=== PATIENT | female | born 1995 ===

== ENCOUNTER 2020-07-27 | Outpatient (REF) | payer BC, SELFPAY | END 2020-07-27 00:01 | disposition home or self-care (01) | LOC: HO.LNP | PROVIDERS: Visit Provider Hospitalist | DX: R30.0 Dysuria (principal) | CPT/HCPCS: 87086 ==

== ENCOUNTER 2023-12-02 09:44 | Outpatient (AMB) | payer OTHER, SELFPAY ==
--- NOTE | 2023-12-02 10:16 | A.OFFPSYCH_ITS ---
Intake Vital Signs 12/02/23 10:16 Height 5 ft 1 in Weight 165 lb Intake Visit Reasons: depression, ADHD, JORGE (generalized anxiety disorder), Borderline personality disorder Education Nurse Required: No Allergies amoxicillin Allergy (Intermediate, Verified 07/27/20 10:36) hives acetaminophen [Vicodin] Allergy (Mild, Verified 07/27/20 10:36) nor reaction Erythromycin Allergy (Intermediate, Uncoded 07/27/20 10:36) hives Medication List - Last Reconciled 12/02/23 by Courtney Omalley APRN clonazepam 0.5 mg PO TID levothyroxine 0 mcg PO methylphenidate HCl 10 mg PO BID ondansetron HCl 8 mg PO TID PRN HPI- Psychiatric Chief Complaint: depression, ADHD, JORGE (generalized anxiety disorder), Borderline personality disorder Intake Note: 28 yo woman with anxiety and ADHD in need of medication management HPI Narrative: Pt reports prozac caused significant fatigue and brain fog. she tried taking it at night but it caused nightmares and poor sleep; Pt reports stable mood and less anxiety and no panic attacks; she reports no moodiness, no irritability; He r focus and concentration is good; no impulsivity. Relationship with and parenting going well overall. Work going well. no self harm; no medical changes. she feels hopeful; she is exercising several times a week. She is meditating. She is taking a break from therpay and feels good about this; she has many coping kathi as she completed DBT groups and also learned how to use IFS model to calm herslef and increase self acceptance. She is struggling with binge eating periodically. she feels the vyvanse was helpful with this but doesn't want to change any medication now. no SI or HI; no jodi, no self harm Past Psychiatric History: Her first trouble with psychiatric symptoms was in 5th grade - first psych problems- she started with self harming in 5th grade; She was hospitalized many times as child/teen for self harmage 18 completed 1 yr DBT program= with very +++ results one hospitalization after 2 yr old dtr born and started on SSRI and it helped At age 16 a doctor told she had borderline personality disorder and referred her to DBT program which was a one year program and changed her life for the better. 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 Medication Trials: geodon- sedation/dizziness amictal ? rash risperdal- too scared to try Adderall - headaches, nausea wellbutrin - twitching prozac - worked well ? numbing (cut self 2019) 2022 to sedating seroquel - sedation, weight gain lexapro- negative celexa- negative concerta 27 mg - anxiety ativan - rebound irritability effexor - sedation, nausea - abilify - increased irritability buzzing in ears zoloft- negative tegretol- worked well in past 2019- Self injury - twitching trileptal-sedation rash depakote-weight gain vyvanse helped but almost too strong- increased anxiety a little luvox- worked well at first then irritabilty topomax vraylar Panic attacks: Yes Agoraphobia: No Separation anxiety disorder: No Social phobia: No Specific phobia: No Hypochondriasis: Yes Body dysmorphic disorder: Yes Obsessive compulsive disorder: No Generalized anxiety: Yes Post traumatic stress disorder: Yes Acute stress disorder: No Previous psychiatric history: Yes Previous inpatient psychiatric hospitalization: Yes Other previous psychiatric treatment programs: none History of suicidal ideation: Yes History of suicide attempt: No Medically hospitalized: No History of self injurious behavior: Yes History of violence: No Current/previous psychiatrist: nancy Current/previous therapist: none now Subjective Subjective Subjective Medication Compliance: Yes Side effects from medications: No Review of Systems Medical Review of Systems: unchanged Review of Systems Review of Systems Yes all other systems are reviewed and are negative Mental Status Exam Mental Status Exam Patient Appearance: Well Grooomed and Appropriate Patient Orientation: Person, Place, Time and Situation Level of Consciousness: Awake Patient Behavior: Appropriate, Talkative and Good Eye Contact Mood Description: Anxious Affect Description: Anxious Patient Cognition Impaired: No Ability to Follow Directions: Good Speech Pattern: Clear Memory Description: Intact Hallucinations: None Delusions: Not Present Thought Process: Intact and Goal Oriented Thought Content: positive for Intact and positive for Goal Oriented Judgement: Fair Assessment and Plan Assessment & Plan (1) Generalized anxiety disorder: Code(s): F41.1 - Generalized anxiety disorder (2) Borderline personality disorder: Code(s): F60.3 - Borderline personality disorder (3) ADHD: Status: Acute Code(s): F90.9 - Attention-deficit hyperactivity disorder, unspecified type Plan continue clonazpeam 0.5mg tidprn continue ritalin 10 mg BID continue to meditate, do yoga and utilize strategies from DBT, IFS to cope with stress and intense emotions. Medications: New clonazepam 0.5 mg PO TID 90 tabs 1RF methylphenidate HCl 10 mg PO BID 60 tabs 0RF Counseling and coordination of Care Pt. Self Management counseling: Breathing, Exercise, Maintenance-social rhythm, Mindfulness, Mod caffeine/ETOH intake, Sleep hygiene and General coping skills Medication management counseling: Effectiveness, Side effects, Dosing range, Duration, Drug interaction and Adherence Diagnosis and Prognosis Counseling: Accuracy of diagnosis, Prognosis over time, Impact of diagnosis on life functions, Impact of family relationship, Problematic behaviors secondary to diagnosis and Adequacy of current interventions Details: I spent 30 minutes reviewing the record, seeing the patient and documenting in the medical record. Counseling provided to the patient/caregiver as outlined below. Addressed patient/caregiver concerns regarding current medication regime including effective adherence. Addressed patient/caregiver concerns regarding diagnosis and prognosis including accuracy of diagnosis, prognosis over time, impact of diagnosis. Addressed patient/caregiver concerns regarding impact of recent stressors. 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 Substance History: none Trauma History: childhood trauma Coding Level of Care Code Est Pt Level 4 (00780) Diagnoses Generalized anxiety disorder F41.1 Borderline personality disorder F60.3 ADHD F90.9
== END 2023-12-02 10:17 | disposition home or self-care (01) ==
LOC: HO.HOP 09:44
PROVIDERS: Visit Provider Clinical Nurse Specialist Psychiatric/Mental Health
DX: F60.3 Borderline personality disorder (principal); F41.1 Generalized anxiety disorder; F90.9 Attention-deficit hyperactivity disorder, unspecified type
CPT/HCPCS: 99214

== ENCOUNTER → 2023-12-02 09:44 | Outpatient (BNVA) | payer OTHER, SELFPAY | PROVIDERS: Visit Provider Clinical Nurse Specialist Psychiatric/Mental Health ==

== ENCOUNTER 2024-01-10 13:41 | Outpatient (AMB) | payer OTHER, SELFPAY ==
--- NOTE | 2024-01-10 09:56 | MHC.PC.OV ---
Vital Signs 01/10/24 13:58 Height 5 ft 1 in Weight 191 lb 4 oz BMI 36.1 BP 96/60 Blood Pressure Location Lt brachial Position Sitting Respiration 16 Pulse 104 H Pulse Source Pulse Oximeter Temp 98 F Temp Source Oral Pulse Oximetry (%) 98 Oxygen Delivery Method Room Air Intake Visit Reasons: est care Intake Note: New patient visit Bond Manager Required: No Is last menstrual period known: Yes Last menstrual period: 12/04/23 Allergies amoxicillin Allergy (Intermediate, Verified 07/27/20 10:36) hives Erythromycin Allergy (Intermediate, Uncoded 07/27/20 10:36) hives Medication List - Last Reconciled 01/10/24 by Martina Lucio MD clonazepam 0.5 mg PO TID levothyroxine 0 mcg PO methylphenidate HCl 10 mg PO BID Tobacco use date assessed: 01/10/24 Dental Screening Dental Screen Date: 01/10/24 Did you have a dental visit in the last 12 months?: Yes Did you have a dental problem in the last 6 months where you did not have access to dental care?: No Was dental information given to patient?: Patient has dentist HPI HPI Comments History of Present Illness Details The patient is a 28 year old female with a past medical history of ADD, depression, anxiety, neck pain presenting for follow up She has had increased pain in the neck radiating down the right shoulder and right arm for the past 2 months. She has had issues with this in the past. she has had prior MRI, seen [facility]. She has pain and weakness in the right distal arm and hand which feels weak at times. She has had increased pain in multiple joints and tuscle fatigue and discomfort. Hypothyroid: stable on levothyroxine BH: Stable on methylphenidate and clonazepam. Follows with psych She reports 2-3 month history of left anterior neck fullness of upper neck, under jaw. Discomfort when she rotates her head. Denies left ear pain, denies tooth pain, denies sore throat, denies swallowing issues PFSH Family History (Updated 01/10/24 @ 14:14 by Lani Banda CMA) Father Gastric cancer HTN (hypertension) Asthma Maternal Grandmother Suicide Mother Depression Psychiatric disorder Other FH: mental illness Social History (Updated 01/10/24 @ 14:17 by Lani Banda CMA) Housing: House Patient Tobacco Use Status: Never used Tobacco e-Cigarette/Vaping Use: Never Used Second Hand Smoke Exposure: No service: No Current occupational status: employed Current occupation: [employer] Current occupational exposures/hazards: No Cognitive needs: No Hearing needs: No Vision needs: No Female Reproductive History Menstrual Date of last menstrual period: 12/04/23 Questionnaire PHQ-9 Over the last 2 weeks, how often have you been bothered by any of the following problems? 1. Little interest or pleasure in doing things: not at all 2. Feeling down, depressed, or hopeless: not at all 3. Trouble falling or staying asleep, or sleeping too much: not at all 4. Feeling tired or having little energy: not at all 5. Poor appetite or overeating: not at all 6. Feeling bad about yourself - or that you are a failure or have let yourself or your family down: not at all 7. Trouble concentrating on things, such as reading the newspaper or watching television: several days 8. Moving or speaking so slowly that other people could have noticed. Or the opposite - being so fidgety or restless that you have been moving around a lot more than usual: not at all 9. Thoughts that you would be better off or of hurting yourself in some way: not at all Total score: 1 Depression Screening Interpretation: Negative (neg) Depression Screening Done: Yes 96763 - PHQ-9 Billing: Yes Source: Developed by Drs. Balaji Toro, Chrystal Abrams, Jamison Davey and colleagues, with an educational marly from [employer]. Thrive Questionnaire Date Thrive assessed: 01/10/24 I am a: Patient What is your living situation today?: I have a steady place to live Within the past 12 months, did the food you bought not last and you didn't have the money to get more?: Never true Within the past 12 months, did you worry whether your food would run out before you got money to buy more?: Never true Do you have trouble paying for medicines?: No Do you have trouble getting transportation to medical appointments?: No Do you have trouble paying your heating and electricity bill?: No Do you have trouble taking care of your child, family member or friend?: No Do you have trouble with day-to-day activities such as bathing, preparing meals, shopping, managing finances, etc.?: No Are you currently unemployed and looking for a job?: No Are you interested in more education?: No Please select the resources that you would like help with: None Currently or been in a relationship where the following occur: no concerns reported THRIVE Score: 0 AUDIT C Alcohol Use Questionnaire (AUDIT-C) 1. How often do you have a drink containing alcohol?: Never 3. How often do you have six or more drinks on one occasion?: Never Total Score: 0 JORGE-7 AMB Questionnaire JORGE-7 Date JORGE - 7 assessed: 01/10/24 Feeling nervous, anxious, or on edge: 0 = Not at all Not being able to stop or control worryin = Not at all Worrying too much about different things: 0 = Not at all Trouble relaxin = Not at all Being so restless that it is hard to sit still: 0 = Not at all Becoming easily annoyed or irritable: 1 = Several days Feeling afraid as if something awful might happen: 0 = Not at all Total JORGE-7 score (0-4 normal; 5-9 mild; 10-14 moderate; 15-21 severe): 1 Source: Developed by Drs. Balaji Toro, Chrystal Abrams, Jamison Davey and colleagues, with an educational marly from [employer]. JORGE-7 Assessment Billing JORGE-7 Assessment Tool: JORGE-7 Assessment 12508 Review of Systems Const Details: see HPI Physical exam (Primary Care) Vital Signs: Last Vital Signs Temp 98 F 01/10/24 13:58 Pulse 104 H 01/10/24 13:58 Resp 16 01/10/24 13:58 BP 96/60 01/10/24 13:58 Pulse Ox 98 01/10/24 13:58 Oxygen Delivery Method Room Air 01/10/24 13:58 PHYSICAL EXAM: GENERAL: Alert and oriented x 3. NAD EYES: EOMI. Anicteric. HENT: Moist mucous membranes. No scleral icterus. b/l submandibular fullness LUNGS: Clear to auscultation bilaterally. CARDIOVASCULAR: Regular rate and rhythm. No murmur. No JVD. ABDOMEN: Soft, non-tender +bs EXTREMITIES: No edema. Non-tender. SKIN: No rashes or lesions. Warm. NEUROLOGIC: No focal neurological deficits. CN II-XII grossly intact PSYCHIATRIC: Cooperative. Appropriate mood and affect BMI result Body Mass Index 36.1 Tobacco/Smoking Status: Tobacco use Status Tobacco use date assessed 01/10/24 01/10/24 13:57 Patient Tobacco Use Status Never used Tobacco 01/10/24 14:17 e-Cigarette/Vaping Use Never Used 01/10/24 14:17 PHQ-9: PHQ-9 Score PHQ-9: Total score 1 01/10/24 14:16 Depression Screening Interpretation: Negative (neg) Thrive Assessment: Date of Thrive Assessment Date Thrive assessed 01/10/24 01/10/24 14:16 Currently or been in a relationship where the following occur: no concerns reported Assessment and Plan Assessment & Plan (1) ADHD: Comment: continue follow up Code(s): F90.9 - Attention-deficit hyperactivity disorder, unspecified type Qualifiers: Attention deficit-hyperactivity disorder type: predominantly inattentive Qualified Code(s): F90.0 - Attention-deficit hyperactivity disorder, predominantly inattentive type (2) Dysuria: Code(s): R30.0 - Dysuria (3) Hypothyroidism: Comment: check TSH Code(s): E03.9 - Hypothyroidism, unspecified Qualifiers: Hypothyroidism type: unspecified Qualified Code(s): E03.9 - Hypothyroidism, unspecified (4) Irritable bowel syndrome: Code(s): K58.9 - Irritable bowel syndrome without diarrhea Qualifiers: Irritable bowel syndrome type: unspecified Qualified Code(s): K58.9 - Irritable bowel syndrome without diarrhea (5) Anxiety: Code(s): F41.9 - Anxiety disorder, unspecified (6) Anxiety: Code(s): F41.9 - Anxiety disorder, unspecified (7) H/O section: Code(s): Z98.891 - History of uterine scar from previous surgery (8) Cervical radiculopathy: Comment: xr ordered. may need repeat MRI Code(s): M54.12 - Radiculopathy, cervical region Orders: Orders Rheumatoid Factor 01/10/24 M25.50 - Pain in unspecified joint, M54.12 - Radiculopathy, cervical region Lyme IgG/IgM w/reflex to WB 01/10/24 M25.50 - Pain in unspecified joint, M54.12 - Radiculopathy, cervical region Creatinine 01/10/24 M25.50 - Pain in unspecified joint, M54.12 - Radiculopathy, cervical region XR cervical spine 3V 01/10/24 M25.50 - Pain in unspecified joint, M54.12 - Radiculopathy, cervical region US soft tiss head and/or neck 01/10/24 K11.8 - Other diseases of salivary glands, M54.2 - Cervicalgia Erythrocyte Sedimentation Rate 01/10/24 M25.50 - Pain in unspecified joint, M54.12 - Radiculopathy, cervical region CRP High Sensitivity 01/10/24 M25.50 - Pain in unspecified joint, M54.12 - Radiculopathy, cervical region Complete Blood Count Auto Diff 01/10/24 M25.50 - Pain in unspecified joint, M54.12 - Radiculopathy, cervical region TSH reflex Free T4 01/10/24 E03.9 - Hypothyroidism, unspecified Referrals Physical Medicine and Rehabilitation Referral M25.50 - Pain in unspecified joint, M54.12 - Radiculopathy, cervical region Medical Weight Management Referral E66.9 - Obesity, unspecified Coding Level of Care Code Est Pt Level 4 (37702) Complex EM visit Add On G2211 Diagnoses Attention deficit hyperactivity disorder (ADHD), predominantly inattentive type F90.0 Attention deficit-hyperactivity disorder type: predominantly inattentive Dysuria R30.0 Hypothyroidism, unspecified type E03.9 Hypothyroidism type: unspecified Irritable bowel syndrome, unspecified type K58.9 Irritable bowel syndrome type: unspecified Anxiety F41.9 H/O section Z98.891 Cervical radiculopathy M54.12 Additional Codes JORGE-7 Assessment Billing - JORGE-7 Assessment Tool: JORGE-7 Assessment 80274 ([id number])
[2024-01-10 13:58] VITALS: BP 96/60; PULSE 104; RESP 16; TEMP 36.6; O2SAT 98; BMI 36.1
== END 2024-01-10 14:32 | disposition home or self-care (01) ==
PROVIDERS: Visit Provider Internal Medicine
DX: R30.0 Dysuria (principal); F90.0 Attention-deficit hyperactivity disorder, predominantly inattentive type; E03.9 Hypothyroidism, unspecified; K58.9 Irritable bowel syndrome, unspecified; F41.9 Anxiety disorder, unspecified; Z98.891 History of uterine scar from previous surgery; M54.12 Radiculopathy, cervical region
CPT/HCPCS: 99214; G2211

== ENCOUNTER 2024-01-13 12:31 | Outpatient (REF) | payer OTHER, SELFPAY ==
[2024-01-13 14:09] LABS: MANUAL DIFF FLAG NO
[2024-01-13 14:15] LABS: Basophils Percent Auto 0.4 % (0-2); Eosinophils Absolute Auto 0.1 X10*3/uL (0.0-0.4); Eosinophils Percent Auto 1.3 % (0-4); Hematocrit 40.3 % (37.0-47.0); Hemoglobin 13.4 g/dl (12.0-16.0); Imm Gran Abs Auto 0.03 X10*3/uL (0.00-0.03); Imm Gran Pct Auto 0.4 % (0.0-0.4); Lymphocytes Absolute Auto 2.6 X10*3/uL (1.2-4.9); Mean Corpuscular HGB Conc 33.3 g/dl (31.0-35.0); Mean Corpuscular Hemoglobin 28.9 pg (27.0-33.0); Mean Corpuscular Volume 86.9 fL (80.0-98.0); Mean Platelet Volume 9.4 fL (9.4-12.3); Monocytes Absolute Auto 0.6 X10*3/uL (0.1-1.2); Neutrophils Absolute Auto 4.5 x10*3/uL (2.0-8.3); Neutrophils Percent Auto 57.9 % (45-73); Platelet Count 461 X10*3/uL (160-400); Red Blood Count 4.64 X10*6/uL (4.20-5.50); Red Cell Distribution Width 12.7 % (11.0-16.0); White Blood Count 7.8 X10*3/uL (4.8-10.8)
[2024-01-13 14:51] LABS: Erythrocyte Sedimentation Rate 8 MM/HR (0-20); Rheumatoid Factor < 13.0 IU/mL (<15.0)
[2024-01-13 15:05] LABS: Estimated Glomerular Filt Rate > 60
[2024-01-13 15:10] LABS: TSH reflex Free T4 2.03 uIU/mL (0.32-4.0)
[2024-01-14 21:44] LABS: Lyme Abs Screen <0.90 index
[2024-01-15 08:03] LABS: CRP High Sensitivity 2.1 mg/L
== END 2024-01-13 12:32 | disposition home or self-care (01) ==
LOC: HO.WFDLDS 12:31
PROVIDERS: Visit Provider Internal Medicine
DX: M54.12 Radiculopathy, cervical region (principal); F50.81 Binge eating disorder; E03.9 Hypothyroidism, unspecified; M25.50 Pain in unspecified joint
CPT/HCPCS: 36415; 82565; 84443; 85025; 85652; 86141; 86431; 86617; 86618

== ENCOUNTER 2024-01-13 14:29 | Outpatient (AMB) | payer OTHER, SELFPAY ==
--- OUTSIDE RECORDS SUMMARY | 2024-01-13 14:31 | XMS_ITS | Continuity of Care Document ---
Author Organization [facility] Address [address] [place] [address]- Care Team Providers Care Records Management Associate Name Role Phone Chandra HAMILTON, Mariza Navarro Primary Care Physician [place] [facility] [place]/26/20 - 05/21/20 [facility] [address] [place] [id number] [facility] Attending Physician: Inga Gallagher MD Admitting Physician: Elliott HAMILTON, Inga Referring Physician: Mariza Artis MD Allergies, Adverse Reactions, Alerts Substance Reaction Severity Status erythromycin rash Active Augmentin hives Active Medications Clonazepam 0.5, By Mouth, Once, PRN Anxiety, 0 Refills, Maintenance, 03/15/19 13:09:53 EDT Start Date: 03/15/19 Status: Ordered EpiPen 2-Manuel 0.3 mg injectable kit = 0.3 mg, Intramuscular, Once, Use as directed for severe allergic reactions, # 1 pack/packet, 0 Refills, Soft Stop, 08/13/19 22:20:24 EST Start Date: 08/13/19 Status: Ordered fluvoxaMINE 50 mg oral tablet 1 tablet = 50 mg, By Mouth, Daily at bedtime, # 30 tablet, 0 Refills, Maintenance, 01/18/20 14:01:00 EDT, Tablet Start Date: 01/18/20 Status: Ordered levothyroxine 75 mcg (0.075 mg) oral tablet See Instructions, 1 tablet Mon-Sat and 2 tabs on Sun, # 102 tablet, 3 Refills, Maintenance, 02/23/20 9:16:00 EDT, Tablet, [id number], 155, cm, 02/12/20 19:53:00 EDT, Height, 81.6, kg, 02/12/20 19:53:00 EDT, Dry Weight Start Date: 02/23/20 Status: Ordered ondansetron 4 mg oral tablet, disintegrating 1 tablet = 4 mg, By Mouth, Every 8 hours, PRN as needed for nausea/vomiting, # 9 tablet, 0 Refills,Maintenance, 04/14/20 7:24:00 EDT, DIS Tablet, [id number], 155, cm, 04/14/20 7:14:00 EDT, Height, 90, kg, 04/14/20 7:14:00 EDT, Dry Weight Start Date: 04/14/20 Stop Date: 04/17/20 Status: Ordered Problem List Condition Effective Dates Status Health Status Inform ant Anxiety(Confirmed) Active Attention deficit hyperactiv ity disorder, predominantly inattentive type(Confirmed) Active Back pain(Confirmed) Active Borderline Personality Disorder(Confirmed) 02/01/11 Active Gastroesophageal reflux dise ase without esophagitis(Confirmed) Active Herpes(Confirmed) Active Hypothyroidism(Confirmed) Active Iron deficiency anemia(Confirmed) Active Irritable bowel syndrome(Confirmed) Active Migraine(Confirmed) Active Polycystic ovaries(Confirmed) Active Recurrent major depression(Confirmed) Active Social History Social History Type Response Smoking Status Never (less than 100 in lifetime) entered on: 10/13/19 Sex
--- OUTSIDE RECORDS SUMMARY | 2024-01-13 14:31 | XMS_ITS | Continuity of Care Document ---
Author Organization [facility] Address [address] [place] [address]- Care Team Providers Care Corporate Real Estate Specialist Name Role Phone Mariza Artis MD Primary Care Physician [place] [facility] [place] [facility] [address] [place] [id number] Attending Physician: Linda Short Admitting Physician: AdmtrLinda Referring Physician: Admtr, Ar8 Allergies, Adverse Reactions, Alerts Substance Reaction Severity Status erythromycin rash Active Augmentin hives Active Immunizations Given and Recorded Vaccine Date Status Refusal Reason hepatitis B adult vaccine 01/06/21 Given SARS-CoV-2 (COVID-19) mRNA BNT-162b2 vac 09/24/20 Recorded SARS-CoV-2 (COVID-19) mRNA BNT-162b2 vac 09/03/20 Recorded Hepatitis B Vaccine (old term) 06/20/15 Recorded Hepatitis B Vaccine (old term) 12/08/14 Recorded Hepatitis B Vaccine (old term) 04/28/14 Recorded Hepatitis B Vaccine (old term) 04/19/94 Recorded Hepatitis B Vaccine (old term) 93 Recorded tetanus/diphtheria/pertussis, acel(Tdap) 04/14/14 Recorded Medications Clonazepam 0.5, By Mouth, Once, PRN [...] EDT, Tablet Start Date: 01/18/20 Status: Ordered methylphenidate 5 mg oral tablet 5 mg, 1, tablet, By Mouth, 3 times a day, Refills 0, Tot. Refills 0, Maintenance, 12/26/20 15:19:00EDT, Partial fill upon patient request if the prescription is for a schedule II opioid drug. Start Date: 12/26/20 Status: Ordered Problem List Condition Effective Dates [...] 100 in lifetime) entered on: 10/13/19 Sex Female
--- OUTSIDE RECORDS SUMMARY | 2024-01-13 14:31 | XMS_ITS | Continuity of Care Document ---
Author Organization [facility] Address [address] [place] [id number]- Care Team Providers Care Material Liaison Name Role Phone Chandra HAMILTON, Mariza Navarro Primary Care Physician Encounter [facility] [place] Date(s): 09/26/20 - 10/26/20 [facility] [address] [place] [id number] Allergies, Adverse Reactions, Alerts Substance Reaction Severity [...] Tablet Start Date: 01/18/20 Status: Ordered levothyroxine 0.088 mg oral tablet 1 tablet = 88 mcg, By Mouth, Daily, # 30 tablet, 3 Refills, Maintenance, 09/12/20 11:56:00 EST, [id number], Partial fill upon patient request if the prescription is for a schedule II opioid drug., 155, cm, 05/30/20 20:09:00 EDT, Height, 81.8,... Start Date: 09/12/20 Status: Ordered Problem List Condition Effective Dates [...]
--- OUTSIDE RECORDS SUMMARY | 2024-01-13 14:31 | XMS_ITS | Continuity of Care Document ---
Author Organization [facility] ter Address [address] [place] [address]- Care Team Providers Care Electrolysis Investigator Name Role Phone Chandra HAMILTON, Mariza Navarro Primary Care Physician Encounter [facility] [place] Date(s): 10/19/19 - 10/19/[address] [address]- [facility] Attending Physician: Mariza Artis MD Allergies, Adverse Reactions, Alerts Substance Reaction Severity Status erythromycin rash Active Augmentin hives Active Medications Bactrim DS 800 mg-160 mg oral tablet 1 tablet, By Mouth, 2 times a day, for 7 days, # 14 tablet, 0 Refills, Acute 10/20/19 17:29:00 EST,10/13/19 17:29:00 EST, Tablet, [facility], 1 tablet By Mouth 2 times a day,x7 days, 155, cm, 10/13/19 15:00:00 EST, Height, 86.2, kg, ... Start Date: 10/13/19 Stop Date: 10/20/19 Status: Ordered Clonazepam 0.5, By Mouth, Once, PRN Anxiety, 0 Refills, Maintenance, 03/15/19 13:09:53 EDT Start Date: 03/15/19 Status: Ordered EpiPen 2-Manuel 0.3 mg injectable kit = 0.3 mg, Intramuscular, Once, Use as directed for severe allergic reactions, # 1 pack/packet, 0 Refills, Soft Stop, 08/13/19 22:20:24 EST Start Date: 08/13/19 Status: Ordered ferrous gluconate 256 mg (28 mg elemental iron) oral tablet 1 tablet = 256 mg, By Mouth, Daily, # 100 tablet, 0 Refills, Maintenance, 10/19/19 15:33:00 EST, Tablet, [facility], 155, cm, 10/19/19 15:19:00 EST, Height, 86.2, kg, 10/13/19 15:00:00 EST, Dry Weight Start Date: 10/19/19 Status: Ordered levothyroxine 75 mcg (0.075 mg) oral tablet 1 tablet = 75 mcg, By Mouth, Daily, # 90 tablet, 3 Refills, Maintenance, 03/05/19 11:39:20 EDT, Tablet Start Date: 03/05/19 Status: Ordered Liletta 52 mg intrauterine device 1 each = 52 mg, Intrauterine, Once, # 1 each, 0 Refills, Soft Stop, 02/28/19 10:21:41 EDT Start Date: 02/28/19 Status: Ordered PROzac 10 mg oral capsule 15 mg, By Mouth, Daily, # 60 capsule, Refills 0, Maintenance, 01/02/19 3:36:00 EDT Start Date: 01/02/19 Status: Ordered Zofran ODT 4 mg oral tablet, disintegrating 1 tablet = 4 mg, By Mouth, Every 6 hours, PRN Nausea & Vomiting, # 12 tablet, 0 Refills, Maintenance, 10/13/19 17:29:00 EST, [facility], 155, cm, 10/13/19 15:00:00 EST, Height, 86.2, kg, 10/13/19 15:00:00 EST, Dry Weight Start Date: 10/13/19 Status: Ordered Problem List Condition Effective Dates [...]
--- OUTSIDE RECORDS SUMMARY | 2024-01-13 14:31 | XMS_ITS | Continuity of Care Document ---
Author Organization [facility] Address [address] [facility], 3r d Floor, [address] [place] [address]- Care Team Providers Care Poker Prop Player Name Role Phone Naveed HAMILTON, Martina Dial Primary Care Physician Encounter [facility] Date(s): 11/19/22 - 12/19/22 [facility] [address], 3[address] Floor, [address] [place] [id number] Allergies, Adverse Reactions, Alerts Substance Reaction Severity Status erythromycin rash Active Augmentin hives Active Immunizations Given and Recorded Vaccine Date Status Refusal Reason SARS-CoV-2 (COVID-19) mRNA BNT-162b2 vac 10/31/21 Recorded SARS-CoV-2 (COVID-19) mRNA BNT-162b2 vac 09/24/20 Recorded SARS-CoV-2 (COVID-19) mRNA BNT-162b2 vac 09/03/20 Recorded influenza virus vaccine, inactivated 06/06/21 Howard rded influenza virus vaccine, inactivated 07/04/20 Howard rded influenza virus vaccine, inactivated 07/08/19 Howard rded influenza virus vaccine, inactivated 06/25/17 Howard rded hepatitis B adult vaccine 01/06/21 Given Hepatitis B Vaccine (old term) 06/20/15 Recorded Hepatitis B Vaccine (old term) 12/08/14 Recorded Hepatitis B Vaccine (old term) 04/28/14 Recorded Hepatitis B Vaccine (old term) 04/19/94 Recorded Hepatitis B Vaccine (old term) 93 Recorded tetanus/diphtheria/pertussis, acel(Tdap) 04/14/14 Recorded Medications Clonazepam 0.5, By Mouth, Once, PRN Anxiety, 0 Refills, Maintenance, 03/15/19 13:09:53 EDT Start Date: 6/30/19 Status: Ordered ferrous sulfate 325 mg oral enteric coated tablet See Instructions, TAKE 1 TABLET BY MOUTH EVERY SATURDAY, SATURDAY AND SATURDAY FOR 90 DAYS, # 39 tablet, Refills 0, Maintenance, 10/25/22 8:37:00 EST, Instructions Replace Required Details, Route to Pharmacy Electronically, [id number], 154, cm, 020... Start Date: 10/25/22 Status: Ordered levothyroxine 0.088 mg oral tablet 1 tablet = 88 mcg, By Mouth, Daily, # 90 tablet, 3 Refills, Maintenance, 11/01/22 6:30:00 EST, Tablet, [facility]/pharmacy #[id number], Partial fill upon patient request if the prescription is for a schedule II opioid drug., 154, cm, 10/20/22 20:08:00 EST, Height,... Start Date: 11/01/22 Stop Date: 10/27/23 Status: Ordered methylphenidate 5 mg oral tablet 5 mg, 1, tablet, By Mouth, 2 times a day, # 90 tablet, Refills 0, Tot. Refills 0, Maintenance, 10/20/22 17:13:00 EST, Partial fill upon patient request if the prescription is for a schedule II opioiddrug. Start Date: 10/20/22 Status: Ordered Problem List Condition Confirmation Course Effective Dates Status H ealth Status Informant Anxiety Confirmed Active Attention deficit hyperactivity disorder, predominantly inattentive type Confirmed Active Back pain Confirmed Active Borderline Personality Disorder Confirmed 02/01/11 Active Fatigue Confirmed Active Gastroesophageal reflux disease without esophagitis Confirmed Active Herpes Confirmed Active Hypothyroidism Confirmed Active Iron deficiency anemia Confirmed Active Irritable bowel syndrome Confirmed Active Arthralgia Confirmed Active Migraine Confirmed Active Myalgia Confirmed Active Polycystic ovaries Confirmed Active Recurrent major depression Confirmed Active Severe obesity (BMI 35.0-39.9) with comorbidity Confirmed Active Social History Social History Type Response Smoking Status Never (less than 100 in lifetime) entered on: 10/13/19 Sex Female Patient Care team information Care Team Personnel Name: Abilio Arellano RN Position: [facility] RN Member Role: Primary Care Nurse Name: Senia Ingram MD Position: [facility] INTERNAL COMBUSTION ENGINE INSPECTOR MD Member Role: Lifetime INTERNAL COMBUSTION ENGINE INSPECTOR Physician Address: Address: [address] [place] [address] Name: [place] Lucio MD Position: [facility] Primary Care Physician Member Role: PCP Address: Address: [address] [facility] Primary [place], [place] - Name: Balaji Chaudhry MD Position: [facility] INTERNAL COMBUSTION ENGINE INSPECTOR MD Member Role: Lifetime INTERNAL COMBUSTION ENGINE INSPECTOR Physician Address: Address: [address] [facility] [place], [place] - Care Team Related Persons Name: JIMENEZ MILLER Address: AMERCN Address: home [address] [place], [place] Name: PATRIA MILLER Address: home [address] [place], [place] Name: MARTA NICE Address: home [address] [place], [place] Name: MADHAVI NICE Address: home
--- OUTSIDE RECORDS SUMMARY | 2024-01-13 14:31 | XMS_ITS | Continuity of Care Document ---
Author Organization [facility] Address [address] [place] [address]- Care Team Providers Care Community Support Associate Name Role Phone Naveed HAMILTON, Martina Dial Primary Care Physician [phone] [place] [facility] [place] 11/08/22 [facility] [address] [place], [place] [address] Attending Physician: Linda Short Admitting Physician: AdmLinda solitario Referring Physician: AdmtrLinda Allergies, Adverse Reactions, Alerts Substance Reaction Severity [...] 13:09:53 EDT Start Date: 03/15/19 Status: Ordered ferrous sulfate 325 mg oral enteric coated tablet See Instructions, TAKE 1 TABLET BY MOUTH EVERY SATURDAY, SATURDAY AND SATURDAY FOR 90 DAYS, # 39 tablet, Refills 0, Maintenance, 10/25/22 8:37:00 EST, Instructions Replace Required Details, Route to Pharmacy Electronically, [id number], 154, cm, 02... Start Date: 10/25/22 Status: Ordered ketorolac 10 mg oral tablet 1 tablet = 10 mg, By Mouth, 4 times a day, PRN as needed for pain, for 5 days, not to exceed 40 mg/day and 5 days duration for all dose forms, # 20 tablet, 0 Refills, Acute 11/10/22 13:33:00 EST, 11/05/22 13:33:00 EST, Tablet, [facility]/pharmacy #1234, Part... Start Date: 11/05/22 Stop Date: 11/10/22 Status: Ordered levothyroxine 0.088 mg oral tablet 1 tablet = 88 mcg, By Mouth, Daily, # 90 tablet, 3 Refills, Maintenance, 11/01/22 6:30:00 EST, Tablet, [facility], Partial fill upon patient request if [...] II opioiddrug. Start Date: 10/20/22 Status: Ordered ondansetron 4 mg oral tablet 1 tablet = 4 mg, By Mouth, Every 8 hours, for 30 days, TAKE 1 TABLET BY MOUTH EVERY 8 HOURS NEEDED FOR NAUSEA AND VOMITING, # 60 tablet, 1 Refills, Acute 12/09/22 13:37:00 EDT, 10/10/22 13:37:00 EST, Tablet, [facility], Partial fill upon pa... Start Date: 10/10/22 Stop Date: 12/09/22 Status: Ordered Problem List Condition Confirmation Course [...] Team Personnel Name: Abilio Arellano RN Position: [facility] RN Member Role: Primary Care Nurse Name: Senia Ingram MD Position: [facility] PRINT PRODUCER MD Member Role: Lifetime PRINT PRODUCER Physician Address: Address: [address] [place] [address]- Name: [place]ina Lucio MD Position: [facility] Primary Care Physician Member Role: PCP Address: Address: [address] [place] [address] - Name: Balaji Chaudhry MD Position: [facility] PRINT PRODUCER MD Member Role: Lifetime PRINT PRODUCER Physician Address: Address: [address] [place] [address] [address]- Care Team Related Persons Name: JIMENEZ MILLER Address: AMERCN Address: home [address] [place], [place] Name: PATRIA MILLER Address: home [address] [place], [place] Name: MARTA NICE Address: home [address] [place], [place] Name: MADHAVI NICE Address: home
--- OUTSIDE RECORDS SUMMARY | 2024-01-13 14:31 | XMS_ITS | Continuity of Care Document ---
Author Organization [facility] [place] Address [address] [place] [address]- Care Team Providers Care Orthopaedic Nurse Name Role Phone Chandra HAMILTON, Mariza Navarro Primary Care Physician Encounter [facility] Date(s): 12/05/20 - 01/04/21 [facility] [place] [address] [place], [place] [address] Allergies, Adverse Reactions, Alerts Substance Reaction Severity Status erythromycin rash Active Augmentin hives Active Immunizations Given and Recorded Vaccine Date Status Refusal Reason SARS-CoV-2 (COVID-19) mRNA BNT-162b2 vac 09/24/20 Recorded [...]
--- OUTSIDE RECORDS SUMMARY | 2024-01-13 14:31 | XMS_ITS | Continuity of Care Document ---
Author Organization [facility] ter Address [address] [place] [address]- Care Team Providers Care Marketing Trainee Name Role Phone Chandra HAMILTON, Mariza Navarro Primary Care Physician Encounter [facility] [place] Date(s): 09/10/19 - 09/10/[address] [address]- [facility] Attending Physician: Rom Lopez MD Allergies, Adverse Reactions, Alerts Substance Reaction [...] 22:20:24 EST Start Date: 08/13/19 Status: Ordered levothyroxine 75 mcg (0.075 mg) oral tablet 1 tablet = 75 mcg, By Mouth, Daily, # 90 tablet, 3 Refills, Maintenance, 03/05/19 11:39:20 EDT, Tablet Start Date: 03/05/19 Status: Ordered lidocaine 5% topical film 1 patch, Topically, Daily, PRN Pain , Moderate, remove patches after 12 hours, # 7 patch, 0 Refills, Maintenance, 05/09/19 21:40:42 EDT Start Date: 05/09/19 Stop Date: 05/16/19 Status: Ordered Liletta 52 mg intrauterine device 1 each = 52 mg, Intrauterine, Once, # 1 each, 0 Refills, Soft Stop, 02/28/19 10:21:41 EDT Start Date: 02/28/19 Status: Ordered omeprazole 20 mg oral enteric coated capsule 1 capsule = 20 mg, By Mouth, Daily, # 15 tablet, 0 Refills, Maintenance, 05/06/19 21:24:27 EDT, EC Capsule Start Date: 05/06/19 Status: Ordered PROzac 10 mg oral capsule 15 mg, By Mouth, Daily, # 60 capsule, Refills 0, Maintenance, 01/02/19 3:36:00 EDT Start Date: 01/02/19 Status: Ordered Zofran ODT 4 mg oral tablet, disintegrating 1 tablet = 4 mg, By Mouth, 3 times a day, PRN Nausea, # 10 tablet, 0 Refills, Maintenance, 05/09/1921:50:37 EDT Start Date: 05/09/19 Status: Ordered Zofran ODT 4 mg oral tablet, disintegrating 1 tablet = 4 mg, By Mouth, 3 times a day, PRN Nausea & Vomiting, # 6 tablet, 0 Refills, Maintenance, 05/06/19 21:24:20 EDT, DIS Tablet Start Date: 05/06/19 Stop Date: 05/08/19 Status: Ordered Problem List Condition Effective Dates [...] Social History Type Response Smoking Status Never smoker entered on: 12/30/14 Sex
--- OUTSIDE RECORDS SUMMARY | 2024-01-13 14:31 | XMS_ITS | Continuity of Care Document ---
Author Organization [facility] Address [address] [facility], 3[address] d Floor, [address] [place] [address]- Care Team Providers Care Division Human Resources Manager Name Role Phone Chandra HAMILTON, Mariza Navarro Primary Care Physician Encounter [facility] [place] Date(s): 05/30/20 - 06/29/20 [facility] [address], [address] Floor, [address] [place] [address]- [facility] Allergies, Adverse Reactions, Alerts Substance Reaction Severity [...] 3 Refills, Maintenance, 02/23/20 9:16:00 EDT, Tablet, [facility] #1234, 155, cm, 02/12/20 19:53:00 EDT, Height, 81.6, kg, 02/12/20 19:53:00 EDT, Dry Weight Start Date: 02/23/20 Status: Ordered Problem List Condition Effective Dates [...]
--- OUTSIDE RECORDS SUMMARY | 2024-01-13 14:31 | XMS_ITS | Continuity of Care Document ---
Author Organization [facility] Address [address] [place] [address]- Care Team Providers Care Haulage Engine Operator Name Role Phone Chandra HAMILTON, Mariza Navarro Primary Care Physician Encounter [facility] [place] Date(s): 08/23/21 - 09/22/[address] [address] Attending Physician: Admtr, [id number] Admitting Physician: Admtr, Ar8 Referring Physician: Admtr, Ar8 Allergies, Adverse Reactions, Alerts Substance Reaction Severity Status erythromycin rash Active Augmentin hives Active Immunizations Given and Recorded Vaccine Date Status Refusal Reason influenza virus vaccine, inactivated 06/06/21 Howard rded influenza virus vaccine, inactivated 07/04/20 Howard rded influenza virus vaccine, inactivated 07/08/19 Howard rded influenza virus vaccine, inactivated 06/25/17 Howard rded hepatitis B adult vaccine 01/06/21 Given SARS-CoV-2 [...] mg) oral tablet See Instructions, 1 tablet By Mouth Daily Saturday through Saturday. 2 tablets on Sundays., # 35 each, 11 Refills, Maintenance, 07/12/21 14:12:00 EDT, Tablet, [facility], dose changed. pls refill when due, 155, cm, 06/21/21 15:21:00 EDT, Height,... Start Date: 07/12/21 Status: Ordered methylphenidate 5 mg oral tablet [...] Active Irritable bowel syndrome(Confirmed) Active Migraine(Confirmed) Active Obese class II(Confirmed) Active Polycystic ovaries(Confirmed) Active Recurrent major depression(Confirmed) Active Social History Social History Type Response Smoking Status Never (less than 100 in lifetime) entered on: 10/13/19 Sex Female
--- OUTSIDE RECORDS SUMMARY | 2024-01-13 14:31 | XMS_ITS | Continuity of Care Document ---
Author Organization [facility] Address Unknown Care Team Providers Care Night Order Selector Name Role Phone Ngoc BROCK, Orly Primary Care Physician Encounter [facility] [place] Date(s): 12/29/21 - 01/28/22 [facility] Attending Physician: Linda Short Admitting Physician: Linda Short Referring Physician: Linda Short Allergies, Adverse Reactions, Alerts Substance Reaction Severity [...]
--- OUTSIDE RECORDS SUMMARY | 2024-01-13 14:31 | XMS_ITS | Continuity of Care Document ---
Author Organization [facility] [place] Address [address] [place] [address]- Care Team Providers Care Oracle Database Architect Name Role Phone Chandra HAMILTON, Mariza Navarro Primary Care Physician Encounter [facility] Date(s): 11/03/20 - 12/03/20 [facility] [place] [address] [place], [place] [address] Attending Physician: Linda Short Admitting Physician: AdmtrLinda [...] EDT, Tablet Start Date: 01/18/20 Status: Ordered Problem List Condition Effective Dates [...]
--- OUTSIDE RECORDS SUMMARY | 2024-01-13 14:31 | XMS_ITS | Continuity of Care Document ---
Author Organization [facility] Address [address] [place] [address]- Care Team Providers Care Reading Coach Name Role Phone Chandra HAMILTON, Mariza Navarro Primary Care Physician [place] [facility] [place] Date(s): 08/23/21 - 08/30/21 [facility] [address] [place] [address] Attending Physician: Nagi HAMILTON, Martita Horne Admitting Physician: Martita Lazar MD Referring Physician: Chandra HAMILTON, Mariza Navarro Allergies, Adverse Reactions, Alerts Substance Reaction Severity [...] 11 Refills, Maintenance, 07/12/21 14:12:00 EDT, Tablet, [facility]/pharmacy #1234, dose changed. pls refill when due, [...] Polycystic ovaries(Confirmed) Active Recurrent major depression(Confirmed) Active Vital Signs Most recent to oldest [Reference Range]: 1 Height 155 cm (08/23/21 6:05 PM) Weight 90.8 kg (08/23/21 6:05 PM) Social History Social History Type Response Smoking Status Never (less than 100 in lifetime) entered on: 10/13/19 Sex Female
--- OUTSIDE RECORDS SUMMARY | 2024-01-13 14:31 | XMS_ITS | Continuity of Care Document ---
Author Organization [facility] Address [address] [place] [address]- Care Team Providers Care Lieutenant Colonel Name Role Phone Naveed HAMITLON, Martina Dial Primary Care Physician Encounter [facility] Date(s): 07/07/23 - 08/06/23 [facility] [address] [place], [place] [address] Attending Physician: AdmOctavio [email or web address] Admitting Physician: Admtr, Ar8 Referring Physician: Admtr, Ar8 Allergies, Adverse Reactions, Alerts Substance Reaction Severity Status erythromycin rash Active azithromycin Active Augmentin hives Active Immunizations Given and [...] Replace Required Details, Route to Pharmacy Electronically, [id number], 154, cm, ... Start Date: 10/25/22 Status: Ordered levothyroxine 0.088 mg oral tablet 1 tablet = 88 mcg, By Mouth, Daily, # 90 tablet, 3 Refills, Maintenance, 11/01/22 6:30:00 EST, Tablet, [facility]/pharmacy #1234, Partial fill upon [...] II opioiddrug. Start Date: 10/20/22 Status: Ordered Ozempic 2 mg/3 mL (0.25 mg or 0.5 mg dose) subcutaneous solution See Instructions, 0.5 mg subcutaneous every 7 days for 12 weeks, # 9 mL, 0 Refills, Maintenance, 04/24/23 6:54:00 EDT, [facility]/pharmacy #1234, Partial fill upon patient request if the prescription is fora schedule II opioid drug., 154, cm, 01/02/23 11:38... Start Date: 04/24/23 Status: Ordered Topamax 50 mg oral tablet 1 tablet = 50 mg, By Mouth, Daily, 1/2 day oral daily for 7 day then increase to 1 tab oral once daily, # 30 tablet, 0 Refills, Maintenance, 01/14/23 12:38:00 EDT, Tablet, [facility]/pharmacy #1234, Partialfill upon patient request if the prescription is fo... Start Date: 01/14/23 Stop Date: 02/13/23 Status: Ordered Vyvanse 30 mg oral capsule 1 capsule = 30 mg, By Mouth, Daily in AM, 0 Refills, Maintenance, 04/22/23 16:48:00 EDT, Capsule, Partial fill upon patient request if the prescription is for a schedule II opioid drug. Start Date: 04/22/23 Stop Date: 05/22/23 Status: Ordered Problem List Condition Confirmation Course [...] Team Personnel Name: Abilio Arellano RN Position: [facility] RN Member Role: Primary Care Nurse Name: Tracy Soto RN Position: [facility] RN Member Role: Primary Care Nurse Name: Senia Ingram MD Position: [facility] OIL DEVELOPER MD Member Role: Lifetime OIL DEVELOPER Physician Address: Address: [address] [place] [address]- Name: Beverley Tam [place] Position: [facility] Outreach Member Role: Lifetime Consulting Physician Name: Martina Lucio MD Position: [facility] Physician - Primary Care Member Role: PCP Address: Address: [address] [place] [address] Primary Care [place], [place] - Name: Balaji Chaudhry MD Position: [facility] OIL DEVELOPER MD Member Role: Lifetime OIL DEVELOPER Physician Address: Address: [address] [place] [address] [place], [place] - Care Team Related Persons Name: JIMENEZ SOTO Address: AMERCN Address: home [address] [place], [place] Name: PATRIA SOTO Address: home [address] [place], [place] Name: MARTA NICE Address: home [address] [place], [place] Name: MADHAVI NICE Address: home
--- OUTSIDE RECORDS SUMMARY | 2024-01-13 14:31 | XMS_ITS | Continuity of Care Document ---
Author Organization [facility] Address [address] [place] [address]- Care Team Providers Care Zumba Instructor Name Role Phone Naveed HAMILTON, Martina Dial Primary Care Physician En[place] [facility] [place] [place] [facility] [id number] Date(s): 12/05/22 - 01/09/23 [facility] [address] [address]- Attending Physician: Master Irwin MD Admitting Physician: Master Irwin MD Referring Physician: Master Irwin MD Allergies, Adverse Reactions, Alerts Substance Reaction [...] Details, [facility] to [id number], 154, cm, 020... Start Date: 10/25/22 Status: Ordered levothyroxine 0.088 mg oral tablet 1 tablet = 88 mcg, By Mouth, Daily, # 90 tablet, 3 Refills, Maintenance, 11/01/22 6:30:00 EST, Tablet, [facility]/pharmacy #1234, Partial fill upon patient request if [...] Team Personnel Name: Abilio Arellano RN Position: S RN Member Role: Primary Care Nurse Name: Senia Ingram MD Position: S PRODUCE DEPARTMENT MANAGER Member Role: Lifetime PRODUCE DEPARTMENT MANAGER Physician Address: Address: [address] [place] [address] Name: Martina Lucio MD Position: [facility] Primary Care Physician Member Role: PCP Address: Address: [address] [facility] Primary [place], [place] - [place] Name: Balaji Chaudhry MD Position: [facility] PRODUCE DEPARTMENT MANAGER MD Member Role: Lifetime PRODUCE DEPARTMENT MANAGER Physician Address: Address: [address] [facility] [place], [place] - Care Team Related Persons Name: JIMENEZ MILLER Address: AMERCN Address: home [address] [place], [place] Name: PATRIA MILLER Address: home [address] [place], [place] Name: MARTA NICE Address: home [address] [place], [place] Name: MADHAVI NICE Address: home
--- OUTSIDE RECORDS SUMMARY | 2024-01-13 14:31 | XMS_ITS | Continuity of Care Document ---
Author Organization [facility] Address [address] [place] [address]- Care Team Providers Care Windshield Wiper Repairer Name Role Phone Chandra HAMILTON, Mariza Navarro Primary Care Physician En[place] [facility] [place] Date(s): 06/08/20 - 07/08/20 [facility] [address] [address] [facility] Attending Physician: Linda Short Admitting Physician: AdmtrLinda [...]
--- OUTSIDE RECORDS SUMMARY | 2024-01-13 14:31 | XMS_ITS | Continuity of Care Document ---
Author Organization [facility]ocrinolo gy and Diabetes Address [address] [place] [address]- Care Team Providers Care Restaurant Area Director Name Role Phone Chandra HAMILTON, Mariza Navarro Primary Care Physician Encounter [facility] [place] Date(s): 09/06/20 - 10/06/20 [facility]ocrinology and Diabetes [address] [place] [id number] Allergies, Adverse Reactions, Alerts Substance [...] tablet, 3 Refills, Maintenance, 09/12/20 11:56:00 EST, [facility]/pharmacy #[id number], Partial fill upon patient request if the [...]
--- OUTSIDE RECORDS SUMMARY | 2024-01-13 14:31 | XMS_ITS | Continuity of Care Document ---
Author Organization [facility] C ancer Care Address [address] [place] [address]- Care Team Providers Care Electronic Data Interchange Specialist Name Role Phone Naveed HAMILTON, Martina Dial Primary Care Physician [phone] [place] [facility] [place] - 03/30/22 [facility] Care [address] [place] [id number] Attending Physician: Linda Short Admitting Physician: [...] 11 Refills, Maintenance, 07/12/21 14:12:00 EDT, Tablet, [facility]/pharmacy #[id number], dose changed. pls refill when due, [...] pain(Confirmed) Active Borderline Personality Disorder(Confirmed) 02/01/11 Active Fatigue(Confirmed) Active Gastroesophageal reflux dise ase without esophagitis(Confirmed) Active Herpes(Confirmed) Active Hypothyroidism(Confirmed) Active Iron deficiency anemia(Confirmed) Active Irritable bowel syndrome(Confirmed) Active Arthralgia(Confirmed) Active Migraine(Confirmed) Active Myalgia(Confirmed) Active Obese class II(Confirmed) Active Polycystic ovaries(Confirmed) Active Recurrent major depression(Confirmed) Active Social History Social History Type Response Smoking Status Never (less than 100 in lifetime) entered on: 10/13/19 Sex Female
--- OUTSIDE RECORDS SUMMARY | 2024-01-13 14:31 | XMS_ITS | Continuity of Care Document ---
Author Organization [facility] Endocrinolo [facility] Diabetes [place] Address [address] [place] [address]- Care Team Providers Care Commercial Account Officer Name Role Phone Chandra HAMILTON, Mariza Navarro Primary Care Physician Encounter [facility] Date(s): 01/20/21 - 05/20/21 [facility]ocr[facility]ology [facility] Diabetes [place] [address] [place] [address]- Attending Physician: Nicolasa Mcdaniel MD Allergies, Adverse Reactions, Alerts Substance Reaction [...]
--- OUTSIDE RECORDS SUMMARY | 2024-01-13 14:32 | XMS_ITS | Continuity of Care Document ---
Author Organization [facility] ancer Care Address [address] [place] [address]- Care Team Providers Care Fuel Cell Repairer Name Role Phone Naveed HMAILTON, Martina Dial Primary Care Physician [phone] En[place] [facility] [place] Date(s): 07/30/22 - 08/29/[address] [address] Allergies, Adverse Reactions, Alerts Substance [...] 13:09:53 EDT Start Date: 6/30/19 Status: Ordered levothyroxine 75 mcg (0.075 mg) oral tablet See Instructions, 1 tablet By Mouth Daily Saturday through Saturday. 2 tablets on Sundays., # 35 each, 11 Refills, Maintenance, 07/12/21 14:12:00 EDT, Tablet, [id number], dose changed. pls refill when due, 155, cm, 06/21/21 15:21:00 EDT, Height,... Start Date: 07/12/21 Status: Ordered Problem List Condition Confirmation Course [...] Active Migraine Confirmed Active Myalgia Confirmed Active Obese class I Confirmed Active Polycystic ovaries Confirmed Active Recurrent major depression Confirmed Active Social History Social History Type Response Smoking Status Never (less than 100 in lifetime) entered on: 10/13/19 Sex Female Patient Care team information Care Team Personnel Name: Abilio Arellano RN Position: [facility] RN Member Role: Primary Care Nurse Name: Senia Ingram MD Position: [facility] CURATORIAL ASSISTANT MD Member Role: Lifetime CURATORIAL ASSISTANT Physician Address: Address: [address] [place] [address]- Name: Martina Lucio MD Position: [facility] Primary Care Physician Member Role: PCP Address: Address: [address] [place] [address] - Name: Baalji Chaudhry MD Position: [facility] CURATORIAL ASSISTANT MD Member Role: Lifetime CURATORIAL ASSISTANT Physician Address: Address: [address] [place] [address] [facility] - Care Team Related Persons Name: JIMENEZ MILLER Address: AMERCN Address: home [address] [place], [place] Name: PATRIA MILLER Address: home [address] [place], [place] Name: MARTA NICE Address: home [address] [place], [place] Name: MADHAVI NICE Address: home
--- OUTSIDE RECORDS SUMMARY | 2024-01-13 14:32 | XMS_ITS | Continuity of Care Document ---
Author Organization [facility] Endocrinolo gy and Diabetes [place] Address [address] [place] [address]- Care Team Providers Care Occupational Medicine Physician Name Role Phone Chandra HAMILTON, Mariza Navarro Primary Care Physician Encounter [facility] Date(s): 06/07/21 - 07/07/21 [facility] Endocrinology and Diabetes [address] [address] Allergies, Adverse Reactions, Alerts Substance Reaction [...] 22:20:24 EST Start Date: 08/13/19 Status: Ordered methylphenidate 5 mg oral tablet [...]
--- OUTSIDE RECORDS SUMMARY | 2024-01-13 14:32 | XMS_ITS | Continuity of Care Document ---
Author Organization [facility] Address [address] [place] [address]- Care Team Providers Care Superintendent Construction Name Role Phone Chandra HAMILTON, Mariza Navarro Primary Care Physician Encounter [place] Date(s): 09/10/19 - 09/10/[address] [address]- [facility] Attending Physician: Not on Staff, Attending MD Allergies, Adverse Reactions, Alerts Substance Reaction [...]
--- OUTSIDE RECORDS SUMMARY | 2024-01-13 14:32 | XMS_ITS | Continuity of Care Document ---
Author Organization [facility] ter Address [address] [place] [address]- Care Team Providers Care Copper Plate Printer Name Role Phone Naveed HAMILTON, Martina Dial Primary Care Physician [phone] En[place] [facility] [place] Date(s): 06/23/22 - 06/23/[address] [address]- Encounter Diagnosis Accidental hypodermic needlestick injury with exposure to body fluid(Final) - 06/23/22 Discharge Disposition: A-D/C Home Attending Physician: Carlton Gunderson MD Admitting Physician: Carlton Gunderson MD Referring Physician: Not on Staff, Referring MD Allergies, Adverse Reactions, Alerts Substance Reaction [...] 11 Refills, Maintenance, 07/12/21 14:12:00 EDT, Tablet, [facility]/pharmacy #[id number], dose changed. pls refill when due, 155, cm, 06/21/21 15:21:00 EDT, Height,... Start Date: 07/12/21 Status: Ordered methylphenidate 5 mg oral tablet 5 mg, 1, tablet, By Mouth, 3 times a day, Refills 0, Tot. Refills 0, Maintenance, 12/26/20 15:19:00EDT, Partial fill upon patient request if the prescription is for a schedule II opioid drug. Start Date: 12/26/20 Status: Ordered nystatin 960710 u/ml oral suspension 4 mL = 400,000 units, By Mouth, 4 times a day, for 10 days, # 160 mL, 0 Refills, Acute 06/25/22 13:18:00 EDT, 06/15/22 13:18:00 EDT, Suspension, [facility]/pharmacy #[id number], Partial fill upon patient request if the prescription is for a schedule II opioid drug... Start Date: 06/15/22 Stop Date: 06/25/22 Status: Ordered Problem List Condition Confirmation Course [...] Confirmed Active Myalgia Confirmed Active Obese class II Confirmed Active Polycystic ovaries Confirmed Active Recurrent major depression Confirmed Active Vital Signs Most recent to oldest [Reference Range]: 1 Oxygen Saturation [94-100 %] 100 % (06/23/22 6:00 PM) Pulse Rate [55-90 bpm] 80 bpm (06/23/22 6:00 PM) Blood Pressure [90-138/55-84 mm Hg] 110/ 80mm Hg (06/23/22 6:00 PM) Respiratory Rate [16-30 br/min] 16 br/mi n (06/23/22 6:00 PM) Temperature [96.8-100.4 DegF] 98.2 DegF (06/23/22 6:00 PM) Mode of Delivery (Oxygen) Room air (06/23/22 6:00 PM) Blood pressure sites Arm, left (06/23/22 6:00 PM) Temperature Route Oral (06/23/22 6:00 PM) Social History Social History Type Response Smoking Status Never (less than 100 in lifetime) entered on: 10/13/19 Sex Female Patient Care team information Personnel Name: Naveed HAMILTON, Martina Dial Address: Address: [address] [place] [address]
--- OUTSIDE RECORDS SUMMARY | 2024-01-13 14:32 | XMS_ITS | Continuity of Care Document ---
Author Organization [facility] C ancer Care Address [address] [place] [address]- Care Team Providers Care Solutions Engineer Name Role Phone Mariza Artis MD Primary Care Physician [place] [facility] 09/18[place]19 - 09/28/19 [facility] [address] [place] [address]- [facility] Attending Physician: Linda Short Admitting [...]
--- OUTSIDE RECORDS SUMMARY | 2024-01-13 14:32 | XMS_ITS | Continuity of Care Document ---
Author Organization [facility] Medicine Address [address] [place] [address]- Care Team Providers Care Crtt Name Role Phone Mariza Artis MD Primary Care Physician Encounter [facility] Date(s): 03/13/21 - 04/13/21 [facility] Medicine [address] [place] [address] Attending Physician: Ankit Wilson MD Admitting Physician: Ankit Wilson MD Allergies, Adverse Reactions, Alerts Substance Reaction [...]
--- OUTSIDE RECORDS SUMMARY | 2024-01-13 14:32 | XMS_ITS | Continuity of Care Document ---
Author Organization [facility] ter Address [address] [place] [address]- Care Team Providers Care Black Belt Name Role Phone Chandra HAMILTON, Mariza Navarro Primary Care Physician Encounter [facility] [place] Date(s): 09/10/19 - 09/10/[address] [address]- [facility] Attending Physician: Cindy Silva NP, I Allergies, Adverse Reactions, Alerts Substance Reaction Severity [...]
--- OUTSIDE RECORDS SUMMARY | 2024-01-13 14:32 | XMS_ITS | Continuity of Care Document ---
Author Organization [facility] Endocrinolo gy and Diabetes Address [address] [place] [address]- Care Team Providers Care Screw Machine Set Up Operator Tool Name Role Phone Chandra HAMILTON, Mariza Navarro Primary Care Physician Encounter [facility] Date(s): 07/12/21 - 08/11/21 [facility] Endocrinology and Diabetes [address] [place] [address] Attending Physician: Admtr, [email or web address] Admitting Physician: Admtr, [...] 11 Refills, Maintenance, 07/12/21 14:12:00 EDT, Tablet, [facility]/pharmacy #[id number], dose changed. pls refill when [...]
--- OUTSIDE RECORDS SUMMARY | 2024-01-13 14:32 | XMS_ITS | Continuity of Care Document ---
Author Organization [facility] Address Unknown Care Team Providers Care International Manager Name Role Phone Ngoc BROCK, Orly Primary Care Physician En[place] [facility] [id number] Date(s): 09/30/21 - 01/28/22 [facility] Attending Physician: Abilio Bob NP Referring Physician: Nagi HAMILTON, Martita Horne Allergies, Adverse Reactions, Alerts Substance Reaction Severity [...]
--- OUTSIDE RECORDS SUMMARY | 2024-01-13 14:32 | XMS_ITS | Continuity of Care Document ---
Author Organization [facility] Address [address] [facility], [address] Floor, [address] [place] [address]- Care Team Providers Care Feather Trimmer Name Role Phone Chandra HAMILTON, Mariza Navarro Primary Care Physician Encounter [facility] [place] Date(s): 06/09/20 - 07/09/20 [facility] [address], [address] Floor, [address] [place] [address]- [facility] Attending Physician: Linda Short Admitting Physician: AdmtrLinda [...]
--- OUTSIDE RECORDS SUMMARY | 2024-01-13 14:32 | XMS_ITS | Continuity of Care Document ---
Author Organization [facility] Address [address] [facility], [address] d Floor, [address] [place] [address]- Care Team Providers Care Record Center Coordinator Name Role Phone Naveed HAMILTON, Martina Dial Primary Care Physician [phone] Encounter [facility] Date(s): 11/13/22 - 12/13/22 [facility] [address], 3[address] Floor, [address] [place] [address]- Attending Physician: Linda Short Admitting Physician: AdmLinda [...] Mouth, Once, PRN Anxiety, 0 Refills, Maintenance, 06/30/19 13:09:53 EDT Start Date: 03/15/19 Status: Ordered ferrous sulfate 325 mg oral enteric coated tablet See Instructions, TAKE 1 TABLET BY MOUTH EVERY SATURDAY, SATURDAY AND SATURDAY FOR 90 DAYS, # 39 tablet, Refills 0, Maintenance, 10/25/22 8:37:00 EST, Instructions Replace Required Details, Route to [id number], 154, cm, ... Start Date: 10/25/22 Status: Ordered levothyroxine 0.088 mg oral tablet 1 tablet = 88 mcg, By Mouth, Daily, # 90 tablet, 3 Refills, Maintenance, 11/01/22 6:30:00 EST, Tablet, [facility]/pharmacy #[id number], Partial fill upon patient request [...] Care Nurse Name: Senia Ingram MD Position: [facility] CAPACITY PLANNER Member Role: Lifetime CAPACITY PLANNER Physician Address: Address: [address] [place] [address] [place] [address]- [place] Name: Naveed HAMILTON, Martina Dial Position: [facility] Primary Care Physician Member Role: PCP Address: Address: [address] [facility] [place], [place] - [place] Name: Balaji Chaudhry MD Position: [facility] CAPACITY PLANNER MD Member Role: Lifetime CAPACITY PLANNER Physician Address: Address: [address] [place] [address] - Care Team Related Persons Name: JIMENEZ MILLER Address: AMER[employer] Address: home [address] [place], [place] Name: PATRIA MILLER Address: home [address] [place], [place] Name: MARTA NICE Address: home [address] [place], [place] Name: MADHAVI NICE Address: home
--- OUTSIDE RECORDS SUMMARY | 2024-01-13 14:32 | XMS_ITS | Continuity of Care Document ---
Author Organization [facility] ancer Care Address [address] [place] [address]- Care Team Providers Care Data Conversion Developer Name Role Phone Chandra HAMILTON, Mariza Navarro Primary Care Physician Encounter [facility] [place] Date(s): 09/18/19 - 05/05/21 [facility] Care [address] [place] [address]- Discharge Disposition: A-D/C Home Attending Physician: Simin Saul MD Admitting Physician: Simin Saul MD Referring Physician: Cindy Silva NP, I Allergies, Adverse [...]
--- OUTSIDE RECORDS SUMMARY | 2024-01-13 14:32 | XMS_ITS | Continuity of Care Document ---
Author Organization [facility] C ancer Care Address [address] [place] [address]- Care Team Providers Care Cup Machine Operator Name Role Phone Naveed AHMILTON, Martina Dial Primary Care Physician [phone] [place] [facility] 02/28/22 - 09/23/22 [facility] Care [address] [place] [address]- Discharge Disposition: A-D/C Home Attending Physician: Not on Staff, Attending MD Admitting Physician: Thomas Nathan MD, Buzz K Referring Physician: Martina Lucio MD Allergies, Adverse Reactions, Alerts Substance Reaction [...] 13:09:53 EDT Start Date: 03/15/19 Status: Ordered levothyroxine 75 mcg (0.075 mg) oral tablet See Instructions, 1 tablet By Mouth Daily Saturday through Saturday. 2 tablets on Sundays., # 102 tablet, 3 Refills, Maintenance, 09/06/22 16:53:00 EST, Tablet, [facility]/pharmacy #1234, dose changed. pls refill when due, 155, cm, 08/24/22 16:01:00 EST, Heigh... Start Date: 09/06/22 Status: Ordered Problem List Condition Confirmation Course [...] recent to oldest [Reference Range]: 1 Height 154.5 cm (07/12/22 1:53 PM) Weight 97.0 kg (07/12/22 1:53 PM) Oxygen Saturation [94-100 %] 99 % (07/12/22 1:53 PM) Pulse Rate [55-90 bpm] 93 bpm *H* (07/12/22 1:53 PM) Body Mass Index [18.5-24.99 kg/m2] 40.64 kg/m2 *>HHI* (07/12/22 1:53 PM) Blood Pressure [90-138/55-84 mm Hg] 119/ 69mm Hg (07/12/22 1:53 PM) Temperature [96.8-100.4 DegF] 98.5 DegF (07/12/22 1:53 PM) Mode of Delivery (Oxygen) Room air (07/12/22 1:53 PM) Blood pressure sites Arm, left (07/12/22 1:53 PM) Temperature Route Temporal (07/12/22 1:53 PM) Dry Weight 97.0 kg (07/12/22 1:53 PM) Weight Obtained Via Standing scale (07/12/22 1:53 PM) Dry Weight Obtained Via Standing scale (07/12/22 1:53 PM) Social History Social History Type Response Smoking Status Never (less than 100 in lifetime) entered on: 10/13/19 Sex Female Cytogenetics study * Thomas Nathan MD, Buzz K: ENDORSE Event Display: Cytogenetics Report Authored Date: [id number] Patient Name: NICK MILLER Lab Accesssion #: [id number] Patient : 1995 (Age: 26) Collection Date: 07/12/2022 Accession Date: 07/13/2022 Sign Out Date: 07/20/2022 Tissue Source: 1: t(9;22) FISH Final Diagnosis: TEST: BCR/ABL1 FISH, Blood performed at [facility]. Probes included: BCR/ABL-ASS t(9;22) Results: Of 200 nuclei, 0% had fusion of BCR and ABL1. Interpretation: Negative for a BCR/ABL1 rearrangement. Nomenclature: nuc rafael(ASS1,ABL1,BCR)x2[200] Note: If a copy of the [facility] report is needed, contact [facility] at . Testing performed at [facility], [facility], [address] [place] [address]. Report Date: 07/19/2022 Primary Pathologist: Willie Ardon M.D. Phone #: [phone], On-Call Pathologist: [id number] Patient Care team information Care Team Personnel Name: Abilio Arellano RN Position: [facility] RN Member Role: Primary Care Nurse Name: Senia Ingram MD Position: [facility] VP PUBLIC RELATIONS Member Role: Lifetime VP PUBLIC RELATIONS Physician Address: Address: [address] [place] [address]- [place] Name: Martina Lucio MD Position: [facility] Primary Care Physician Member Role: PCP Address: Address: [address] [place] [address] [place] [address]- [place] Name: Balaji Chaudhry MD Position: [facility] VP PUBLIC RELATIONS MD Member Role: Lifetime VP PUBLIC RELATIONS Physician Address: Address: [address] [place], [place] [address] [place], [place] - Care Team Related Persons Name: JIMENEZ MILLER Address: AMER[employer] Address: home [address] [place], [place] Name: PATRIA MILLER Address: [address] [place], [place] Name: MARTA NICE Address: home [address] [place] [address] Name: MADHAVI NICE Address: home
--- OUTSIDE RECORDS SUMMARY | 2024-01-13 14:32 | XMS_ITS | Continuity of Care Document ---
Author Organization [facility] ter Address [address] [place] [address]- Care Team Providers Care Retail Chain Store Area Supervisor Name Role Phone Chandra HAMILTON, Mariza Navarro Primary Care Physician Encounter [facility] Date(s): 01/09/20 - 01/09/[address] [address]- [facility] Encounter Diagnosis Neck pain on left side(Final) - 01/09/20 Discharge Disposition: A-D/C Home Attending Physician: Chip Montez MD Admitting Physician: Chip Montez MD Referring Physician: Not on Staff, Referring [...] Maintenance, 10/19/19 15:33:00 EST, Tablet, [facility], 155, cm, 10/19/19 15:19:00 EST, [...] 10:21:41 EDT Start Date: 02/28/19 Status: Ordered oxybutynin 5 mg/24 hours oral tablet, extended release 1 tablet = 5 mg, By Mouth, Daily, # 30 tablet, 0 Refills, Maintenance, 11/18/19 13:39:00 EST, ER Tablet, [facility], 155, cm, 11/13/19 9:08:00 EST, Height, 86.2, kg, 10/13/19 15:00:00 EST, Dry Weight Start Date: 11/18/19 Status: Ordered PROzac 10 mg oral capsule [...] Most recent to oldest [Reference Range]: 1 2 3 Height 156 cm (01/09/20 9:04 AM) Weight 101.3 kg (01/09/20 9:04 AM) Oxygen Saturation [94-100 %] 98 % (01/09/20 10:54 AM) 100 % (01/09/20 9:04 AM) 99 % (01/09/20 9:03 AM) Pulse Rate [55-90 bpm] 94 bpm *H* (01/09/20 10:54 AM) 92 bpm *H* (01/09/20 9:04 AM) 96 bpm *H* (01/09/20 9:03 AM) Blood Pressure [90-138/55-84 mm Hg] 139/72mm Hg *H* (01/09/20 9:04 AM) Respiratory Rate [16-30 br/min] 18 br/min (01/09/20 10:54 AM) 18 br/min (01/09/20 9:04 AM) Temperature [96.8-100.4 DegF] 98.3 DegF (01/09/20 9:04 AM) Mode of Delivery (Oxygen) Room air (01/09/20 10:54 AM) Nasal cannula (01/09/20 9:04 AM) Room air (01/09/20 9:03 AM) Blood pressure sites Arm, left (01/09/20 9:04 AM) Temperature Route Axillary (01/09/20 9:04 AM) Dry Weight 101.3 kg (01/09/20 9:04 AM) Weight Obtained Via Standing scale (01/09/20 9:04 AM) Dry Weight Obtained Via Standing scale (01/09/20 9:04 AM) Social History Social History Type Response Smoking Status Never (less than 100 in lifetime) entered on: 10/13/19 Sex
--- OUTSIDE RECORDS SUMMARY | 2024-01-13 14:33 | XMS_ITS | Continuity of Care Document ---
Author Organization [facility] C ancer Care Address [address] [place] [address]- Care Team Providers Care Associate Designer Name Role Phone Martina Lucio MD Primary Care Physician Encounter [facility] [place] Date(s): 10/09/22 - 01/23/23 [facility] Care [address] [place] [id number] Discharge Disposition: A-D/C Home Attending Physician: Buzz Cooper MD Admitting Physician: Buzz Cooper MD Referring Physician: Martina Lucio MD Allergies, Adverse [...] Replace Required Details, Route to Pharmacy Electronically, [id number], 154, cm, ... Start Date: 10/25/22 Status: Ordered levothyroxine 0.088 mg oral tablet 1 tablet = 88 mcg, By Mouth, Daily, # 90 tablet, 3 Refills, Maintenance, 11/01/22 6:30:00 EST, Tablet, [facility]/pharmacy #[id number], Partial fill upon patient request [...] II opioiddrug. Start Date: 10/20/22 Status: Ordered Topamax 50 mg oral tablet 1 tablet = 50 mg, By Mouth, Daily, 1/2 day oral daily for 7 day then increase to 1 tab oral once daily, # 30 tablet, 0 Refills, Maintenance, 01/14/23 12:38:00 EDT, Tablet, [facility]/pharmacy #1234, Partialfill upon patient request if the prescription is fo... Start Date: 01/14/23 Stop Date: 02/13/23 Status: Ordered Problem List Condition Confirmation Course [...] Team Personnel Name: Abilio Arellano RN Position: [facility] RN Member Role: Primary Care Nurse Name: Senia Ingram MD Position: [facility] MOTOR VEHICLE LECTURER MD Member Role: Lifetime MOTOR VEHICLE LECTURER Physician Address: Address: [address] [place] [address]- [place] Name: Martina Lucio MD Position: [facility] Primary Care Physician Member Role: PCP Address: Address: [address] [place] [address] - Name: Balaji Chaudhry MD Position: [facility] MOTOR VEHICLE LECTURER MD Member Role: Lifetime MOTOR VEHICLE LECTURER Physician Address: Address: [address] [place] [address] - Care Team Related Persons Name: JIMENEZ MILLER Address: AMER[employer] Address: home [address] [place], [place] Name: PATRIA MILLER Address: home [address] [place], [place] Name: MARTA NICE Address: home [address] [place], [place] Name: MADHAVI NICE Address: home
--- OUTSIDE RECORDS SUMMARY | 2024-01-13 14:33 | XMS_ITS | Continuity of Care Document ---
Author Organization [facility] Endocrinolo gy and Diabetes Address [address] [place] [address]- Care Team Providers Care Coremaker Experimental Name Role Phone Chandra HAMILTON, Mariza Navarro Primary Care Physician Encounter [facility] Date(s): 04/21/20 - 05/21/20 [facility] Endocrinology and Diabetes [address] [place] [address]- [facility] Attending Physician: Admtr, Linda Admitting Physician: Admtr, Ar8 Referring Physician: Admtr, [...]
--- OUTSIDE RECORDS SUMMARY | 2024-01-13 14:33 | XMS_ITS | Continuity of Care Document ---
Author Organization [facility] ter Address [address] [place] [address]- Care Team Providers Care Auto Tire Recapper Name Role Phone Chandra HAMILTON, Mariza Navarro Primary Care Physician Encounter [facility] Date(s): 05/29/20 - 05/29/[address] [address]- [facility] Encounter Diagnosis Facial twitching(Final) - 05/29/20 Transient visual loss, left eye(Final) - 05/29/20 Discharge Disposition: A-D/C Home Attending Physician: Kamar Christine DO Admitting Physician: Kamar Christine DO Referring Physician: Not on Staff, Referring MD [...] oldest [Reference Range]: 1 2 3 Height 155 cm (05/29/20 2:36 PM) 155 cm (05/29/20 9:48 AM) Weight 96.7 kg (05/29/20 2:36 PM) 96.7 kg (05/29/20 9:48 AM) Oxygen Saturation [94-100 %] 100 % (05/29/20 2:36 PM) 100 % (05/29/20 9:48 AM) 98 % (05/29/20 9:44 AM) Pulse Rate [55-90 bpm] 69 bpm (05/29/20 2:36 PM) 76 bpm (05/29/20 9:48 AM) 95 bpm *H* (05/29/20 9:44 AM) Body Mass Index [18.5-24.99] 40.25 *>HHI* (05/29/20 2:36 PM) 40.25 *>HHI* (05/29/20 9:48 AM) Blood Pressure [90-138/55-84 mm Hg] 110/60mm Hg (05/29/20 2:36 PM) 118/64mm Hg (05/29/20 9:48 AM) Respiratory Rate [16-30 br/min] 18 br/min (05/29/20 2:36 PM) 16 br/min (05/29/20 9:48 AM) Temperature [96.8-100.4 DegF] 97.8 DegF (05/29/20 9:48 AM) Mode of Delivery (Oxygen) Room air (05/29/20 2:36 PM) Room air (05/29/20 9:48 AM) Room air (05/29/20 9:44 AM) Blood pressure sites Arm, left (05/29/20 2:36 PM) Arm, right (05/29/20 9:48 AM) Temperature Route Oral (05/29/20 9:48 AM) Dry Weight 96.7 kg (05/29/20 2:36 PM) 96.7 kg (05/29/20 9:48 AM) Weight Obtained Via Standing scale (05/29/20 9:48 AM) Dry Weight Obtained Via Standing scale (05/29/20 9:48 AM) Social History Social History Type Response Smoking Status Never (less than 100 in lifetime) entered on: 10/13/19 Sex Female
--- OUTSIDE RECORDS SUMMARY | 2024-01-13 14:33 | XMS_ITS | Continuity of Care Document ---
Author Organization [facility] Address [address] [facility], [address] d Floor, [address] [place] [address]- Care Team Providers Care Criminal Justice Instructor Name Role Phone Naveed HAMILTON, Martina Dial Primary Care Physician Encounter [facility] Date(s): 11/13/22 - 12/13/22 [facility] [address], [address] Floor, [address] [place] [address]- Allergies, Adverse Reactions, Alerts Substance Reaction Severity [...] Details, Route to [facility]acy [facility]ically, [id number], 154, cm, 020... Start Date: 10/25/22 Status: Ordered levothyroxine 0.088 mg oral tablet 1 tablet = 88 mcg, By Mouth, Daily, # 90 tablet, 3 Refills, Maintenance, 11/01/22 6:30:00 EST, Tablet, [facility] #[id number], Partial fill upon patient request [...] Team Personnel Name: Abilio Arellano RN Position: [facility] RN Member Role: Primary Care Nurse Name: Senia Ingram MD Position: [facility] GLASS CUT OFF SUPERVISOR MD Member Role: Lifetime GLASS CUT OFF SUPERVISOR Physician Address: Address: [address] [place] [address] Name: Martina Lucio MD Position: [facility] Primary Care Physician Member Role: PCP Address: Address: [address] [facility] Primary Care [place], [place] - Name: Balaji Chaudhry MD Position: S GLASS CUT OFF SUPERVISOR MD Member Role: Lifetime GLASS CUT OFF SUPERVISOR Physician Address: Address: [address] [facility] [place], [place] - Care Team Related Persons Name: JIMENEZ MILLER Address: AMERCN Address: home [address] [place], [place] Name: PATRIA MILLER Address: home [address] [place], [place] Name: MARTA NICE Address: home [address] [place], [place] Name: MADHAVI NICE Address: home
--- OUTSIDE RECORDS SUMMARY | 2024-01-13 14:33 | XMS_ITS | Continuity of Care Document ---
Author Organization [facility] Address [address] [place] [address]- Care Team Providers Care Commercial Roofing Estimator Name Role Phone Naveed HAMILTON, Martina Dial Primary Care Physician Encounter [facility] Date(s): 11/23/22 - 12/23/22 [facility] [address]- [place] Allergies, Adverse Reactions, Alerts Substance Reaction Severity [...] Details, Route to [facility] Electronically, [id number], 154, cm, 0... Start Date: 10/25/22 Status: Ordered levothyroxine 0.088 mg oral tablet 1 tablet = 88 mcg, By Mouth, Daily, # 90 tablet, 3 Refills, Maintenance, 11/01/22 6:30:00 EST, Tablet, [facility]/pharmacy #1234, Partial fill upon patient request [...] Team Personnel Name: Abilio Arellano RN Position: [facility] RN Member Role: Primary Care Nurse Name: Senia Ingram MD Position: [facility] INDUSTRIAL CUSTODIAN Member Role: Lifetime INDUSTRIAL CUSTODIAN Physician Address: Address: [address] [place] [address]- Name: Martina Lucio MD Position: [facility] Primary Care Physician Member Role: PCP Address: Address: [address] [place] [address] Primary Care [place], [place] - Name: Balaji Chaudhry MD Position: [facility] INDUSTRIAL CUSTODIAN MD Member Role: Lifetime INDUSTRIAL CUSTODIAN Physician Address: Address: [address] [facility] [place], [place] - Care Team Related Persons Name: JIMENEZ MILLER Address: AMERCN Address: home [address] [place], [place] Name: PATRIA MILLER Address: home [address] [place], [place] Name: MARTA NICE Address: home [address] [place], [place] Name: MADHAVI NICE Address: home
--- OUTSIDE RECORDS SUMMARY | 2024-01-13 14:33 | XMS_ITS | Continuity of Care Document ---
Author Organization [facility] Endocrinolo gy and Diabetes Address [address] [place] [address]- Care Team Providers Care Information Officer Name Role Phone Chandra HAMILTON, Mariza Navarro Primary Care Physician [place] [facility] [place]14[place]20 - 01/21/20 [facility] Endocrinology and Diabetes [address] [place] [address]- [facility] Attending Physician: Elliott HAMILTON, Ibitordorene Referring Physician: Mariza Artis MD Allergies, Adverse [...] Dry Weight Start Date: 10/19/19 Status: Ordered fluvoxaMINE 50 mg oral tablet [...] 11/18/19 13:39:00 EST, ER Tablet, [facility], 155, cm, 11/13/19 9:08:00 EST, [...] Refills, Maintenance, 10/13/19 17:29:00 EST, [facility], 155, cm, 10/13/19 15:00:00 EST, [...]
--- OUTSIDE RECORDS SUMMARY | 2024-01-13 14:33 | XMS_ITS | Continuity of Care Document ---
Author Organization [facility] Endocrinolo gy and Diabetes Address [address] [place] [address]- Care Team Providers Care High School Mathematics Teacher Name Role Phone Naveed HAMILTON, Martina Dial Primary Care Physician Encounter [facility] [place] Date(s): 09/03/22 - 10/03/22 [facility] Endocrinology and Diabetes [address] [place] [address] Allergies, Adverse Reactions, Alerts [...] 3 Refills, Maintenance, 09/06/22 16:53:00 EST, Tablet, [facility], dose changed. pls refill [...] RN Member Role: Primary Care Nurse Name: Juan Jose HAMILTON, Senia Berry Position: [facility] ASH HANDLER Member Role: Lifetime ASH HANDLER Physician Address: Address: [address] [place] [address]- Name: Naveed HAMILTON, Martina Dial Position: [facility] Primary Care Physician Member Role: PCP Address: Address: [address] [place] [address] - Name: Richa HAMILTON, Balaji Berry Position: [facility] ASH HANDLER MD Member Role: Lifetime ASH HANDLER Physician Address: Address: [address] [place] [address], [place] - Care Team Related Persons Name: JIMENEZ MILLER Address: AMERCN Address: home [address] [place], [place] Name: PATRIA MILLER Address: home [address] [place], [place] Name: MARTA NICE Address: home [address] [place], [place] Name: MADHAVI NICE Address: home
--- OUTSIDE RECORDS SUMMARY | 2024-01-13 14:33 | XMS_ITS | Continuity of Care Document ---
Author Organization [facility] Address [address] [place] [address]- Care Team Providers Care Engineering Department Chair Name Role Phone Naveed HAMILTON, Martina Dial Primary Care Physician Encounter [facility] [place] Date(s): 02/06/23 - 03/08/[address] [address]- Attending Physician: Linda Short Admitting Physician: AdmLinda [...] Replace Required Details, Route to Pharmacy Electronically, [facility], 154, cm, ... Start Date: 10/25/22 Status: Ordered levothyroxine 0.088 mg oral tablet 1 tablet = 88 mcg, By Mouth, Daily, # 90 tablet, 3 Refills, Maintenance, 11/01/22 6:30:00 EST, Tablet, [facility]/pharmacy #1234, Partial fill upon patient request [...] 0 Refills, Maintenance, 01/14/23 12:38:00 EDT, Tablet, [facility]/pharmacy #1234, Partialfill upon patient request if [...] Team Personnel Name: Abilio Arellano RN Position: [facility] RN Member Role: Primary Care Nurse Name: Juan Jose HAMILTON, Senia Berry Position: [facility] CONCRETE BLOCK MAKER MD Member Role: Lifetime CONCRETE BLOCK MAKER Physician Address: Address: [address] [place] [address]- [place] Name: Naveed HAMILTON, Martina Dial Position: [facility] Physician - Primary Care Member Role: PCP Address: Address: [address] [place] [address] - [place] Name: Balaji Chaudhry MD Position: [facility] CONCRETE BLOCK MAKER MD Member Role: Lifetime CONCRETE BLOCK MAKER Physician Address: Address: [address] [place] [address] [address]- Care Team Related Persons Name: JIMENEZ MILLER Address: AMERCN Address: home [address] [place], [place] Name: PATRIA MILLER Address: home [address] [place], [place] Name: MARTA NICE Address: home [address] [place], [place] Name: MADHAVI NICE Address: home
--- OUTSIDE RECORDS SUMMARY | 2024-01-13 14:33 | XMS_ITS | Continuity of Care Document ---
Author Organization [facility] [place] Address [address] [place] [address]- Care Team Providers Care Critical Care Nurse Specialist Name Role Phone Chandra HAMILTON, Mariza Navarro Primary Care Physician Encounter [facility] Date(s): 04/20/21 - 05/20/21 [facility] [place] [address] [place], [place] [address] Attending Physician: Admaltaf, Linda Admitting Physician: Admtr, Linda Referring Physician: Admtr, Ar8 Allergies, Adverse Reactions, [...]
--- NOTE | 2024-01-13 16:32 | MHC.OFFVISPS ---
Intake Intake Visit Reasons: depression, Binge eating disorder, ADHD Allergies amoxicillin Allergy (Intermediate, Verified 07/27/20 10:36) hives Erythromycin Allergy (Intermediate, Uncoded 07/27/20 10:36) hives Medication List - Last Reconciled 01/13/24 by Courtney Omalley APRN clonazepam 0.5 mg PO TID dextroamphetamine-amphetamine 5 mg (Adderall) 5 mg PO BID levothyroxine 0 mcg PO lisdexamfetamine (Vyvanse) 20 mg PO DAILY HPI- Psychiatric Chief Complaint: depression, Binge eating disorder, ADHD HPI Narrative: Patient here for sooner than scheduled appointment. She reports increased binge eating. With weight gain. She also reports increased irritability with lower frustration tolerance. Patient reports she would done well on Vyvanse until it was titrated up to 40 mg. Patient has history of worrying about medications and side effects and that at times interferes with adherence. She has not done well on SSRIs SNRIs she has also developed a rash on several mood stabilizers. She has been tried on Seroquel and Abilify and developed side effects. She does well on clonazepam but is reluctant to take even a small dose during the day. She worries about stigma. She also worries about a time when the medication may not be available and she will find herself in a crisis like similar to when she was a teenager. She has worked hard to learn coping skills and management symptoms including much improved emotional regulation. No SI no HI no psychosis. No evidence of jodi. No drug or alcohol abuse. Past Psychiatric History: Her first trouble with psychiatric symptoms was in 5th grade - first psych problems- she started with self harming in 5th grade; She was hospitalized many times as child/teen for self harmage 18 completed 1 yr DBT program= with very +++ results one hospitalization after 2 yr old dtr born and started on SSRI and it helped At age 16 a doctor told she had borderline personality disorder and referred her to DBT program which was a one year program and changed her life for the better. 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 Medication Trials: geodon- sedation/dizziness amictal ? rash risperdal- too scared to try Adderall - headaches, nausea wellbutrin - twitching prozac - worked well ? numbing (cut self 2019) 2022 to sedating seroquel - sedation, weight gain lexapro- negative celexa- negative concerta 27 mg - anxiety ativan - rebound irritability effexor - sedation, nausea - abilify - increased irritability buzzing in ears zoloft- negative tegretol- worked well in past 2019- Self injury - twitching trileptal-sedation rash depakote-weight gain vyvanse helped but almost too strong- increased anxiety a little luvox- worked well at first then irritabilty topomax vraylar At what age did the symptoms begin: 16 Purging: Reports binge eating Subjective Subjective Subjective Medication Compliance: Yes Side effects from medications: No Review of Systems Medical Review of Systems: unchanged Review of Systems Review of Systems Yes all other systems are reviewed and are negative Mental Status Exam Mental Status Exam Patient Appearance: Well Grooomed Patient Orientation: Person, Place, Time and Situation Level of Consciousness: Awake Patient Behavior: Appropriate Mood Description: Calm Affect Description: Calm Patient Cognition Impaired: No Ability to Follow Directions: Good Speech Pattern: Clear and Appropriate Memory Description: Intact Hallucinations: None Delusions: Not Present Thought Process: Intact and Goal Oriented Thought Content: positive for Intact and positive for Goal Oriented Judgement: Fair Assessment and Plan Assessment & Plan (1) Binge eating disorder: Code(s): F50.81 - Binge eating disorder Plan stop ritalin add vyvase 20 mg qam add adderall 5mg BID continue clonazepam 0.5mg tid urged pt to take 1/4 tablet of clonazepam in am and 1-2 at bedtime given the efficacy and lack of side effects Counseling and coordination of Care Pt. Self Management counseling: Exercise, Maintenance-social rhythm, Mindfulness, Mod caffeine/ETOH intake, Sleep hygiene and General coping skills Medication management counseling: Effectiveness, Side effects, Dosing range, Duration, Drug interaction and Adherence Diagnosis and Prognosis Counseling: Accuracy of diagnosis, Prognosis over time, Impact of diagnosis on life functions, Impact of family relationship, Problematic behaviors secondary to diagnosis and Adequacy of current interventions Details: I spent 30 minutes reviewing the record, seeing the patient and documenting in the medical record. Counseling provided to the patient/caregiver as outlined below. Addressed patient/caregiver concerns regarding current medication regime including effective adherence. Addressed patient/caregiver concerns regarding diagnosis and prognosis including accuracy of diagnosis, prognosis over time, impact of diagnosis. Addressed patient/caregiver concerns regarding impact of recent stressors. PFSH Family History (Updated 01/10/24 @ 14:14 by Lani Banda CMA) Father Gastric cancer HTN (hypertension) Asthma Maternal Grandmother Suicide Mother Depression Psychiatric disorder Other FH: mental illness Social History (Updated 01/10/24 @ 14:17 by Lani Banda CMA) Housing: House Patient Tobacco Use Status: Never used Tobacco e-Cigarette/Vaping Use: Never Used Second Hand Smoke Exposure: No service: No Current occupational status: employed Current occupation: [employer] Current occupational exposures/hazards: No Cognitive needs: No Hearing needs: No Vision needs: No Social History: lives with and 2 children(preschool and elementary age) 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 Substance History: none Trauma History: childhood trauma Coding Level of Care Code Est Pt Level 4 (00696) Therapy 30m w/E&M (23355) Diagnoses Binge eating disorder F50.81 Comment CBT re; fear of medications and fear of catastrophe
== END 2024-01-13 18:14 | disposition home or self-care (01) ==
LOC: HO.HOP 14:29
PROVIDERS: PCP Internal Medicine; Visit Provider Clinical Nurse Specialist Psychiatric/Mental Health
DX: F50.81 Binge eating disorder (principal)
CPT/HCPCS: 90833; 99214

== ENCOUNTER 2024-01-23 11:39 | Outpatient (REF) | payer OTHER, SELFPAY ==
--- NOTE | ~2024-01-23 | US_ITS ---
EXAMINATION: US SOFT TISSUE HEAD/NECK CLINICAL INFORMATION: Other diseases of salivary glands. Submandibular fullness. COMPARISON: None available. TECHNIQUE: Linear transducer wilde-scale and color Doppler examination of the left submandibular lump. FINDINGS: Ultrasound of the left submandibular fullness demonstrates a 1.2 x 0.8 x 1.0 cm benign-appearing lymph node with a fatty center and central vascular flow. The technologist notes that this is tucked inferior to the mandible. US/US soft tiss head and/or neck IMPRESSION: In the area of left submandibular fullness, a 1.2 cm benign-appearing lymph node is seen.
--- NOTE | ~2024-01-23 | XR_ITS ---
EXAMINATION: XR CERVICAL SPINE CLINICAL INFORMATION: Pain in unspecified joint. COMPARISON: None available. TECHNIQUE: 5 views of the cervical spine were obtained. FINDINGS: Slight reversal of the normal cervical lordosis. Mild multilevel cervical spondylosis with mild loss of disc space height at C4-C5 and C5-C6. XR/XR cervical spine 3V IMPRESSION: Mild multilevel cervical spondylosis.
== END 2024-01-23 11:40 | disposition home or self-care (01) ==
LOC: HO.US 11:39
PROVIDERS: PCP Internal Medicine; Visit Provider Internal Medicine
DX: K11.8 Other diseases of salivary glands (principal); M54.2 Cervicalgia; M25.50 Pain in unspecified joint; M54.12 Radiculopathy, cervical region
CPT/HCPCS: 72040; 76536

== ENCOUNTER 2024-03-31 09:34 | Outpatient (AMB) | payer OTHER, SELFPAY ==
--- NOTE | 2024-03-31 09:35 | MHC.OFFVISPS ---
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 She reports she was having some rebound symptoms in evening with vyvanse 20mg with irritability and being easily frustrated at the end of the day with vyvanse 20mg as if it wore off too quickly. Pt is doing much better with improved attention, improved focus and organization as well as improved functioning both at home and work. she is much less anxious; she is sleeping better. no change in appetite. she is being evaluated for possible endometriosis. No mood instability no self harm. she is taking approximately 1 mg of clonazepam of less a day and does not need a refill. Past Psychiatric History: Her first trouble with psychiatric symptoms was in 5th grade - first psych problems- she started with self harming in 5th grade; She was hospitalized many times as child/teen for self harmage 20 completed 1 yr DBT program= with very +++ results one hospitalization after 2 yr old dtr born and started on SSRI and it helped At age 16 a doctor told she had borderline personality disorder and referred her to DBT program which was a one year program and changed her life for the better. 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 Medication Trials: geodon- sedation/dizziness amictal ? rash risperdal- too scared to try Adderall - headaches, nausea wellbutrin - twitching prozac - worked well ? numbing (cut self 2019) 2022 to sedating seroquel - sedation, weight gain lexapro- negative celexa- negative concerta 27 mg - anxiety ativan - rebound irritability effexor - sedation, nausea - abilify - increased irritability buzzing in ears zoloft- negative tegretol- worked well in past 2019- Self injury - twitching trileptal-sedation rash depakote-weight gain vyvanse helped but almost too strong- increased anxiety a little luvox- worked well at first then irritabilty topomax vraylar Subjective Subjective Subjective Medication Compliance: Yes Side effects from medications: No Review of Systems Medical Review of Systems: unchanged Mental Status Exam Mental Status Exam Patient Appearance: Well Grooomed and Appropriate Patient Orientation: Person, Place, Time and Situation Level of Consciousness: Awake and Alert Patient Behavior: Appropriate Mood Description: Calm and Happy Affect Description: Calm and Happy Patient Cognition Impaired: No Ability to Follow Directions: Excellent Speech Pattern: Clear Memory Description: Intact Hallucinations: None Delusions: Not Present Thought Process: Intact and Goal Oriented Thought Content: positive for Intact and positive for Goal Oriented Judgement: Good Assessment and Plan Assessment & Plan (1) ADHD (attention deficit hyperactivity disorder), combined type: Status: Acute Code(s): F90.2 - Attention-deficit hyperactivity disorder, combined type (2) JORGE (generalized anxiety disorder): Status: Acute Code(s): F41.1 - Generalized anxiety disorder Plan continue vyvanse 30mg daily in am continue clonazepam 0.5mg tid prn retrun in 3 months pt will message in portal when ready for refills. Counseling and coordination of Care Pt. Self Management counseling: Maintenance-social rhythm, Mod caffeine/ETOH intake, Sleep hygiene, Behavior activation and General coping skills Medication management counseling: Effectiveness, Side effects, Dosing range, Drug interaction and Adherence Diagnosis and Prognosis Counseling: Accuracy of diagnosis, Prognosis over time, Impact of diagnosis on life functions, Impact of family relationship, Problematic behaviors secondary to diagnosis and Adequacy of current interventions Details: I spent [] minutes reviewing the record, seeing the patient and documenting in the medical record. Counseling provided to the patient/caregiver as outlined below. Addressed patient/caregiver concerns regarding current medication regime including effective adherence. Addressed patient/caregiver concerns regarding diagnosis and prognosis including accuracy of diagnosis, prognosis over time, impact of diagnosis. Addressed patient/caregiver concerns regarding impact of recent stressors. [facility] Family History (Updated 01/10/24 @ 14:14 by Lani Banda CMA) Father Gastric cancer HTN (hypertension) Asthma Maternal Grandmother Suicide Mother Depression Psychiatric disorder Other FH: mental illness Social History (Updated 01/10/24 @ 14:17 by Lani Banda CMA) Housing: House Patient Tobacco Use Status: Never used Tobacco e-Cigarette/Vaping Use: Never Used Second Hand Smoke Exposure: No service: No Current occupational status: employed Current occupation: [email or web address] Current occupational exposures/hazards: No Cognitive needs: No Hearing needs: No Vision needs: No Social History: lives with and 2 children(preschool and elementary age) 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 Substance History: none Trauma History: childhood trauma Coding Level of Care Code Est Pt Level 4 (24523) Diagnoses ADHD (attention deficit hyperactivity disorder), combined type F90.2 JORGE (generalized anxiety disorder) F41.1
== END 2024-03-31 09:55 | disposition home or self-care (01) ==
LOC: HO.HOP 09:34
PROVIDERS: PCP Internal Medicine; Visit Provider Clinical Nurse Specialist Psychiatric/Mental Health
DX: F90.2 Attention-deficit hyperactivity disorder, combined type (principal); F41.1 Generalized anxiety disorder
CPT/HCPCS: 99214

== ENCOUNTER → 2024-03-31 09:34 | Outpatient (BNVA) | payer OTHER, SELFPAY | PROVIDERS: PCP Internal Medicine; Visit Provider Clinical Nurse Specialist Psychiatric/Mental Health ==

== ENCOUNTER 2024-04-06 15:33 | Outpatient (AMB) | payer OTHER, SELFPAY ==
--- NOTE | 2024-04-06 15:37 | A.OFFPC_ITS ---
Vital Signs 04/06/24 15:41 Height 5 ft 1 in Weight 185 lb BMI 35.0 BP 102/58 L Blood Pressure Location Rt brachial Position Sitting Pulse 98 Pulse Source Pulse Oximeter Pulse Oximetry (%) 99 Oxygen Delivery Method Room Air Intake Visit Reasons: Worsening back pain and arm numbness. Intake Note: Patient reports she has joint pain all over the body x 1-2 months. Elevated thyroid- requests med adjustment. Gang Supervisor Pipe Lines Required: No Accompanied by: Self / Same As Patient Allergies amoxicillin Allergy (Intermediate, Verified 04/06/24 15:43) hives Erythromycin Allergy (Intermediate, Uncoded 04/06/24 15:43) hives Tobacco use date assessed: 01/10/24 Dental Screening Dental Screen Date: 01/10/24 HPI HPI Comments History of Present Illness Details The patient is a 28 year old female with a past medical history of ADD, depression, anxiety, IBS, neck pain presenting for follow up In december noted, She has had increased pain in the neck radiating down the right shoulder and right arm for the past 2 months. She has had issues with this in the past. she has had prior MRI, seen [facility]. She has pain and weakness in the right distal arm and hand which feels weak at times. She has had increased pain in multiple joints and muscle fatigue and discomfort. Inflammatory labs were unremarkable. Xray of the neck Slight reversal of the normal cervical lordosis. Mild multilevel cervical spondylosis with mild loss of disc space height at C4- C5 and C5-C6. Since her last visit continued issues. Dropping more items. Increase numbness and tingling of distal right upper extremity Hypothyroid: on levothyroxine. Notes increased TSH at GI dr 2 weeks ago BH: Stable on methylphenidate and clonazepam. Follows with psych She had reported 2-3 month history of left anterior neck fullness of upper neck, under jaw. Discomfort when she rotates her head. us showed benign appear lymph node ROS see HPI PHYSICAL EXAM: GENERAL: Alert and oriented x 3. NAD EYES: EOMI. Anicteric. HENT: Moist mucous membranes. No scleral icterus. MSK: Tightness of posterior neck muscles. Reproduction of numbness with flexion at neck LUNGS: Clear to auscultation bilaterally. CARDIOVASCULAR: Regular rate and rhythm. No murmur. No JVD. ABDOMEN: Soft, non-tender +bs EXTREMITIES: No edema. Non-tender. SKIN: No rashes or lesions. Warm. NEUROLOGIC: No focal neurological deficits. CN II-XII grossly intact PSYCHIATRIC: Cooperative. Appropriate mood and affect [facility] Family History (Updated 01/10/24 @ 14:14 by Lani Banda CMA) Father Gastric cancer HTN (hypertension) Asthma Maternal Grandmother Suicide Mother Depression Psychiatric disorder Other FH: mental illness Social History (Updated 01/10/24 @ 14:17 by Lani Banda CMA) Housing: House Patient Tobacco Use Status: Never used Tobacco e-Cigarette/Vaping Use: Never Used Second Hand Smoke Exposure: No service: No Current occupational status: employed Current occupation: [employer] Current occupational exposures/hazards: No Cognitive needs: No Hearing needs: No Vision needs: No Questionnaire Thrive Questionnaire Date Thrive assessed: 01/10/24 JORGE-7 AMB Questionnaire JORGE-7 Date JORGE - 7 assessed: 01/10/24 Source: Developed by Drs. Balaji Toro, Chrystal Abrams, Jamison Davey and colleagues, with an educational marly from [email or web address]. Physical exam (Primary Care) Vital Signs: Last Vital Signs Pulse 98 04/06/24 15:41 BP 102/58 L 04/06/24 15:41 Pulse Ox 99 04/06/24 15:41 Oxygen Delivery Method Room Air 04/06/24 15:41 BMI result Body Mass Index 35.0 Tobacco/Smoking Status: Tobacco use Status Tobacco use date assessed 01/10/24 04/06/24 15:38 Patient Tobacco Use Status Never used Tobacco 04/06/24 15:38 e-Cigarette/Vaping Use Never Used 04/06/24 15:38 Thrive Assessment: Date of Thrive Assessment Date Thrive assessed 01/10/24 04/06/24 15:38 Assessment and Plan Assessment & Plan (1) Cervical radiculopathy: Code(s): M54.12 - Radiculopathy, cervical region Plan: Despite home traction, otc medications, patients cervical radicular symptoms continue to worsen. MRI neck ordered (2) Polyarthralgia: Code(s): M25.50 - Pain in unspecified joint (3) Neuropathy of right upper extremity: Code(s): G56.91 - Unspecified mononeuropathy of right upper limb Orders: Orders TSH reflex Free T4 04/06/24 E03.9 - Hypothyroidism, unspecified MR cervical spine wo con 04/06/24 E03.9 - Hypothyroidism, unspecified, G56.91 - Unspecified mononeuropathy of right upper limb, M54.12 - Radiculopathy, cervical region, M54.2 - Cervicalgia Medications: New levothyroxine 100 mcg PO DAILY 90 tabs 3RF Coding Level of Care Code Est Pt Level 4 (24847) Complex EM visit Add On G2211 Diagnoses Cervical radiculopathy M54.12 Polyarthralgia M25.50 Neuropathy of right upper extremity G56.91
[2024-04-06 15:41] VITALS: BP 102/58; PULSE 98; O2SAT 99; BMI 35.0
== END 2024-04-06 16:04 | disposition home or self-care (01) ==
PROVIDERS: PCP Internal Medicine; Visit Provider Internal Medicine
DX: M54.12 Radiculopathy, cervical region (principal); M25.50 Pain in unspecified joint; G56.91 Unspecified mononeuropathy of right upper limb
CPT/HCPCS: 99214

== ENCOUNTER 2024-05-27 09:42 | Outpatient (AMB) | payer OTHER, SELFPAY ==
--- NOTE | 2024-05-27 09:46 | MHC.PC.OV ---
Vital Signs 05/27/24 09:51 Height 5 ft 1 in Weight 184 lb 8 oz BMI 34.9 BP 118/68 Blood Pressure Location Lt brachial Position Sitting Respiration 12 Pulse 109 H Pulse Source Pulse Oximeter Temp 98.6 F Temp Source Temporal Artery Scan Pulse Oximetry (%) 99 Oxygen Delivery Method Room Air Intake Visit Reasons: Hearing loss LT ear Intake Note: Hearing loss left ear. 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 She says when she woke up she felt like the tone in her left ear was a little different. She does not really feel congested but as the morning has gone it has gotten a little bit better. She denies any drainage from the ear or pain. She states that she was pushing around her neck to see if she could elicit the pain and she could not. She denies any TMJ. She has not tried anything for her symptoms. No sinus pain, pressure, fevers or chills. No cough or congestion. No sore throat or difficulty swallowing. PFSH Family History (Updated 01/10/24 @ 14:14 by Lani Banda CMA) Father Gastric cancer HTN (hypertension) Asthma Maternal Grandmother Suicide Mother Depression Psychiatric disorder Other FH: mental illness Social History (Updated 01/10/24 @ 14:17 by Lani Banda CMA) Housing: House Patient Tobacco Use Status: Never used Tobacco e-Cigarette/Vaping Use: Never Used Second Hand Smoke Exposure: No service: No Current occupational status: employed Current occupation: [employer] Current occupational exposures/hazards: No Cognitive needs: No Hearing needs: No Vision needs: No Questionnaire PHQ-9 Over the last 2 weeks, how often have you been bothered by any of the following problems? 1. Little interest or pleasure in doing things: not at all Source: Developed by Drs. Balaji Toro, Jamison Metcalf and colleagues, with an educational marly from [employer]. Thrive Questionnaire Date Thrive assessed: 01/10/24 I am a: Patient What is your living situation today?: I have a steady place to live Within the past 12 months, did the food you bought not last and you didn't have the money to get more?: Never true Within the past 12 months, did you worry whether your food would run out before you got money to buy more?: Never true Do you have trouble paying for medicines?: No Do you have trouble getting transportation to medical appointments?: No Do you have trouble paying your heating and electricity bill?: No Do you have trouble taking care of your child, family member or friend?: No Do you have trouble with day-to-day activities such as bathing, preparing meals, shopping, managing finances, etc.?: No Are you currently unemployed and looking for a job?: No Are you interested in more education?: No Please select the resources that you would like help with: None Currently or been in a relationship where the following occur: No concerns reported THRIVE Score: 0 AUDIT C Alcohol Use Questionnaire (AUDIT-C) 1. How often do you have a drink containing alcohol?: Never Total Score: 0 JORGE-7 AMB Questionnaire JORGE-7 Date JORGE - 7 assessed: 01/10/24 Feeling nervous, anxious, or on edge: 0 = Not at all Not being able to stop or control worryin = Not at all Worrying too much about different things: 0 = Not at all Trouble relaxin = Not at all Being so restless that it is hard to sit still: 0 = Not at all Becoming easily annoyed or irritable: 0 = Not at all Feeling afraid as if something awful might happen: 0 = Not at all Total JORGE-7 score (0-4 normal; 5-9 mild; 10-14 moderate; 15-21 severe): 0 Source: Developed by Chrystal Ellsworth Kurt Kroenke and colleagues, with an educational marly from [employer]. Physical exam (Primary Care) Vital Signs: Last Vital Signs Temp 98.6 F 05/27/24 09:51 Pulse 109 H 05/27/24 09:51 Resp 12 05/27/24 09:51 BP 118/68 05/27/24 09:51 Pulse Ox 99 05/27/24 09:51 Oxygen Delivery Method Room Air 05/27/24 09:51 BMI result Body Mass Index 34.9 Tobacco/Smoking Status: Tobacco use Status Tobacco use date assessed 01/10/24 05/27/24 09:49 Patient Tobacco Use Status Never used Tobacco 05/27/24 09:49 e-Cigarette/Vaping Use Never Used 05/27/24 09:49 Thrive Assessment: Date of Thrive Assessment Date Thrive assessed 01/10/24 05/27/24 09:49 Currently or been in a relationship where the following occur: No concerns reported Const Orientation/consciousness: patient oriented x3 HENMT Other: Able to hear a soft whisper 5 ft away bilaterally. Able to hear a finger rub bilaterally. She does report that if sounds a little softer in the left ear when compared to the right but overall similar. Ears: hearing grossly normal bilaterally and TM's normal bilaterally Face and sinus: Yes sinuses nontender Mouth: Normal oral and palatal mucosa present Throat: Yes posterior oropharynx normal Neck Thyroid: Thyroid normal Lymphatic: no lymphadenopathy noted Resp Auscultation: clear to auscultation bilaterally Cardio Rate: regular rate Rhythm: regular rhythm Heart sounds: S1 normal heart sound present and S2 normal heart sound present Skin General skin exam: no rashes or lesions noted Neuro General: patient oriented x3, gait normal and no focal motor deficits Assessment and Plan Assessment & Plan (1) Discomfort of left ear: Code(s): H92.02 - Otalgia, left ear Plan: No physical exam abnormalities noted today. Hearing intact. Discussed trying an antihistamine to see if any improvement. Follow up if anything worsens or changes. Patient understands and agrees with the plan. Medications: New fluticasone propionate 50 mcg/actuation (Flonase Allergy Relief) administer into each nostril 2 sprays intranasal DAILY 16 grams 0RF cetirizine (Zyrtec) 10 mg PO DAILY 30 tabs 0RF Coding Level of Care Code Est Pt Level 3 (12913) Diagnoses Discomfort of left ear H92.02
[2024-05-27 09:51] VITALS: BP 118/68; PULSE 109; RESP 12; TEMP 37; O2SAT 99; BMI 34.9
== END 2024-05-27 11:58 | disposition home or self-care (01) ==
PROVIDERS: PCP Internal Medicine; Visit Provider Physician Assistant
DX: H92.02 Otalgia, left ear (principal)
CPT/HCPCS: 99213

== ENCOUNTER 2024-07-02 09:41 | Outpatient (AMB) | payer OTHER, SELFPAY ==
--- NOTE | 2024-07-02 09:43 | MHC.OFFVISPS ---
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 Allergies amoxicillin Allergy (Intermediate, Verified 05/27/24 09:49) hives Erythromycin Allergy (Intermediate, Uncoded 05/27/24 09:49) hives Medication List - Last Reconciled 07/02/24 by Courtney Omalley APRN cetirizine (Zyrtec) 10 mg PO DAILY clonazepam 0.5 mg PO TID fluconazole 150 mg PO Q3D PRN 6 days fluocinonide 0.05% 1 appl topical BID fluticasone propionate 50 mcg/actuation (Flonase Allergy Relief) 2 sprays intranasal DAILY levothyroxine 100 mcg PO DAILY lisdexamfetamine (Vyvanse) 30 mg PO DAILY HPI- Psychiatric Chief Complaint: depression HPI Narrative: Patient is doing very well overall. Her mood is stable she is functioning very well at home and at work. She reports the Vyvanse is helping with her functioning and keeping her mood more stable. She is less easily frustrated less irritable. At times she reports her mood does become mildly depressed she is more withdrawn she is more critical of herself and begins to take care of her self less effectively such as stopping running or exercising. She is more likely to have panic attacks during this time. She reports after a period of rest and self-care she usually returns to her normal functioning. She is still looking for and I FS therapist she is on a waiting list. She takes the Vyvanse daily. She takes 0.75-1 mg of clonazepam at bedtime with good effect she has not been tempted to take more. No issues with alcohol or illicit drugs. She shows increased insight into her symptoms and need for self-care. Past Psychiatric History: Her first trouble with psychiatric symptoms was in 5th grade - first psych problems- she started with self harming in 5th grade; She was hospitalized many times as child/teen for self harmage 20 completed 1 yr DBT program= with very +++ results one hospitalization after 2 yr old dtr born and started on SSRI and it helped At age 16 a doctor told she had borderline personality disorder and referred her to DBT program which was a one year program and changed her life for the better. 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 Medication Trials: geodon- sedation/dizziness lamictal ? rash risperdal- too scared to try Adderall - headaches, nausea wellbutrin - twitching prozac - worked well ? numbing (cut self 2019) 2022 to sedating seroquel - sedation, weight gain lexapro- negative celexa- negative concerta 27 mg - anxiety ativan - rebound irritability effexor - sedation, nausea - abilify - increased irritability buzzing in ears zoloft- negative tegretol- worked well in past 2019- Self injury - twitching trileptal-sedation rash depakote-weight gain vyvanse helped but almost too strong- increased anxiety a little luvox- worked well at first then irritabilty topomax vraylar Subjective Subjective Subjective Medication Compliance: Yes Side effects from medications: No Review of Systems Medical Review of Systems: unchanged Mental Status Exam Mental Status Exam Patient Appearance: Well Grooomed and Appropriate Patient Orientation: Person, Place, Time and Situation Level of Consciousness: Awake, Appropriate and Alert Patient Behavior: Appropriate Mood Description: Happy and Anxious (slight) Affect Description: Happy and Anxious (slight) Patient Cognition Impaired: No Ability to Follow Directions: Good Speech Pattern: Clear Memory Description: Intact Hallucinations: None Delusions: Not Present Thought Process: Intact Thought Content: positive for Intact Judgement: Good Assessment and Plan Assessment & Plan (1) JORGE (generalized anxiety disorder): Status: Acute Code(s): F41.1 - Generalized anxiety disorder (2) ADHD (attention deficit hyperactivity disorder), combined type: Status: Acute Code(s): F90.2 - Attention-deficit hyperactivity disorder, combined type Plan Continue Vyvanse 30 mg daily in the morning Continue clonazepam 0.5 mg 1 in the morning as needed and half to 1 at bedtime as needed Return in 4 months Medications: Refilled clonazepam 0.5 mg PO TID 90 tabs 1RF Counseling and coordination of Care Pt. Self Management counseling: Maintenance-social rhythm, Mindfulness, Mod caffeine/ETOH intake, Sleep hygiene, Behavior activation, General coping skills and Problem solving Medication management counseling: Effectiveness, Side effects, Dosing range, Duration, Drug interaction and Adherence Diagnosis and Prognosis Counseling: Accuracy of diagnosis, Prognosis over time, Impact of diagnosis on life functions, Impact of family relationship, Problematic behaviors secondary to diagnosis and Adequacy of current interventions Details: I spent 45 minutes reviewing the record, seeing the patient and documenting in the medical record. Counseling provided to the patient/caregiver as outlined below. Addressed patient/caregiver concerns regarding current medication regime including effective adherence. Addressed patient/caregiver concerns regarding diagnosis and prognosis including accuracy of diagnosis, prognosis over time, impact of diagnosis. Addressed patient/caregiver concerns regarding impact of recent stressors. PFSH Family History (Updated 01/10/24 @ 14:14 by Lani Banda CMA) Father Gastric cancer HTN (hypertension) Asthma Maternal Grandmother Suicide Mother Depression Psychiatric disorder Other FH: mental illness Social History (Updated 01/10/24 @ 14:17 by Lani Banda CMA) Housing: House Patient Tobacco Use Status: Never used Tobacco e-Cigarette/Vaping Use: Never Used Second Hand Smoke Exposure: No service: No Current occupational status: employed Current occupation: [employer] Current occupational exposures/hazards: No Cognitive needs: No Hearing needs: No Vision needs: No Social History: lives with and 2 children(preschool and elementary age) 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 Substance History: none Trauma History: childhood trauma Coding Level of Care Code Est Pt Level 4 (49403) Therapy 30m w/E&M (96782) Diagnoses JORGE (generalized anxiety disorder) F41.1 ADHD (attention deficit hyperactivity disorder), combined type F90.2
== END 2024-07-02 10:10 | disposition home or self-care (01) ==
LOC: HO.HOP 09:41
PROVIDERS: PCP Internal Medicine; Visit Provider Clinical Nurse Specialist Psychiatric/Mental Health
DX: F41.1 Generalized anxiety disorder (principal); F90.2 Attention-deficit hyperactivity disorder, combined type
CPT/HCPCS: 90833; 99214

== ENCOUNTER → 2024-07-02 09:41 | Outpatient (BNVA) | payer OTHER, SELFPAY | PROVIDERS: PCP Internal Medicine; Visit Provider Clinical Nurse Specialist Psychiatric/Mental Health ==

== ENCOUNTER 2024-07-20 18:40 | Outpatient (REF) | payer OTHER, SELFPAY ==
--- NOTE | ~2024-07-20 | MR_ITS ---
EXAMINATION: MR CERVICAL SPINE WITHOUT CONTRAST CLINICAL INFORMATION: Pain weakness and numbness both upper extremities. COMPARISON: None available. TECHNIQUE: MRI of the cervical spine was obtained using routine sequences without contrast. FINDINGS: Craniocervical junction is intact. No bone marrow STIR signal abnormality. Multilevel disc desiccation more conspicuous at C5-6 and C6-7. The alignment is normal. Mild kyphotic deformity/reverse curvature apex at C5-6. Spinal cord signal is normal. C2-3: No cord compression. No neuroforamina stenosis. C3-4: No cord compression. No neuroforamina stenosis. C4-5: No cord compression. No neuroforamina stenosis. C5-6: No based disc osteophyte complex formation resulting in ventral deformity of the thecal sac. No cord compression. No neuroforamina stenosis. C6-7: Right based disc osteophyte complex formation and slightly asymmetric to the left resulting in ventral deformity of the thecal sac. No cord compression. No neuroforamina stenosis. C7-T1: No cord compression. No neuroforamina stenosis. No prevertebral compartment hematoma, mass or fluid collection. Flow-void signal within the main vessels is normal. Codominant vertebral arteries. MR/MR cervical spine wo con IMPRESSION: Cervical spondylosis C5-6 and C6-7 without cord compression, edema and or myelopathy. Electronically signed by: Emgidio Tavares MD 07/21/2024 10:58 AM EST
== END 2024-07-20 18:41 | disposition home or self-care (01) ==
LOC: HO.MRI 18:40
PROVIDERS: PCP Internal Medicine; Visit Provider Internal Medicine
DX: M54.12 Radiculopathy, cervical region (principal); M54.2 Cervicalgia; E03.9 Hypothyroidism, unspecified
CPT/HCPCS: 72141

== ENCOUNTER → 2024-07-20 18:49 | Outpatient (BNV) | payer OTHER, SELFPAY | PROVIDERS: PCP Internal Medicine; Visit Provider Radiology Diagnostic Radiology | DX: R53.1 Weakness (principal); M79.621 Pain in right upper arm; M79.622 Pain in left upper arm | CPT/HCPCS: 72141 ==

== ENCOUNTER 2024-07-22 10:42 | Outpatient (REF) | payer OTHER, SELFPAY ==
[2024-07-22 15:10] LABS: Iron 73 mcg/dL (30-160); Percent Iron Saturation 23 % (15-50); Total Iron Binding Capacity 317 mcg/dL (228-428); Unsaturated Iron Binding 244 ug/dL
[2024-07-22 15:13] LABS: Ferritin 45 ng/mL (10-122); TSH reflex Free T4 2.78 uIU/mL (0.32-4.0)
[2024-07-22 15:47] LABS: Vitamin B12 433 pg/mL (200-900)
== END 2024-07-22 10:43 | disposition home or self-care (01) ==
LOC: HO.WFDLDS 10:42
PROVIDERS: Visit Provider Internal Medicine
DX: E03.9 Hypothyroidism, unspecified (principal); F90.0 Attention-deficit hyperactivity disorder, predominantly inattentive type; F41.1 Generalized anxiety disorder; F90.2 Attention-deficit hyperactivity disorder, combined type
CPT/HCPCS: 36415; 82607; 82728; 82746; 83540; 84443

== ENCOUNTER 2024-07-28 09:46 | Outpatient (AMB) | payer OTHER, SELFPAY ==
--- NOTE | 2024-07-28 09:43 | MHC.PC.OV ---
Intake Visit Reasons: discuss mri Intake Note: Disscus MRI results. Lab results. Allergies amoxicillin Allergy (Intermediate, Verified 07/28/24 09:43) hives Erythromycin Allergy (Intermediate, Uncoded 07/28/24 09:43) hives Tobacco use date assessed: 01/10/24 Dental Screening Dental Screen Date: 01/10/24 HPI HPI Comments History of Present Illness Details The patient is a 28 year old female with a past medical history of ADD, depression, anxiety, IBS, neck pain presenting for follow up In December, She has had increased pain in the neck radiating down the right shoulder and right arm for the past 2 months. She has had issues with this in the past. she has had prior MRI, seen [facility]. She has pain and weakness in the right distal arm and hand which feels weak at times. She has had increased pain in multiple joints and muscle fatigue and discomfort. Inflammatory labs were unremarkable. She continues to have these symptoms. She recently had MRI C5-6: No based disc osteophyte complex formation resulting in ventral deformity of the thecal sac. No cord compression. No neuroforamina stenosis.C6-7: Right based disc osteophyte complex formation and slightly asymmetric to the left resulting in ventral deformity of the thecal sac. No cord compression. No neuroforamina stenosis.IMPRESSION: Cervical spondylosis C5-6 and C6-7 without cord compression, edema and or myelopathy. Hypothyroid: on levothyroxine. BH: Stable on methylphenidate and clonazepam. Follows with psych She had reported 2-3 month history of left anterior neck fullness of upper neck, under jaw. Discomfort when she rotates her head. us showed benign appear lymph node ROS see HPI PHYSICAL EXAM: Telehealth [facility] Family History (Updated 01/10/24 @ 14:14 by Lani Banda CMA) Father Gastric cancer HTN (hypertension) Asthma Maternal Grandmother Suicide Mother Depression Psychiatric disorder Other FH: mental illness Social History (Updated 01/10/24 @ 14:17 by Lani Banda CMA) Housing: House Patient Tobacco Use Status: Never used Tobacco e-Cigarette/Vaping Use: Never Used Second Hand Smoke Exposure: No service: No Current occupational status: employed Current occupation: [employer] Current occupational exposures/hazards: No Cognitive needs: No Hearing needs: No Vision needs: No Questionnaire Thrive Questionnaire Date Thrive assessed: 01/10/24 JORGE-7 AMB Questionnaire JORGE-7 Date JORGE - 7 assessed: 01/10/24 Source: Developed by Drs. Balaji Toro, Chrystal Abrams, Jamison Davey and colleagues, with an educational marly from [employer]. Physical exam (Primary Care) Tobacco/Smoking Status: Tobacco use Status Tobacco use date assessed 01/10/24 07/28/24 09:44 Patient Tobacco Use Status Never used Tobacco 07/28/24 09:44 e-Cigarette/Vaping Use Never Used 07/28/24 09:44 Thrive Assessment: Date of Thrive Assessment Date Thrive assessed 01/10/24 07/28/24 09:44 Telehealth Telehealth Telehealth Platform: [employer] Location of provider rendering services: practice address Location of patient: address on file Patient Identification confirmed using: Name, : Yes Telehealth method: voice only Patient verbally consented to treatment: Yes Patient verbally consented to billing insurance company: Yes Patient informed of any privacy concerns related to visit: Yes Minutes spent on Phone/Video with Pt.: 34 Coding Level of Care Code Est Pt Level 3 (95140) Diagnoses DDD (degenerative disc disease), cervical M50.30 Assessment & Plan Assessment & Plan (1) DDD (degenerative disc disease), cervical: Code(s): M50.30 - Other cervical disc degeneration, unspecified cervical region Category: Medical Plan: Referral to spine center for evaluation given her weakness Orders: Referrals Neuro Spine Referral M50.30 - Other cervical disc degeneration, unspecified cervical region
== END 2024-07-28 10:04 | disposition home or self-care (01) ==
LOC: HO.HMCFM 09:46
PROVIDERS: PCP Internal Medicine; Visit Provider Internal Medicine
DX: M50.30 Other cervical disc degeneration, unspecified cervical region (principal)

== ENCOUNTER 2024-09-04 10:08 | Outpatient (AMB) | payer OTHER, SELFPAY ==
--- NOTE | 2024-09-04 10:17 | HO.SPINEOV ---
Vital Signs 09/04/24 10:21 Height 5 ft 1 in Weight 180 lb BMI 34.0 Intake Visit Reasons: cervical disc degeneration Intake Note: Ms. Soto is here today c/o neck pain that radiate to the Right shoulder. 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 She generally has the worst pain in the morning. She has been through physical therapy and has previously had cortisone injections in her shoulders and knowing that orthopedics. The cortisone injections were done a number of years ago and that seemed to work fairly well. She will take Motrin and Tylenol as needed. It does not really do much. She was sent today to see us with an MRI showing some disc degeneration at C5-6 C6-7. PMH: History of hypothyroidism, ADHD, anxiety, Social hx: She does not smoke, drink or use any recreational drugs Medications: Vyvanse, levothyroxine, Klonopin Allergies: Amoxicillin and erythromycin Physical exam: She is awake alert oriented, no acute distress, she has good strength in bilateral upper extremities with normal reflexes. Negative Tinel sign in the right hand. Multiple positive shoulder impingement signs with internal external rotation as well as abduction. Her shoulders were so tight, she could barely get her arms behind her back without inducing significant amounts of pain. 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 The only thing localizing on her exam that I could find is that she has multiple impingement signs for shoulders. She has had good success with cortisone injections in her shoulders in the past at [facility]. Her MRI shows some mild disc degeneration but no nerve impingement to suggest a true radiculopathy. 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 She is interested in getting cortisone injections in her shoulders again. I will refer her to for that. From our standpoint, she does not need any surgery and we can just see her back on an as-needed basis. Thank you for allowing us to care for your patient. The total time spent with this visit with this patient was 45 minutes reviewing history, physical exam, cervical imaging review, and implementation of treatment plan or further diagnostic testing Nikita Bauer MD,PhD [facility] Orders: Referrals Orthopedics Referral M25.511 - Pain in right shoulder, M25.512 - Pain in left shoulder Coding Level of Care Code New Pt Level 4 (35673) Diagnoses Bilateral shoulder pain M25.511; M25.512
[2024-09-04 10:21] VITALS: BMI 34.0
== END 2024-09-04 10:51 | disposition home or self-care (01) ==
PROVIDERS: PCP Internal Medicine; Visit Provider Physician Assistant
DX: M25.511 Pain in right shoulder (principal); M25.512 Pain in left shoulder
CPT/HCPCS: 99204

== ENCOUNTER → 2024-09-04 10:08 | Outpatient (BNVA) | payer OTHER, SELFPAY | PROVIDERS: PCP Internal Medicine; Visit Provider Physician Assistant ==

== ENCOUNTER 2024-09-04 14:50 | Outpatient (AMB) | payer OTHER, SELFPAY ==
--- NOTE | 2024-09-04 14:56 | A.OFFPC_ITS ---
Vital Signs 09/04/24 15:02 Height 5 ft 1 in Weight 182 lb 8 oz BMI 34.5 BP 108/74 Blood Pressure Location Lt brachial Position Sitting Pulse 102 H Pulse Source Pulse Oximeter Pulse Oximetry (%) 96 Oxygen Delivery Method Room Air Intake Visit Reasons: foot pain Intake Note: Left foot and knee pain, numbness. [employer] Sharpshooter Required: No Allergies amoxicillin Allergy (Intermediate, Verified 09/04/24 14:57) hives Erythromycin Allergy (Intermediate, Uncoded 09/04/24 14:57) hives Tobacco use date assessed: 09/04/24 Dental Screening Dental Screen Date: 01/10/24 HPI HPI Comments History of Present Illness Details The patient is a 28 year old female with a past medical history of ADD, depression, anxiety, IBS, neck pain presenting for foot and leg pain She reports left foot/ankle pain. She has been running, trying to lose weight. She has had some left knee pain for a few months but with the increase in running the ankle has started to bother her daily and stop her from completing exercise In December noted, She has had increased pain in the neck radiating down the right shoulder and right arm for the past 2 months. She has had issues with this in the past. she has had prior MRI, seen [facility]. She has pain and weakness in the right distal arm and hand which feels weak at times. She has had increased pain in multiple joints and muscle fatigue and discomfort. Inflammatory labs were unremarkable. She continues to have these symptoms. She recently had MRI C5-6: No based disc osteophyte complex formation resulting in ventral deformity of the thecal sac. No cord compression. No neuroforamina stenosis.C6-7: Right based disc osteophyte complex formation and slightly asymmetric to the left resulting in ventral deformity of the thecal sac. No cord compression. No neuroforamina stenosis.IMPRESSION: Cervical spondylosis C5-6 and C6-7 without cord compression, edema and or myelopathy. Hypothyroid: on levothyroxine. BH: Stable on methylphenidate and clonazepam. Follows with psych She had reported 2-3 month history of left anterior neck fullness of upper neck, under jaw. Discomfort when she rotates her head. us showed benign appear lymph node ROS see HPI PHYSICAL EXAM: GENERAL: Alert and oriented x 3. NAD EYES: EOMI. Anicteric. HENT: Moist mucous membranes. No scleral icterus. No cervical lymphadenopathy. LUNGS: Clear to auscultation bilaterally. CARDIOVASCULAR: Regular rate and rhythm. No murmur. No JVD. ABDOMEN: Soft, non-tender +bs EXTREMITIES: No edema. Non-tender. Mild fullness of medial malleoli. FROM. No warmth or redness SKIN: No rashes or lesions. Warm. NEUROLOGIC: No focal neurological deficits. CN II-XII grossly intact PSYCHIATRIC: Cooperative. Appropriate mood and affect [facility] Family History Father Gastric cancer HTN (hypertension) Asthma Maternal Grandmother Suicide Mother Depression Psychiatric disorder Other FH: mental illness Social History (Updated 09/04/24 @ 14:57 by Lani Banda CMA) Housing: House Alcohol intake: current Patient Tobacco Use Status: Never used Tobacco e-Cigarette/Vaping Use: Never Used Second Hand Smoke Exposure: No service: No Current occupational status: employed Current occupation: [employer] Current occupational exposures/hazards: No Cognitive needs: No Hearing needs: No Vision needs: No Questionnaire Thrive Questionnaire Date Thrive assessed: 05/27/24 I am a: Patient What is your living situation today?: I have a steady place to live Within the past 12 months, did the food you bought not last and you didn't have the money to get more?: Never true Within the past 12 months, did you worry whether your food would run out before you got money to buy more?: Never true Do you have trouble paying for medicines?: No Do you have trouble getting transportation to medical appointments?: No Do you have trouble paying your heating and electricity bill?: No Do you have trouble taking care of your child, family member or friend?: No Do you have trouble with day-to-day activities such as bathing, preparing meals, shopping, managing finances, etc.?: No Are you currently unemployed and looking for a job?: No Are you interested in more education?: No Please select the resources that you would like help with: None Currently or been in a relationship where the following occur: No concerns reported THRIVE Score: 0 JORGE-7 AMB Questionnaire JORGE-7 Date JORGE - 7 assessed: 01/10/24 Source: Developed by Drs. Balaji Toro, Chrystal Abrams, Jamison Davey and colleagues, with an educational marly from [employer]. Physical exam (Primary Care) Vital Signs: Last Vital Signs Pulse 102 H 09/04/24 15:02 BP 108/74 09/04/24 15:02 Pulse Ox 96 09/04/24 15:02 Oxygen Delivery Method Room Air 09/04/24 15:02 BMI result Body Mass Index 34.5 Tobacco/Smoking Status: Tobacco use Status Tobacco use date assessed 09/04/24 09/04/24 14:59 Patient Tobacco Use Status Never used Tobacco 09/04/24 14:59 e-Cigarette/Vaping Use Never Used 09/04/24 14:59 Thrive Assessment: Date of Thrive Assessment Date Thrive assessed 05/27/24 09/04/24 14:59 Currently or been in a relationship where the following occur: No concerns reported Coding Level of Care Code Est Pt Level 4 (53591) Diagnoses Left ankle pain, unspecified chronicity M25.572 Chronicity: unspecified Assessment & Plan Assessment & Plan (1) Left ankle pain: Code(s): M25.572 - Pain in left ankle and joints of left foot Category: Medical Qualifiers: Chronicity: unspecified Qualified Code(s): M25.572 - Pain in left ankle and joints of left foot Plan: Referral to orthopedics placed. Diclofenac sent. Prednisone sent Orders: Orders PT Evaluation and Treatment 09/04/24 M25.572 - Pain in left ankle and joints of left foot Referrals Orthopedics Referral M25.572 - Pain in left ankle and joints of left foot Medications: New prednisone 40 mg (2 x 20 mg) PO DAILY 10 tabs 0RF diclofenac sodium 1% (Arthritis Pain (diclofenac)) apply to single knee, ankle, foot; for foot includes sole/toes/top of foot 4 grams topical QID 100 grams 3RF
[2024-09-04 15:02] VITALS: BP 108/74; PULSE 102; O2SAT 96; BMI 34.5
== END 2024-09-04 15:28 | disposition home or self-care (01) ==
PROVIDERS: PCP Internal Medicine; Visit Provider Internal Medicine
DX: M25.572 Pain in left ankle and joints of left foot (principal)

== ENCOUNTER 2024-10-06 09:19 | Outpatient (AMB) | payer OTHER, SELFPAY ==
--- NOTE | 2024-10-06 09:39 | MHC.OFFVIS ---
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 She describes her pains as sharp in nature. She did have 1 cortisone injection given into her shoulder in the past. That injection gave her fairly good relief. She states that her pain has gotten worse over the last few months. She does not recall any traumatic event preceding the onset of her pain. She may have aggravated her shoulders while using a [employer] exercise machine at the gym. She has taken ibuprofen which gives her mild relief. Allergies amoxicillin Allergy (Intermediate, Verified 10/06/24 09:46) hives Erythromycin Allergy (Intermediate, Uncoded 10/06/24 09:46) hives Medication List - Last Reconciled 10/06/24 by Al Harrington MD cetirizine (Zyrtec) 10 mg PO DAILY clonazepam 0.5 mg PO TID diclofenac sodium 1% (Arthritis Pain (diclofenac)) 4 grams topical QID fluconazole 150 mg PO Q3D PRN 6 days fluocinonide 0.05% 1 appl topical BID fluticasone propionate 50 mcg/actuation (Flonase Allergy Relief) 2 sprays intranasal DAILY levothyroxine 100 mcg PO DAILY lisdexamfetamine (Vyvanse) 40 mg PO DAILY prednisone 40 mg (2 x 20 mg) PO DAILY PFSH Family History Father Gastric cancer HTN (hypertension) Asthma Maternal Grandmother Suicide Mother Depression Psychiatric disorder Other FH: mental illness Social History (Updated 10/06/24 @ 09:46 by VENANCIO Arnett) Housing: House Alcohol intake: current Patient Tobacco Use Status: Never used Tobacco e-Cigarette/Vaping Use: Never Used Second Hand Smoke Exposure: No service: No Current occupational status: employed 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 Current occupational exposures/hazards: No Cognitive needs: No Hearing needs: No Vision needs: No Physical Exam Vital Signs: BMI result Body Mass Index 34.5 Const Other: Well-nourished well-developed very friendly female awake alert and oriented x3 in no acute distress Extrem Other: Bilateral upper extremity examination shows good capillary refill, no skin lesions noted, normal sensation light touch Bilateral shoulder examination shows 5/5 strength with supraspinatus testing, positive impingement signs, no instability Office Procedures AMB Joint Injection/Aspiration Joint Injection/Aspiration Primary Site: left shoulder Prep: site was prepped using aseptic technique Injected: 40 mg of, DepoMedrol and 1% plain lidocaine Procedure: The patient tolerated the procedure well Coding - Large joint Procedure code (CPT) selection complete Results Reviewed Results Reviewed: X-rays of the patient's bilateral shoulder show type 3 acromion as well as calcium deposits within her supraspinatus tendons consistent with calcific tendinitis, no acute bony abnormalities Assessment & Plan Assessment & Plan (1) Impingement syndrome of left shoulder: Code(s): M75.42 - Impingement syndrome of left shoulder Category: Medical Plan Ms. Soto presents with bilateral shoulder pains, left greater than right, due to impingement syndrome and calcific tendinitis. The risks and benefits of a left shoulder cortisone injection were discussed at length with the patient. The patient wished to proceed. She tolerated the injection well. She will continue with her home stretching program to prevent stiffness. I will see her back in 3-4 weeks' time for possible right shoulder cortisone injection. Feel free to call me at any time should questions regarding her orthopedic management arise. I spent 21 minutes in reviewing the patient's records and imaging studies, seeing the patient and documenting in the medical record. Orders: Orders XR shoulder LT min 2V Today M25.512 - Pain in left shoulder XR shoulder RT min 2V Today M25.511 - Pain in right shoulder AMB Joint Injection/Aspiration Today M75.42 - Impingement syndrome of left shoulder Coding Level of Care Code New Pt Level 3 (63560) Complex EM visit Add On G2211 Diagnoses Impingement syndrome of left shoulder M75.42 CPT Codes Coding - Large joint: 61228 - Large joint ([id number])
[2024-10-06 09:40] VITALS: BMI 34.5
== END 2024-10-06 10:15 | disposition home or self-care (01) ==
PROVIDERS: PCP Internal Medicine; Visit Provider Orthopaedic Surgery
DX: M75.42 Impingement syndrome of left shoulder (principal)
CPT/HCPCS: 20610; 99203

== ENCOUNTER 2024-10-06 14:30 | Outpatient (REF) | payer OTHER, SELFPAY ==
--- NOTE | ~2024-10-06 | XR_ITS ---
EXAMINATION: XR SHOULDER, RIGHT CLINICAL INFORMATION: M25.511 - Pain in right shoulder COMPARISON: None available. TECHNIQUE: Two views of the right shoulder. FINDINGS: The bones and soft tissues are normal. No fracture. Glenohumeral and acromioclavicular alignment is anatomic with normal joint space. There is small loose body suspected posterior to the humeral head. No abnormal soft tissue calcifications. XR/XR shoulder RT min 2V IMPRESSION: Small loose body suspected posteriorly humeral head. Otherwise unremarkable right shoulder exam. Electronically signed by: Vicente Rachel MD 10/06/2024 10:58 AM CRISTI
--- NOTE | ~2024-10-06 | XR_ITS ---
EXAMINATION: XR SHOULDER, LEFT CLINICAL INFORMATION: M25.512 - Pain in left shoulder COMPARISON: None available. TECHNIQUE: 2 views. FINDINGS: The bones and soft tissues are normal. Glenohumeral and acromioclavicular alignment is anatomic with normal joint space. There are 2 small loose bodies seen superior to the humeral head. No joint effusion seen. No soft tissue calcification. No visible acute fracture or dislocation. XR/XR shoulder LT min 2V IMPRESSION: 2 small loose bodies seen superior to the humeral head. No visible acute fracture or dislocation seen. Electronically signed by: Vicente Rachel MD 10/06/2024 10:59 AM EST
--- OUTSIDE RECORDS SUMMARY | 2024-10-08 17:14 | XMS_ITS | Continuity of Care Document ---
Author Organization [facility] ter Address [address] [place] [id number]- Support Name Relationship Address Phone DUPERAULT, MADHAVI Personal Relationship Unknown Un available CORTIS, PATRIA spouse Unknown Unavailable DUPERAULT, MADHAVI Personal Relationship Unknown Un available DUPERAULT, MADHAVI Personal Relationship Unknown Un available CORTIS, PATRIA Personal Relationship Unknown Sabine vailable DUPERAULT, MADHAVI unrelated friend Unknown Unavail able DUPERAULT, MADHAVI Personal Relationship Unknown Un available DUPERAULT, MADHAVI Personal Relationship Unknown Un available DUPERAULT, MADHAVI Personal Relationship Unknown Un available DUPERAULT, MARTA Personal Relationship Unknown Unavailable DUPERAULT, MADHAVI Personal Relationship Unknown Un available CORTIS, TRACY Personal Relationship Unknown Un available DUPERAULT, MADHAVI Personal Relationship Unknown Un available DUPERAULT, MARTA mother Unknown Unavailab le DUPERAULT, MADHAVI Personal Relationship Unknown Un available DUPERAULT, MADHAVI Personal Relationship Unknown Un available PATRIA, CORTIS Personal Relationship Unknown Sabine vailable DUPERAULT, MADHAVI Personal Relationship Unknown Un available CORTIS, JIMENEZ child Unknown Unavailable Care Team Providers Care Needle Molder Name Role Phone Martina Lucio MD Primary Care Physician [phone] Encounter [facility] Date(s): 10/06/24 - 10/06/[address] [address] Discharge Disposition: A-D/C Home Attending Physician: Abilio Elizondo MD Admitting Physician: Abilio Elizondo MD Referring Physician: Martina Lucio MD Encounter Type: Disch Daystay Allergies, Adverse Reactions, Alerts Substance Criticality Severity Reaction Reaction Severity Status erythromycin rash Active Augmentin hives Active azithromycin Active Immunizations Given and Recorded Vaccine Date Status Refusal Reason influenza virus vaccine, inactivated 07/11/23 Howard rded influenza virus vaccine, inactivated 06/15/22 Howard rded influenza virus vaccine, inactivated 06/06/21 Howard rded influenza virus vaccine, inactivated 07/04/20 Howard rded influenza virus vaccine, inactivated 07/08/19 Howard rded influenza virus vaccine, inactivated 06/25/17 Howard rded SARS-CoV-2 (COVID-19) mRNA BNT-162b2 vac 10/31/21 Recorded SARS-CoV-2 (COVID-19) mRNA BNT-162b2 vac 09/24/20 Recorded SARS-CoV-2 (COVID-19) mRNA BNT-162b2 vac 09/03/20 Recorded hepatitis B adult vaccine 01/06/21 Given Hepatitis B Vaccine (old term) 06/20/15 Recorded Hepatitis B Vaccine (old term) 12/08/14 Recorded Hepatitis B Vaccine (old term) 04/28/14 Recorded Hepatitis B Vaccine (old term) 04/19/94 Recorded Hepatitis B Vaccine (old term) 93 Recorded tetanus/diphtheria/pertussis, acel(Tdap) 04/14/14 Recorded Medications Clonazepam 0.5, By Mouth, Once, PRN Anxiety, 0 Refills, Maintenance, 03/15/19 1:09:53 PM EDT Start Date: 03/15/19 Status: Ordered Repeat number: 1 levonorgestrel 52 mg intrauterine device See Instructions, Please delivery to [facility] 10/06 for insertion, # 1 each, 0 Refills, Maintenance,10/06/24 3:41:00 PM EST, [facility], Partial fill upon patient request if the prescription is for a schedule II opioid drug., 155, cm, 09/21/24 13:42:00 EST, Height, 82, kg, 04/29/24 12:46:00 EDT, Dry Weight Start Date: 10/06/24 Status: Ordered Quantity: 1.0 Unit: each Repeat number: 1 levothyroxine 0.088 mg oral tablet 1 tablet, By Mouth, Daily, # 90 tablet, 3 Refills, Maintenance, 12/02/23 9:00:00 AM EDT, [id number], 154, cm, 10/14/23 11:45:00 EST, Height, 84, kg, 10/10/23 17:30:00 EST, Dry Weight Start Date: 12/02/23 Status: Ordered Quantity: 90.0 Unit: tablet Repeat number: 1 methylphenidate 5 mg oral tablet 5 mg, 1, tablet, By Mouth, 2 times a day, # 90 tablet, Refills 0, Tot. Refills 0, Maintenance, 10/20/22 5:13:00 PM EST, Partial fill upon patient request if the prescription is for a schedule II opioiddrug. Start Date: 10/20/22 Status: Ordered Quantity: 90.0 Unit: tablet Repeat number: 1 semaglutide 2 mg/3 mL (0.25 mg or 0.5 mg dose) subcutaneous solution = 0.5 mg, Subcutaneous Injection, Every week, rotate injection sites, # 1 each, 3 Refills, Maintenance, 12/06/23 5:13:00 PM EDT, Solution, [id number], 154, cm, 12/06/23 16:52:00 EDT, Height, 84, kg, 10/10/23 17:30:00 EST, Dry Weight Start Date: 12/06/23 Status: Ordered Quantity: 1.0 Unit: each Repeat number: 4 Indication: Morbid (severe) obesity due to excess calories Problem List Condition Confirmation Course Effective Dates Status H ealth Status Informant Anxiety Confirmed Active Attention deficit hyperactivity disorder, predominantly inattentive type Confirmed Active Back pain Confirmed Active Diarrheal stools Confirmed Active Fatigue Confirmed Active Fever Confirmed Active Gastroesophageal reflux disease without esophagitis Confirmed Active Herpes Confirmed Active Hypothyroidism Confirmed Active Iron deficiency anemia Confirmed Active Irritable bowel syndrome Confirmed Active Arthralgia Confirmed Active Migraine Confirmed Active Myalgia Confirmed Active Obese class I Confirmed Active Otalgia, right ear Confirmed Active Polycystic ovaries Confirmed Active Recurrent major depression Confirmed Active RUQ abdominal pain Confirmed Active COVID-19 virus detected Confirmed Active Hepatic steatosis Confirmed Active Social History Social History Type Response Smoking Status Never (less than 100 in lifetime) entered on: 10/13/19 Sex Sex Representation Female (finding) Patient Care team information Care Team Personnel Name: Abilio Arellano RN Position: [facility] RN Member Role: Primary Care Nurse Name: Tarcy Soto RN Position: [facility] RN Member Role: Primary Care Nurse Name: Senia Ingram MD Position: [facility] FINISHING MACHINE TENDER MD Member Role: [employer] FINISHING MACHINE TENDER Physician Address: [address] [place] [address] Telecom: Name: Beverley Tam [place] Position: [facility] Outreach Member Role: Lif[employer] Consulting Physician Name: Naveed HAMILTON, Martina Dial Position: Reference Physician Member Role: PCP Address: [address] [place] [address]- [place] Telecom: Name: Vannesa Anguiano RN Position: [facility] RN Member Role: Primary Care Nurse Name: Balaji Chaudhry MD Position: [facility] FINISHING MACHINE TENDER MD Member Role: [employer] FINISHING MACHINE TENDER Physician Address: [address] [place] [address]- Telecom: Care Team Related Persons Name: JIMENEZ SOTO Name: PATRIA SOTO Name: MARTA NICE Name: MADHAVI NICE Insurance Providers Guarantor name: TRACY SOTO Health Plan Information #: 1 Payer: [facility] [employer] NON BHP HMO Member Number: [id number] Policy Number: NA Group Number: [id number] Health Plan Information #: 2 Payer: [facility] [employer] NON BHP HMO Member Number: [id number] Policy Number: NA Group Number: [id number]
== END 2024-10-06 14:31 | disposition home or self-care (01) ==
LOC: HO.HOSX 14:30
PROVIDERS: Visit Provider Orthopaedic Surgery
DX: M25.511 Pain in right shoulder (principal); M24.012 Loose body in left shoulder; M75.42 Impingement syndrome of left shoulder
CPT/HCPCS: 20610; 73030; J1010; J2003

== ENCOUNTER 2024-10-16 15:04 | Outpatient (AMB) | payer OTHER, SELFPAY ==
--- NOTE | 2024-10-16 15:08 | MHC.PC.OV ---
Vital Signs 10/16/24 15:10 Height 5 ft 1 in Weight 175 lb BMI 33.1 BP 112/74 Blood Pressure Location Lt brachial Position Sitting Pulse 96 Pulse Source Pulse Oximeter Pulse Oximetry (%) 97 Oxygen Delivery Method Room Air Intake Visit Reasons: cpe Intake Note: Physical Finance Consultant Required: No Allergies amoxicillin Allergy (Intermediate, Verified 10/16/24 15:08) hives Erythromycin Allergy (Intermediate, Uncoded 10/16/24 15:08) hives Tobacco use date assessed: 09/04/24 Dental Screening Dental Screen Date: 01/10/24 HPI HPI Comments History of Present Illness Details The patient is a 29 year old female with a past medical history of ADD, depression, anxiety, IBS, neck pain presenting for physical exam Has seen ortho re left foot/ankle pain. She has been running, trying to lose weight. She has had some left knee pain for a few months but with the increase in running the ankle has started to bother her daily and stop her from completing exercise. She has been going to physical therapy In December noted, She has had increased pain in the neck radiating down the right shoulder and right arm for the past 2 months. She has had issues with this in the past. she has had prior MRI, seen [facility]. She has pain and weakness in the right distal arm and hand which feels weak at times. She has had increased pain in multiple joints and muscle fatigue and discomfort. Inflammatory labs were unremarkable. She continues to have these symptoms. She recently had MRI C5-6: No based disc osteophyte complex formation resulting in ventral deformity of the thecal sac. No cord compression. No neuroforamina stenosis.C6-7: Right based disc osteophyte complex formation and slightly asymmetric to the left resulting in ventral deformity of the thecal sac. No cord compression. No neuroforamina stenosis.IMPRESSION: Cervical spondylosis C5-6 and C6-7 without cord compression, edema and or myelopathy. Hypothyroid: on levothyroxine. BH: Stable on methylphenidate and clonazepam. Follows with psych Follows with ob gyn ROS see HPI PHYSICAL EXAM: GENERAL: Alert and oriented x 3. NAD EYES: EOMI. Anicteric. HENT: Moist mucous membranes. No scleral icterus. No cervical lymphadenopathy. LUNGS: Clear to auscultation bilaterally. CARDIOVASCULAR: Regular rate and rhythm. No murmur. No JVD. ABDOMEN: Soft, non-tender +bs EXTREMITIES: No edema. Non-tender. Mild fullness of medial malleoli. FROM. No warmth or redness SKIN: No rashes or lesions. Warm. NEUROLOGIC: No focal neurological deficits. CN II-XII grossly intact PSYCHIATRIC: Cooperative. 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 1. Little interest or pleasure in doing things: not at all 2. Feeling down, depressed, or hopeless: not at all 3. Trouble falling or staying asleep, or sleeping too much: not at all 4. Feeling tired or having little energy: not at all 5. Poor appetite or overeating: not at all 6. Feeling bad about yourself - or that you are a failure or have let yourself or your family down: not at all 7. Trouble concentrating on things, such as reading the newspaper or watching television: not at all 8. Moving or speaking so slowly that other people could have noticed. Or the opposite - being so fidgety or restless that you have been moving around a lot more than usual: not at all 9. Thoughts that you would be better off or of hurting yourself in some way: not at all Total score: 0 Depression Screening Interpretation: Negative Depression Screening Done: Yes 83263 - PHQ-9 Billing: Yes Source: Developed by Drs. Balaji Toro, Chrystal Abrams, Jamison Davey and colleagues, with an educational marly from [employer]. Thrive Questionnaire Date Thrive assessed: 10/16/24 I am a: Patient What is your living situation today?: I have a steady place to live Within the past 12 months, did the food you bought not last and you didn't have the money to get more?: Never true Within the past 12 months, did you worry whether your food would run out before you got money to buy more?: Never true Do you have trouble paying for medicines?: No Do you have trouble getting transportation to medical appointments?: No Do you have trouble paying your heating and electricity bill?: No Do you have trouble taking care of your child, family member or friend?: No Do you have trouble with day-to-day activities such as bathing, preparing meals, shopping, managing finances, etc.?: No Are you currently unemployed and looking for a job?: No Are you interested in more education?: No Please select the resources that you would like help with: None Currently or been in a relationship where the following occur: No concerns reported THRIVE Score: 0 AUDIT C Alcohol Use Questionnaire (AUDIT-C) 1. How often do you have a drink containing alcohol?: Never Total Score: 0 JORGE-7 AMB Questionnaire JORGE-7 Date JORGE - 7 assessed: 10/16/24 Feeling nervous, anxious, or on edge: 0 = Not at all Not being able to stop or control worryin = Not at all Worrying too much about different things: 0 = Not at all Trouble relaxin = Not at all Being so restless that it is hard to sit still: 0 = Not at all Becoming easily annoyed or irritable: 0 = Not at all Feeling afraid as if something awful might happen: 0 = Not at all Total JORGE-7 score (0-4 normal; 5-9 mild; 10-14 moderate; 15-21 severe): 0 Source: Developed by Drs. Balaji Toro, Chrystal Abrams, Jamison Davey and colleagues, with an educational marly from [employer]. JORGE-7 Assessment Billing JORGE-7 Assessment Tool: JORGE-7 Assessment 90352 Physical exam (Primary Care) Vital Signs: Last Vital Signs Pulse 96 10/16/24 15:10 BP 112/74 10/16/24 15:10 Pulse Ox 97 10/16/24 15:10 Oxygen Delivery Method Room Air 10/16/24 15:10 BMI result Body Mass Index 33.1 Tobacco/Smoking Status: Tobacco use Status Tobacco use date assessed 09/04/24 10/16/24 15:13 Patient Tobacco Use Status Never used Tobacco 10/16/24 15:13 e-Cigarette/Vaping Use Never Used 10/16/24 15:13 PHQ-9: PHQ-9 Score PHQ-9: Total score 0 10/18/24 14:03 Depression Screening Interpretation: Negative Thrive Assessment: Date of Thrive Assessment Date Thrive assessed 10/16/24 10/16/24 15:13 Currently or been in a relationship where the following occur: No concerns reported Coding Level of Care Code Est Pt Prev Care 18-39y(67073) Diagnoses Physical exam Z00.00 Left knee pain, unspecified chronicity M25.562 Chronicity: unspecified JORGE (generalized anxiety disorder) F41.1 Additional Codes JORGE-7 Assessment Billing - JORGE-7 Assessment Tool: JORGE-7 Assessment [id number] ([id number]) PHQ-9 - 44392 - PHQ-9 Billing: Yes ([id number]) Assessment & Plan Assessment & Plan (1) Physical exam: Code(s): Z00.00 - Encounter for general adult medical examination without abnormal findings Category: Medical Plan: Preventive measures for age reviewed Medical history, medications reconciled (2) Left knee pain: Code(s): M25.562 - Pain in left knee Category: Medical Qualifiers: Chronicity: unspecified Qualified Code(s): M25.562 - Pain in left knee Plan: continue follow up with ortho/pt (3) JORGE (generalized anxiety disorder): Code(s): F41.1 - Generalized anxiety disorder Category: Medical Plan: stable on current medications Orders: Orders ECG 12 lead EKG 10/16/24 E03.9 - Hypothyroidism, unspecified, R35.0 - Frequency of micturition, R53.83 - Other fatigue, R55 - Syncope and collapse, Z00.00 - Encounter for general adult medical examination without abnormal findings, Z13.0 - Encounter for screening for diseases of the blood and blood-forming organs and certain disorders involving the immune mechanism, Z13.228 - Encounter for screening for other metabolic disorders, Z13.29 - Encounter for screening for other suspected endocrine disorder Lipid Panel 10/16/24 E03.9 - Hypothyroidism, unspecified, R35.0 - Frequency of micturition, R53.83 - Other fatigue, Z00.00 - Encounter for general adult medical examination without abnormal findings, Z13.0 - Encounter for screening for diseases of the blood and blood-forming organs and certain disorders involving the immune mechanism, Z13.228 - Encounter for screening for other metabolic disorders, Z13.29 - Encounter for screening for other suspected endocrine disorder TSH reflex Free T4 10/16/24 E03.9 - Hypothyroidism, unspecified, R35.0 - Frequency of micturition, R53.83 - Other fatigue, Z00.00 - Encounter for general adult medical examination without abnormal findings, Z13.0 - Encounter for screening for diseases of the blood and blood-forming organs and certain disorders involving the immune mechanism, Z13.228 - Encounter for screening for other metabolic disorders, Z13.29 - Encounter for screening for other suspected endocrine disorder Hemoglobin A1c 10/16/24 E03.9 - Hypothyroidism, unspecified, R35.0 - Frequency of micturition, R53.83 - Other fatigue, Z00.00 - Encounter for general adult medical examination without abnormal findings, Z13.0 - Encounter for screening for diseases of the blood and blood-forming organs and certain disorders involving the immune mechanism, Z13.228 - Encounter for screening for other metabolic disorders, Z13.29 - Encounter for screening for other suspected endocrine disorder Complete Blood Count Auto Diff 10/16/24 E03.9 - Hypothyroidism, unspecified, R35.0 - Frequency of micturition, R53.83 - Other fatigue, Z00.00 - Encounter for general adult medical examination without abnormal findings, Z13.0 - Encounter for screening for diseases of the blood and blood-forming organs and certain disorders involving the immune mechanism, Z13.228 - Encounter for screening for other metabolic disorders, Z13.29 - Encounter for screening for other suspected endocrine disorder Comprehensive Met. Panel 10/16/24 E03.9 - Hypothyroidism, unspecified, R35.0 - Frequency of micturition, R53.83 - Other fatigue, Z00.00 - Encounter for general adult medical examination without abnormal findings, Z13.0 - Encounter for screening for diseases of the blood and blood-forming organs and certain disorders involving the immune mechanism, Z13.228 - Encounter for screening for other metabolic disorders, Z13.29 - Encounter for screening for other suspected endocrine disorder IRON PROFILE 10/16/24 E03.9 - Hypothyroidism, unspecified, R35.0 - Frequency of micturition, R53.83 - Other fatigue, Z00.00 - Encounter for general adult medical examination without abnormal findings, Z13.0 - Encounter for screening for diseases of the blood and blood-forming organs and certain disorders involving the immune mechanism, Z13.228 - Encounter for screening for other metabolic disorders, Z13.29 - Encounter for screening for other suspected endocrine disorder
[2024-10-16 15:10] VITALS: BP 112/74; PULSE 96; O2SAT 97; BMI 33.1
== END 2024-10-16 16:55 | disposition home or self-care (01) ==
PROVIDERS: Visit Provider Internal Medicine
DX: Z00.00 Encounter for general adult medical examination without abnormal findings (principal); M25.562 Pain in left knee; F41.1 Generalized anxiety disorder

== ENCOUNTER → 2024-10-16 15:04 | Outpatient (BNVA) | payer OTHER, SELFPAY | PROVIDERS: Visit Provider Internal Medicine | DX: Z00.00 Encounter for general adult medical examination without abnormal findings (principal); M25.562 Pain in left knee; F41.1 Generalized anxiety disorder | CPT/HCPCS: 96127 ==

== ENCOUNTER 2024-11-10 09:19 | Outpatient (AMB) | payer OTHER, SELFPAY ==
--- NOTE | 2024-11-10 09:22 | MHC.OFFVISPS ---
Intake Intake Visit Reasons: follow up Size Tester Required: No Allergies amoxicillin Allergy (Intermediate, Verified 10/16/24 15:08) hives Erythromycin Allergy (Intermediate, Uncoded 10/16/24 15:08) hives Medication List - Last Reconciled 11/10/24 by Courtney Omalley APRN clonazepam 0.5 mg PO TID fluocinonide 0.05% 1 appl topical BID levothyroxine 100 mcg PO DAILY lisdexamfetamine (Vyvanse) 40 mg PO DAILY HPI- Psychiatric Chief Complaint: follow up HPI Narrative: Pt reports improvement; mood stable; anxiety low although has periods where it is higher but able to cope; she is responding well to vyvanse; her focus and concentration is improved; she is able to stay on taks; she is less impulsive; she does obsess at times but is able to use skills to reduce. She is taking clonazepam 0.5mg to 0.75mg at bedtime and tolerating without side effects; she occasionally takes 0.25mg to 0.5 mg once a day for severe anxiety butit is not often. she is functioning very well at home and work; her self care has improved; she is exercising and taking time to relax more often. no SI no HI; n jodi; no self harm Past Psychiatric History: Her first trouble with psychiatric symptoms was in 5th grade - first psych problems- she started with self harming in 5th grade; She was hospitalized many times as child/teen for self harmage 18 completed 1 yr DBT program= with very +++ results one hospitalization after 2 yr old dtr born and started on SSRI and it helped At age 16 a doctor told she had borderline personality disorder and referred her to DBT program which was a one year program and changed her life for the better. 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 Medication Trials: geodon- sedation/dizziness lamictal ? rash risperdal- too scared to try Adderall - headaches, nausea wellbutrin - twitching prozac - worked well ? numbing (cut self 2019) 2022 to sedating seroquel - sedation, weight gain lexapro- negative celexa- negative concerta 27 mg - anxiety ativan - rebound irritability effexor - sedation, nausea - abilify - increased irritability buzzing in ears zoloft- negative tegretol- worked well in past 2019- Self injury - twitching trileptal-sedation rash depakote-weight gain vyvanse helped but almost too strong- increased anxiety a little luvox- worked well at first then irritabilty topomax vraylar Subjective Subjective Subjective Medication Compliance: Yes Side effects from medications: No Review of Systems Medical Review of Systems: unchanged Mental Status Exam Mental Status Exam Patient Appearance: Well Grooomed and Appropriate Patient Orientation: Person, Place, Time and Situation Level of Consciousness: Awake and Alert Patient Behavior: Appropriate, Cooperative and Good Eye Contact Mood Description: Happy Affect Description: Happy Patient Cognition Impaired: No Ability to Follow Directions: Good Speech Pattern: Clear and Appropriate Memory Description: Intact Hallucinations: None Delusions: Not Present Thought Process: Intact, Distracted (minimal) and Rumination (minimal ) Thought Content: positive for Intact and positive for Goal Oriented Judgement: Good Assessment and Plan Assessment & Plan (1) JORGE (generalized anxiety disorder): Status: Acute Code(s): F41.1 - Generalized anxiety disorder (2) ADHD (attention deficit hyperactivity disorder), combined type: Status: Acute Code(s): F90.2 - Attention-deficit hyperactivity disorder, combined type Plan continue medications return in 6 months Medications: Refilled clonazepam 0.5 mg PO TID 90 tabs 0RF lisdexamfetamine (Vyvanse) Partial Fill upon patient request. 40 mg PO DAILY 30 caps 0RF Counseling and coordination of Care Pt. Self Management counseling: Maintenance-social rhythm, Sleep hygiene, Behavior activation, General coping skills and Problem solving Medication management counseling: Effectiveness, Side effects, Dosing range, Duration, Drug interaction and Adherence Diagnosis and Prognosis Counseling: Accuracy of diagnosis, Prognosis over time, Impact of diagnosis on life functions, Impact of family relationship, Problematic behaviors secondary to diagnosis and Adequacy of current interventions Details: I spent 35 minutes reviewing the record, seeing the patient and documenting in the medical record. Counseling provided to the patient/caregiver as outlined below. Addressed patient/caregiver concerns regarding current medication regime including effective adherence. Addressed patient/caregiver concerns regarding diagnosis and prognosis including accuracy of diagnosis, prognosis over time, impact of diagnosis. Addressed patient/caregiver concerns regarding impact of recent stressors. 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 Substance History: none Trauma History: childhood trauma Coding Level of Care Code Est Pt Level 4 (66606) Diagnoses JORGE (generalized anxiety disorder) F41.1 ADHD (attention deficit hyperactivity disorder), combined type F90.2
--- OUTSIDE RECORDS SUMMARY | 2024-11-10 10:15 | XMS_ITS | Encounter Summary ---
Author Organization [facility] Address [address] [place] [address] Care Team Providers Care Produce Wrapper Name Role Phone Job Fernandez MD Primary Care Provider Encounter Details Date Type Department Care Team (Late st Contact Info) Description 10/21/2024 Telephone Gastroenterology - [address] [place] [phone] Paige Sim MD [address] [place] [address] [phone] Social History Tobacco Use Types Packs/Day Years Used Date Smoking Tobacco: Former Cigarettes Q uit: 11/15/2011 Smokeless Tobacco: Never Alcohol Use Standard Drinks/Week Comments No 0 (1 standard drink = 0.6 oz pur e alcohol) Comments Unknown Sex and Gender Information Value Date Recorded Sex Assigned at Not on file Legal Sex Female 2:14 PM EST Gender Identity Not on file Sexual Orientation Not on file documented as of this encounter Progress Notes * [place] - 10/21/2024 10:20 AM EST PT NEEDS TO R/S TODAY'S EGD, [facility] WANTED $800 UP FRONT, WOULD LIKE TO COME TO [employer] [facility], THINKSIT WILL BE CHEAPER documented in this encounter Plan of Treatment Upcoming Encounters Date Type Department Care Team (Late st Contact Info) Description 12/25/2024 8:00 AM EDT Office Visit Gastroenterology - [address] [place] [phone] Paige Sim MD 299 [facility] [address] [place] [address] documented as of this encounter Visit Diagnoses Not on filedocumented in this encounter Care Teams Produce Wrapper Relationship Specialty Start Date End Date Job Fernandez MD [address] [address] PCP - General Internal Medicine 06/30/18 documented as of this encounter
--- OUTSIDE RECORDS SUMMARY | 2024-11-10 10:15 | XMS_ITS | Clinical Summary ---
Author Organization [facility] Address [address] [place] [address] Phone Care Team Providers Care Welding Machine Operator Arc Name Role Phone Job Fernandez MD Primary Care Provider Allergies Active Allergy Reactions Criticality Noted Date Comments Erythromycin 10/21/2024 Encounters Date Type Department Care Team Description 10/21/2024 Telephone Gastroenterology - [address] [place] [phone] Paige Sim MD from Last 3 Months Surgical History Surgery Date Site/Laterality Comments ESOPHAGOGASTRODUODENOSCOPY 05/15/2016 nl- nl stomach and esophagus bx COLONOSCOPY W/ BIOPSIES 08/19/2020 nl- nl colon bx FLEXIBLE SIGMOIDOSCOPY 10/19/2016 nl with hemorrhoids COLONOSCOPY W/ BIOPSIES 01/22/2010 nl with nl bx ESOPHAGOGASTRODUODENOSCOPY 02/01/2010 nl- nl bx x 3 COLONOSCOPY W/ BIOPSIES 08/09/2008 nl ESOPHAGOGASTRODUODENOSCOPY 08/09/2008 nl bx Medical History Medical History Date Comments Migraine DX:Migraine Acid reflux DX:Acid reflux PCOS (polycystic ovarian syndrome) DX:PCOS (polycystic ovarian syndrome) Historical Medical DX DX:Borderl ine behavior; COMMENT: In group therapy, 2012 Anxiety DX:Anxiety Seasonal allergies 06/11/2013 DX:Seasonal a llergies Family History Relation Name Status Comments Aunt materna- Crohns Father Alive HTN Maternal Grandfather Alive gluten allergies Maternal Grandmother (Age 40s) s uicide Mother Alive Ulcerative coli tis Paternal Grandfather (Age ?) unk nown Paternal Grandmother Alive differe nt medical conditions Sister Alive asthma Social History Tobacco Use Types Packs/Day Years [...] on file Sexual Orientation Not on file Obstetrics History Plan of Treatment Upcoming Encounters Date Type Department Care Team (Late st Contact Info) Description 12/25/2024 8:00 AM EDT Office Visit Gastroenterology - [address] [facility] [address] [place] [phone] Paige Sim MD [address] [facility] [address] [place] [address] Health Maintenance Due Date Last Done Comments Cervical Cancer Screening: Pap Smear 2014 DTaP,Tdap,and Td Vaccines (7 - Td or Tdap) 01/15/2015 01/15/2005, 11/29/1998, 04/08/1995, Additional history exists Depression Screening 08/15/2022 HIV Screening 08/15/2022 Hepatitis C Screening 08/15/2022 Social Influencers of Health Screening 08/15/2022 COVID-19 Vaccine ( season) 2024 Influenza Vaccine (#1) 2024 06/04/2013 Hepatitis B Vaccines Completed 04/19/1994, 1993, 1993 HIB Vaccines Completed 01/04/1995, 12/1993, 01/24/1994, Additional history exists IPV Vaccines Completed 11/29/1998, 03/17, 01/04/1995, Additional history exists MMR Vaccines Completed 11/29/1998, 01/04/1995 Varicella Vaccines Completed 04/22/2008, 10/20/1996 Meningococcal ACWY Vaccine Completed 10/31/2011, HPV Vaccines Aged Out No longer eligi ble based on patient's age to complete this topic Hepatitis A Vaccines Aged Out No long er eligible based on patient's age to complete this topic Meningococcal B Vacine Aged Out No lo nger eligible based on patient's age to complete this topic Pneumococcal Vaccine: Pediatrics (0 to 5 Years) and At-Risk Patients (6 to 64 Years) Aged Out No longer eligible based on patient's age to complete this topic RSV Immunization Patients Under 20 months Aged Out No longer eligible based on patient's age to complete this topic Insurance [facility] [place] [id number] Care Teams Welding Machine Operator Arc Relationship Specialty Start Date End Date Job Fernandez MD [address] [place] [address] PCP - General Internal Medicine 06/30/18
== END 2024-11-10 10:21 | disposition home or self-care (01) ==
LOC: HO.HOP 09:19
PROVIDERS: PCP Internal Medicine; Visit Provider Clinical Nurse Specialist Psychiatric/Mental Health
DX: F41.1 Generalized anxiety disorder (principal); F90.2 Attention-deficit hyperactivity disorder, combined type
CPT/HCPCS: 99214

== ENCOUNTER → 2024-11-10 09:19 | Outpatient (BNVA) | payer OTHER, SELFPAY | PROVIDERS: PCP Internal Medicine; Visit Provider Clinical Nurse Specialist Psychiatric/Mental Health ==

== ENCOUNTER 2024-11-16 09:25 | Outpatient (REF) | payer OTHER, SELFPAY ==
--- NOTE | ~2024-11-16 | XR_ITS ---
EXAMINATION: XR KNEE, LEFT CLINICAL INFORMATION: M25.562 - Pain in left knee COMPARISON: None available. TECHNIQUE: Four views of the left knee. FINDINGS: No acute cortical disruption or malalignment. No suprapatellar bursa joint effusion. There is preservation of the joint spaces. No lytic or blastic lesions. No metallic or radiopaque foreign body. No subcutaneous emphysema. XR/XR knee LT 3V IMPRESSION: Normal left knee. Electronically signed by: Emigdio Tavares MD 11/17/2024 08:52 AM [facility]OS
--- OUTSIDE RECORDS SUMMARY | 2024-11-16 10:21 | XMS_ITS | Encounter Summary ---
Author Organization [facility] Address [address] [place] [address] Care Team Providers Care Automotive Instructor Name Role Phone Job Fernandez MD Primary Care Provider Encounter Details Date Type Department Care Team (Late st Contact Info) Description 10/21/2024 Telephone Gastroenterology - [address] [place] [phone] Paige Sim MD [address] [place] [address] [phone] Social History Tobacco Use Types Packs/Day Years [...] UP FRONT, WOULD LIKE TO COME TO [employer] [facility], THINKSIT WILL BE CHEAPER documented in this encounter Plan of Treatment Upcoming Encounters Date Type Department Care Team (Late st Contact Info) Description 12/25/2024 8:00 AM EDT Office Visit Gastroenterology - [address] [place] [phone] Paige Sim MD 299 [facility] [address] [place] [address] documented as of this encounter Visit Diagnoses Not on filedocumented in this encounter Care Teams Automotive Instructor Relationship Specialty Start Date End Date Job Fernandez MD [address] [address] PCP - General Internal Medicine 06/30/18 documented as of this encounter
--- OUTSIDE RECORDS SUMMARY | 2024-11-16 10:21 | XMS_ITS | Clinical Summary ---
Author Organization [facility] [address] [place] [address] Phone Care Team Providers Care Office Clerk Assistant Name Role Phone Job Fernandez MD Primary Care Provider Allergies Active Allergy Reactions Criticality Noted Date Comments Erythromycin 10/21/2024 Encounters Date Type Department Care Team Description 10/21/2024 Telephone Gastroenterology - [address] [place] [phone] Paige Sim MD from Last 3 [...] Office Visit Gastroenterology - [address] [facility] [address] [place] [phone] Paige Sim MD [address] [facility] [address] [place] [address] Health Maintenance Due Date Last Done Comments [...] patient's age to complete this topic Insurance [facility] [place] [id number] Care Teams Office Clerk Assistant Relationship Specialty Start Date End Date Job Fernandez MD [address] [place] [address] PCP - General Internal Medicine 06/30/18
== END 2024-11-16 09:26 | disposition home or self-care (01) ==
LOC: HO.XRAY 09:25
PROVIDERS: PCP Internal Medicine; Visit Provider Internal Medicine
DX: M25.562 Pain in left knee (principal)
CPT/HCPCS: 73562

== ENCOUNTER → 2024-11-16 09:29 | Outpatient (BNV) | payer OTHER, SELFPAY | PROVIDERS: PCP Internal Medicine; Visit Provider Radiology Diagnostic Radiology | DX: M25.562 Pain in left knee (principal) | CPT/HCPCS: 73562 ==

== ENCOUNTER 2024-12-04 20:01 | Outpatient (REF) | payer OTHER, SELFPAY ==
--- NOTE | ~2024-12-04 | MR_ITS ---
EXAMINATION: MRI LEFT KNEE WITHOUT CONTRAST HISTORY: M25.562 - Pain in left knee COMPARISON: Relation is made to plain films of the left knee dated 11/16/2024. TECHNIQUE: Coronal T1 and fat-suppressed proton density, sagittal proton density and fat-suppressed proton density, and axial fat suppressed T2 weighted MR images of the left knee were obtained. FINDINGS: Bone marrow: Bone marrow signal intensity is normal. Joint effusion: There is no joint effusion. Arvizu's cyst: There is no Arvizu's cyst. Articular cartilage: Intact Muscles/soft tissues: The visualized muscles demonstrate normal signal intensity. Anterior cruciate ligament: Intact Posterior cruciate ligament: Intact Medial collateral ligament: Intact Lateral collateral ligament: Intact Medial meniscus: Intact Lateral meniscus: Intact Flexor mechanism: There is a 1.9 x 0.6 x 0.9 cm fluid signal intensity structure associated with the popliteus tendon which may represent a ganglion cyst. The popliteus, gastrocnemius, and hamstring tendons are intact. Quadriceps tendon: Intact Patellar tendon: Intact Patellar retinacula: Intact MR/MR knee LT wo con IMPRESSION: 1.9 x 0.6 x 0.9 cm possible ganglion cyst associated with the popliteus tendon. Otherwise unremarkable MRI of the left knee. Electronically signed by: Balaji Herrera MD 12/07/2024 08:04 AM EDT
--- OUTSIDE RECORDS SUMMARY | 2024-12-04 20:04 | XMS_ITS | Encounter Summary ---
Author Organization [facility] Address [address] [place] [address] Care Team Providers Care Certified Ophthalmic Technician Name Role Phone Job Fernandez MD Primary Care Provider Encounter Details Date Type Department Care Team (Late st Contact Info) Description 10/21/2024 Telephone Gastroenterology - [address] [place] [phone] Paige Sim MD [address] [place] [phone] Social History Tobacco Use Types Packs/Day Years [...] UP FRONT, WOULD LIKE TO COME TO [employer] [facility], THINKSIT WILL BE CHEAPER documented in this encounter Plan of Treatment Upcoming Encounters Date Type Department Care Team (Late st Contact Info) Description 12/25/2024 8:00 AM EDT Office Visit Gastroenterology - [address] [place] [phone] Paige Sim MD 299 [facility] [address] [place] [address] documented as of this encounter Visit Diagnoses Not on filedocumented in this encounter Care Teams Certified Ophthalmic Technician Relationship Specialty Start Date End Date Job Fernandez MD [address] [place] [phone] PCP - General Internal Medicine 06/30/18 documented as of this encounter
== END 2024-12-04 20:02 | disposition home or self-care (01) ==
LOC: HO.MRI 20:01
PROVIDERS: PCP Internal Medicine; Visit Provider Internal Medicine
DX: M25.562 Pain in left knee (principal)
CPT/HCPCS: 73721

== ENCOUNTER → 2024-12-04 20:36 | Outpatient (BNV) | payer OTHER, SELFPAY | PROVIDERS: PCP Internal Medicine; Visit Provider Radiology Diagnostic Radiology | DX: M25.562 Pain in left knee (principal) | CPT/HCPCS: 73721 ==

== ENCOUNTER 2024-12-10 12:55 | Outpatient (AMB) | payer OTHER, SELFPAY ==
--- NOTE | 2024-12-10 13:07 | MHC.PC.OV ---
Vital Signs 12/10/24 13:09 Height 5 ft 1 in Weight 173 lb 2 oz BMI 32.7 BP 110/74 Blood Pressure Location Lt brachial Position Sitting Respiration 14 Pulse 93 Pulse Source Pulse Oximeter Temp 98.4 F Temp Source Oral Pulse Oximetry (%) 98 Oxygen Delivery Method Room Air Intake Visit Reasons: Sore throat Intake Note: Fever, sore throat, loss of voice, cough, chest tightness for about a week. Home covid flu test negative three days ago. Allergies amoxicillin Allergy (Intermediate, Verified 12/10/24 13:08) hives Erythromycin Allergy (Intermediate, Uncoded 12/10/24 13:08) hives Medication List - Last Reconciled 12/10/24 by Ashley Mejia PA-C clonazepam 0.5 mg PO TID fluocinonide 0.05% 1 appl topical BID levothyroxine 100 mcg PO DAILY lisdexamfetamine (Vyvanse) 40 mg PO DAILY Tobacco use date assessed: 09/04/24 Dental Screening Dental Screen Date: 01/10/24 HPI Sore throat HPI Details Patient is a 29-year-old female who presents today with complaints of a sore throat, sinus pain and pressure, rhinorrhea, postnasal drip and some intermittent wheezing. She states that her symptoms started about a week ago and got better for a couple days but then came back and have been worse. She says that she has had low-grade fevers and some significant sinus discomfort and fullness. No nausea, vomiting or diarrhea. Does report a diminished appetite. No history of asthma. States that she has a dry, nonproductive cough with some wheezing and tightness that she notices. No chest pain or shortness on breath. 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 Current occupational exposures/hazards: No Cognitive needs: No Hearing needs: No Vision needs: No Questionnaire Thrive Questionnaire Date Thrive assessed: 10/16/24 I am a: Patient What is your living situation today?: I have a steady place to live Within the past 12 months, did the food you bought not last and you didn't have the money to get more?: Never true Within the past 12 months, did you worry whether your food would run out before you got money to buy more?: Never true Do you have trouble paying for medicines?: No Do you have trouble getting transportation to medical appointments?: No Do you have trouble paying your heating and electricity bill?: No Do you have trouble taking care of your child, family member or friend?: No Do you have trouble with day-to-day activities such as bathing, preparing meals, shopping, managing finances, etc.?: No Are you currently unemployed and looking for a job?: No Are you interested in more education?: No Please select the resources that you would like help with: None Currently or been in a relationship where the following occur: No concerns reported THRIVE Score: 0 JORGE-7 AMB Questionnaire JORGE-7 Date JORGE - 7 assessed: 10/16/24 Source: Developed by Drs. Balaji Toro, Chrystal Abrams, Jamison Davey and colleagues, with an educational marly from [employer]. Physical exam (Primary Care) Tobacco/Smoking Status: Tobacco use Status Tobacco use date assessed 09/04/24 10/16/24 15:13 Patient Tobacco Use Status Never used Tobacco 10/16/24 15:13 e-Cigarette/Vaping Use Never Used 10/16/24 15:13 Thrive Assessment: Date of Thrive Assessment Date Thrive assessed 10/16/24 10/16/24 15:13 Currently or been in a relationship where the following occur: No concerns reported Const Orientation/consciousness: patient oriented x3 HENMT Other: TMs are dome-shaped with small air-fluid levels bilaterally. There is bilateral maxillary sinus tenderness present. Nasal mucosa erythematous and edematous. Clear drainage noted. Oral mucosa is moist. There is mild tonsillar hypertrophy but no erythema or exudates. Cervical lymphadenopathy noted bilaterally. Ears: hearing grossly normal bilaterally Neck Thyroid: Thyroid normal Resp Auscultation: clear to auscultation bilaterally Cardio Rate: regular rate Rhythm: regular rhythm Heart sounds: S1 normal heart sound present and S2 normal heart sound present GI Inspection: Yes normal to inspection Palpation (GI): Soft to palpation and Other GI palpation findings present (nontender, no cva tenderness) Auscultation: normoactive bowel sounds Rectal Exam - Female: deferred Skin General skin exam: no rashes or lesions noted Neuro General: patient oriented x3, gait normal and no focal motor deficits Coding Level of Care Code Est Pt Level 3 (83097) Complex EM visit Add On G2211 Diagnoses Bacterial sinusitis J32.9; B96.89 Wheezing R06.2 Assessment & Plan Assessment & Plan (1) Bacterial sinusitis: Code(s): J32.9 - Chronic sinusitis, unspecified; B96.89 - Other specified bacterial agents as the cause of diseases classified elsewhere Category: Medical Plan: Rapid strep negative. Flu and COVID test ordered. We will follow up pending test results. Did discuss with patient that I do believe that this is likely bacterial in etiology given that it has been going on for over a week and has been worsening. We will treat with doxycycline. Discussed risks and benefits and adverse effects of this medication including GI upset and a photosensitivity rash. Advised to use a probiotic while taking the antibiotic. Flonase order to use. Albuterol as needed. Did discuss that this can cause palpitations. (2) Wheezing: Code(s): R06.2 - Wheezing Category: Medical Plan: As above. Lungs are clear on exam today. She will let us know if anything changes or worsens. Patient understands and agrees with the plan. Orders: Orders SARS-CoV2/FLU/RSV Today B96.89 - Other specified bacterial agents as the cause of diseases classified elsewhere, J32.9 - Chronic sinusitis, unspecified, R06.2 - Wheezing, R09.89 - Other specified symptoms and signs involving the circulatory and respiratory systems Medications: New doxycycline hyclate 100 mg PO BID 20 tabs 0RF fluticasone propionate 50 mcg/actuation (Flonase Allergy Relief) administer into each nostril 1 spray intranasal BID 16 grams 0RF albuterol sulfate 90 mcg/actuation 1 inh inhalation QID PRN 8.5 grams 0RF shortness of breath or wheezing
[2024-12-10 13:09] VITALS: BP 110/74; PULSE 93; RESP 14; TEMP 36.9; O2SAT 98; BMI 32.7
--- OUTSIDE RECORDS SUMMARY | 2024-12-10 15:57 | XMS_ITS | Clinical Summary ---
Author Organization [facility] [address] [facility] Address [address] [place] [address] Phone Care Team Providers Care Overhead Distribution Engineer Name Role Phone Job Fernandez MD Primary Care Provider Allergies Active Allergy Reactions Criticality Noted Date Comments Erythromycin 10/21/2024 Encounters Date Type Department Care Team Description 10/21/2024 Telephone Gastroenterology - [address] [place] [phone] Paige Sim MD from Last 3 [...] Office Visit Gastroenterology - 299 [address] [facility] [address] [place] [phone] Paige Sim MD [address] [facility] [address] [place] [address] Health Maintenance Due Date Last Done Comments [...] patient's age to complete this topic Insurance [facility] [place] [id number] Care Teams Overhead Distribution Engineer Relationship Specialty Start Date End Date Job Fernandez MD [address] [place] [address] [place] [id number] PCP - General Internal Medicine 06/30/18
== END 2024-12-10 15:01 | disposition home or self-care (01) ==
LOC: HO.HMCFM 12:55
PROVIDERS: PCP Internal Medicine; Visit Provider Physician Assistant
DX: J32.9 Chronic sinusitis, unspecified (principal); B96.89 Other specified bacterial agents as the cause of diseases classified elsewhere; R06.2 Wheezing; J02.9 Acute pharyngitis, unspecified

== ENCOUNTER 2024-12-10 12:55 | Outpatient (REF) | payer OTHER, SELFPAY ==
[2024-12-10 19:18] LABS: Influenza A PCR NEGATIVE (Negative); Influenza B PCR NEGATIVE (Negative); Resp Syncy Virus RNA Qual PCR NEGATIVE (Negative); SARS COV2 PCR INHOUSE NEGATIVE (Negative)
== END 2024-12-10 12:56 | disposition home or self-care (01) ==
LOC: HO.LNP 12:55
PROVIDERS: PCP Internal Medicine; Visit Provider Physician Assistant
DX: J32.9 Chronic sinusitis, unspecified (principal); R06.2 Wheezing; B96.89 Other specified bacterial agents as the cause of diseases classified elsewhere; R09.89 Other specified symptoms and signs involving the circulatory and respiratory systems
CPT/HCPCS: 0241U; 87880

== ENCOUNTER 2024-12-14 11:56 | Outpatient (AMB) | payer OTHER, SELFPAY ==
--- NOTE | 2024-12-14 11:52 | MHC.PC.OV ---
Intake Visit Reasons: knee pain and foot numbness Intake Note: Knee pain and foot numbness. Continuous Crusher Operator Required: No Allergies amoxicillin Allergy (Intermediate, Verified 12/14/24 11:54) hives Erythromycin Allergy (Intermediate, Uncoded 12/14/24 11:54) hives Tobacco use date assessed: 12/14/24 Dental Screening Dental Screen Date: 01/10/24 HPI HPI Comments History of Present Illness Details The patient is a 29 year old female with a past medical history of ADD, depression, anxiety, IBS, neck pain presenting for follow up MSK Patient has continued left foot and ankle pain, lower left leg pain and left knee pain. Her initial visit for the issue was in August. She tried prednisone, diflocenac, and voltaren gel. Also tried advil, tylenol without improvement. She has completed a course of physical therapy. She has worsening numbness and pain in the left lower leg, ankle and foot. She has increasing limited range of motion at the ankle. She has been seeing orthopedics. She had xray of the left knee and subsequent MRI. MRI showed 1.9 x 0.6 x 0.9 cm possible ganglion cyst associated with the popliteus tendon. Otherwise unremarkable MRI of the left knee. In December noted, She has had increased pain in the neck radiating down the right shoulder and right arm for the past 2 months. She has had issues with this in the past. she has had prior MRI, seen [facility]. She has pain and weakness in the right distal arm and hand which feels weak at times. She has had increased pain in multiple joints and muscle fatigue and discomfort. Inflammatory labs were unremarkable. She continues to have these symptoms. She recently had MRI C5-6: No based disc osteophyte complex formation resulting in ventral deformity of the thecal sac. No cord compression. No neuroforamina stenosis.C6-7: Right based disc osteophyte complex formation and slightly asymmetric to the left resulting in ventral deformity of the thecal sac. No cord compression. No neuroforamina stenosis.IMPRESSION: Cervical spondylosis C5-6 and C6-7 without cord compression, edema and or myelopathy. Hypothyroid: on levothyroxine. BH: Stable on methylphenidate and clonazepam. 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 Balaji Toro, Chrystal Abrams, Jamison Davey and colleagues, with an educational marly from [email or web address]. Physical exam (Primary Care) Tobacco/Smoking Status: Tobacco use Status Tobacco use date assessed 12/14/24 12/14/24 11:55 Patient Tobacco Use Status Never used Tobacco 12/14/24 11:52 e-Cigarette/Vaping Use Never Used 12/14/24 11:52 Thrive Assessment: Date of Thrive Assessment Date Thrive assessed 10/16/24 12/14/24 11:52 Telehealth Telehealth Telehealth Platform: Telephone Location of provider rendering services: practice address Location of patient: address on file Patient Identification confirmed using: Name, : Yes Telehealth method: voice only Patient verbally consented to treatment: Yes Patient verbally consented to billing insurance company: Yes Patient informed of any privacy concerns related to visit: Yes Minutes spent on Phone/Video with Pt.: 25 Coding Level of Care Code Tele Est Pt Level 4 (78673) Diagnoses Left leg numbness R20.0 Numbness of left foot R20.0 Left foot pain M79.672 Assessment & Plan Assessment & Plan (1) Left leg numbness: Code(s): R20.0 - Anesthesia of skin Category: Medical (2) Numbness of left foot: Code(s): R20.0 - Anesthesia of skin Category: Medical (3) Left foot pain: Code(s): M79.672 - Pain in left foot Category: Medical Plan Xrays ordered Patient should undergo MRI to rule out evidence of myositis, tarsal tunnel. Failed PT, meds. Saw ortho EMGs are ordered Concerning increasing neuropathy and function Orders: Orders NE electromyogram (EMG) 12/14/24 M67.462 - Ganglion, left knee, M79.605 - Pain in left leg, M79.672 - Pain in left foot, R20.0 - Anesthesia of skin XR foot LT min 3V 12/14/24 M79.605 - Pain in left leg, M79.672 - Pain in left foot, R20.0 - Anesthesia of skin XR tibia fibula LT 2V 12/14/24 M79.605 - Pain in left leg, M79.672 - Pain in left foot, R20.0 - Anesthesia of skin NE nerve conduction velocity 12/14/24 M67.462 - Ganglion, left knee, M79.672 - Pain in left foot, R20.0 - Anesthesia of skin
--- OUTSIDE RECORDS SUMMARY | 2024-12-14 13:40 | XMS_ITS | Clinical Summary ---
Author Organization [facility] [address] [facility] Address [address] [place] [address] Phone Care Team Providers Care Terminal Press Operator Name Role Phone Job Fernandez MD Primary Care Provider Allergies Active Allergy Reactions Criticality Noted Date Comments Erythromycin 10/21/2024 Encounters Date Type Department Care Team Description 10/21/2024 Telephone Gastroenterology - [address] [place] [phone] Paige Sim MD from Last 3 [...] Office Visit Gastroenterology - 299 [address] [facility] [address] [place] [phone] Paige Sim MD [address] [facility] [address] [place] [address] Health Maintenance Due Date Last Done Comments [...] age to complete this topic Insurance [facility] [place] [id number] Care Teams Terminal Press Operator Relationship Specialty Start Date End Date Job Fernandez MD [address] [place] [address] [place] [id number] PCP - General Internal Medicine 06/30/18
== END 2024-12-14 13:07 | disposition home or self-care (01) ==
LOC: HO.HMCFM 11:56
PROVIDERS: PCP Internal Medicine; Visit Provider Internal Medicine
DX: R20.0 Anesthesia of skin (principal); M79.672 Pain in left foot

== ENCOUNTER → 2024-12-14 11:56 | Outpatient (BNVA) | payer OTHER, SELFPAY | PROVIDERS: PCP Internal Medicine; Visit Provider Internal Medicine ==

== ENCOUNTER 2025-01-07 11:23 | Outpatient (AMB) | payer OTHER, SELFPAY ==
--- NOTE | 2025-01-07 11:29 | A.OFFPC_ITS ---
Vital Signs 01/07/25 11:34 Height 5 ft 1 in Weight 169 lb 2 oz BMI 32.0 BP 110/64 Blood Pressure Location Lt brachial Position Sitting Pulse 96 Pulse Source Pulse Oximeter Temp 97.9 F Temp Source Temporal Artery Scan Pulse Oximetry (%) 97 Oxygen Delivery Method Room Air Intake Visit Reasons: increasing hand and leg numbness Intake Note: Tracy presents in the office today for increasing hand and leg numbness of her left side. Allergies amoxicillin Allergy (Intermediate, Verified 01/07/25 11:31) hives Erythromycin Allergy (Intermediate, Uncoded 12/14/24 11:54) hives Tobacco use date assessed: 01/07/25 Dental Screening Dental Screen Date: 01/07/25 Did you have a dental visit in the last 12 months?: Yes Did you have a dental problem in the last 6 months where you did not have access to dental care?: No Was dental information given to patient?: Patient has dentist HPI HPI Comments History of Present Illness Details This is a 29-year-old female with a past medical history of presyncope, joint pains, degenerative disc disease of the cervical spine, generalized anxiety disorder, ADHD, hypothyroidism and IBS presenting with multiple concerns. Patient endorses numbness in the left foot for the past 3 months. It began on the bottom of the foot and moved to the top of the foot, the heel and the anterior ankle. She has noticed some weakness in her left foot. She provides the example that she can do an exercise with her right foot where she keeps her big toe on the ground and lifts up her other toes, but she can not do this with the left foot. She also notices there is new numbness in her right foot and left hand for the past 2 weeks. She denies weakness of the extremities. She endorses blue discoloration at the corner of her mouth which she has noticed intermittently over a few months. She has noticed this when she pushes herself during exercise, but it also occurs at rest. She denies chest pain. She endorses mild shortness of breath with exercise, but she does not have to stop activity. She has been training for a marathon. She also notices that her toes and fingers always feel cold, and the fingernail beds appear paler, and her toenail beds we will sometimes appear bluish. This does not happen with temperature changes. She has concerns about potential underlying autoimmune disease. Her mother has multiple sclerosis and ulcerative colitis. Her Aunt has Crohn's disease. Her sister has ankylosing spondylitis. She had 1 maternal aunt who young from a heart attack. Prior evaluation for these symptoms includes bilateral lower extremity EMG at [facility] which she reports was done at a few weeks ago and was negative. She also had an MRI of her cervical spine which did so cervical spondylosis at C5-6 and C6-7, but there was no cord compression, edema or myelopathy. ROS: Constitutional: No unexplained weight loss, fever, chills or night sweats. +fatigue, but it has not significantly impacted her ADLs. Still exercising. Eyes: No vision changes, blurry vision, double vision, eye pain, eye redness, eye discharge. ENT: No hearing loss, sneezing, congestion, runny nose or sore throat. Respiratory: No hemoptysis, cough or sputum production. See HPI. Cardiovascular: No chest pain, chest pressure or chest discomfort. No palpitations or pedal edema. Gastrointestinal: No anorexia, nausea, vomiting or diarrhea. No abdominal pain Genitourinary: No dysuria, hematuria, urinary frequency. Neurologic: No headache, seizures, fasciculations, tremors, syncope, ataxia. See HPI. Musculoskeletal: Denies lower back pain. No joint swelling. Hematologic/Lymphatics: No bleeding or bruising. No painful lymph nodes. Skin: No rash. Endocrine: No polyuria or polydipsia. Psychiatric: +anxiety. ADHD treated with Vyvanse. Physical exam: Constitutional: Alert, in no distress. Head: Normocephalic. Eyes: Pupils are equal, round and reactive to light. Extraocular muscles intact. Ear, Nose and Throat: Canals clear. TMs normal. Normal nasal mucosa. No nasal discharge. No oral lesions. Neck: Supple, Full range of motion. No lymphadenopathy. No palpable thyroid masses. Respiratory: Clear to auscultation. Cardiovascular: S1 S2 regular. No murmurs. No carotid bruits. Gastrointestinal: Abdomen soft, non-tender, non-distended. Normal bowel sounds. No palpable masses. Neurologic:?Alert and oriented x 3, CN 2-12 intact, anfcly-sata-lqqwme normal, patient has decreased sensation to light touch on the top of the left foot and left heel, strength UE and LE 5/5 bilaterally, reflexes equal and symmetric.? Normal gait.? Patient able to heel walk, toe walk and walk heel-to-toe across the floor.? No pronator drift.? Negative Romberg. She demonstrates that she can lift the right 4th through 5th toes while keeping the great toe planted, but she cannot do this with her left foot. Skin: No rashes Musculoskeletal: No gross deformities. Normal range of motion. Extremities: Warm and well perfused. No clubbing, cyanosis or edema. 3+ peripheral pulses bilaterally. Psychiatric: Normal mood and affect [facility] Medical History (Updated 01/08/25 @ 09:20 by EDUAR Medina) Weakness of left foot Numbness and tingling of upper and lower extremities of both sides Circumoral cyanosis Numbness Cold extremities Family History Father Gastric cancer HTN (hypertension) Asthma Maternal Grandmother Suicide Mother Depression Psychiatric disorder Other FH: mental illness Social History (Updated 01/07/25 @ 11:33 by Josephine Anderson MA) Housing: House Alcohol intake: never Patient Tobacco Use Status: Never used Tobacco e-Cigarette/Vaping Use: Never Used Second Hand Smoke Exposure: No service: No Current occupational status: employed 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 1. Little interest or pleasure in doing things: not at all 2. Feeling down, depressed, or hopeless: not at all 3. Trouble falling or staying asleep, or sleeping too much: not at all 4. Feeling tired or having little energy: not at all 5. Poor appetite or overeating: not at all 6. Feeling bad about yourself - or that you are a failure or have let yourself or your family down: not at all 7. Trouble concentrating on things, such as reading the newspaper or watching television: not at all 8. Moving or speaking so slowly that other people could have noticed. Or the opposite - being so fidgety or restless that you have been moving around a lot more than usual: not at all 9. Thoughts that you would be better off or of hurting yourself in some way: not at all Total score: 0 Depression Screening Interpretation: Negative Depression Screening Done: Yes 18565 - PHQ-9 Billing: Patient declined-do not bill Source: Developed by Drs. Balaji Toro, Chrystal Abrams, Jamison Davey and colleagues, with an educational marly from [employer]. Thrive Questionnaire Date Thrive assessed: 01/07/25 I am a: Patient What is your living situation today?: I have a steady place to live Within the past 12 months, did the food you bought not last and you didn't have the money to get more?: Never true Within the past 12 months, did you worry whether your food would run out before you got money to buy more?: Never true Do you have trouble paying for medicines?: No Do you have trouble getting transportation to medical appointments?: No Do you have trouble paying your heating and electricity bill?: No Do you have trouble taking care of your child, family member or friend?: No Do you have trouble with day-to-day activities such as bathing, preparing meals, shopping, managing finances, etc.?: No Are you currently unemployed and looking for a job?: No Are you interested in more education?: No Please select the resources that you would like help with: None Currently or been in a relationship where the following occur: No concerns reported THRIVE Score: 0 AUDIT C Alcohol Use Questionnaire (AUDIT-C) 1. How often do you have a drink containing alcohol?: Never Total Score: 0 Score Reviewed/Action Taken: No JORGE-7 AMB Questionnaire JORGE-7 Date JORGE - 7 assessed: 01/07/25 Feeling nervous, anxious, or on edge: 0 = Not at all Not being able to stop or control worryin = Not at all Worrying too much about different things: 0 = Not at all Trouble relaxin = Not at all Being so restless that it is hard to sit still: 0 = Not at all Becoming easily annoyed or irritable: 0 = Not at all Feeling afraid as if something awful might happen: 0 = Not at all Total JORGE-7 score (0-4 normal; 5-9 mild; 10-14 moderate; 15-21 severe): 0 Source: Developed by Drs. Balaji Toro, Chrystal Abrams, Jamison Davey and colleagues, with an educational marly from [employer]. JORGE-7 Assessment Billing JORGE-7 Assessment Tool: JORGE-7 Assessment 30924 ACT Questionnaire In the past 4 weeks, how much of the time did your asthma keep you from getting as much done at work, school or at home?: None of the time Score: 5 Physical exam (Primary Care) Vital Signs: Last Vital Signs Temp 97.9 F 01/07/25 11:34 Pulse 96 01/07/25 11:34 BP 110/64 01/07/25 11:34 Pulse Ox 97 01/07/25 11:34 Oxygen Delivery Method Room Air 01/07/25 11:34 BMI result Body Mass Index 32.0 Tobacco/Smoking Status: Tobacco use Status Tobacco use date assessed 01/07/25 01/07/25 11:37 Patient Tobacco Use Status Never used Tobacco 01/07/25 11:37 e-Cigarette/Vaping Use Never Used 01/07/25 11:37 PHQ-9: PHQ-9 Score PHQ-9: Total score 0 01/07/25 17:40 Depression Screening Interpretation: Negative Thrive Assessment: Date of Thrive Assessment Date Thrive assessed 01/07/25 01/07/25 11:37 Currently or been in a relationship where the following occur: No concerns reported Office Procedures EKG Details: Patient's EKG shows normal sinus rhythm with a ventricular rate of 100 beats per minute. 19886-Iilivhivzcvfeltvo, Complete Coding Level of Care Code Est Pt Level 5 (70597) Complex EM visit Add On G2211 Diagnoses Numbness and tingling of upper and lower extremities of both sides R20.0; R20.2 Circumoral cyanosis R23.0 Cold extremities R20.9 Weakness of left foot R29.898 CPT Codes EKG - CPT: 77928-Ukjtnnpeoqcaowoin, Complete ([id number]) Additional Codes JORGE-7 Assessment Billing - JORGE-7 Assessment Tool: JORGE-7 Assessment 43798 ([id number]) Time Spent (min) 50 Comment Direct patient care, chart review, completing documentation Assessment & Plan Assessment & Plan (1) Numbness and tingling of upper and lower extremities of both sides: Code(s): R20.0 - Anesthesia of skin; R20.2 - Paresthesia of skin Category: Medical (2) Circumoral cyanosis: Code(s): R23.0 - Cyanosis Category: Medical (3) Cold extremities: Code(s): R20.9 - Unspecified disturbances of skin sensation Category: Medical (4) Weakness of left foot: Code(s): R29.898 - Other symptoms and signs involving the musculoskeletal system Category: Medical Plan We reviewed there is an extensive differential for her symptoms including rheumatological disease like vasculitis and lupus, Raynaud phenomenon, neurological disorders including demyelinating disease and ALS, Infectious Disease, vitamin deficiency, anemia to name some of them. EKG does not demons trate ischemic changes today, however she does report a female family member passing away young from cardiac disease. I have advised her not to exercise right now until further evaluation is completed and she sees Cardiology. We discussed the following plan to begin evaluation: She will have lab work done today. See detailed list below. MRI of the head and brain. Echocardiogram and cardiac stress test. Referral to Neurology, Cardiology and vascular. We are also going to refer to Rheumatology at [facility] based on lab results. Warning signs warranting ER evaluation reviewed with the patient. She verbalizes understanding and agrees with the plan. Follow up in 4 weeks. Orders: Orders AMB EKG-In Office 01/07/25 R20.0 - Anesthesia of skin, R20.9 - Unspecified disturbances of skin sensation, R23.0 - Cyanosis Vitamin D 25-OH (D2 and D3) 01/07/25 M85.80 - Other specified disorders of bone density and structure, unspecified site, R20.0 - Anesthesia of skin, R20.9 - Unspecified disturbances of skin sensation, R23.0 - Cyanosis TSH reflex Free T4 01/07/25 R20.0 - Anesthesia of skin, R20.9 - Unspecified disturbances of skin sensation, R23.0 - Cyanosis Creatine Kinase Total 01/07/25 R20.0 - Anesthesia of skin, R20.9 - Unspecified disturbances of skin sensation, R23.0 - Cyanosis Erythrocyte Sedimentation Rate 01/07/25 R20.0 - Anesthesia of skin, R20.9 - Unspecified disturbances of skin sensation, R23.0 - Cyanosis THANIA Reflex Titer and Pattern 01/07/25 R20.0 - Anesthesia of skin, R20.9 - Unspecified disturbances of skin sensation, R23.0 - Cyanosis Rheumatoid Factor 01/07/25 R20.0 - Anesthesia of skin, R20.9 - Unspecified disturbances of skin sensation, R23.0 - Cyanosis IRON PROFILE 01/07/25 R20.0 - Anesthesia of skin, R20.9 - Unspecified disturbances of skin sensation, R23.0 - Cyanosis Ferritin 01/07/25 R20.0 - Anesthesia of skin, R20.9 - Unspecified disturbances of skin sensation, R23.0 - Cyanosis Magnesium 01/07/25 R23.0 - Cyanosis CA echo transthoracic complete 01/07/25 R20.9 - Unspecified disturbances of skin sensation, R23.0 - Cyanosis CA stress test 01/07/25 R06.09 - Other forms of dyspnea, R23.0 - Cyanosis MR head/brain wo/w con Today R20.0 - Anesthesia of skin, R20.2 - Paresthesia of skin, R29.898 - Other symptoms and signs involving the musculoskeletal system HLA B27 01/07/25 M79.672 - Pain in left foot, R20.0 - Anesthesia of skin, R20.9 - Unspecified disturbances of skin sensation, R23.0 - Cyanosis Vitamin B12 and Folate 01/07/25 R20.0 - Anesthesia of skin, R20.9 - Unspecified disturbances of skin sensation, R23.0 - Cyanosis Complete Blood Count Auto Diff 01/07/25 R20.0 - Anesthesia of skin, R20.9 - Unspecified disturbances of skin sensation, R23.0 - Cyanosis Comprehensive Met. Panel 01/07/25 R20.0 - Anesthesia of skin, R20.9 - Unspecified disturbances of skin sensation, R23.0 - Cyanosis Tick-borne Disease Molecular 01/07/25 R20.0 - Anesthesia of skin, R20.9 - Unspecified disturbances of skin sensation, R23.0 - Cyanosis C Reactive Protein 01/07/25 R20.0 - Anesthesia of skin, R20.9 - Unspecified disturbances of skin sensation, R23.0 - Cyanosis UA CC w/rflx Micro + Cult 01/07/25 R20.0 - Anesthesia of skin, R20.9 - Unspecified disturbances of skin sensation, R23.0 - Cyanosis Referrals Neurology Referral R20.0 - Anesthesia of skin, R20.2 - Paresthesia of skin, R29.898 - Other symptoms and signs involving the musculoskeletal system Cardiology Referral R23.0 - Cyanosis Vascular Surgery Referral R20.9 - Unspecified disturbances of skin sensation, R23.0 - Cyanosis
[2025-01-07 11:34] VITALS: BP 110/64; PULSE 96; TEMP 36.6; O2SAT 97; BMI 32.0
--- OUTSIDE RECORDS SUMMARY | 2025-01-07 13:38 | XMS_ITS | Clinical Summary ---
Author Organization [address] Address [address] [place] [address] Phone Care Team Providers Care Optical Laboratory Technician Name Role Phone Job Fernandez MD Primary Care Provider [phone] Allergies Active Allergy Reactions Criticality Noted Date Comments Erythromycin 10/21/2024 Medications Vyvanse 20 mg capsule Take 1 capsule (20 mg total) by mouth 1 (one) time each day in the morning. Max Daily Amount: 20 mg 02/17/2024 Active levothyroxine (SYNTHROID, LEVOTHROID) 100 mcg tablet 12/13/2024 Active Encounters Date Type Department Care Team Description 12/25/2024 8:00 AM EDT Office Visit Gastroenterology - [address] [place] [phone] Paige Sim MD Dyspepsia (Primary Dx); Right upper quadrant abdominal pain 10/21/2024 Telephone Gastroenterology - [address] [place] [phone] Paige Sim MD from Last 3 Months [...] DX:Borderl ine behavior; COMMENT: In group therapy, 2013 Anxiety DX:Anxiety Seasonal allergies 06/11/2013 DX:Seasonal a llergies Family History Medical History Relation Name Comments Stomach cancer Father Relation Name Status Comments Aunt materna- Crohns Father Alive HTN Maternal Grandfather Alive gluten allergies Maternal Grandmother (Age 40s) s uicide Mother Alive Ulcerative coli tis Paternal Grandfather (Age ?) unk nown Paternal Grandmother Alive differe nt medical conditions Sister Alive asthma Social History Tobacco Use Types Packs/Day Years Used Date Smoking Tobacco: Never Assessed Cigarettes Quit: 11/15/2011 Smokeless Tobacco: Never Tobacco Cessation:Counseling Given: Not Answered Alcohol Use Standard Drinks/Week Comments No 0 (1 standard drink = 0.6 oz pur e alcohol) Comments Unknown Sex and Gender Information Value Date Recorded Sex Assigned at Not on file Legal Sex Female 2:14 PM EST Gender Identity Not on file Sexual Orientation Not on file Obstetrics History Last Filed Vital Signs Vital Sign Reading Time Taken Comments Blood Pressure - - Pulse - - Temperature - - Respiratory Rate - - Oxygen Saturation - - Inhaled Oxygen Concentration - - Weight 78.5 kg (173 lb) 12/25/2024 8:06 AM EDT Height 154.9 cm (5' 1 ) 12/25/2024 8:06 AM EDT Body Mass Index 32.69 12/25/2024 8:06 AM EDT Plan of Treatment Health Maintenance Due Date Last Done Comments Hepatitis A Vaccines (1 of 2 - Risk 2-dose series) 2012 Cervical Cancer Screening: Pap Smear 2014 Depression Screening 08/15/2022 HIV Screening 08/15/2022 Hepatitis C Screening 08/15/2022 Social Influencers of Health Screening 08/15/2022 DTaP,Tdap,and Td Vaccines (8 - Td or Tdap) 04/14/2024 04/14/2014, 01/15/2005, 11/29/1998, Additional history exists COVID-19 Vaccine ( season) 2024 10/31/2021, 09/24/2020, 09/03/2020 Influenza Vaccine (Season Ended) 2025 07/11/2023, 06/15/2022, 06/06/2021, Additional history exists HIB Vaccines Completed 01/04/1995, 12/16, 04/19/1994, Additional history exists IPV Vaccines Completed 11/29/1998, 03/17, 01/04/1995, Additional history exists MMR Vaccines Completed 11/29/1998, 01/04/1995 Varicella Vaccines Completed 04/22/2008, 10/20/1996 Meningococcal ACWY Vaccine Completed 10/31/2011, Hepatitis B Vaccines Completed 01/06/2021, 06/20/2015, 12/08/2014, Additional history exists HPV Vaccines Aged Out No longer eligi ble based on patient's age to complete this topic Meningococcal B Vaccine Aged Out No l onger eligible based on patient's age to complete this topic Pneumococcal Vaccine: Pediatrics (0 to 5 Years) and At-Risk Patients (6 to 64 Years) Aged Out No longer eligible based on patient's age to complete this topic RSV Immunization Patients Under 20 months Aged Out No longer eligible based on patient's age to complete this topic Insurance [facility] [place] [id number] Care Teams Optical Laboratory Technician Relationship Specialty Start Date End Date Job Fernandez MD [address] [place] [address] [place] [address] PCP - General Internal Medicine 06/30/18
== END 2025-01-07 12:34 | disposition home or self-care (01) ==
LOC: HO.HMCFM 11:24
PROVIDERS: PCP Internal Medicine; Visit Provider Physician Assistant Medical
DX: R23.0 Cyanosis (principal); R20.0 Anesthesia of skin

== ENCOUNTER → 2025-01-07 11:23 | Outpatient (BNVA) | payer OTHER, SELFPAY | PROVIDERS: PCP Internal Medicine; Visit Provider Physician Assistant Medical | DX: R20.0 Anesthesia of skin (principal); R20.2 Paresthesia of skin; R23.0 Cyanosis; R20.9 Unspecified disturbances of skin sensation; R29.898 Other symptoms and signs involving the musculoskeletal system | CPT/HCPCS: 93005; 96127 ==

== ENCOUNTER 2025-01-07 15:32 | Outpatient (REF) | payer OTHER, SELFPAY ==
[2025-01-07 17:41] LABS: MANUAL DIFF FLAG NO
[2025-01-07 17:51] LABS: Basophils Absolute Auto 0.1 X10*3/uL (0.0-0.2); Basophils Percent Auto 0.5 % (0-2); Eosinophils Absolute Auto 0.1 X10*3/uL (0.0-0.4); Eosinophils Percent Auto 1.1 % (0-4); Hematocrit 41.5 % (37.0-47.0); Hemoglobin 13.5 g/dl (12.0-16.0); Imm Gran Abs Auto 0.03 X10*3/uL (0.00-0.03); Imm Gran Pct Auto 0.3 % (0.0-0.4); Lymphocytes Percent Auto 27.2 % (20-40); Mean Corpuscular HGB Conc 32.5 g/dl (31.0-35.0); Mean Corpuscular Hemoglobin 28.7 pg (27.0-33.0); Mean Corpuscular Volume 88.3 fL (80.0-98.0); Mean Platelet Volume 9.7 fL (9.4-12.3); Monocytes Absolute Auto 0.6 X10*3/uL (0.1-1.2); Monocytes Percent Auto 5.4 % (2-11); Neutrophils Absolute Auto 7.1 x10*3/uL (2.0-8.3); Neutrophils Percent Auto 65.5 % (45-73); Platelet Count 390 X10*3/uL (160-400); White Blood Count 10.9 X10*3/uL (4.8-10.8)
[2025-01-07 17:58] LABS: Appearance Urine Clear; Color Urine Yellow; Glucose Urine UA Negative (Negative); Leukocyte Esterase Urine Negative (Negative); Nitrite Urine Negative (Negative); Specific Gravity - Urine 1.015 (1.005-1.025); UMIC TRIGGER UACC YES; Urine Blood Small (1+) (Negative); Urine Ketones Negative (Negative); Urine Protein Negative (Neg-Trace)
[2025-01-07 18:08] LABS: Bacteria Urine None Seen (None Seen); Hyaline Casts Urine 0-2 /LPF (0-2); RBC Urine 0-2 /HPF (0-2); Squamous Epithelial Cell Urine 0-2 /HPF (0-2); WBC Urine 0-5 /HPF (0-5)
--- OUTSIDE RECORDS SUMMARY | 2025-01-07 18:12 | XMS_ITS | Clinical Summary ---
Author Organization [address] Address [address] [place] [address] Phone Care Team Providers Care Customer Support Analyst Name Role Phone Job Fernandez MD Primary Care Provider [phone] Allergies Active Allergy Reactions Criticality Noted Date Comments Erythromycin 10/21/2024 Medications Vyvanse 20 mg capsule Take 1 capsule (20 mg total) by mouth 1 (one) time each day in the morning. Max Daily Amount: 20 mg 02/17/2024 Active levothyroxine (SYNTHROID, LEVOTHROID) 100 mcg tablet 12/13/2024 Active Encounters Date Type Department Care Team Description 12/25/2024 8:00 AM EDT Office Visit Gastroenterology - [address] [place] [phone] Paige Sim MD Dyspepsia (Primary Dx); Right upper quadrant abdominal pain 10/21/2024 Telephone Gastroenterology - [address] [place] [phone] Paige Sim MD from Last 3 Months [...] patient's age to complete this topic Insurance [facility] [place] [id number] Care Teams Customer Support Analyst Relationship Specialty Start Date End Date Job Fernandez MD [address] [place] [address] [place] [address] PCP - General Internal Medicine 06/30/18
[2025-01-07 18:21] LABS: Alanine Aminotransferase 36 U/L (0-31); Albumin Level 4.1 g/dL (3.5-5.0); Alkaline Phosphatase 62 U/L (39-117); Anion Gap 10 (12-20); Aspartate Amino Transferase 28 U/L (5-31); Bilirubin Total 0.3 mg/dL (0.0-1.0); Blood Urea Nitrogen 19 mg/dL (9-16); C Reactive Protein 0.18 mg/dL (< or = 0.50); Carbon Dioxide 27 mmol/L (22-29); Chloride 105 mmol/L (96-108); Cholesterol 168 mg/dL (<200); Estimated Glomerular Filt Rate > 60; Glucose Random 94 mg/dL (60-115); HDL Cholesterol 58 mg/dL (>40); Iron 75 mcg/dL (30-160); LDL Cholesterol Calculated 98 mg/dL (<100); Percent Iron Saturation 23 % (15-50); Potassium 3.8 mmol/L (3.3-5.1); Sodium 138 mmol/L (135-145); Total Iron Binding Capacity 328 mcg/dL (228-428); Total Protein 6.9 g/dL (6.5-8.0); Triglycerides 61 mg/dL (<150); Unsaturated Iron Binding 253 ug/dL
[2025-01-07 18:24] LABS: Alanine Aminotransferase 30 U/L (0-31); Albumin Level 4.1 g/dL (3.5-5.0); Alkaline Phosphatase 62 U/L (39-117); Anion Gap 11 (12-20); Aspartate Amino Transferase 27 U/L (5-31); Bilirubin Total 0.3 mg/dL (0.0-1.0); Blood Urea Nitrogen 19 mg/dL (9-16); Carbon Dioxide 27 mmol/L (22-29); Chloride 104 mmol/L (96-108); Estimated Glomerular Filt Rate > 60; Glucose Random 85 mg/dL (60-115); Iron 77 mcg/dL (30-160); Percent Iron Saturation 23 % (15-50); Potassium 3.7 mmol/L (3.3-5.1); Sodium 138 mmol/L (135-145); Total Iron Binding Capacity 329 mcg/dL (228-428); Total Protein 6.8 g/dL (6.5-8.0); Unsaturated Iron Binding 252 ug/dL
[2025-01-07 18:28] LABS: Erythrocyte Sedimentation Rate 5 MM/HR (0-20)
[2025-01-07 18:29] LABS: TSH reflex Free T4 2.02 uIU/mL (0.32-4.0)
[2025-01-07 18:34] LABS: Ferritin 35 ng/mL (10-122); TSH reflex Free T4 2.03 uIU/mL (0.32-4.0)
[2025-01-07 20:42] LABS: Rheumatoid Factor < 13.0 IU/mL (<15.0)
[2025-01-07 21:12] LABS: Vitamin B12 324 pg/mL (200-900)
[2025-01-08 05:25] LABS: Estimated Average Glucose 103 mg/dL; Hemoglobin A1C 118.2114 umol/L; Hemoglobin A1c % 5.2 % (<6.0); Total Hemoglobin (HGBA1C) 3548.8404 umol/L
[2025-01-08 22:07] LABS: A. Phagocytphilium DNA,RT-PCR NOT DETECTED (NOT DETECTED); Babesia Microti DNA, RT-PCR NOT DETECTED (NOT DETECTED); Borrelia Miyamotoi,DNA RT-PCR NOT DETECTED (NOT DETECTED); E.Chaffeensis DNA RT-PCR NOT DETECTED (NOT DETECTED); Lyme(Borrelia ssp)DNA RT-PCR NOT DETECTED (NOT DETECTED)
[2025-01-11 14:58] LABS: Vitamin D 25-OH, D2 <4 ng/mL; Vitamin D 25-OH, D3 31 ng/mL; Vitamin D 25-OH, Total 31 ng/mL (30-100)
[2025-01-12 11:38] LABS: HLA B27 Negative (Negative)
[2025-01-12 13:03] LABS: Anti Nuclear Antibody Screen NEGATIVE (NEGATIVE)
== END 2025-01-07 15:33 | disposition home or self-care (01) ==
LOC: HO.WFDLDS 15:32
PROVIDERS: Referring Provider Physician Assistant Medical; Visit Provider Internal Medicine
DX: Z00.00 Encounter for general adult medical examination without abnormal findings (principal); Z13.29 Encounter for screening for other suspected endocrine disorder; Z13.0 Encounter for screening for diseases of the blood and blood-forming organs and certain disorders involving the immune mechanism; Z13.228 Encounter for screening for other metabolic disorders; R53.83 Other fatigue; R35.0 Frequency of micturition; E03.9 Hypothyroidism, unspecified; R20.0 Anesthesia of skin; M79.672 Pain in left foot; R23.0 Cyanosis; M85.80 Other specified disorders of bone density and structure, unspecified site; R20.9 Unspecified disturbances of skin sensation; Z13.1 Encounter for screening for diabetes mellitus
CPT/HCPCS: 36415; 80053; 80061; 81001; 82306; 82550; 82607; 82728; 82746; 83036; 83540; 83735; 84443; 85025; 85652; 86038; 86140; 86431; 86812; 87468; 87469; 87478; 87484; 87798

== ENCOUNTER → 2025-01-18 12:44 | Outpatient (REF) | payer OTHER, SELFPAY ==
--- NOTE | 2025-01-18 13:00 | CA_ITS ---
Transthoracic Echocardiogram Patient (Last, First, Middle): Trcay Soto, Gender: Female Date of : 1995 Age: 29 Procedure Date: 01/18/2025 Procedure Type: Transthoracic Echocardiogram Location: OP Height: 154.94 cm Weight: 74.84 kg BSA: 1.74 m2 Heart Rate: bpm BP: 118 / 60 mmHg Bracelet Form Coverer: Referring MD: Anu WITT Symptoms: R23.0 - Cyanosis Study Quality: Good ECG Rhythm: Sinus Conclusions: - The left ventricular systolic function is normal. The calculated ejection fraction is 61% by biplane method. - No obvious valvular pathology seen on this study. Findings Left Ventricle Normal left ventricular cavity size. There is normal left ventricular wall thickness. The left ventricular systolic function is normal. The calculated ejection fraction is 61% by biplane method. There is no evidence of regional wall motion abnormalities. Diastolic function is normal for age. Right Ventricle Normal right ventricular cavity size and systolic function. Atria Both atria are normal in size. There is no evidence of interatrial shunt by color Doppler. Aortic Valve There is a normal trileaflet aortic valve. There is no aortic valve stenosis. There is no aortic valve regurgitation. Mitral Valve The mitral valve appears normal. There is no mitral valve regurgitation. There is no mitral valve stenosis. Pulmonic Valve The pulmonic valve is likely normal. Tricuspid Valve There is trace tricuspid valve regurgitation. There is no evidence of pulmonary hypertension. Great Vessels The asc aorta is normal in size. Venous The inferior vena cava is normal in size and collapses greater than 50% with inspiration. Pericardium/Pleural There is no evidence of pericardial effusion. Prior Study Comparison No prior study available for comparison. Recommendations, Care & Conclusions No obvious valvular pathology seen on this study. Measurements 2D Linear Measurements IVSd: 0.97 0.6-0.9/0.6-1.0 cm LVIDd: 3.71 3.9-5.3/4.2-5.9 cm LVIDd Index: 2.13 2.4-3.2/2.2-3.1 cm/m2 LVIDs: 2.22 2.0-3.6 cm LVPWd: 0.86 0.7-1.1 cm Ao Root: 2.10 2.1-3.5 cm LA Diam: 3.30 2.7-3.8/3.0-4.0 cm LAIDs Index: 1.90 1.5-2.3 cm/m2 LV Mass: 123.82 67-162/88-224 g LV Mass Index: 71.16 43-95/49-115 g/m2 LVOT Diam: 1.90 3.0+(-)1.3 cm 2D Systolic Function EF 4C: 65.90 >55% EF 2C: 58.10 >55% EF BiP: 60.90 >55% Mitral Valve MV Pk E: 0.79 MV PK A: 0.49 MV Decel Time: 142.00 E/A: 1.60 E'Lateral: 17.30 E'Medial: 9.46 E/E' Med: 8.40 E/E' Lat: 4.60 PHT: 41.00 MVA PHT: 5.37 Decel Yellow Medicine: 5.60 Aortic Valve AoV Pk Jose: 1.75 AoV Mn Jose: 1.03 AoV VTI: 0.28 AoV Pk Grad: 12.00 Aov Mn Grad: 5.00 HERMINIA Cont.VTI: 1.94 LVOT LVOT Pk Jose: 1.00 LVOT Mn Jose: 0.68 LVOT VTI: 0.19 LVOT Pk Grad: 4.00 LVOT Mn Grad: 2.00 LVOT Diam: 1.90 LVOT Area: 2.84 Diastolic Function MV Pk E: 0.79 MV Pk A: 0.49 E/A: 1.60 E'Medial: 9.46 E/E' Med: 8.40 E' Laterial: 17.30 E/E' Lat: 4.60 Right Ventricle TAPSE (mm): 28.00 TVS' Jose: 11.00 Tricuspid Valve TR Pk Jose: 1.92 TR Pk Grad: 15.00 RA Press: 3.00 RVSP: 18.00 Great Vessels Aorta Ao Root-2D: 2.10 2.0-3.7 cm Ao Asc: 2.60 2.1-3.4 cm Pulmonary Valve PV Pk Jose: 0.87 Peak PV Grad: 3.00 Updated in Other Vendor System with Status of Final Kehinde Davis MD electronically signed on 01/19/2025 12:36:02 PM with status of Final
--- OUTSIDE RECORDS SUMMARY | 2025-01-18 14:09 | XMS_ITS | Clinical Summary ---
Author Organization [address] Address [address] [place] [address] Phone Care Team Providers Care Data Officer Name Role Phone Job Fernandez MD Primary [...] 8:00 AM EDT Office Visit Gastroenterology - [address] [place] [phone] Paige Sim MD Dyspepsia (Primary Dx); Right upper quadrant abdominal pain 10/21/2024 Telephone Gastroenterology - [address] [place] [phone] Paige Sim MD from Last 3 Months [...] patient's age to complete this topic Insurance [facility] [place] [id number] Care Teams Data Officer Relationship Specialty Start Date End Date Job Fernandez MD [address] [place] [address] [place] [address] PCP - General Internal Medicine 06/30/18
== END ==
LOC: HO.CARD 12:44
PROVIDERS: PCP Physician Assistant Medical; Visit Provider Physician Assistant Medical
DX: R23.0 Cyanosis (principal); R20.9 Unspecified disturbances of skin sensation
CPT/HCPCS: 93306

== ENCOUNTER → 2025-01-18 13:00 | Outpatient (BNV) | payer OTHER, SELFPAY | PROVIDERS: PCP Physician Assistant Medical; Visit Provider Internal Medicine | DX: R23.0 Cyanosis (principal) | CPT/HCPCS: 93306 ==

== ENCOUNTER → 2025-01-21 19:39 | Outpatient (BNV) | payer OTHER, SELFPAY | PROVIDERS: PCP Physician Assistant Medical; Visit Provider Radiology Diagnostic Radiology | DX: M47.816 Spondylosis without myelopathy or radiculopathy, lumbar region (principal); R29.898 Other symptoms and signs involving the musculoskeletal system | CPT/HCPCS: 70551; 72148 ==

== ENCOUNTER 2025-01-21 19:45 | Outpatient (REF) | payer OTHER, SELFPAY ==
--- NOTE | ~2025-01-21 | MR_ITS ---
EXAMINATION: MR LUMBAR SPINE WITHOUT CONTRAST CLINICAL INFORMATION: Other symptoms and signs involving the musculoskeletal system. COMPARISON: None available. TECHNIQUE: MRI of the lumbar spine was obtained using routine sequences without contrast. FINDINGS: Last rib-bearing vertebra labeled T12. No bone marrow STIR signal abnormality. The alignment is normal. Mild multilevel disc desiccation and lower thoracic spine and L4-5 level. Focal intrinsic hyperintense T1 signal at the vertebral body of T11 likely intraosseous hemangioma. The conus medullaris ends at intervertebral disc L1-2 with normal signal. T11-12: No herniated disc. No neuroforamina stenosis. T12-L1: No herniated disc. No neuroforamina stenosis. L1-2: No herniated disc. No neuroforamina stenosis. L2-3: Mild broad-based disc bulging. No central spinal canal or neuroforamina stenosis. L3-4: Broad-based disc bulging. No central spinal canal or neuroforamina stenosis. L4-5: Decreased disc bulging abutting the L5 nerve roots on the lateral recesses. No neuroforamina stenosis. L5-S1: No herniated disc. No neuroforamina stenosis. No prevertebral compartment hematoma, mass or fluid collection. No aneurysm, abdominal aorta. No hydronephrosis in either kidney. No lymphadenopathy or retroperitoneal. MR/MR lumbar spine wo con IMPRESSION: Lumbar spondylosis at L4-5 abutting the L5 nerve roots on the lateral recesses. No disc herniation or compression upon neural elements. No acute fracture or listhesis. Electronically signed by: Emigdio Tavares MD 01/22/2025 07:49 AM EDT
--- NOTE | ~2025-01-21 | MR_ITS ---
EXAMINATION: MR BRAIN WITHOUT CONTRAST CLINICAL INFORMATION: Other symptoms and signs involving the musculature system COMPARISON: None available. TECHNIQUE: MRI of the brain was obtained using routine sequences without contrast. FINDINGS: No restricted diffusion. No acute intracranial hemorrhage, mass effect, midline shift, hydrocephalus or herniation. Montalvo-white matter differentiation is normal. Sellar/suprasellar region demonstrated no signal abnormality or masses. Craniocervical junction is intact with normal position of the cerebellar tonsils. Flow-void signal within the main cerebral vessels is normal. No gross signal abnormality or masses in the intraconal or extraconal compartments of the orbits. MR/MR head/brain wo con IMPRESSION: No acute or structural brain abnormality. Electronically signed by: Emigdio Tavares MD 01/22/2025 07:45 AM EDT
== END 2025-01-21 19:46 | disposition home or self-care (01) ==
LOC: HO.MRI 19:45
PROVIDERS: PCP Physician Assistant Medical; Visit Provider Physician Assistant Medical
DX: R29.898 Other symptoms and signs involving the musculoskeletal system (principal); R20.0 Anesthesia of skin; R20.2 Paresthesia of skin
CPT/HCPCS: 70551; 72148

== ENCOUNTER → 2025-02-04 10:00 | Outpatient (REF) | payer OTHER, SELFPAY ==
--- NOTE | 2025-02-04 10:03 | CA_ITS ---
Acquisition Time: 2025-02-04 10:32:36 Total Exercise Time: 00:09:34 Test Indications: DYSPNEA,CYANOSIS Medications: Protocol: CHRIS Max HR: 179 BPM 94% of Pred: 189 BPM Max BP: 150/80 mmHG Max Work Load: 11.0 METS Exercise stress test with exercise 9 mins 34 secs of Chris Protocol, achieving 94% MPHR, with reports of 2/10 left sided chest heaviness at baseline that worsened to 5/10 with exercise, with moderate SOB, without any arrythmias, with normotensive repsonse to exercise. Without any EKG changes meeting criteria for ischemia. In recovery, chest heaviness and breathing quickly returned to baseline. Will recommend stress echo for further evaluation fo the CP. Test reviewed with Dr. Santana. Referred By: Anu Galvan Electronically Signed By: Yoni Lacy
--- OUTSIDE RECORDS SUMMARY | 2025-02-04 10:21 | XMS_ITS | Clinical Summary ---
Author Organization [facility] [address] [facility] Address [address] [place] [address] Phone Care Team Providers Care Recruiting Team Lead Name Role Phone Job Fernandez MD Primary [...] 8:00 AM EDT Office Visit Gastroenterology - [address] [place] [phone] Paige Sim MD Dyspepsia (Primary Dx); Right upper quadrant abdominal pain from Last 3 Months Surgical History Surgery [...] patient's age to complete this topic Insurance [facility] Care Teams Recruiting Team Lead Relationship Specialty Start Date End Date Job Fernandez MD [address] [place] [address] [place] [address] PCP - General Internal Medicine 06/30/18
== END ==
LOC: HO.CARD 10:00
PROVIDERS: PCP Physician Assistant Medical; Visit Provider Physician Assistant Medical
DX: R23.0 Cyanosis (principal); R06.09 Other forms of dyspnea
CPT/HCPCS: 93017

== ENCOUNTER → 2025-02-04 10:03 | Outpatient (BNV) | payer OTHER, SELFPAY | PROVIDERS: PCP Physician Assistant Medical | DX: R07.2 Precordial pain (principal); R06.02 Shortness of breath | CPT/HCPCS: 93016; 93018 ==

== ENCOUNTER 2025-03-10 13:43 | Outpatient (REF) | payer OTHER, SELFPAY ==
[2025-03-10 18:04] LABS: MANUAL DIFF FLAG NO
[2025-03-10 18:14] LABS: Appearance Urine Clear; Color Urine Yellow; Glucose Urine UA Negative (Negative); Leukocyte Esterase Urine Negative (Negative); Nitrite Urine Negative (Negative); Specific Gravity - Urine >= 1.030 (1.005-1.025); Urine Blood Negative (Negative); Urine Ketones Trace mg/dL (Negative); Urine Protein Negative (Neg-Trace)
[2025-03-10 18:34] LABS: Alanine Aminotransferase 26 U/L (0-31); Albumin Level 4.5 g/dL (3.5-5.0); Alkaline Phosphatase 59 U/L (39-117); Anion Gap 12 (12-20); Aspartate Amino Transferase 33 U/L (5-31); Bilirubin Total 0.3 mg/dL (0.0-1.0); Blood Urea Nitrogen 15 mg/dL (9-16); Calcium 9.3 mg/dL (8.4-10.2); Carbon Dioxide 25 mmol/L (22-29); Chloride 105 mmol/L (96-108); Estimated Glomerular Filt Rate > 60; Glucose Fasting 73 mg/dL (60-99); Potassium 4.3 mmol/L (3.3-5.1); Sodium 138 mmol/L (135-145); Total Protein 7.1 g/dL (6.5-8.0)
[2025-03-10 18:42] LABS: Basophils Absolute Auto 0.1 X10*3/uL (0.0-0.2); Basophils Percent Auto 0.7 % (0-2); Eosinophils Absolute Auto 0.1 X10*3/uL (0.0-0.4); Eosinophils Percent Auto 1.5 % (0-4); Hematocrit 43.3 % (37.0-47.0); Hemoglobin 14.7 g/dl (12.0-16.0); Imm Gran Abs Auto 0.03 X10*3/uL (0.00-0.03); Imm Gran Pct Auto 0.3 % (0.0-0.4); Lymphocytes Absolute Auto 3.3 X10*3/uL (1.2-4.9); Lymphocytes Percent Auto 35.2 % (20-40); Mean Corpuscular HGB Conc 33.9 g/dl (31.0-35.0); Mean Corpuscular Hemoglobin 29.5 pg (27.0-33.0); Mean Corpuscular Volume 86.8 fL (80.0-98.0); Mean Platelet Volume 9.5 fL (9.4-12.3); Monocytes Absolute Auto 0.6 X10*3/uL (0.1-1.2); Monocytes Percent Auto 6.7 % (2-11); Neutrophils Absolute Auto 5.1 x10*3/uL (2.0-8.3); Neutrophils Percent Auto 55.6 % (45-73); Platelet Count 456 X10*3/uL (160-400); Red Blood Count 4.99 X10*6/uL (4.20-5.50); Red Cell Distribution Width 12.7 % (11.0-16.0); White Blood Count 9.2 X10*3/uL (4.8-10.8)
[2025-03-10 18:45] LABS: TSH reflex Free T4 0.92 uIU/mL (0.32-4.0)
== END 2025-03-10 13:44 | disposition home or self-care (01) ==
LOC: HO.WFDLDS 13:43
PROVIDERS: Internal Medicine; Referring Provider Clinical Nurse Specialist Psychiatric/Mental Health; Visit Provider Physician Assistant Medical
DX: Z00.00 Encounter for general adult medical examination without abnormal findings (principal); R20.9 Unspecified disturbances of skin sensation; R20.0 Anesthesia of skin; R23.0 Cyanosis; R20.2 Paresthesia of skin; Z13.29 Encounter for screening for other suspected endocrine disorder; Z13.0 Encounter for screening for diseases of the blood and blood-forming organs and certain disorders involving the immune mechanism; Z13.228 Encounter for screening for other metabolic disorders; R53.83 Other fatigue; R35.0 Frequency of micturition; E03.9 Hypothyroidism, unspecified; Z79.899 Other long term (current) drug therapy
CPT/HCPCS: 36415; 80053; 81003; 82550; 84443; 85025

== ENCOUNTER 2025-03-22 17:00 | Outpatient (AMB) | payer OTHER, SELFPAY ==
--- NOTE | 2025-03-22 16:48 | A.OFFPSYCH_ITS ---
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 no SIB, no SI or HI Past Psychiatric History: Her first trouble with psychiatric symptoms was in 5th grade - first psych problems- she started with self harming in 5th grade; She was hospitalized many times as child/teen for self harmage 18 completed 1 yr DBT program= with very +++ results one hospitalization after 2 yr old dtr born and started on SSRI and it helped At age 16 a doctor told she had borderline personality disorder and referred her to DBT program which was a one year program and changed her life for the better. 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 Medication Trials: geodon- sedation/dizziness lamictal ? rash risperdal- too scared to try Adderall - headaches, nausea wellbutrin - twitching prozac - worked well ? numbing (cut self 2019) 2022 to sedating seroquel - sedation, weight gain lexapro- negative celexa- negative concerta 27 mg - anxiety ativan - rebound irritability effexor - sedation, nausea - abilify - increased irritability buzzing in ears zoloft- negative tegretol- worked well in past 2019- Self injury - twitching trileptal-sedation rash depakote-weight gain vyvanse helped but almost too strong- increased anxiety a little luvox- worked well at first then irritabilty topomax vraylar Mental Status Exam Mental Status Exam Patient Appearance: Well Grooomed and Appropriate Patient Orientation: Person, Place, Time and Situation Level of Consciousness: Awake and Alert Patient Behavior: Appropriate, Cooperative and Good Eye Contact Mood Description: Happy Affect Description: Happy Patient Cognition Impaired: No Ability to Follow Directions: Good Speech Pattern: Clear and Appropriate Memory Description: Intact Hallucinations: None Delusions: Not Present Thought Process: Intact, Distracted (minimal) and Rumination (minimal ) Thought Content: positive for Intact and positive for Goal Oriented Judgement: Good Telehealth Telehealth Telehealth Platform: Other (please specify) ([employer]) Location of provider rendering services: practice address Location of patient: address on file Patient Identification confirmed using: Name, : Yes Telehealth method: video Patient verbally consented to treatment: Yes Patient verbally consented to billing insurance company: Yes Patient informed of any privacy concerns related to visit: Yes Minutes spent on Phone/Video with Pt.: 25 Assessment and Plan Assessment & Plan (1) ADHD (attention deficit hyperactivity disorder), combined type: Status: Acute Code(s): F90.2 - Attention-deficit hyperactivity disorder, combined type (2) Anxiety: Status: Acute Code(s): F41.9 - Anxiety disorder, unspecified (3) JORGE (generalized anxiety disorder): Status: Acute Code(s): F41.1 - Generalized anxiety disorder Plan trial addderall XR 15 mg qm adderal 5mg qd cloanzepam 0.5mg tid prn anxiety/sleep Medications: New dextroamphetamine-amphetamine 5 mg (Adderall) Partial Fill upon patient request. 5 mg PO .DAILY@3pm PRN 20 tabs 0RF break through ADHD symptoms Discontinued lisdexamfetamine Partial Fill upon patient request. Discontinued Reason: Doctor's Order 40 mg PO QAM 30 caps 0RF Counseling and coordination of Care Pt. Self Management counseling: Maintenance-social rhythm, Sleep hygiene, Behavior activation, General coping skills and Problem solving Medication management counseling: Effectiveness, Side effects, Dosing range, Duration, Drug interaction and Adherence Diagnosis and Prognosis Counseling: Accuracy of diagnosis, Prognosis over time, Impact of diagnosis on life functions, Impact of family relationship, Problematic behaviors secondary to diagnosis and Adequacy of current interventions Details: I spent 35 minutes reviewing the record, seeing the patient and documenting in the medical record. Counseling provided to the patient/caregiver as outlined below. Addressed patient/caregiver concerns regarding current medication regime including effe ctive adherence. Addressed patient/caregiver concerns regarding diagnosis and prognosis including accuracy of diagnosis, prognosis over time, impact of diagnosis. Addressed patient/caregiver concerns regarding impact of recent stressors. [facility] Medical History (Updated 02/04/25 @ 11:59 by EDUAR Medina) Chest heaviness ALSTON (dyspnea on exertion) Lumbar spondylolysis Weakness of left foot Numbness and tingling of upper and lower extremities of both sides Circumoral cyanosis Numbness Cold extremities Family History Father Gastric cancer HTN (hypertension) Asthma Maternal Grandmother Suicide Mother Depression Psychiatric disorder Other FH: mental illness Social History (Updated 01/07/25 @ 11:33 by Josephine Anderson MA) Housing: House Alcohol intake: never Patient Tobacco Use Status: Never used Tobacco e-Cigarette/Vaping Use: Never Used Second Hand Smoke Exposure: No service: No Current occupational status: employed 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 Substance History: none Trauma History: childhood trauma Coding Level of Care Code Tele Est Pt Level 4 (05789) Diagnoses ADHD (attention deficit hyperactivity disorder), combined type F90.2 Anxiety F41.9 JORGE (generalized anxiety disorder) F41.1
--- OUTSIDE RECORDS SUMMARY | 2025-03-22 17:02 | XMS_ITS | Clinical Summary ---
Author Organization [facility] Address [address] [place] [address] Phone Care Team Providers Care Manager Publishing Name Role Phone Job Fernandez MD Primary [...] 8:00 AM EDT Office Visit Gastroenterology - [address] [place] [phone] Paige Sim MD Dyspepsia (Primary Dx); [...] season) 2024 10/31/2021, 09/24/2020, 09/03/2020 Influenza Vaccine (#1) 2025 , 06/15/2022, 06/06/2021, Additional history exists HIB Vaccines [...] 5 Years) and At-Risk Patients (6 to 49 Years) Aged Out No longer eligible based on patient's age to complete this topic RSV Immunization Patients Under 20 months Aged Out No longer eligible based on patient's age to complete this topic Insurance [facility] Care Teams Manager Publishing Relationship Specialty Start Date End Date Job Fernandez MD [address] [place] [address] [place] [address] PCP - General Internal Medicine 06/30/18
== END 2025-03-22 17:29 | disposition home or self-care (01) ==
LOC: HO.HOP 17:00
PROVIDERS: PCP Internal Medicine; Visit Provider Clinical Nurse Specialist Psychiatric/Mental Health
DX: F90.2 Attention-deficit hyperactivity disorder, combined type (principal); F41.9 Anxiety disorder, unspecified; F41.1 Generalized anxiety disorder
CPT/HCPCS: 99214

== ENCOUNTER 2025-03-29 15:26 | Outpatient (AMB) | payer OTHER, SELFPAY ==
--- NOTE | 2025-03-29 16:08 | A.OFFPSYCH_ITS ---
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 Pt taking clonazepam 0.75mg to 1 mg at bedtime with fair results; she is more anxious lately; more ruminating; Has not been able to run as much due to foot injury. struggling to find coping skills; pt started IFS therapy again and it may be triggering her; she noticed more dissociating and being checked out for longerr periods whch is not something that is typical; she denies SI or HI; no urges to harm sels. we discuused medications to reduce anxiety and distress. we revirewed her past med triels; In 2022 pt was on prozac 5-10 mg for 3 -4 months with good effect and stopped when she felt better and felt it was causing brain fog. we agree to restartthe prozac 5mg daily. resume the vyvyanse 30 mg Past Psychiatric History: Her first trouble with psychiatric symptoms was in 5th grade - first psych problems- she started with self harming in 5th grade; She was hospitalized many times as child/teen for self harmage 20 completed 1 yr DBT program= with very +++ results one hospitalization after 2 yr old dtr born and started on SSRI and it helped At age 16 a doctor told she had borderline personality disorder and referred her to DBT program which was a one year program and changed her life for the better. 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 Medication Trials: geodon- sedation/dizziness lamictal ? rash risperdal- too scared to try Adderall - headaches, nausea wellbutrin - twitching prozac - worked well ? numbing (cut self 2019) 2022 to sedating seroquel - sedation, weight gain lexapro- negative celexa- negative concerta 27 mg - anxiety ativan - rebound irritability effexor - sedation, nausea - abilify - increased irritability buzzing in ears zoloft- negative tegretol- worked well in past 2019- Self injury - twitching trileptal-sedation rash depakote-weight gain vyvanse helped but almost too strong- increased anxiety a little luvox- worked well at first then irritabilty topomax vraylar Subjective Subjective Subjective Medication Compliance: Yes Side effects from medications: Yes Review of Systems Medical Review of Systems: unchanged Mental Status Exam Mental Status Exam Patient Orientation: Person, Place, Time and Situation Level of Consciousness: Awake, Appropriate and Alert Patient Behavior: Appropriate Mood Description: Anxious Patient Cognition Impaired: No Ability to Follow Directions: Good Speech Pattern: Clear and Appropriate Memory Description: Intact Hallucinations: None Delusions: Not Present Thought Process: Intact and Goal Oriented Thought Content: positive for Intact and positive for Goal Oriented Judgement: Good Telehealth Telehealth Telehealth Platform: Other (please specify) ([employer]sd) Location of provider rendering services: practice address Location of patient: address on file Patient Identification confirmed using: Name, : Yes Telehealth method: video Patient verbally consented to treatment: Yes Patient verbally consented to billing insurance company: Yes Patient informed of any privacy concerns related to visit: Yes Minutes spent on Phone/Video with Pt.: 25 Assessment and Plan Assessment & Plan (1) ADHD (attention deficit hyperactivity disorder), combined type: Status: Acute Code(s): F90.2 - Attention-deficit hyperactivity disorder, combined type (2) Anxiety: Status: Acute Code(s): F41.9 - Anxiety disorder, unspecified (3) JORGE (generalized anxiety disorder): Status: Acute Code(s): F41.1 - Generalized anxiety disorder Plan resume vyvanse 30 mg daily trial of prozac 5mg daily d/c addderall XR adderal 2.5mg qd cloanzepam 0.5mg tid prn anxiety/sleep Medications: New lisdexamfetamine (Vyvanse) Partial Fill upon patient request. 30 mg PO DAILY 30 caps 0RF F90.0 - Attention-deficit hyperactivity disorder, predominantly inattentive type fluoxetine 5 mg (1/2 x 10 mg) PO DAILY 45 tabs 0RF Counseling and coordination of Care Pt. Self Management counseling: Maintenance-social rhythm, Sleep hygiene, Behavior activation, General coping skills and Problem solving Medication management counseling: Effectiveness, Side effects, Dosing range, Duration, Drug interaction and Adherence Diagnosis and Prognosis Counseling: Accuracy of diagnosis, Prognosis over time, Impact of diagnosis on life functions, Impact of family relationship, Problematic behaviors secondary to diagnosis and Adequacy of current interventions Details: I spent 35 minutes reviewing the record, seeing the patient and documenting in the medical record. Counseling provided to the patient/caregiver as outlined below. Addressed patient/caregiver concerns regarding current medication regime including effective adherence. Addressed patient/caregiver concerns regarding diagnosis and prognosis including accuracy of diagnosis, prognosis over time, impact of diagnosis. Addressed patient/caregiver concerns regarding impact of recent stressors. [facility] Medical History (Updated 02/04/25 @ 11:59 by EDUAR Medina) Chest heaviness ALSTON (dyspnea on exertion) Lumbar spondylolysis Weakness of left foot Numbness and tingling of upper and lower extremities of both sides Circumoral cyanosis Numbness Cold extremities Family History Father Gastric cancer HTN (hypertension) Asthma Maternal Grandmother Suicide Mother Depression Psychiatric disorder Other FH: mental illness Social History (Updated 01/07/25 @ 11:33 by Josephine Anderson MA) Housing: House Alcohol intake: never Patient Tobacco Use Status: Never used Tobacco e-Cigarette/Vaping Use: Never Used Second Hand Smoke Exposure: No service: No Current occupational status: employed 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 Substance History: none Trauma History: childhood trauma Coding Level of Care Code Tele Est Pt Level 4 (98397) Diagnoses ADHD (attention deficit hyperactivity disorder), combined type F90.2 Anxiety F41.9 JORGE (generalized anxiety disorder) F41.1
== END 2025-03-29 17:07 | disposition home or self-care (01) ==
LOC: HO.HOP 15:26
PROVIDERS: PCP Internal Medicine; Visit Provider Clinical Nurse Specialist Psychiatric/Mental Health
DX: F90.2 Attention-deficit hyperactivity disorder, combined type (principal); F41.9 Anxiety disorder, unspecified; F41.1 Generalized anxiety disorder
CPT/HCPCS: 99214

== ENCOUNTER 2025-04-19 11:56 | Outpatient (AMB) | payer OTHER, SELFPAY ==
--- NOTE | 2025-04-19 10:23 | MHC.OFFVISPS ---
Intake Intake Visit Reasons: depression Allergies amoxicillin Allergy (Intermediate, Verified 01/07/25 11:31) hives Erythromycin Allergy (Intermediate, Uncoded 12/14/24 11:54) hives Medication List - Last Reconciled 04/19/25 by Courtney Omalley APRN clonazepam 0.5 mg PO TID dextroamphetamine-amphetamine 5 mg (Adderall) 5 mg PO .DAILY@3pm PRN levothyroxine 100 mcg PO DAILY lisdexamfetamine (Vyvanse) 30 mg PO DAILY HPI- Psychiatric Chief Complaint: depression HPI Narrative: pt taking vyvanse 30mg daily but not getting the benefits of the 40mg dose which helped her concentration, focus, mood, and binge eating; she felt better on 40mg but couldn't sleep as well which she thinks caused irritability and moodiness; she is no longer over training and has not had any cardiac symptoms; she was running 6 plus miles daily and she thinks not hydrating or eating enough for that level of training contributed to the cardaic and circulation problems. . she is now running twice a week 3 miles . she is working on hydrating and eating healthy; she recently joined [employer]; she is binge eating at night sometimes; no self harm behaviors; mood stable; functioning well at home and work. she decided not to take the prozac because her mood improved. pt would like to try waking up at 5 am and taking the vyvanse 40mg then instead of at 730am and see if she can get the benefits of the 40mg without poor sleep. Past Psychiatric History: Her first trouble with psychiatric symptoms was in 5th grade - first psych problems- she started with self harming in 5th grade; She was hospitalized many times as child/teen for self harmage 20 completed 1 yr DBT program= with very +++ results one hospitalization after 2 yr old dtr born and started on SSRI and it helped At age 16 a doctor told she had borderline personality disorder and referred her to DBT program which was a one year program and changed her life for the better. 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 Medication Trials: geodon- sedation/dizziness lamictal ? rash risperdal- too scared to try Adderall - headaches, nausea wellbutrin - twitching prozac - worked well ? numbing (cut self 2019) 2022 to sedating seroquel - sedation, weight gain lexapro- negative celexa- negative concerta 27 mg - anxiety ativan - rebound irritability effexor - sedation, nausea - abilify - increased irritability buzzing in ears zoloft- negative tegretol- worked well in past 2019- Self injury - twitching trileptal-sedation rash depakote-weight gain vyvanse helped but almost too strong- increased anxiety a little luvox- worked well at first then irritabilty topomax vraylar Subjective Subjective Subjective Medication Compliance: Yes Side effects from medications: Yes Review of Systems Medical Review of Systems: unchanged Mental Status Exam Mental Status Exam Patient Orientation: Person, Place, Time and Situation Level of Consciousness: Awake, Appropriate and Alert Patient Behavior: Appropriate Mood Description: Calm and Anxious (mild ) Affect Description: Calm and Anxious (mild) Patient Cognition Impaired: No Ability to Follow Directions: Good Speech Pattern: Clear and Appropriate Memory Description: Intact Hallucinations: None Delusions: Not Present Thought Process: Intact and Goal Oriented Thought Content: positive for Intact and positive for Goal Oriented Judgement: Good Telehealth Telehealth Telehealth Platform: Other (please specify) ([employer].[email or web address]) Location of provider rendering services: practice address Location of patient: address on file Patient Identification confirmed using: Name, : Yes Patient verbally consented to treatment: Yes Patient verbally consented to billing insurance company: Yes Patient informed of any privacy concerns related to visit: Yes Minutes spent on Phone/Video with Pt.: 24 Assessment and Plan Assessment & Plan (1) ADHD (attention deficit hyperactivity disorder), combined type: Status: Acute Code(s): F90.2 - Attention-deficit hyperactivity disorder, combined type (2) Anxiety: Status: Acute Code(s): F41.9 - Anxiety disorder, unspecified (3) JORGE (generalized anxiety disorder): Status: Acute Code(s): F41.1 - Generalized anxiety disorder Plan trial of vyvanse 40 mg daily at 5am and monitor sleep and mood d/c prozac 5mg daily cloanzepam 0.5mg tid prn anxiety/sleep pt will message re: refills Counseling and coordination of Care Pt. Self Management counseling: Maintenance-social rhythm, Sleep hygiene, Behavior activation, General coping skills and Problem solving Medication management counseling: Effectiveness, Side effects, Dosing range, Duration, Drug interaction and Adherence Diagnosis and Prognosis Counseling: Accuracy of diagnosis, Prognosis over time, Impact of diagnosis on life functions, Impact of family relationship, Problematic behaviors secondary to diagnosis and Adequacy of current interventions Details: I spent 34 minutes reviewing the record, seeing the patient and documenting in the medical record. Counseling provided to the patient/caregiver as outlined below. Addressed patient/caregiver concerns regarding current medication regime including effective adherence. Addressed patient/caregiver concerns regarding diagnosis and prognosis including accuracy of diagnosis, prognosis over time, impact of diagnosis. Addressed patient/caregiver concerns regarding impact of recent stressors. [facility] Medical History (Updated 02/04/25 @ 11:59 by EDUAR Medina) Chest heaviness ALSTON (dyspnea on exertion) Lumbar spondylolysis Weakness of left foot Numbness and tingling of upper and lower extremities of both sides Circumoral cyanosis Numbness Cold extremities Family History Father Gastric cancer HTN (hypertension) Asthma Maternal Grandmother Suicide Mother Depression Psychiatric disorder Other FH: mental illness Social History (Updated 01/07/25 @ 11:33 by Josephine Anderson MA) Housing: House Alcohol intake: never Patient Tobacco Use Status: Never used Tobacco e-Cigarette/Vaping Use: Never Used Second Hand Smoke Exposure: No service: No Current occupational status: employed 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 Substance History: none Trauma History: childhood trauma Coding Level of Care Code Tele Est Pt Level 4 (10506) Diagnoses ADHD (attention deficit hyperactivity disorder), combined type F90.2 Anxiety F41.9 JORGE (generalized anxiety disorder) F41.1
--- OUTSIDE RECORDS SUMMARY | 2025-04-19 12:41 | XMS_ITS | Clinical Summary ---
Author Organization [facility] Address [address] [place] [address] Phone Care Team Providers Care Dishroom Attendant Name Role Phone Pcp, Unknown Primary Care Provider Unavailabl e Encounters Date Type Department Care Team Description 02/09/2025 Orders Only [facility] [address], [address], [address] [place] [address] Unknown, Unknown, from Last 3 Months Social History Tobacco Use Types Packs/Day Years Used Date Smoking Tobacco: Never Assessed Education Answer Date Recorded Are you interested in more education? Not on hernán e 06/14/2023 Are you concerned about learning? Not on file 06/14/2023 No 06/14/2023 No 06/14/2023 Digital Access Answer Date Recorded No 06/14/2023 No 06/14/2023 Reliable internet access at home? Not on file 06/14/2023 Device with a working camera? Not on file Comments Unknown Sex and Gender Information Value Date Recorded Sex Assigned at Not on file Legal Sex Female 10:58 AM EDT Gender Identity Not on file Sexual Orientation Not on file Plan of Treatment Upcoming Encounters Date Type Department Care Team (Late st Contact Info) Description 05/24/2025 10:00 AM EDT Office Visit [facility] [address], [address] [place] [address] Duncan Larkin MD [address] [place] [address] [email or web address] Maintenance Due Date Last Done Comments Adult Td,Tdap Booster 1993 DEPRESSION SCREENING 2005 SMOKING Hx and SMOKELESS TOB ACCO SCREENING 2006 HEPATITIS C SCREENING 2011 HIV ONE-TIME SCREENING (18-6 5 YEARS) 2011 PAP SMEAR 2014 COVID-19 VACCINE ( - 2023-2 5 season) 2024 HEPATITIS A VACCINES Aged Out No long er eligible based on patient's age to complete this topic HIB VACCINES Aged Out No longer eligi ble based on patient's age to complete this topic MENINGOCOCCAL VACCINES (ACWY) Aged Out No longer eligible based on patient's age to complete this topic MENINGOCOCCAL VACCINES (B) Aged Out N o longer eligible based on patient's age to complete this topic PNEUMOCOCCAL VACCINES (0-49 years) Aged Out No longer eligible based on patient's age to complete this topic Medical Devices Not on file Insurance [facility] Care Teams Dishroom Attendant Relationship Specialty Start Date End Date Pcp, Unknown PCP - General 06/14/23 Additional Source Comments The information contained in this document represents components of the legal health record. It is not the complete legal health record.[facility]
--- OUTSIDE RECORDS SUMMARY | 2025-04-19 12:41 | XMS_ITS | Clinical Summary ---
Author Organization [facility] [address] Address [address] [place] [address] Phone Care Team Providers Care Application Integration Specialist Name Role Phone Job Fernandez MD Primary Care Provider Allergies Active Allergy Reactions Criticality Noted Date Comments Erythromycin 10/21/2024 Medications Vyvanse 20 mg capsule Take 1 capsule (20 mg total) by mouth 1 (one) time each day in the morning. Max Daily Amount: 20 mg 02/17/2024 Active levothyroxine (SYNTHROID, LEVOTHROID) 100 mcg tablet 12/13/2024 Active Surgical History Surgery Date Site/Laterality Comments ESOPHAGOGASTRODUODENOSCOPY [...] 2012 Cervical Cancer Screening: Pap Smear 2014 HIV Screening 08/15/2022 Hepatitis C Screening 08/15/2022 Social Influencers of Health Screening 08/15/2022 DTaP,Tdap,and Td Vaccines (8 - Td or Tdap) 04/14/2024 04/14/2014, 01/15/2005, 11/29/1998, Additional history exists COVID-19 Vaccine ( season) 2024 10/31/2021, 09/24/2020, 09/03/2020 Depression Screening 09/16/2024 Influenza Vaccine (#1) 2025 , 06/15/2022, 06/06/2021, [...] to complete this topic Insurance [facility] [address] [id number] Care Teams Application Integration Specialist Relationship Specialty Start Date End Date Job Fernandez MD [address] [place] [address] [address] [id number] PCP - General Internal Medicine 06/30/18
== END 2025-04-19 11:56 | disposition home or self-care (01) ==
LOC: HO.HOP 11:56
PROVIDERS: PCP Internal Medicine; Visit Provider Clinical Nurse Specialist Psychiatric/Mental Health
DX: F90.2 Attention-deficit hyperactivity disorder, combined type (principal); F41.9 Anxiety disorder, unspecified; F41.1 Generalized anxiety disorder
CPT/HCPCS: 99214

== ENCOUNTER → 2025-05-06 10:16 | Outpatient (REF) | payer OTHER, SELFPAY ==
--- NOTE | 2025-05-06 10:18 | CA_ITS ---
Acquisition Time: 2025-05-06 10:50:36 Total Exercise Time: 00:10:26 Test Indications: Abnormal Treadmill Test CP Medications: CLONAZAPAM LEVOTHYROXINE DEXTROAMPHETAMINE AMPHETAMINE Protocol: CHRIS Max HR: 176 BPM 93% of Pred: 189 BPM Max BP: 130/60 mmHG Max Work Load: 12.2 METS Exercise stress test with exercise 10 mins 26 secs of Chris Protocol, achieving 93% MPHR, with reports of 8/10 left sided chest heaviness, SOB and dizziness, without any arrythmias, with normotensive response to exercise. without any EKG changes meeting criteria for ischemia. In recovery, pt states she started having dull chest pain 3/10 radiating into her left arm in addition to the gradually improving chest heaviness. In late recovery, pt's symptoms improving back to baseline. Echo images obtained by tech at rest and post peak exercise. Definity contrast utilized. Test reviewed with Dr. Tripp. Referred By: Anu Galvan Electronically Signed By: Yoni Lacy
--- OUTSIDE RECORDS SUMMARY | 2025-05-06 11:45 | XMS_ITS | Clinical Summary ---
Author Organization [facility] [address] [facility] Address [address] [place] [address] Phone Care Team Providers Care Optical Glass Inspector Name Role Phone Job Fernandez MD Primary [...] patient's age to complete this topic Insurance [facility] [address] [id number] Care Teams Optical Glass Inspector Relationship Specialty Start Date End Date Job Fernandez MD [address] [place] [address] [address] [id number] PCP - General Internal Medicine 06/30/18
--- OUTSIDE RECORDS SUMMARY | 2025-05-06 11:45 | XMS_ITS | Clinical Summary ---
Author Organization [facility] Address [address] [place] [address] Phone Care Team Providers Care Snowmobile Mechanic Name Role Phone Pcp, Unknown Primary Care Provider Unavailabl e Encounters Date Type Department Care Team Description 02/09/2025 Orders Only [facility] Cardiovascular Medicine [address] 5[address], [address] [place] [address] Unknown, Unknown, from Last 3 Months Social [...] Description 05/24/2025 10:00 AM EDT Office Visit [facility] Cardiovascular Medicine [address], [address], [address] [place] [address] Duncan Larkin MD [address] [place] [address] [email or web address] Health Maintenance Due Date Last Done [...] Medical Devices Not on file Insurance [facility] Care Teams Snowmobile Mechanic Relationship Specialty Start Date End Date Pcp, Unknown PCP - General 06/14/23 Additional Source Comments The information contained in this document represents components of the legal health record. It is not the complete legal health record.[facility]
== END ==
LOC: HO.CARD 10:16
PROVIDERS: PCP Internal Medicine; Visit Provider Physician Assistant Medical
DX: R07.89 Other chest pain (principal); R06.09 Other forms of dyspnea
CPT/HCPCS: 93350; Q9957

== ENCOUNTER → 2025-05-06 10:18 | Outpatient (BNV) | payer OTHER, SELFPAY | PROVIDERS: PCP Internal Medicine | DX: R07.89 Other chest pain (principal); R06.02 Shortness of breath; R42 Dizziness and giddiness | CPT/HCPCS: 93016; 93018; 93350; 93352 ==

== ENCOUNTER 2025-06-04 11:46 | Outpatient (REF) | payer OTHER, SELFPAY ==
--- OUTSIDE RECORDS SUMMARY | 2025-06-04 12:17 | XMS_ITS | Clinical Summary ---
Author Organization [facility] [address] [facility] Address [address] [place] [address] Phone Care Team Providers Care Field Observer Name Role Phone Job Fernandez MD Primary [...] 04/14/2024 04/14/2014, 01/15/2005, 11/29/1998, Additional history exists Depression Screening 09/16/2024 COVID-19 Vaccine ( season) 2025 10/31/2021, 09/24/2020, 09/03/2020 Influenza Vaccine (#1) 2025 , 06/15/2022, 06/06/2021, Additional history exists RSV Immunization Adult Patients (1 - 1-dose 75+ series) 2068 HIB Vaccines Completed 01/04/1995, 12/16, 04/19/1994, Additional [...] age to complete this topic Insurance [facility] [address] [id number] Care Teams Field Observer Relationship Specialty Start Date End Date Job eFrnandez MD [address] [place] [address] [address] [id number] PCP - General Internal Medicine 06/30/18
--- OUTSIDE RECORDS SUMMARY | 2025-06-04 12:17 | XMS_ITS | Clinical Summary ---
Author Organization [facility] Address [address] [place] [address] Phone Care Team Providers Care Acquisition Manager Name Role Phone Pcp, Unknown Primary Care Provider Unavailabl e Social History Tobacco Use Types Packs/Day Years [...] Orientation Not on file Plan of Treatment Health Maintenance Due Date Last Done Comments Adult Td,Tdap Booster 1993 DEPRESSION SCREENING 2005 SMOKING Hx and SMOKELESS TOB ACCO SCREENING 2006 HEPATITIS C SCREENING 2011 HIV ONE-TIME SCREENING (18-6 5 YEARS) 2011 PAP SMEAR 2014 INFLUENZA VACCINE (#1) 2025 COVID-19 VACCINE (2023-2 5 season) 2025 HEPATITIS A VACCINES Aged Out No long [...] topic Medical Devices Not on file Insurance S Member Subscriber Plan / Payer (Ef fective 2023-) Name:Tracy Miller Relation to Subscriber:Spouse Name:MARLIN MILLERCHARY Date of :1900 Address: [address] [place] [address] Payer ID:Not on file Type:PPO Address: [address] Member Subscriber Plan / Payer (Ef fective 2023-) Name:Tracy Miller Relation to Subscriber:Spouse Name:PATRIA MILLER Date of :1900 Address: [address] [place] [address] Payer ID:Not on file Type:PPO Address: [address] Member Subscriber Plan / Payer (Ef fective 2023-Present) Name:Tracy Miller Relation to Subscriber:Spouse Name:PATRIA MILLER Date of :1902 Address: [address] [place] [address] Payer ID:Not on file Type:O Address: [address] Member Subscriber Plan / Payer (Ef fective 2023-Present) Name:Tracy Miller Relation to Subscriber:Spouse Name:PATRIA MILLER Date of :1902 Address: [address] [place] [address] Payer ID:Not on file Type:PPO Address: [address] Member Subscriber Plan / Payer (Ef fective 2023-) Name:Tracy Miller Relation to Subscriber:Spouse Name:PATRIA MILLER Date of :1902 Address: [address] [place] [address] Payer ID:Not on file Type:PPO Address: [address] Member Subscriber Plan / Payer (Ef fective 2023-Present) Name:Tracy Miller Relation to Subscriber:Spouse Name:PATRIA MILLER Date of :1900 Address: [address] [place] [id number] Payer ID:Not on file Type:O Address: [address] HMO Care Teams Acquisition Manager Relationship Specialty Start Date End Date Pcp, Unknown PCP - General 06/14/23 Additional Source Comments The information contained in this document represents components of the legal health record. It is not the complete legal health record.[facility]
[2025-06-04 14:28] LABS: MANUAL DIFF FLAG NO
[2025-06-04 14:34] LABS: Hematocrit 42.6 % (37.0-47.0); Hemoglobin 14.5 g/dl (12.0-16.0); Imm Gran Abs Auto 0.06 X10*3/uL (0.00-0.03); Imm Gran Pct Auto 0.4 % (0.0-0.4); Lymphocytes Absolute Auto 2.8 X10*3/uL (1.2-4.9); Mean Corpuscular HGB Conc 34.0 g/dl (31.0-35.0); Mean Corpuscular Hemoglobin 29.2 pg (27.0-33.0); Mean Corpuscular Volume 85.7 fL (80.0-98.0); NRBC Abs Auto 0.030 X10*3/uL (0.0-0.012); NRBC Pct Auto 0.2 /100WBC (0.0-0.2); Platelet Count 481 X10*3/uL (160-400); Red Blood Count 4.97 X10*6/uL (4.20-5.50); White Blood Count 13.6 X10*3/uL (4.8-10.8)
== END 2025-06-04 11:47 | disposition home or self-care (01) ==
LOC: HO.WFDLDS 11:46
PROVIDERS: Referring Provider Clinical Nurse Specialist Psychiatric/Mental Health; Visit Provider Internal Medicine
DX: E03.9 Hypothyroidism, unspecified (principal); R20.9 Unspecified disturbances of skin sensation; Z79.899 Other long term (current) drug therapy
CPT/HCPCS: 36415; 84443; 85025

== ENCOUNTER 2025-06-07 14:04 | Outpatient (AMB) | payer OTHER, SELFPAY ==
--- NOTE | 2025-06-07 14:17 | MHC.OFFVISPS ---
Intake Intake Visit Reasons: f/u consultation Diamond Powder Mixer Required: No Allergies amoxicillin Allergy (Intermediate, Verified 01/07/25 11:31) hives Erythromycin Allergy (Intermediate, Uncoded 12/14/24 11:54) hives Medication List - Last Reconciled 06/07/25 by Courtney Omalley APRN clonazepam 0.5 mg PO TID dextroamphetamine-amphetamine 5 mg (Adderall) 5 mg PO .DAILY@3pm PRN Held on 05/13/25. Instructions: Doctor's Order levothyroxine 100 mcg PO DAILY lisdexamfetamine (Vyvanse) 40 mg PO QAM HPI- Psychiatric Chief Complaint: f/u consultation HPI Narrative: pt here in office for follow up re anxiety, mood symptoms, and ADHD. Pt reports vyvanse 40mg daily gives her the most benefit and relief from symptoms but also causes some emotional blunting. She describes more clearly obsessive thoughts and inability to tolerate interuption of her plans or activities at times and her emotional reaction to such interuption; we spoke at length bout bipolar II disorder vs OCD. It seems more likely that her symptoms are attributed to OCD given the severity and range of obsesive thinking with both mental rituals and research, action to ma off iamagined fears/worries. She describes her worries and obsessive thinkking more clearly today with the thought loops that lead to greater anxiety and also taking actions that in hind sight seem irrational to her. She has reported in past many side effects with medications and has not been able to easily tolerate both SSRIs and mood stabilizers. after long dicussio of pros and cons of meds she and I agree to trial of zoloft. She denies SI or HI. Past Psychiatric History: Her first trouble with psychiatric symptoms was in 5th grade - first psych problems- she started with self harming in 5th grade; She was hospitalized many times as child/teen for self harmage 18 completed 1 yr DBT program= with very +++ results one hospitalization after 2 yr old dtr born and started on SSRI and it helped At age 16 a doctor told she had borderline personality disorder and referred her to DBT program which was a one year program and changed her life for the better. 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 Medication Trials: geodon- sedation/dizziness lamictal ? rash risperdal- too scared to try Adderall - headaches, nausea wellbutrin - twitching prozac - worked well ? numbing (cut self 2019) 2022 to sedating seroquel - sedation, weight gain lexapro- negative celexa- negative concerta 27 mg - anxiety ativan - rebound irritability effexor - sedation, nausea - abilify - increased irritability buzzing in ears zoloft- negative tegretol- worked well in past 2019- Self injury - twitching trileptal-sedation rash depakote-weight gain vyvanse helped but almost too strong- increased anxiety a little luvox- worked well at first then irritabilty topomax vraylar Subjective Subjective Subjective Medication Compliance: Yes Side effects from medications: Yes Review of Systems Medical Review of Systems: unchanged Mental Status Exam Mental Status Exam Patient Orientation: Person, Place, Time and Situation Level of Consciousness: Awake, Appropriate and Alert Patient Behavior: Appropriate and Distractible Mood Description: Calm and Anxious (mild ) Affect Description: Calm and Anxious (mild) Patient Cognition Impaired: No Ability to Follow Directions: Good Speech Pattern: Clear and Appropriate Memory Description: Intact Hallucinations: None Delusions: Not Present Thought Process: Intact and Distracted Thought Content: positive for Intact and positive for Goal Oriented Judgement: Good Assessment and Plan Assessment & Plan (1) OCD (obsessive compulsive disorder): Status: Acute Qualifiers: Obsessive-compulsive disorder type: mixed obsessional thoughts and acts Qualified Code(s): F42.2 - Mixed obsessional thoughts and acts Code(s): F42.9 - Obsessive-compulsive disorder, unspecified (2) ADHD (attention deficit hyperactivity disorder), combined type: Status: Acute Code(s): F90.2 - Attention-deficit hyperactivity disorder, combined type Plan continue vyvanse 40mg daily continue clonazepam 0.5mg tid prn anxiety/panic trial of sertraline 25mg daily x 10 days then 50 mg daily thereafter Medications: New sertraline (Zoloft) Take 1/2 tablet daily with food for 10 days then take 1 tab daily 50 mg PO DAILY 30 tabs 1RF Counseling and coordination of Care Pt. Self Management counseling: General coping skills Medication management counseling: Effectiveness, Side effects, Dosing range, Duration, Drug interaction and Adherence Diagnosis and Prognosis Counseling: Accuracy of diagnosis, Prognosis over time, Impact of diagnosis on life functions, Impact of family relationship, Problematic behaviors secondary to diagnosis and Adequacy of current interventions Details: I spent 45 minutes reviewing the record, seeing the patient and documenting in the medical record. Counseling provided to the patient/caregiver as outlined below. Addressed patient/caregiver concerns regarding current medication regime including effective adherence. Addressed patient/caregiver concerns regarding diagnosis and prognosis including accuracy of diagnosis, prognosis over time, impact of diagnosis. Addressed patient/caregiver concerns regarding impact of recent stressors. [facility] Medical History (Updated 06/07/25 @ 15:08 by Courtney Omalley APRN) Chest heaviness ALSTON (dyspnea on exertion) Lumbar spondylolysis Weakness of left foot Numbness and tingling of upper and lower extremities of both sides Circumoral cyanosis Numbness Cold extremities Family History Father Gastric cancer HTN (hypertension) Asthma Maternal Grandmother Suicide Mother Depression Psychiatric disorder Other FH: mental illness Social History (Updated 01/07/25 @ 11:33 by Josephine Anderson MA) Housing: House Alcohol intake: never Patient Tobacco Use Status: Never used Tobacco e-Cigarette/Vaping Use: Never Used Second Hand Smoke Exposure: No service: No Current occupational status: employed 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 Substance History: none Trauma History: childhood trauma Coding Level of Care Code Est Pt Level 5 (79048) Diagnoses Mixed obsessional thoughts and acts F42.2 Obsessive-compulsive disorder type: mixed obsessional thoughts and acts ADHD (attention deficit hyperactivity disorder), combined type F90.2
--- OUTSIDE RECORDS SUMMARY | 2025-06-07 16:32 | XMS_ITS | Clinical Summary ---
Author ilding
== END 2025-06-07 15:10 | disposition home or self-care (01) ==
LOC: HO.HOP 14:04
PROVIDERS: PCP Internal Medicine; Visit Provider Clinical Nurse Specialist Psychiatric/Mental Health
DX: F42.2 Mixed obsessional thoughts and acts (principal); F90.2 Attention-deficit hyperactivity disorder, combined type
CPT/HCPCS: 99215

== ENCOUNTER 2025-06-21 09:10 | Outpatient (AMB) | payer OTHER, SELFPAY ==
--- NOTE | 2025-06-21 09:20 | MHC.PC.OV ---
Vital Signs 06/21/25 09:24 Height 5 ft 1 in Weight 176 lb 4 oz BMI 33.3 BP 106/74 Blood Pressure Location Lt brachial Position Sitting Respiration 14 Pulse 99 Pulse Source Pulse Oximeter Temp 98.6 F Temp Source Oral Pulse Oximetry (%) 98 Oxygen Delivery Method Room Air Intake Visit Reasons: Swollen lymph nodes/ fatigue after strep (+)06/08 Intake Note: Swollen lymph nodes and fatigue after having strep throat 06/08/25. Finished antibodies on 06/17/2025 Insole Lip Turner Required: No Allergies amoxicillin Allergy (Intermediate, Verified 06/21/25 09:24) hives Erythromycin Allergy (Intermediate, Uncoded 06/21/25 09:24) hives Tobacco use date assessed: 01/07/25 Dental Screening Dental Screen Date: 01/07/25 HPI HPI Comments History of Present Illness Details The patient is a 29 year old female with a past medical history of ADD, depression, anxiety, IBS, neck pain presenting for follow up Recently tested positive for strep at outside urgent care and completed antibiotic course Strep negative today. Still feels fatigued, neck swelling. Hypothyroid: on levothyroxine. BH: Stable on methylphenidate and clonazepam. Follows with psych Follows with manager investment ROS see HPI PHYSICAL EXAM: GENERAL: Alert and oriented x 3. NAD EYES: EOMI. Anicteric. HENT: Mild erythema oropharynx, tonsils enlarged, no exudate. Cervical LN LUNGS: Clear to auscultation bilaterally. CARDIOVASCULAR: Regular rate and rhythm. No murmur. No JVD. ABDOMEN: Soft, non-tender +bs EXTREMITIES: No edema. Non-tender. SKIN: No rashes or lesions. Warm. NEUROLOGIC: No focal neurological deficits. CN II-XII grossly intact PSYCHIATRIC: Cooperative. Appropriate mood and affect [facility] Medical History (Updated 06/25/25 @ 14:09 by Martina Lucio MD) Chest heaviness ALSTON (dyspnea on exertion) Lumbar spondylolysis Weakness of left foot Numbness and tingling of upper and lower extremities of both sides Circumoral cyanosis Numbness Cold extremities Family History Father Gastric cancer HTN (hypertension) Asthma Maternal Grandmother Suicide Mother Depression Psychiatric disorder Other FH: mental illness Social History Housing: House Alcohol intake: never Patient Tobacco Use Status: Never used Tobacco e-Cigarette/Vaping Use: Never Used Second Hand Smoke Exposure: No service: No Current occupational status: employed 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 Current occupational exposures/hazards: No Cognitive needs: No Hearing needs: No Vision needs: No Questionnaire Thrive Questionnaire Date Thrive assessed: 10/16/24 I am a: Patient What is your living situation today?: I have a steady place to live Within the past 12 months, did the food you bought not last and you didn't have the money to get more?: Never true Within the past 12 months, did you worry whether your food would run out before you got money to buy more?: Never true Do you have trouble paying for medicines?: No Do you have trouble getting transportation to medical appointments?: No Do you have trouble paying your heating and electricity bill?: No Do you have trouble taking care of your child, family member or friend?: No Do you have trouble with day-to-day activities such as bathing, preparing meals, shopping, managing finances, etc.?: No Are you currently unemployed and looking for a job?: No Are you interested in more education?: No Please select the resources that you would like help with: None Currently or been in a relationship where the following occur: No concerns reported THRIVE Score: 0 JORGE-7 AMB Questionnaire JORGE-7 Date JORGE - 7 assessed: 01/07/25 Source: Developed by Drs. Balaji Toro, Chrystal Abrams, Jamison Davey and colleagues, with an educational marly from [employer]. Physical exam (Primary Care) Vital Signs: Last Vital Signs Temp 98.6 F 06/21/25 09:24 Pulse 99 06/21/25 09:24 Resp 14 06/21/25 09:24 BP 106/74 06/21/25 09:24 Pulse Ox 98 06/21/25 09:24 Oxygen Delivery Method Room Air 06/21/25 09:24 BMI result Body Mass Index 33.3 Tobacco/Smoking Status: Tobacco use Status Tobacco use date assessed 01/07/25 06/21/25 09:22 Patient Tobacco Use Status Never used Tobacco 06/21/25 09:22 e-Cigarette/Vaping Use Never Used 06/21/25 09:22 Thrive Assessment: Date of Thrive Assessment Date Thrive assessed 10/16/24 06/21/25 09:22 Currently or been in a relationship where the following occur: No concerns reported Coding Level of Care Code Est Pt Level 4 (72557) Diagnoses Cervical lymphadenopathy R59.0 Fatigue, unspecified type R53.83 Fatigue type: unspecified Assessment & Plan Assessment & Plan (1) Cervical lymphadenopathy: Code(s): R59.0 - Localized enlarged lymph nodes Category: Medical (2) Fatigue: Code(s): R53.83 - Other fatigue Qualifiers: Fatigue type: unspecified Qualified Code(s): R53.83 - Other fatigue Plan Fatigue, enlarged lymph nodes Likely prolonged viral syndrome [place] test, labs ordered Orders: Orders Monotest 06/25/25 R59.9 - Enlarged lymph nodes, unspecified Complete Blood Count Auto Diff 06/25/25 D72.829 - Elevated white blood cell count, unspecified Pathologist Review - CBC 06/25/25 D72.829 - Elevated white blood cell count, unspecified Medications: New Zepbound (tirzepatide (weight loss)) 5 mg (0.5 mL) subcut QWEEK 6 mL 3RF NS E66.9 - Obesity, unspecified
[2025-06-21 09:24] VITALS: BP 106/74; PULSE 99; RESP 14; TEMP 37; O2SAT 98; BMI 33.3
--- OUTSIDE RECORDS SUMMARY | 2025-06-21 10:17 | XMS_ITS | Clinical Summary ---
Author Organization [facility] Address [address] [place] [address] Phone Care Team Providers Care Customer Contact Sales Associate Name Role Phone Pcp, Unknown Primary Care [...] 2014 INFLUENZA VACCINE (#1) 2025 COVID-19 VACCINE (2024-2 6 season) 2025 HEPATITIS A VACCINES Aged Out [...] Subscriber:Spouse Name:MARLIN MILLERCHARY Date of :1902 Address: [address] [place] [address] Payer ID:Not on file Type:PPO Address: [address] Member Subscriber Plan / Payer (Ef fective 2023-) Name:Tracy Miller Relation to Subscriber:Spouse Name:PATRIA MILLER Date of :1902 Address: [address] [place] [address] Payer ID:Not on file Type:PPO Address: [address] Member Subscriber Plan / Payer (Ef fective 2023-Present) Name:Tracy Miller Relation to Subscriber:Spouse Name:PATRIA MILLER Date of :1902 Address: [address] [place] [address] Payer ID:Not on file Type:O Address: [address] Member Subscriber Plan / Payer (Ef fective 2023-Present) Name:Tracy Miller Relation to Subscriber:Spouse Name:PATRIA MILLER Date of :1902 Address: [address] [place] [address] Payer ID:Not on file Type:PPO Address: [address] Member Subscriber Plan / Payer (Ef fective 2023-) Name:Tracy Miller Relation to Subscriber:Spouse Name:PATRIA MILLER Date of :1902 Address: [address] [place] [address] Payer ID:Not on file Type:PPO Address: [address] Member Subscriber Plan / Payer (Ef fective 2023-Present) Name:Tracy Miller Relation to Subscriber:Spouse Name:PATRIA MILLER Date of :1902 Address: [address] [place] [id number] Payer ID:Not on file Type:O Address: [address] HMO Care Teams Customer Contact Sales Associate Relationship Specialty Start Date End Date Pcp, Unknown PCP - General 06/14/23 Additional Source Comments The information contained in this document represents components of the legal health record. It is not the complete legal health record.[facility]
--- OUTSIDE RECORDS SUMMARY | 2025-06-21 10:17 | XMS_ITS | Patient Health Record ---
Author Organization [facility] [address] Address [address] [place] [address] Care Team Providers Care Master Sonar Technician Name Role Phone JENNY CAMILO Primary Care Provider Lissette Luevano Unavailable [phone] Allergies Allergen (clinical drug ingredient) Drug/Non Drug Allergy documented on EMR Reaction Allergy Type Onset Date Status amoxicillin Amoxicillin hives Drug Allergy Act roge erythromycin Erythromycin hives Drug Allergy A ctive Reason For Referral No Information Medications Medication SIG (Take, Route, Frequency, Duration) Notes Start Date End Date Status Zepbound 2.5 MG/0.5ML as directed Subcut aneous weekly; Duration: 28 days 06/14/2025 Active Vyvanse 40 MG 1 capsule in the mor ambrocio Orally Once a day Active Levothyroxine Sodium 100 MCG 1 tablet in the morning on an empty stomach Orally Once a day Active clonazePAM 0.5 MG 1 tablet Orally Once a day Active Problems Problem Type SNOMED Code ICD Code Onset Dates Problem Status W/U Status Risk Notes Problem Hypothyroidism (85990821) Hypothyroidism (acquired) (E03.9) Active confirmed Problem Fatty liver (175864174) Fatty liver disease, nonalcoholic (K76.0) Active confirmed Problem Polycystic ovary syndrome (disorder) (107861289) PCOS (polycystic ovarian syndrome) (E28.2) Active confirmed Problem Body mass index 30.00 to 34.99 (217685518755014) BMI 34.0-34.9,adult (Z68.34) Active confirmed Problem Attention deficit hyperactivity disorder (049409007) ADHD (attention deficit hyperactivity disorder), combined type (F90.2) Active confirmed Problem Generalized anxiety disorder (90443609) Anxiety, generalized (F41.1) Active confirmed Problem Obesity (151021988) Moderate obesity (E66.9) Active confirmed Vital Signs Heart Rate 92 /min 06/14/2025 Blood pressure diastolic 64 mm Hg 06/14/2025 Oximetry 98 % 06/14/2025 Height 60 in 06/14/2025 Blood pressure systolic 118 mm Hg 06/14/2025 Weight 174.4 lbs 06/14/2025 BMI 34.06 kg/m2 06/14/2025 Encounters Encounter Location Date Provider Diagnosis [facility] [address] [facility] [address] [place] [address] 06/14/2025 Lissette Normoyle Moderate obesity E66 .9 [facility] [address] [facility] [address] [place] [address] 06/14/2025 Lissette Normoyle Moderate obesity E66 .9 ; BMI 34.0-34.9,adult Z68.34 ; Dietary counseling and surveillance Z71.3 ; Fatty liver disease, nonalcoholic K76.0 ; PCOS (polycystic ovarian syndrome) E28.2 ; ADHD (attention deficit hyperactivity disorder), combined type F90.2 ; Hypothyroidism (acquired) E03.9 and Encounter for examination of blood pressure without abnormal findings Z01.30 Assessments Encounter Date Diagnosis (ICD Code) Assessment Notes Treatment Notes Treatment Clinical Notes Section Notes 06/14/2025 Moderate obesity (ICD-10 - E66.9) Tracy is a 29-year-old female who presents for weight management consult. Medical history, labs, allergies, medications, and social history reviewed with the patient. Provided education on healthy diet and lifestyle which includes high-protein, low carbohydrate, high-fiber, and a variety of fruits and vegetables. Patient encouraged to exercise with emphasis on resistance training minimum 3 times per week to maintain muscle mass and cardio to burn fat. All patient questions answered. Patient will follow-up in 4 weeks for weight management. #Obesity: 06/14/2025: Weight 174.4 pounds, BMI 34.06. For 12 consecutive months, she has been following a healthy lifestyle including exercising 6 days/week with weight training 3 days a week, and running 3 days a week. She has trialed tracking calories. She is mindful of her diet focusing on protein and whole foods. With lifestyle modifications, she successfully has lost 25 pounds. She has been unable to lose further weight. She has trialed Ozempic years ago with side effect of pruritus. Plan for Zepbound 2.5 mg weekly injections. Discussed side effects including nausea, constipation, reflux, heartburn, hair thinning. Will submit PA today. Follow-up in 4 weeks. This medication is prescribed by or in consultation with a board-certified obesity and weight management physician (Dr. Tabatha Hill or Dr. Halina Hill). #MASH: Follows with PCP. Discussed continuing healthy lifestyle and medication to help with weight loss. #PCOS: Does not have hyperlipidemia or prediabetes/diabetes . Discussed lifestyle modifications. #ADHD: Continue Vyvanse. Avoid phentermine. Continue with PCP Patient was reassured and welcomed to the practice. We discussed that we stress a hollistic medical approach with emphasis on lifestyle modification. Patient was informed that a healthy lifestyle with exercise and good eating habits can help reduce his risk of medical complications. Patient is explained that obesity increases his risk of diabetes, cardiovascular disease, or organ damage. We spent a lot of time discussing the relationship between food, exercise, sleep, mental health and obesity. Patient was counseled on the importance EATING local, organic food when possible. Patient was educated on clean 15 and dirty dozen. I provided information about reading books called The Food Rules by Ronni El and Eat Fat Get Lean by Dr Mark Higgins. Self education is important in the journey for weight management. Patient was offered diagnostic testing/ SECA scale. We want to measure visceral adiposity, advanced body composition, adverse lipids, fatty acid balance, risk for heart disease and atherosclerosis, markers of inflammation and genetic susceptibility. Patient was counseled on weight management and was advised to lose weight using A. Meal Replacement Products Patient was educated on the replacement products called optifast. This is a good way of taking fixed amount of calories. It has been shown in studies to be ineffective weight management tool. This however has to be coupled with lifestyle intervention as well as laboratory data and EKG monitoring. It is impossible to know how a person will tolerate complete meal replacement. The side effects of meal replacement and weight loss could include syncopal attacks, dizziness, gallstones, potential cholecystectomy, possible heart attack and even . The benefits of meal replacement would be potential weight loss but no guarantees can be made. Meal replacement products are not covered by insurance. Once the patient has bought these products we cannot return them B. Lifestyle management which includes several strategies as below 1. Eat a low carbohydrate good fat good protein diet. Eliminate refined carbohydrates from the diet. Limit sugared beverages. Eat local organic when possible. Cook your own meals. Read food labels. Focus on healthy snacks. Portion control and food with low glycemic index 2. Exercise regularly. Try to get at least 6000 steps a day. Use a predominant to track activity level. Consider using apps like 7 minute excercise, PhaseRxpal, lose it, stick as needed for self-monitoring and weight management. Consider group exercises. Consider hiring a personal security specialist. Regular exercise is olguin to sustainable health and prevents as a buffer against weight regain 3. Sleep is most important for healing. Try to sleep at least 6-8 hours a night. A good quality sleep needs a sleep ritual with ideal room temperature of around 68. It might help to take a shower and have no electronics in the room and sleep in a very dark room without artificial light. Start sleep routine and get up early in the morning and go to bed on time. 4. Make a social connection. Surround yourself with positive people with positive energy. Connect with friends and family. 5. Get into the habit of meditating and mindfulness while doing everything. 6. Go outside and connect with nature. C. Prescription medications Patient was educated on the use of prescription medications for medical weight loss. This is a growing list and includes phentermine, Topamax,Qsymia, contrave, belviq and saxenda, wegovy etc. All prescription medications could have side effects including but not limited to kidney stones, seizure disorder cardiac arrhythmias heart attack pancreatitis, GI effects, Etc. Patient was encouraged to read the prescription insert and have coaching with their pharmacist and make an informed decision about taking medication and know that these medications are being prescribed with good intentions and we do not know how a patient would react to her medication. Some medications are FDA approved for weight loss and there is also off label use depending on patient's inability to afford medications in an attempt to lose weight D. Behavioral counseling was done to establish a relationship between food and an mood. Patient was provided information about local counseling and psychiatry and Dr Newsome at [facility] We would like to cover regular topics and build on low glycemic eating exercise mindful eating, using yoga and meditation along with deep breathing and connecting with friends and family. E. MASS PAT reviewed, Patient's current medications were reviewed and opinion was given on medication that can cause weight gain and can be substituted F. Patient was assessed for risk with obesity including and not limiting to atherosclerosis heart disease stroke kidney disease, restrictive lung disease, irritable bowel syndrome and overall mortality. Risk of developing prediabetes diabetes and metabolic syndrome was discussed G. Therapeutic plan: We have decided to make therapeutic plan which would include choosing wisely on calories restricting portion getting active, tracking weight, getting good quality sleep and working on time management H. Patient will follow up in 4 weeks for weight management Total time spent today was 60 minutes of which greater than 50% was spent on coordinating and counseling Case discussed with collaborating physician Rory Hill who reviewed the assessment and plan. Chart, medications, labs, vital signs reviewed. Dictation was accomplished with the use of [employer] voice recognition software, prone to medical misidentifications and grammatical errors. This is unintentional and the practitioner does try to identify and correct these, but some could still be present. Please do not hesitate to contact practitioner for clarification. All questions answered to patients satisfaction. Patient verbalized understanding of diagnosis and treatments explained. To call sooner prior to next visit it any questions/concerns arise. 06/14/2025 BMI 34.0-34.9,adult (ICD-10 - Z68.34) Tracy is a 29-year-old female who presents for weight management consult. Medical history, labs, allergies, medications, and social history reviewed with the patient. Provided education on healthy diet and lifestyle which includes high-protein, low carbohydrate, high-fiber, and a variety of fruits and vegetables. Patient encouraged to exercise with emphasis on resistance training minimum 3 times per week to maintain muscle mass and cardio to burn fat. All patient questions answered. Patient will follow-up in 4 weeks for weight management. #Obesity: 06/14/2025: Weight 174.4 pounds, BMI 34.06. For 12 consecutive months, she has been following a healthy lifestyle including exercising 6 days/week with weight training 3 days a week, and running 3 days a week. She has trialed tracking calories. She is mindful of her diet focusing on protein and whole foods. With lifestyle modifications, she successfully has lost 25 pounds. She has been unable to lose further weight. She has trialed Ozempic years ago with side effect of pruritus. Plan for Zepbound 2.5 mg weekly injections. Discussed side effects including nausea, constipation, reflux, heartburn, hair thinning. Will submit PA today. Follow-up in 4 weeks. This medication is prescribed by or in consultation with a board-certified obesity and weight management physician (Dr. Tabatha Hill or Dr. Halina Hill). #MASH: Follows with PCP. Discussed continuing healthy lifestyle and medication to help with weight loss. #PCOS: Does not have hyperlipidemia or prediabetes/diabetes . Discussed lifestyle modifications. #ADHD: Continue Vyvanse. Avoid phentermine. Continue with PCP Patient was reassured and welcomed to the practice. We discussed that we stress a hollistic medical approach with emphasis on lifestyle modification. Patient was informed that a healthy lifestyle with exercise and good eating habits can help reduce his risk of medical complications. Patient is explained that obesity increases his risk of diabetes, cardiovascular disease, or organ damage. We spent a lot of time discussing the relationship between food, exercise, sleep, mental health and obesity. Patient was counseled on the importance EATING local, organic food when possible. Patient was educated on clean 15 and dirty dozen. I provided information about reading books called The Food Rules by Ronni El and Eat Fat Get Lean by Dr Mark Higgins. Self education is important in the journey for weight management. Patient was offered diagnostic testing/ SECA scale. We want to measure visceral adiposity, advanced body composition, adverse lipids, fatty acid balance, risk for heart disease and atherosclerosis, markers of inflammation and genetic susceptibility. Patient was counseled on weight management and was advised to lose weight using A. Meal Replacement Products Patient was educated on the replacement products called optifast. This is a good way of taking fixed amount of calories. It has been shown in studies to be ineffective weight management tool. This however has to be coupled with lifestyle intervention as well as laboratory data and EKG monitoring. It is impossible to know how a person will tolerate complete meal replacement. The side effects of meal replacement and weight loss could include syncopal attacks, dizziness, gallstones, potential cholecystectomy, possible heart attack and even . The benefits of meal replacement would be potential weight loss but no guarantees can be made. Meal replacement products are not covered by insurance. Once the patient has bought these products we cannot return them B. Lifestyle management which includes several strategies as below 1. Eat a low carbohydrate good fat good protein diet. Eliminate refined carbohydrates from the diet. Limit sugared beverages. Eat local organic when possible. Cook your own meals. Read food labels. Focus on healthy snacks. Portion control and food with low glycemic index 2. Exercise regularly. Try to get at least 6000 steps a day. Use a predominant to track activity level. Consider using apps like 7 minute excercise, PhaseRxpal, lose it, stick as needed for self-monitoring and weight management. Consider group exercises. Consider hiring a personal security specialist. Regular exercise is olguin to sustainable health and prevents as a buffer against weight regain 3. Sleep is most important for healing. Try to sleep at least 6-8 hours a night. A good quality sleep needs a sleep ritual with ideal room temperature of around 68. It might help to take a shower and have no electronics in the room and sleep in a very dark room without artificial light. Start sleep routine and get up early in the morning and go to bed on time. 4. Make a social connection. Surround yourself with positive people with positive energy. Connect with friends and family. 5. Get into the habit of meditating and mindfulness while doing everything. 6. Go outside and connect with nature. C. Prescription medications Patient was educated on the use of prescription medications for medical weight loss. This is a growing list and includes phentermine, Topamax,Qsymia, contrave, belviq and saxenda, wegovy etc. All prescription medications could have side effects including but not limited to kidney stones, seizure disorder cardiac arrhythmias heart attack pancreatitis, GI effects, Etc. Patient was encouraged to read the prescription insert and have coaching with their pharmacist and make an informed decision about taking medication and know that these medications are being prescribed with good intentions and we do not know how a patient would react to her medication. Some medications are FDA approved for weight loss and there is also off label use depending on patient's inability to afford medications in an attempt to lose weight D. Behavioral counseling was done to establish a relationship between food and an mood. Patient was provided information about local counseling and psychiatry and Dr Newsome at [facility] We would like to cover regular topics and build on low glycemic eating exercise mindful eating, using yoga and meditation along with deep breathing and connecting with friends and family. E. MASS PAT reviewed, Patient's current medications were reviewed and opinion was given on medication that can cause weight gain and can be substituted F. Patient was assessed for risk with obesity including and not limiting to atherosclerosis heart disease stroke kidney disease, restrictive lung disease, irritable bowel syndrome and overall mortality. Risk of developing prediabetes diabetes and metabolic syndrome was discussed G. Therapeutic plan: We have decided to make therapeutic plan which would include choosing wisely on calories restricting portion getting active, tracking weight, getting good quality sleep and working on time management H. Patient will follow up in 4 weeks for weight management Total time spent today was 60 minutes of which greater than 50% was spent on coordinating and counseling Case discussed with collaborating physician Rory Hill who reviewed the assessment and plan. Chart, medications, labs, vital signs reviewed. Dictation was accomplished with the use of [employer] voice recognition software, prone to medical misidentifications and grammatical errors. This is unintentional and the practitioner does try to identify and correct these, but some could still be present. Please do not hesitate to contact practitioner for clarification. All questions answered to patients satisfaction. Patient verbalized understanding of diagnosis and treatments explained. To call sooner prior to next visit it any questions/concerns arise. 06/14/2025 Dietary counseling and surveillance (ICD-10 - Z71.3) Tracy is a 29-year-old female who presents for weight management consult. Medical history, labs, allergies, medications, and social history reviewed with the patient. Provided education on healthy diet and lifestyle which includes high-protein, low carbohydrate, high-fiber, and a variety of fruits and vegetables. Patient encouraged to exercise with emphasis on resistance training minimum 3 times per week to maintain muscle mass and cardio to burn fat. All patient questions answered. Patient will follow-up in 4 weeks for weight management. #Obesity: 06/14/2025: Weight 174.4 pounds, BMI 34.06. For 12 consecutive months, she has been following a healthy lifestyle including exercising 6 days/week with weight training 3 days a week, and running 3 days a week. She has trialed tracking calories. She is mindful of her diet focusing on protein and whole foods. With lifestyle modifications, she successfully has lost 25 pounds. She has been unable to lose further weight. She has trialed Ozempic years ago with side effect of pruritus. Plan for Zepbound 2.5 mg weekly injections. Discussed side effects including nausea, constipation, reflux, heartburn, hair thinning. Will submit PA today. Follow-up in 4 weeks. This medication is prescribed by or in consultation with a board-certified obesity and weight management physician (Dr. Tabatha Hill or Dr. Halina Hill). #MASH: Follows with PCP. Discussed continuing healthy lifestyle and medication to help with weight loss. #PCOS: Does not have hyperlipidemia or prediabetes/diabetes . Discussed lifestyle modifications. #ADHD: Continue Vyvanse. Avoid phentermine. Continue with PCP Patient was reassured and welcomed to the practice. We discussed that we stress a hollistic medical approach with emphasis on lifestyle modification. Patient was informed that a healthy lifestyle with exercise and good eating habits can help reduce his risk of medical complications. Patient is explained that obesity increases his risk of diabetes, cardiovascular disease, or organ damage. We spent a lot of time discussing the relationship between food, exercise, sleep, mental health and obesity. Patient was counseled on the importance EATING local, organic food when possible. Patient was educated on clean 15 and dirty dozen. I provided information about reading books called The Food Rules by Ronni El and Eat Fat Get Lean by Dr Mark Higgins. Self education is important in the journey for weight management. Patient was offered diagnostic testing/ SECA scale. We want to measure visceral adiposity, advanced body composition, adverse lipids, fatty acid balance, risk for heart disease and atherosclerosis, markers of inflammation and genetic susceptibility. Patient was counseled on weight management and was advised to lose weight using A. Meal Replacement Products Patient was educated on the replacement products called optifast. This is a good way of taking fixed amount of calories. It has been shown in studies to be ineffective weight management tool. This however has to be coupled with lifestyle intervention as well as laboratory data and EKG monitoring. It is impossible to know how a person will tolerate complete meal replacement. The side effects of meal replacement and weight loss could include syncopal attacks, dizziness, gallstones, potential cholecystectomy, possible heart attack and even . The benefits of meal replacement would be potential weight loss but no guarantees can be made. Meal replacement products are not covered by insurance. Once the patient has bought these products we cannot return them B. Lifestyle management which includes several strategies as below 1. Eat a low carbohydrate good fat good protein diet. Eliminate refined carbohydrates from the diet. Limit sugared beverages. Eat local organic when possible. Cook your own meals. Read food labels. Focus on healthy snacks. Portion control and food with low glycemic index 2. Exercise regularly. Try to get at least 6000 steps a day. Use a predominant to track activity level. Consider using apps like 7 minute excercise, mySteelwedge Softwarepal, lose it, stick as needed for self-monitoring and weight management. Consider group exercises. Consider hiring a personal security specialist. Regular exercise is olguin to sustainable health and prevents as a buffer against weight regain 3. Sleep is most important for healing. Try to sleep at least 6-8 hours a night. A good quality sleep needs a sleep ritual with ideal room temperature of around 68. It might help to take a shower and have no electronics in the room and sleep in a very dark room without artificial light. Start sleep routine and get up early in the morning and go to bed on time. 4. Make a social connection. Surround yourself with positive people with positive energy. Connect with friends and family. 5. Get into the habit of meditating and mindfulness while doing everything. 6. Go outside and connect with nature. C. Prescription medications Patient was educated on the use of prescription medications for medical weight loss. This is a growing list and includes phentermine, Topamax,Qsymia, contrave, belviq and saxenda, wegovy etc. All prescription medications could have side effects including but not limited to kidney stones, seizure disorder cardiac arrhythmias heart attack pancreatitis, GI effects, Etc. Patient was encouraged to read the prescription insert and have coaching with their pharmacist and make an informed decision about taking medication and know that these medications are being prescribed with good intentions and we do not know how a patient would react to her medication. Some medications are FDA approved for weight loss and there is also off label use depending on patient's inability to afford medications in an attempt to lose weight D. Behavioral counseling was done to establish a relationship between food and an mood. Patient was provided information about local counseling and psychiatry and Dr Newsome at [facility] We would like to cover regular topics and build on low glycemic eating exercise mindful eating, using yoga and meditation along with deep breathing and connecting with friends and family. E. MASS PAT reviewed, Patient's current medications were reviewed and opinion was given on medication that can cause weight gain and can be substituted F. Patient was assessed for risk with obesity including and not limiting to atherosclerosis heart disease stroke kidney disease, restrictive lung disease, irritable bowel syndrome and overall mortality. Risk of developing prediabetes diabetes and metabolic syndrome was discussed G. Therapeutic plan: We have decided to make therapeutic plan which would include choosing wisely on calories restricting portion getting active, tracking weight, getting good quality sleep and working on time management H. Patient will follow up in 4 weeks for weight management Total time spent today was 60 minutes of which greater than 50% was spent on coordinating and counseling Case discussed with collaborating physician Rory Hill who reviewed the assessment and plan. Chart, medications, labs, vital signs reviewed. Dictation was accomplished with the use of Zurff voice recognition software, prone to medical misidentifications and grammatical errors. This is unintentional and the practitioner does try to identify and correct these, but some could still be present. Please do not hesitate to contact practitioner for clarification. All questions answered to patients satisfaction. Patient verbalized understanding of diagnosis and treatments explained. To call sooner prior to next visit it any questions/concerns arise. 06/14/2025 Moderate obesity (ICD-10 - E66.9) Electronic Prior Authorization was requested for Zepbound 2.5 MG/0.5ML Solution Auto-injector. Provider can order medication once approval received. 06/14/2025 Fatty liver disease, nonalcoholic (ICD-10 - K76.0) Tracy is a 29-year-old female who presents for weight management consult. Medical history, labs, allergies, medications, and social history reviewed with the patient. Provided education on healthy diet and lifestyle which includes high-protein, low carbohydrate, high-fiber, and a variety of fruits and vegetables. Patient encouraged to exercise with emphasis on resistance training minimum 3 times per week to maintain muscle mass and cardio to burn fat. All patient questions answered. Patient will follow-up in 4 weeks for weight management. #Obesity: 06/14/2025: Weight 174.4 pounds, BMI 34.06. For 12 consecutive months, she has been following a healthy lifestyle including exercising 6 days/week with weight training 3 days a week, and running 3 days a week. She has trialed tracking calories. She is mindful of her diet focusing on protein and whole foods. With lifestyle modifications, she successfully has lost 25 pounds. She has been unable to lose further weight. She has trialed Ozempic years ago with side effect of pruritus. Plan for Zepbound 2.5 mg weekly injections. Discussed side effects including nausea, constipation, reflux, heartburn, hair thinning. Will submit PA today. Follow-up in 4 weeks. This medication is prescribed by or in consultation with a board-certified obesity and weight management physician (Dr. Tabatha Hill or Dr. Halina Hill). #MASH: Follows with PCP. Discussed continuing healthy lifestyle and medication to help with weight loss. #PCOS: Does not have hyperlipidemia or prediabetes/diabetes . Discussed lifestyle modifications. #ADHD: Continue Vyvanse. Avoid phentermine. Continue with PCP Patient was reassured and welcomed to the practice. We discussed that we stress a hollistic medical approach with emphasis on lifestyle modification. Patient was informed that a healthy lifestyle with exercise and good eating habits can help reduce his risk of medical complications. Patient is explained that obesity increases his risk of diabetes, cardiovascular disease, or organ damage. We spent a lot of time discussing the relationship between food, exercise, sleep, mental health and obesity. Patient was counseled on the importance EATING local, organic food when possible. Patient was educated on clean 15 and dirty dozen. I provided information about reading books called The Food Rules by Ronni El and Eat Fat Get Lean by Dr Mark Higgins. Self education is important in the journey for weight management. Patient was offered diagnostic testing/ SECA scale. We want to measure visceral adiposity, advanced body composition, adverse lipids, fatty acid balance, risk for heart disease and atherosclerosis, markers of inflammation and genetic susceptibility. Patient was counseled on weight management and was advised to lose weight using A. Meal Replacement Products Patient was educated on the replacement products called optifast. This is a good way of taking fixed amount of calories. It has been shown in studies to be ineffective weight management tool. This however has to be coupled with lifestyle intervention as well as laboratory data and EKG monitoring. It is impossible to know how a person will tolerate complete meal replacement. The side effects of meal replacement and weight loss could include syncopal attacks, dizziness, gallstones, potential cholecystectomy, possible heart attack and even . The benefits of meal replacement would be potential weight loss but no guarantees can be made. Meal replacement products are not covered by insurance. Once the patient has bought these products we cannot return them B. Lifestyle management which includes several strategies as below 1. Eat a low carbohydrate good fat good protein diet. Eliminate refined carbohydrates from the diet. Limit sugared beverages. Eat local organic when possible. Cook your own meals. Read food labels. Focus on healthy snacks. Portion control and food with low glycemic index 2. Exercise regularly. Try to get at least 6000 steps a day. Use a predominant to track activity level. Consider using apps like 7 minute excercise, myfitnesspal, lose it, stick as needed for self-monitoring and weight management. Consider group exercises. Consider hiring a personal security specialist. Regular exercise is olguin to sustainable health and prevents as a buffer against weight regain 3. Sleep is most important for healing. Try to sleep at least 6-8 hours a night. A good quality sleep needs a sleep ritual with ideal room temperature of around 68. It might help to take a shower and have no electronics in the room and sleep in a very dark room without artificial light. Start sleep routine and get up early in the morning and go to bed on time. 4. Make a social connection. Surround yourself with positive people with positive energy. Connect with friends and family. 5. Get into the habit of meditating and mindfulness while doing everything. 6. Go outside and connect with nature. C. Prescription medications Patient was educated on the use of prescription medications for medical weight loss. This is a growing list and includes phentermine, Topamax,Qsymia, contrave, belviq and saxenda, wegovy etc. All prescription medications could have side effects including but not limited to kidney stones, seizure disorder cardiac arrhythmias heart attack pancreatitis, GI effects, Etc. Patient was encouraged to read the prescription insert and have coaching with their pharmacist and make an informed decision about taking medication and know that these medications are being prescribed with good intentions and we do not know how a patient would react to her medication. Some medications are FDA approved for weight loss and there is also off label use depending on patient's inability to afford medications in an attempt to lose weight D. Behavioral counseling was done to establish a relationship between food and an mood. Patient was provided information about local counseling and psychiatry and Dr Newsome at [facility] We would like to cover regular topics and build on low glycemic eating exercise mindful eating, using yoga and meditation along with deep breathing and connecting with friends and family. E. MASS PAT reviewed, Patient's current medications were reviewed and opinion was given on medication that can cause weight gain and can be substituted F. Patient was assessed for risk with obesity including and not limiting to atherosclerosis heart disease stroke kidney disease, restrictive lung disease, irritable bowel syndrome and overall mortality. Risk of developing prediabetes diabetes and metabolic syndrome was discussed G. Therapeutic plan: We have decided to make therapeutic plan which would include choosing wisely on calories restricting portion getting active, tracking weight, getting good quality sleep and working on time management H. Patient will follow up in 4 weeks for weight management Total time spent today was 60 minutes of which greater than 50% was spent on coordinating and counseling Case discussed with collaborating physician Rory Hill who reviewed the assessment and plan. Chart, medications, labs, vital signs reviewed. Dictation was accomplished with the use of [employer]ff voice recognition software, prone to medical misidentifications and grammatical errors. This is unintentional and the practitioner does try to identify and correct these, but some could still be present. Please do not hesitate to contact practitioner for clarification. All questions answered to patients satisfaction. Patient verbalized understanding of diagnosis and treatments explained. To call sooner prior to next visit it any questions/concerns arise. 06/14/2025 PCOS (polycystic ovarian syndrome) (ICD-10 - E28.2) Tracy is a 29-year-old female who presents for weight management consult. Medical history, labs, allergies, medications, and social history reviewed with the patient. Provided education on healthy diet and lifestyle which includes high-protein, low carbohydrate, high-fiber, and a variety of fruits and vegetables. Patient encouraged to exercise with emphasis on resistance training minimum 3 times per week to maintain muscle mass and cardio to burn fat. All patient questions answered. Patient will follow-up in 4 weeks for weight management. #Obesity: 06/14/2025: Weight 174.4 pounds, BMI 34.06. For 12 consecutive months, she has been following a healthy lifestyle including exercising 6 days/week with weight training 3 days a week, and running 3 days a week. She has trialed tracking calories. She is mindful of her diet focusing on protein and whole foods. With lifestyle modifications, she successfully has lost 25 pounds. She has been unable to lose further weight. She has trialed Ozempic years ago with side effect of pruritus. Plan for Zepbound 2.5 mg weekly injections. Discussed side effects including nausea, constipation, reflux, heartburn, hair thinning. Will submit PA today. Follow-up in 4 weeks. This medication is prescribed by or in consultation with a board-certified obesity and weight management physician (Dr. Tabatha Hill or Dr. Halina Hill). #MASH: Follows with PCP. Discussed continuing healthy lifestyle and medication to help with weight loss. #PCOS: Does not have hyperlipidemia or prediabetes/diabetes . Discussed lifestyle modifications. #ADHD: Continue Vyvanse. Avoid phentermine. Continue with PCP Patient was reassured and welcomed to the practice. We discussed that we stress a hollistic medical approach with emphasis on lifestyle modification. Patient was informed that a healthy lifestyle with exercise and good eating habits can help reduce his risk of medical complications. Patient is explained that obesity increases his risk of diabetes, cardiovascular disease, or organ damage. We spent a lot of time discussing the relationship between food, exercise, sleep, mental health and obesity. Patient was counseled on the importance EATING local, organic food when possible. Patient was educated on clean 15 and dirty dozen. I provided information about reading books called The Food Rules by Ronni El and Eat Fat Get Lean by Dr Mark Higgins. Self education is important in the journey for weight management. Patient was offered diagnostic testing/ SECA scale. We want to measure visceral adiposity, advanced body composition, adverse lipids, fatty acid balance, risk for heart disease and atherosclerosis, markers of inflammation and genetic susceptibility. Patient was counseled on weight management and was advised to lose weight using A. Meal Replacement Products Patient was educated on the replacement products called optifast. This is a good way of taking fixed amount of calories. It has been shown in studies to be ineffective weight management tool. This however has to be coupled with lifestyle intervention as well as laboratory data and EKG monitoring. It is impossible to know how a person will tolerate complete meal replacement. The side effects of meal replacement and weight loss could include syncopal attacks, dizziness, gallstones, potential cholecystectomy, possible heart attack and even . The benefits of meal replacement would be potential weight loss but no guarantees can be made. Meal replacement products are not covered by insurance. Once the patient has bought these products we cannot return them B. Lifestyle management which includes several strategies as below 1. Eat a low carbohydrate good fat good protein diet. Eliminate refined carbohydrates from the diet. Limit sugared beverages. Eat local organic when possible. Cook your own meals. Read food labels. Focus on healthy snacks. Portion control and food with low glycemic index 2. Exercise regularly. Try to get at least 6000 steps a day. Use a predominant to track activity level. Consider using apps like 7 minute excercise, mySteelwedge Softwarepal, lose it, stick as needed for self-monitoring and weight management. Consider group exercises. Consider hiring a personal security specialist. Regular exercise is olguin to sustainable health and prevents as a buffer against weight regain 3. Sleep is most important for healing. Try to sleep at least 6-8 hours a night. A good quality sleep needs a sleep ritual with ideal room temperature of around 68. It might help to take a shower and have no electronics in the room and sleep in a very dark room without artificial light. Start sleep routine and get up early in the morning and go to bed on time. 4. Make a social connection. Surround yourself with positive people with positive energy. Connect with friends and family. 5. Get into the habit of meditating and mindfulness while doing everything. 6. Go outside and connect with nature. C. Prescription medications Patient was educated on the use of prescription medications for medical weight loss. This is a growing list and includes phentermine, Topamax,Qsymia, contrave, belviq and saxenda, wegovy etc. All prescription medications could have side effects including but not limited to kidney stones, seizure disorder cardiac arrhythmias heart attack pancreatitis, GI effects, Etc. Patient was encouraged to read the prescription insert and have coaching with their pharmacist and make an informed decision about taking medication and know that these medications are being prescribed with good intentions and we do not know how a patient would react to her medication. Some medications are FDA approved for weight loss and there is also off label use depending on patient's inability to afford medications in an attempt to lose weight D. Behavioral counseling was done to establish a relationship between food and an mood. Patient was provided information about local counseling and psychiatry and Dr Newsome at [facility] We would like to cover regular topics and build on low glycemic eating exercise mindful eating, using yoga and meditation along with deep breathing and connecting with friends and family. E. MASS PAT reviewed, Patient's current medications were reviewed and opinion was given on medication that can cause weight gain and can be substituted F. Patient was assessed for risk with obesity including and not limiting to atherosclerosis heart disease stroke kidney disease, restrictive lung disease, irritable bowel syndrome and overall mortality. Risk of developing prediabetes diabetes and metabolic syndrome was discussed G. Therapeutic plan: We have decided to make therapeutic plan which would include choosing wisely on calories restricting portion getting active, tracking weight, getting good quality sleep and working on time management H. Patient will follow up in 4 weeks for weight management Total time spent today was 60 minutes of which greater than 50% was spent on coordinating and counseling Case discussed with collaborating physician Rory Hill who reviewed the assessment and plan. Chart, medications, labs, vital signs reviewed. Dictation was accomplished with the use of [employer] voice recognition software, prone to medical misidentifications and grammatical errors. This is unintentional and the practitioner does try to identify and correct these, but some could still be present. Please do not hesitate to contact practitioner for clarification. All questions answered to patients satisfaction. Patient verbalized understanding of diagnosis and treatments explained. To call sooner prior to next visit it any questions/concerns arise. 06/14/2025 ADHD (attention deficit hyperactivity disorder), combined type (ICD-10 - F90.2) Tracy is a 29-year-old female who presents for weight management consult. Medical history, labs, allergies, medications, and social history reviewed with the patient. Provided education on healthy diet and lifestyle which includes high-protein, low carbohydrate, high-fiber, and a variety of fruits and vegetables. Patient encouraged to exercise with emphasis on resistance training minimum 3 times per week to maintain muscle mass and cardio to burn fat. All patient questions answered. Patient will follow-up in 4 weeks for weight management. #Obesity: 06/14/2025: Weight 174.4 pounds, BMI 34.06. For 12 consecutive months, she has been following a healthy lifestyle including exercising 6 days/week with weight training 3 days a week, and running 3 days a week. She has trialed tracking calories. She is mindful of her diet focusing on protein and whole foods. With lifestyle modifications, she successfully has lost 25 pounds. She has been unable to lose further weight. She has trialed Ozempic years ago with side effect of pruritus. Plan for Zepbound 2.5 mg weekly injections. Discussed side effects including nausea, constipation, reflux, heartburn, hair thinning. Will submit PA today. Follow-up in 4 weeks. This medication is prescribed by or in consultation with a board-certified obesity and weight management physician (Dr. Tabatha Hill or Dr. Halina Hill). #MASH: Follows with PCP. Discussed continuing healthy lifestyle and medication to help with weight loss. #PCOS: Does not have hyperlipidemia or prediabetes/diabetes . Discussed lifestyle modifications. #ADHD: Continue Vyvanse. Avoid phentermine. Continue with PCP Patient was reassured and welcomed to the practice. We discussed that we stress a hollistic medical approach with emphasis on lifestyle modification. Patient was informed that a healthy lifestyle with exercise and good eating habits can help reduce his risk of medical complications. Patient is explained that obesity increases his risk of diabetes, cardiovascular disease, or organ damage. We spent a lot of time discussing the relationship between food, exercise, sleep, mental health and obesity. Patient was counseled on the importance EATING local, organic food when possible. Patient was educated on clean 15 and dirty dozen. I provided information about reading books called The Food Rules by Ronni El and Eat Fat Get Lean by Dr Mark Higgins. Self education is important in the journey for weight management. Patient was offered diagnostic testing/ SECA scale. We want to measure visceral adiposity, advanced body composition, adverse lipids, fatty acid balance, risk for heart disease and atherosclerosis, markers of inflammation and genetic susceptibility. Patient was counseled on weight management and was advised to lose weight using A. Meal Replacement Products Patient was educated on the replacement products called optifast. This is a good way of taking fixed amount of calories. It has been shown in studies to be ineffective weight management tool. This however has to be coupled with lifestyle intervention as well as laboratory data and EKG monitoring. It is impossible to know how a person will tolerate complete meal replacement. The side effects of meal replacement and weight loss could include syncopal attacks, dizziness, gallstones, potential cholecystectomy, possible heart attack and even . The benefits of meal replacement would be potential weight loss but no guarantees can be made. Meal replacement products are not covered by insurance. Once the patient has bought these products we cannot return them B. Lifestyle management which includes several strategies as below 1. Eat a low carbohydrate good fat good protein diet. Eliminate refined carbohydrates from the diet. Limit sugared beverages. Eat local organic when possible. Cook your own meals. Read food labels. Focus on healthy snacks. Portion control and food with low glycemic index 2. Exercise regularly. Try to get at least 6000 steps a day. Use a predominant to track activity level. Consider using apps like 7 minute excercise, PhaseRxpal, lose it, stick as needed for self-monitoring and weight management. Consider group exercises. Consider hiring a personal security specialist. Regular exercise is olguin to sustainable health and prevents as a buffer against weight regain 3. Sleep is most important for healing. Try to sleep at least 6-8 hours a night. A good quality sleep needs a sleep ritual with ideal room temperature of around 68. It might help to take a shower and have no electronics in the room and sleep in a very dark room without artificial light. Start sleep routine and get up early in the morning and go to bed on time. 4. Make a social connection. Surround yourself with positive people with positive energy. Connect with friends and family. 5. Get into the habit of meditating and mindfulness while doing everything. 6. Go outside and connect with nature. C. Prescription medications Patient was educated on the use of prescription medications for medical weight loss. This is a growing list and includes phentermine, Topamax,Qsymia, contrave, belviq and saxenda, wegovy etc. All prescription medications could have side effects including but not limited to kidney stones, seizure disorder cardiac arrhythmias heart attack pancreatitis, GI effects, Etc. Patient was encouraged to read the prescription insert and have coaching with their pharmacist and make an informed decision about taking medication and know that these medications are being prescribed with good intentions and we do not know how a patient would react to her medication. Some medications are FDA approved for weight loss and there is also off label use depending on patient's inability to afford medications in an attempt to lose weight D. Behavioral counseling was done to establish a relationship between food and an mood. Patient was provided information about local counseling and psychiatry and Dr Newsome at [facility] We would like to cover regular topics and build on low glycemic eating exercise mindful eating, using yoga and meditation along with deep breathing and connecting with friends and family. E. MASS PAT reviewed, Patient's current medications were reviewed and opinion was given on medication that can cause weight gain and can be substituted F. Patient was assessed for risk with obesity including and not limiting to atherosclerosis heart disease stroke kidney disease, restrictive lung disease, irritable bowel syndrome and overall mortality. Risk of developing prediabetes diabetes and metabolic syndrome was discussed G. Therapeutic plan: We have decided to make therapeutic plan which would include choosing wisely on calories restricting portion getting active, tracking weight, getting good quality sleep and working on time management H. Patient will follow up in 4 weeks for weight management Total time spent today was 60 minutes of which greater than 50% was spent on coordinating and counseling Case discussed with collaborating physician Rory Hill who reviewed the assessment and plan. Chart, medications, labs, vital signs reviewed. Dictation was accomplished with the use of Zurff voice recognition software, prone to medical misidentifications and grammatical errors. This is unintentional and the practitioner does try to identify and correct these, but some could still be present. Please do not hesitate to contact practitioner for clarification. All questions answered to patients satisfaction. Patient verbalized understanding of diagnosis and treatments explained. To call sooner prior to next visit it any questions/concerns arise. 06/14/2025 Hypothyroidism (acquired) (ICD-10 - E03.9) Tracy is a 29-year-old female who presents for weight management consult. Medical history, labs, allergies, medications, and social history reviewed with the patient. Provided education on healthy diet and lifestyle which includes high-protein, low carbohydrate, high-fiber, and a variety of fruits and vegetables. Patient encouraged to exercise with emphasis on resistance training minimum 3 times per week to maintain muscle mass and cardio to burn fat. All patient questions answered. Patient will follow-up in 4 weeks for weight management. #Obesity: 06/14/2025: Weight 174.4 pounds, BMI 34.06. For 12 consecutive months, she has been following a healthy lifestyle including exercising 6 days/week with weight training 3 days a week, and running 3 days a week. She has trialed tracking calories. She is mindful of her diet focusing on protein and whole foods. With lifestyle modifications, she successfully has lost 25 pounds. She has been unable to lose further weight. She has trialed Ozempic years ago with side effect of pruritus. Plan for Zepbound 2.5 mg weekly injections. Discussed side effects including nausea, constipation, reflux, heartburn, hair thinning. Will submit PA today. Follow-up in 4 weeks. This medication is prescribed by or in consultation with a board-certified obesity and weight management physician (Dr. Tabatha Hill or Dr. Halina Hill). #MASH: Follows with PCP. Discussed continuing healthy lifestyle and medication to help with weight loss. #PCOS: Does not have hyperlipidemia or prediabetes/diabetes . Discussed lifestyle modifications. #ADHD: Continue Vyvanse. Avoid phentermine. Continue with PCP Patient was reassured and welcomed to the practice. We discussed that we stress a hollistic medical approach with emphasis on lifestyle modification. Patient was informed that a healthy lifestyle with exercise and good eating habits can help reduce his risk of medical complications. Patient is explained that obesity increases his risk of diabetes, cardiovascular disease, or organ damage. We spent a lot of time discussing the relationship between food, exercise, sleep, mental health and obesity. Patient was counseled on the importance EATING local, organic food when possible. Patient was educated on clean 15 and dirty dozen. I provided information about reading books called The Food Rules by Ronni El and Eat Fat Get Lean by Dr Mark Higgins. Self education is important in the journey for weight management. Patient was offered diagnostic testing/ SECA scale. We want to measure visceral adiposity, advanced body composition, adverse lipids, fatty acid balance, risk for heart disease and atherosclerosis, markers of inflammation and genetic susceptibility. Patient was counseled on weight management and was advised to lose weight using A. Meal Replacement Products Patient was educated on the replacement products called optifast. This is a good way of taking fixed amount of calories. It has been shown in studies to be ineffective weight management tool. This however has to be coupled with lifestyle intervention as well as laboratory data and EKG monitoring. It is impossible to know how a person will tolerate complete meal replacement. The side effects of meal replacement and weight loss could include syncopal attacks, dizziness, gallstones, potential cholecystectomy, possible heart attack and even . The benefits of meal replacement would be potential weight loss but no guarantees can be made. Meal replacement products are not covered by insurance. Once the patient has bought these products we cannot return them B. Lifestyle management which includes several strategies as below 1. Eat a low carbohydrate good fat good protein diet. Eliminate refined carbohydrates from the diet. Limit sugared beverages. Eat local organic when possible. Cook your own meals. Read food labels. Focus on healthy snacks. Portion control and food with low glycemic index 2. Exercise regularly. Try to get at least 6000 steps a day. Use a predominant to track activity level. Consider using apps like 7 minute excercise, PhaseRxpal, lose it, stick as needed for self-monitoring and weight management. Consider group exercises. Consider hiring a personal security specialist. Regular exercise is olguin to sustainable health and prevents as a buffer against weight regain 3. Sleep is most important for healing. Try to sleep at least 6-8 hours a night. A good quality sleep needs a sleep ritual with ideal room temperature of around 68. It might help to take a shower and have no electronics in the room and sleep in a very dark room without artificial light. Start sleep routine and get up early in the morning and go to bed on time. 4. Make a social connection. Surround yourself with positive people with positive energy. Connect with friends and family. 5. Get into the habit of meditating and mindfulness while doing everything. 6. Go outside and connect with nature. C. Prescription medications Patient was educated on the use of prescription medications for medical weight loss. This is a growing list and includes phentermine, Topamax,Qsymia, contrave, belviq and saxenda, wegovy etc. All prescription medications could have side effects including but not limited to kidney stones, seizure disorder cardiac arrhythmias heart attack pancreatitis, GI effects, Etc. Patient was encouraged to read the prescription insert and have coaching with their pharmacist and make an informed decision about taking medication and know that these medications are being prescribed with good intentions and we do not know how a patient would react to her medication. Some medications are FDA approved for weight loss and there is also off label use depending on patient's inability to afford medications in an attempt to lose weight D. Behavioral counseling was done to establish a relationship between food and an mood. Patient was provided information about local counseling and psychiatry and Dr Newsome at [facility] We would like to cover regular topics and build on low glycemic eating exercise mindful eating, using yoga and meditation along with deep breathing and connecting with friends and family. E. MASS PAT reviewed, Patient's current medications were reviewed and opinion was given on medication that can cause weight gain and can be substituted F. Patient was assessed for risk with obesity including and not limiting to atherosclerosis heart disease stroke kidney disease, restrictive lung disease, irritable bowel syndrome and overall mortality. Risk of developing prediabetes diabetes and metabolic syndrome was discussed G. Therapeutic plan: We have decided to make therapeutic plan which would include choosing wisely on calories restricting portion getting active, tracking weight, getting good quality sleep and working on time management H. Patient will follow up in 4 weeks for weight management Total time spent today was 60 minutes of which greater than 50% was spent on coordinating and counseling Case discussed with collaborating physician Rory Hill who reviewed the assessment and plan. Chart, medications, labs, vital signs reviewed. Dictation was accomplished with the use of Zurff voice recognition software, prone to medical misidentifications and grammatical errors. This is unintentional and the practitioner does try to identify and correct these, but some could still be present. Please do not hesitate to contact practitioner for clarification. All questions answered to patients satisfaction. Patient verbalized understanding of diagnosis and treatments explained. To call sooner prior to next visit it any questions/concerns arise. 06/14/2025 Encounter for examination of blood pressure without abnormal findings (ICD-10 - Z01.30) Tracy is a 29-year-old female who presents for weight management consult. Medical history, labs, allergies, medications, and social history reviewed with the patient. Provided education on healthy diet and lifestyle which includes high-protein, low carbohydrate, high-fiber, and a variety of fruits and vegetables. Patient encouraged to exercise with emphasis on resistance training minimum 3 times per week to maintain muscle mass and cardio to burn fat. All patient questions answered. Patient will follow-up in 4 weeks for weight management. #Obesity: 06/14/2025: Weight 174.4 pounds, BMI 34.06. For 12 consecutive months, she has been following a healthy lifestyle including exercising 6 days/week with weight training 3 days a week, and running 3 days a week. She has trialed tracking calories. She is mindful of her diet focusing on protein and whole foods. With lifestyle modifications, she successfully has lost 25 pounds. She has been unable to lose further weight. She has trialed Ozempic years ago with side effect of pruritus. Plan for Zepbound 2.5 mg weekly injections. Discussed side effects including nausea, constipation, reflux, heartburn, hair thinning. Will submit PA today. Follow-up in 4 weeks. This medication is prescribed by or in consultation with a board-certified obesity and weight management physician (Dr. Tabatha Hill or Dr. Halina Hill). #MASH: Follows with PCP. Discussed continuing healthy lifestyle and medication to help with weight loss. #PCOS: Does not have hyperlipidemia or prediabetes/diabetes . Discussed lifestyle modifications. #ADHD: Continue Vyvanse. Avoid phentermine. Continue with PCP Patient was reassured and welcomed to the practice. We discussed that we stress a hollistic medical approach with emphasis on lifestyle modification. Patient was informed that a healthy lifestyle with exercise and good eating habits can help reduce his risk of medical complications. Patient is explained that obesity increases his risk of diabetes, cardiovascular disease, or organ damage. We spent a lot of time discussing the relationship between food, exercise, sleep, mental health and obesity. Patient was counseled on the importance EATING local, organic food when possible. Patient was educated on clean 15 and dirty dozen. I provided information about reading books called The Food Rules by Ronni El and Eat Fat Get Lean by Dr Mark Higgins. Self education is important in the journey for weight management. Patient was offered diagnostic testing/ SECA scale. We want to measure visceral adiposity, advanced body composition, adverse lipids, fatty acid balance, risk for heart disease and atherosclerosis, markers of inflammation and genetic susceptibility. Patient was counseled on weight management and was advised to lose weight using A. Meal Replacement Products Patient was educated on the replacement products called optifast. This is a good way of taking fixed amount of calories. It has been shown in studies to be ineffective weight management tool. This however has to be coupled with lifestyle intervention as well as laboratory data and EKG monitoring. It is impossible to know how a person will tolerate complete meal replacement. The side effects of meal replacement and weight loss could include syncopal attacks, dizziness, gallstones, potential cholecystectomy, possible heart attack and even . The benefits of meal replacement would be potential weight loss but no guarantees can be made. Meal replacement products are not covered by insurance. Once the patient has bought these products we cannot return them B. Lifestyle management which includes several strategies as below 1. Eat a low carbohydrate good fat good protein diet. Eliminate refined carbohydrates from the diet. Limit sugared beverages. Eat local organic when possible. Cook your own meals. Read food labels. Focus on healthy snacks. Portion control and food with low glycemic index 2. Exercise regularly. Try to get at least 6000 steps a day. Use a predominant to track activity level. Consider using apps like 7 minute excercise, myfitRoses & Ryepal, lose it, stick as needed for self-monitoring and weight management. Consider group exercises. Consider hiring a personal security specialist. Regular exercise is olguin to sustainable health and prevents as a buffer against weight regain 3. Sleep is most important for healing. Try to sleep at least 6-8 hours a night. A good quality sleep needs a sleep ritual with ideal room temperature of around 68. It might help to take a shower and have no electronics in the room and sleep in a very dark room without artificial light. Start sleep routine and get up early in the morning and go to bed on time. 4. Make a social connection. Surround yourself with positive people with positive energy. Connect with friends and family. 5. Get into the habit of meditating and mindfulness while doing everything. 6. Go outside and connect with nature. C. Prescription medications Patient was educated on the use of prescription medications for medical weight loss. This is a growing list and includes phentermine, Topamax,Qsymia, contrave, belviq and saxenda, wegovy etc. All prescription medications could have side effects including but not limited to kidney stones, seizure disorder cardiac arrhythmias heart attack pancreatitis, GI effects, Etc. Patient was encouraged to read the prescription insert and have coaching with their pharmacist and make an informed decision about taking medication and know that these medications are being prescribed with good intentions and we do not know how a patient would react to her medication. Some medications are FDA approved for weight loss and there is also off label use depending on patient's inability to afford medications in an attempt to lose weight D. Behavioral counseling was done to establish a relationship between food and an mood. Patient was provided information about local counseling and psychiatry and Dr Newsome at [facility] We would like to cover regular topics and build on low glycemic eating exercise mindful eating, using yoga and meditation along with deep breathing and connecting with friends and family. E. MASS PAT reviewed, Patient's current medications were reviewed and opinion was given on medication that can cause weight gain and can be substituted F. Patient was assessed for risk with obesity including and not limiting to atherosclerosis heart disease stroke kidney disease, restrictive lung disease, irritable bowel syndrome and overall mortality. Risk of developing prediabetes diabetes and metabolic syndrome was discussed G. Therapeutic plan: We have decided to make therapeutic plan which would include choosing wisely on calories restricting portion getting active, tracking weight, getting good quality sleep and working on time management H. Patient will follow up in 4 weeks for weight management Total time spent today was 60 minutes of which greater than 50% was spent on coordinating and counseling Case discussed with collaborating physician Rory Hill who reviewed the assessment and plan. Chart, medications, labs, vital signs reviewed. Dictation was accomplished with the use of Zurff voice recognition software, prone to medical misidentifications and grammatical errors. This is unintentional and the practitioner does try to identify and correct these, but some could still be present. Please do not hesitate to contact practitioner for clarification. All questions answered to patients satisfaction. Patient verbalized understanding of diagnosis and treatments explained. To call sooner prior to next visit it any questions/concerns arise. Plan Of Treatment Next Appt Details Provider Name:Lissette baum, 07/12/2025 10:00:00 AM, [address] [facility] [address], [place], [address], Insurance Providers Payer Name Payer Address Payer Phone Subscriber Number Group Number Insured Name Patient Relationship to Insured Coverage Start Date Coverage End Date [facility] [address] [place] [address] [phone] [id number] TRACY MILLER Self - patient is the insured 3 Medical (General) History Medical History History ICD Code weight gain/loss Hypothyroidism (acquired) E03.9 ADHD (attention deficit hyperactivity di sorder), combined type F90.2 Anxiety, generalized F41.1 Fatty liver disease, nonalcoholic K76.0 PCOS (polycystic ovarian syndrome) E28.2 Surgical History Surgery Date(Month/Year) C section 10/25/2011 C section 02/28/2019
--- OUTSIDE RECORDS SUMMARY | 2025-06-21 10:17 | XMS_ITS | Clinical Summary ---
Author Organization [facility] [address] [facility] Address [address] [place] [address] Phone Care Team Providers Care Craft Coordinator Name Role Phone Job Fernandez MD Primary [...] 2012 Cervical Cancer Screening: Pap Smear 2014 HPV Vaccines (1 - 3-dose SCDM series) 2020 HIV Screening 08/15/2022 Hepatitis C Screening 08/15/2022 [...] Completed 01/06/2021, 06/20/2015, 12/08/2014, Additional history exists Meningococcal B Vaccine Aged Out No l [...] age to complete this topic Insurance [place] [id number] Care Teams Craft Coordinator Relationship Specialty Start Date End Date Job Fernandez MD [address] [place] [address] [place] [id number] PCP - General Internal Medicine 06/30/18
== END 2025-06-21 11:40 | disposition home or self-care (01) ==
LOC: HO.HMCFM 09:11
PROVIDERS: PCP Internal Medicine; Visit Provider Internal Medicine
DX: R59.0 Localized enlarged lymph nodes (principal); R53.83 Other fatigue

== ENCOUNTER 2025-06-25 11:59 | Outpatient (REF) | payer OTHER, SELFPAY ==
[2025-06-25 14:13] LABS: MANUAL DIFF FLAG NO
[2025-06-25 14:25] LABS: Hematocrit 42.1 % (37.0-47.0); Hemoglobin 14.0 g/dl (12.0-16.0); Imm Gran Abs Auto 0.02 X10*3/uL (0.00-0.03); Imm Gran Pct Auto 0.3 % (0.0-0.4); Lymphocytes Absolute Auto 2.3 X10*3/uL (1.2-4.9); Mean Corpuscular HGB Conc 33.3 g/dl (31.0-35.0); Mean Corpuscular Hemoglobin 28.6 pg (27.0-33.0); Mean Corpuscular Volume 86.1 fL (80.0-98.0); NRBC Abs Auto 0.000 X10*3/uL (0.0-0.012); NRBC Pct Auto 0.0 /100WBC (0.0-0.2); Platelet Count 472 X10*3/uL (160-400); Red Blood Count 4.89 X10*6/uL (4.20-5.50); White Blood Count 7.8 X10*3/uL (4.8-10.8)
== END 2025-06-25 12:00 | disposition home or self-care (01) ==
LOC: HO.WFDLDS 11:59
PROVIDERS: Visit Provider Internal Medicine
DX: R59.0 Localized enlarged lymph nodes (principal); M79.672 Pain in left foot; D72.829 Elevated white blood cell count, unspecified; R53.83 Other fatigue; M25.572 Pain in left ankle and joints of left foot; M54.2 Cervicalgia; M25.511 Pain in right shoulder; M79.601 Pain in right arm
CPT/HCPCS: 85025; 86308

== ENCOUNTER 2025-06-25 13:45 | Outpatient (AMB) | payer OTHER, SELFPAY ==
--- NOTE | 2025-06-25 13:48 | A.OFFPC_ITS ---
Vital Signs 06/25/25 13:51 Height 5 ft 1 in Weight 172 lb BMI 32.5 BP 110/68 Blood Pressure Location Lt brachial Position Sitting Respiration 12 Pulse 94 Pulse Source Pulse Oximeter Temp 98.6 F Temp Source Oral Intake Visit Reasons: 30 min fu Intake Note: Follow up. Swollen lymph nodes, fatigue. 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 She did test positive for strep and was treated at outside urgent care Seen here last week 06/21-strep was negative. Repeat CBC (has had elevated white count, mono ordered). She just had the labs drawn. No fevers, no abdominal weight loss. Oropharynx non painful. Tonsils with enlargement no exudate MSK Left foot and ankle pain. Seeing podiatry/orthopedics She has been seeing orthopedics. She had xray of the left knee and subsequent MRI. MRI showed 1.9 x 0.6 x 0.9 cm possible ganglion cys t associated with the popliteus tendon. Otherwise unremarkable MRI of the left knee. In December, She has had increased pain in the neck radiating down the right shoulder and right arm for the past 2 months. She has had issues with this in the past. she has had prior MRI, seen [facility]. She has pain and weakness in the right distal arm and hand which feels weak at times. She has had increased pain in multiple joints and muscle fatigue and discomfort. Inflammatory labs were unremarkable. She continues to have these symptoms. She recently had MRI C5-6: No based disc osteophyte complex formation resulting in ventral deformity of the thecal sac. No cord compression. No neuroforamina stenosis.C6-7: Right based disc osteophyte complex formation and slightly asymmetric to the left resulting in ventral deformity of the thecal sac. No cord compression. No neuroforamina stenosis.IMPRESSION: Cervical spondylosis C5-6 and C6-7 without cord compression, edema and or myelopathy. Hypothyroid: on levothyroxine. BH: Stable on methylphenidate and clonazepam. 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 NAD EYES: EOMI. Anicteric. HENT: Moist mucous membranes. Mild tonsillar hypertrophy, + cervical lymphadenopathy. +left axillary node LUNGS: Clear to auscultation bilaterally. CARDIOVASCULAR: Regular rate and rhythm. No murmur. No JVD. ABDOMEN: Soft, non-tender +bs EXTREMITIES: No edema. Non-tender. SKIN: No rashes or lesions. Warm. NEUROLOGIC: No focal neurological deficits. CN II-XII grossly intact PSYCHIATRIC: Cooperative. Appropriate mood and affect [facility] Medical History (Updated 06/25/25 @ 14:09 by Martina Lucio MD) Chest heaviness ALSTON (dyspnea on exertion) Lumbar spondylolysis Weakness of left foot Numbness and tingling of upper and lower extremities of both sides Circumoral cyanosis Numbness Cold extremities Family History Father Gastric cancer HTN (hypertension) Asthma Maternal Grandmother Suicide Mother Depression Psychiatric disorder Other FH: mental illness Social History (Updated 01/07/25 @ 11:33 by Josephine Anderson MA) Housing: House Alcohol intake: never Patient Tobacco Use Status: Never used Tobacco e-Cigarette/Vaping Use: Never Used Second Hand Smoke Exposure: No service: No Current occupational status: employed 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 Current occupational exposures/hazards: No Cognitive needs: No Hearing needs: No Vision needs: No Questionnaire Thrive Questionnaire Date Thrive assessed: 10/16/24 I am a: Patient What is your living situation today?: I have a steady place to live Within the past 12 months, did the food you bought not last and you didn't have the money to get more?: Never true Within the past 12 months, did you worry whether your food would run out before you got money to buy more?: Never true Do you have trouble paying for medicines?: No Do you have trouble getting transportation to medical appointments?: No Do you have trouble paying your heating and electricity bill?: No Do you have trouble taking care of your child, family member or friend?: No Do you have trouble with day-to-day activities such as bathing, preparing meals, shopping, managing finances, etc.?: No Are you currently unemployed and looking for a job?: No Are you interested in more education?: No Please select the resources that you would like help with: None Currently or been in a relationship where the following occur: No concerns reported THRIVE Score: 0 JORGE-7 AMB Questionnaire JORGE-7 Date JORGE - 7 assessed: 01/07/25 Source: Developed by Drs. Balaji Toro, Chrystal Abrams, Jamison Davey and colleagues, with an educational marly from [employer]. Physical exam (Primary Care) Vital Signs: Last Vital Signs Temp 98.6 F 06/25/25 13:51 Pulse 94 06/25/25 13:51 Resp 12 06/25/25 13:51 BP 110/68 06/25/25 13:51 BMI result Body Mass Index 32.5 Tobacco/Smoking Status: Tobacco use Status Tobacco use date assessed 01/07/25 06/25/25 13:49 Patient Tobacco Use Status Never used Tobacco 06/25/25 13:49 e-Cigarette/Vaping Use Never Used 06/25/25 13:49 Thrive Assessment: Date of Thrive Assessment Date Thrive assessed 10/16/24 06/25/25 13:49 Currently or been in a relationship where the following occur: No concerns reported Coding Level of Care Code Est Pt Level 4 (50097) Complex EM visit Add On G2211 Diagnoses Cervical lymphadenopathy R59.0 Axillary lymphadenopathy R59.0 Leukocytosis, unspecified type D72.829 Leukocytosis type: unspecified Fatigue, unspecified type R53.83 Fatigue type: unspecified Assessment & Plan Assessment & Plan (1) Cervical lymphadenopathy: Code(s): R59.0 - Localized enlarged lymph nodes Category: Medical (2) Axillary lymphadenopathy: Code(s): R59.0 - Localized enlarged lymph nodes Category: Medical (3) Elevated WBC count: Code(s): D72.829 - Elevated white blood cell count, unspecified Category: Medical Qualifiers: Leukocytosis type: unspecified Qualified Code(s): D72.829 - Elevated white blood cell count, unspecified (4) Fatigue: Code(s): R53.83 - Other fatigue Qualifiers: Fatigue type: unspecified Qualified Code(s): R53.83 - Other fatigue Plan 29 year old for follow up continue fatigue, cervical LN us neck, axilla. Recheck cbc, smear-if continues hematology consult ENT referral placed Trial prednisone labs including mono pending Orders: Orders US chest Today R59.0 - Localized enlarged lymph nodes US soft tiss head and/or neck Today M54.12 - Radiculopathy, cervical region Referrals Ear/Nose/Throat Referral J35.1 - Hypertrophy of tonsils, M54.12 - Radiculopathy, cervical region Medications: New prednisone 40 mg (2 x 20 mg) PO DAILY 10 tabs 0RF
[2025-06-25 13:51] VITALS: BP 110/68; PULSE 94; RESP 12; TEMP 37; BMI 32.5
== END 2025-06-25 14:11 | disposition home or self-care (01) ==
LOC: HO.HMCFM 13:46
PROVIDERS: PCP Internal Medicine; Visit Provider Internal Medicine
DX: R59.0 Localized enlarged lymph nodes (principal); D72.829 Elevated white blood cell count, unspecified; R53.83 Other fatigue

== ENCOUNTER 2025-07-21 14:56 | Outpatient (REF) | payer OTHER, SELFPAY ==
--- OUTSIDE RECORDS SUMMARY | 2025-07-16 13:05 | XMS_ITS | Continuity of Care Document ---
Author Organization [facility] ter Address [address] [place] [address]- Support Name Relationship Address Phone TEX, MADHAVI Personal Relationship Unknown Un available CORTIS, PATRIA spouse Unknown Unavailable DUPERAULT, MADHAVI Personal Relationship Unknown Un available DUPERAULT, MADHAVI Personal Relationship Unknown Un available CORTIS, PATRIA Personal Relationship Unknown Sabine vailable CORTIS, PATRIA Personal Relationship Unknown Sabine vailable [...] child Unknown Unavailable Care Team Providers Care Book Editor Name Role Phone Naveed HAMILTON, Martina Dial Primary Care Physician [phone] [place] [facility] [place]): [place]/16/[address] [address]- Discharge Disposition: A-D/C Home Attending Physician: Fernando Medellin MD Admitting Physician: Fernando Medellin MD Referring Physician: Not on Staff, Referring MD Encounter Type: Disch ES Allergies, Adverse Reactions, Alerts Substance Criticality Severity Reaction Reaction Severity Status erythromycin rash Active Augmentin hives Resolved amoxicillin hives Active azithromycin Active Immunizations Given and Recorded Vaccine Date Status Refusal Reason influenza virus vaccine, inactivated 10/26/23 Howard rded influenza virus vaccine, inactivated 06/15/22 [...] 93 Recorded tetanus/diphtheria/pertussis, acel(Tdap) 04/14/14 Recorded Medications cefdinir 300 mg oral capsule 1 capsule = 300 mg, By Mouth, Every 12 hours, for 10 days, # 20 capsule, 0 Refills, Acute 07/23/25 6:37:00 PM EST, 07/13/25 6:37:00 PM EDT, Capsule, [id number], Partial fill upon patient request if the prescription is for a schedule II opioid drug., 155, cm, 07/13/25 18:05:00 EDT, Height, 77.2, kg, 06/08/25 9:02:00 EDT, Dry Weight Start Date: 07/13/25 Stop Date: 07/23/25 Status: Ordered Medication Dispense Status: Completed Quantity: 20.0 Unit: capsule Total Allowed Fills: 1 Fills Dispensed: 0 Indications: Streptococcal pharyngitis; Clonazepam 0.5, By Mouth, Once, PRN Anxiety, 0 Refills, Maintenance, 03/15/19 1:09:53 PM EDT Start Date: 03/15/19 Status: Ordered Medication Dispense Status: Completed Total Allowed Fills: 1 Fills Dispensed: 0 cyclobenzaprine 5 mg oral tablet 1 tablet = 5 mg, By Mouth, Daily at bedtime, for 30 days, # 30 tablet, 6 Refills, Acute 01/06/26 8:37:00 AM EDT, 06/10/25 8:37:00 AM EDT, [id number], Partial fill upon patient request if the prescription is for a schedule II opioid drug., 155, cm, 06/10/25 8:28:00 EDT, Height, 77.2, kg, 06/08/25 9:02:00 EDT, Dry Weight Start Date: 06/10/25 Stop Date: 01/06/26 Status: Ordered Medication Dispense Status: Completed Quantity: 30.0 Unit: tablet Total Allowed Fills: 7 Fills Dispensed: 0 levonorgestrel 52 mg intrauterine device See Instructions, Please delivery to [facility] 10/06 for insertion, # 1 each, 0 Refills, Maintenance,10/06/24 3:41:00 PM EST, [facility], Partial fill upon patient request if the prescription is for a schedule II opioid drug., 155, cm, 09/21/24 13:42:00 EST, Height, 82, kg, 04/29/24 12:46:00 EDT, Dry Weight Start Date: 10/06/24 Status: Ordered Medication Dispense Status: Completed Quantity: 1.0 Unit: each Total Allowed Fills: 1 Fills Dispensed: 0 levothyroxine 0.088 mg oral tablet 1 tablet, By Mouth, Daily, # 90 tablet, 3 Refills, Maintenance, 12/02/23 9:00:00 AM EDT, [id number], 154, cm, 10/14/23 11:45:00 EST, Height, 84, kg, 10/10/23 17:30:00 EST, Dry Weight Start Date: 12/02/23 Status: Ordered Medication Dispense Status: Completed Quantity: 90.0 Unit: tablet Total Allowed Fills: 1 Fills Dispensed: 0 methylphenidate 5 mg oral tablet 5 mg, 1, tablet, By Mouth, 2 times a day, # 90 tablet, Refills 0, Tot. Refills 0, Maintenance, 10/20/22 5:13:00 PM EST, Partial fill upon patient request if the prescription is for a schedule II opioiddrug. Start Date: 10/20/22 Status: Ordered Medication Dispense Status: Completed Quantity: 90.0 Unit: tablet Total Allowed Fills: 1 Fills Dispensed: 0 semaglutide 2 mg/3 mL (0.25 mg or 0.5 mg dose) subcutaneous solution = 0.5 mg, Subcutaneous Injection, Every week, rotate injection sites, # 1 each, 3 Refills, Maintenance, 12/06/23 5:13:00 PM EDT, Solution, [id number], 154, cm, 12/06/23 16:52:00 EDT, Height, 84, kg, 10/10/23 17:30:00 EST, Dry Weight Start Date: 12/06/23 Status: Ordered Medication Dispense Status: Completed Quantity: 1.0 Unit: each Total Allowed Fills: 4 Fills Dispensed: 0 Indications: Morbid (severe) obesity due to excess calories; Vyvanse By Mouth, Daily in AM, 0 Refills, Maintenance, 05/08/25 7:34:00 PM EDT, Partial fill upon patient request if the prescription is for a schedule II opioid drug. Start Date: 05/08/25 Status: Ordered Medication Dispense Status: Completed Total Allowed Fills: 1 Fills Dispensed: 0 Zepbound = 2.5 mg, Subcutaneous Infusion, 0 Refills, Maintenance, 07/13/25 6:07:00 PM EDT, Partial fill uponpatient request if the prescription is for a schedule II opioid drug. Start Date: 07/13/25 Status: Ordered Medication Dispense Status: Completed Total Allowed Fills: 1 Fills Dispensed: 0 Mental Status Mental Status Assessment Assessment Assessment Component Result Effecti ve Date Vasiliy coma score total 15 Problem List Condition Confirmation Course Effective Dates [...] detected Confirmed Active Hepatic steatosis Confirmed Active Vital Signs Most recent to oldest [Reference Range]: 1 2 Height 155 cm (07/16/25 1:09 PM) 155 cm (07/16/25 10:49 AM) Weight 75 kg (07/16/25 10:49 AM) Oxygen Saturation [94-100 %] 100 % (07/16/25 1:09 PM) 100 % (07/16/25 10:49 AM) Pulse Rate [55-90 bpm] 71 bpm (07/16/25 1:09 PM) 118 bpm *H* (07/16/25 10:49 AM) Body Mass Index [18.5-24.99 kg/m2] 31.22 kg/m2 *H* (07/16/25 10:49 AM) Blood Pressure [90-138/55-84 mm Hg] 107/ 56mm Hg (07/16/25 1:09 PM) 119/80mm Hg (07/16/25 10:49 AM) Respiratory Rate [16-30 br/min] 18 br/mi n (07/16/25 1:09 PM) 18 br/min (07/16/25 10:49 AM) Temperature [96.8-100.4 DegF] 98.0 DegF (07/16/25 1:09 PM) 98.7 DegF (07/16/25 10:49 AM) Liters per Minute 0 L/min (07/16/25 1:09 PM) Mode of Delivery (Oxygen) Room air (07/16/25 1:09 PM) Room air (07/16/25 10:49 AM) Blood pressure sites Arm, left (07/16/25 1:09 PM) Arm, left (07/16/25 10:49 AM) Temperature Route Oral (07/16/25 1:09 PM) Oral (07/16/25 10:49 AM) Dry Weight 75 kg (07/16/25 10:49 AM) Weight Obtained Via Patient/family state d (07/16/25 10:49 AM) Dry Weight Obtained Via Patient/family s tated (07/16/25 10:49 AM) Social History Social History Type Response Sexual Sexually involved in last 6 months: Yes. Smoking Status Never (less than 100 in lifetime) entered on: 10/13/19 Sex Sex Representation Female (finding) Status N/A Patient Care team information Care Team Personnel Name: Abilio Arellano RN Position: S RN Member Role: Primary Care Nurse Name: Tracy Soto RN Position: [facility] RN Member Role: Primary Care Nurse Name: Juan Jose HAMILTON, Senia Berry Position: [facility] CLOTHES SEPARATOR MD Member Role: Lifetime CLOTHES SEPARATOR Physician Address: [address] [place] [address]- [employer] Tele[employer]: Name: Beverley Tam [place] Position: [facility] Outreach Member Role: Lifetime Consulting Physician Name: Martina Lucio MD Position: Reference Physician Member Role: PCP Address: [address] [place] [address]- [place] Tele[employer]: Name: Vannesa Anguiano RN Position: [facility] Nurse Member Role: Primary Care Nurse Name: Balaji Chaudhry MD Position: [facility] CLOTHES SEPARATOR MD Member Role: Lifetime CLOTHES SEPARATOR Physician Address: [address] [facility] [place], [place] - [place] Telecom: Care Team Related Persons Name: JIMENEZ SOTO Name: PATRIA SOTO Name: MARTA NICE Name: MADHAVI NICE Insurance Providers Guarantor name: TRACY SOTO Health Plan Information #: 1 Payer: [facility] FF NON [employer] HMO P Payer Identifier: NA Member Number: [id number] Group Number: [id number] Subscriber Identifier: [id number] Relationship to Subscriber: spouse Coverage Type: Other Private Insurance Coverage Verification Date: NA Telecom: NA Address: NA
--- OUTSIDE RECORDS SUMMARY | 2025-07-20 23:59 | XMS_ITS | Continuity of Care Document ---
Author Organization [facility] Address [address] [place] [address]- Support Name Relationship Address Phone DUPERAULT, MADHAVI [...] child Unknown Unavailable Care Team Providers Care Mail Order Clerk Name Role Phone Naveed HAMILTON, Martina Dial Primary Care Physician Encounter [facility] [place] Date(s): 07/13/25 - 07/20/25 [facility] [address] [place] [address]- Encounter Diagnosis Strep throat(Discharge Diagnosis) - 07/13/25 Attending Physician: Tylor Casiano NP Encounter Type: Office Visit Allergies, Adverse Reactions, Alerts Substance Criticality Severity [...] PM EST, 07/13/25 6:37:00 PM EDT, Capsule, [facility]/pharmacy #[id number], Partial fill upon patient request if [...] 8:37:00 AM EDT, 06/10/25 8:37:00 AM EDT, [facility]/pharmacy #[id number], Partial fill upon patient request if the prescription is for a schedule II opioid drug., 155, cm, 06/10/25 8:28:00 EDT, Height, 77.2, kg, 06/08/25 9:02:00 EDT, Dry Weight Start Date: 06/10/25 Stop Date: 01/06/26 Status: Ordered Medication Dispense Status: Completed Quantity: 30.0 Unit: tablet Total Allowed Fills: 7 Fills Dispensed: 0 levoFLOXacin 750 mg oral tablet 0 Refills, Maintenance, 07/19/25 3:25:00 PM EST, Partial fill upon patient request if the prescription is for a schedule II opioid drug. Start Date: 07/19/25 Status: Ordered Medication Dispense Status: Completed Total Allowed Fills: 1 Fills Dispensed: 0 levonorgestrel 52 mg intrauterine device See Instructions, Please delivery to [facility] 10/06 for insertion, # 1 each, 0 Refills, Maintenance,10/06/24 3:41:00 PM EST, [facility], Partial fill upon patient request if [...] 3 Refills, Maintenance, 12/02/23 9:00:00 AM EDT, [id number], 154, cm, 10/14/23 11:45:00 EST, Height, 84, [...] Total Allowed Fills: 1 Fills Dispensed: 0 Problem List Condition Confirmation Course Effective Dates [...] detected Confirmed Active Hepatic steatosis Confirmed Active Diagnosis Diagnosis Type Effective Dates Health Status Cl inical Service Informant Strep throat Discharge Diagnosis 07/13/25 Vital Signs Most recent to oldest [Reference Range]: 1 Height 155 cm (07/13/25 6:05 PM) Oxygen Saturation [94-100 %] 100 % (07/13/25 6:05 PM) Pulse Rate [55-90 bpm] 96 bpm *H* (07/13/25 6:05 PM) Blood Pressure [90-138/55-84 mm Hg] 124/ 75mm Hg (07/13/25 6:05 PM) Respiratory Rate [16-30 br/min] 18 br/mi n (07/13/25 6:05 PM) Temperature [96.8-100.4 DegF] 97.1 DegF (07/13/25 6:05 PM) Blood pressure sites Arm, right (07/13/25 6:05 PM) Temperature Route Temporal (07/13/25 6:05 PM) Social History Social History Type Response Sexual Sexually involved in last 6 months: Yes. Smoking Status Never (less than 100 in lifetime) entered on: 10/13/19 Sex Sex Representation Female (finding) Note * Farheen Edwards: PERFORM Event Display: Patient Education/Instruction Authored Date: [id number] Ambulatory Adult Visit Summary [facility] [address] [place] [address] Name: TRACY SOTO : 1995?? Visit: 07/13/2025 17:56?? Ambulatory Visit Instructions ?? Your Care Team Primary Care Provider Naveed HAMILTON, Martina Dial? This Visit Provider [facility] [place] Your Diagnosis Strep throat Vitals Signs Temperature: 97.1 DegF Height: 155 cm Pulse Rate:??96 bpm??High ?? Respiratory Rate: 18 br/min ?? Systolic Blood Pressure: 124 mm Hg ?? Diastolic Blood Pressure: 75 mm Hg ?? Oxygen Saturation: 100 % ?? What to do next Instructions From Your Provider What it is: Strep throat is a bacterial infection causing sore throat, fever, and sometimes headache or body aches. Treatment: Take all prescribed antibiotics as directed, even if you feel better before finishing the course. Symptom relief: Use acetaminophen and/or ibuprofen for pain and fever. Drink plenty of fluids and get rest. Infection control: Stay home from work or school until you???ve been on antibiotics for at least 24hours and are fever-free. Prevention: Wash hands frequently and avoid sharing utensils or drinks. ?? Seek emergency care if you have: Difficulty breathing or swallowing Persistent high fever (=104??F/40??C) not relieved by medication Severe headache, neck stiffness, or confusion ?? Contact the office or follow up with PCP??if symptoms worsen or do not improve after 48 hours of antibiotics. Scheduled Follow-Up Appointments Saturday 7:20 AM EST ?? Type: Pain Management Evaluation With: Nubia Johns MD [facility] [address] [place] [address]- Status: Pending Saturday 9:40 AM EST ?? Type: New Patient Visit With: Deandra Arroyo DO Where: [facility] [address] [place] [address]- Status: Pending Medications The list below reflects the information in our records and provided by you today along with any changes made during this visit. Please continue your medications until treatment is completed or stopped by your provider. If this is different from the information you have or there are other questions,please contact the prescribing provider. What How Much When Why Instructions New Cefdinir (cefdinir 300 mg oral capsule) 1 capsule Oral Every 12 hours Strep throat Duration: 10 Days Ordering Physician: Enrique Tam at [facility]/pharmacy #[id number] Unchanged Clonazepam 0.5 Oral Once as needed for Anxiety Unchanged Cyclobenzaprine (cyclobenzaprine 5 mg oral tablet) 1 tab(s) Oral Daily at Bedtime Duration: 30 Days Ordering Physician: Mark Conterras MD Unchanged Levonorgestrel (levonorgestrel 52 mg intrauterine device) See instructions Special Instructions: Please delivery to [facility] for insertion Ordering Physician: Orly Rivera DO ?? Unchanged Levothyroxine (levothyroxine 0.088 mg oral tablet) 1 tab(s) Oral Daily Ordering Physician: Martina Lucio MD Unchanged lisdexamfetamine (Vyvanse) Oral Daily in the morning Unchanged Methylphenidate (methylphenidate 5 mg oral tablet) 1 tab(s) Oral Twice a day Unchanged semaglutide (semaglutide 2 mg/ 3 mL (0.25 mg or 0.5 mg dose) subcutaneous solution) 0.5 Milligram Subcutaneous Injection Every week Severe obesity (BMI 35.0-39.9) with comorbidity Special Instructions: rotate injection sites Ordering Physician: Chris Pederson MD ?? Unchanged tirzepatide (Zepbound) 2.5 Milligram Subcutaneous Infusion Pharmacy Information [id number]: [address], [place] [id number] [phone] Lab Test Results Point of Care Results POC COVID-19 Results: Negative for COVID-19 (07/13/25) POC FLU A Results: Negative for Flu A (07/13/25) POC FLU B Results: Negative for Flu B (07/13/25) POC Rapid Strep results: Positive for Group A Strep (07/13/25) Medications and Immunizations Administered Medications Given During Visit Medication ?? Dose ?? Route ?? Last Dose Times ?? Dexamethasone?8.00 mg?? By Mouth?? 13-JUL-2025 18:30:00.00?? Allergies (NKA means No Known Allergies) amoxicillin??hives azithromycin erythromycin??rash Education Materials Below is the list of Educational Leaflet Providered with your Visit summary. WebMD Ignite Patient Education - Pharyngitis: Strep (Confirmed)?? Web[employer] Ignite Patient Education - Tonsillitis??(Strep Throat)?? Common Emergency Awareness Tips IS IT A STROKE? Act FAST and Check for these signs: FACE Does the face look uneven? ARM Does one arm drift down? SPEECH Does their speech sound strange? TIME Call at any sign of stroke ?? Heart Attack Signs Chest discomfort: Most heart attacks involve discomfort in the center of the chest and lasts more than a few minutes, or goes away and comes back. It can feel like uncomfortable pressure, squeezing, fullness or pain. Discomfort in upper body: Symptoms can include pain or discomfort in one or both arms, back, neck, jaw or stomach. Shortness of breath: With or without discomfort. Other signs: Breaking out in a cold sweat, nausea, or lightheaded. Remember, MINUTES DO MATTER. If you experience any of these heart attack warning signs, call to get immediate medical attention! ?? Smoking can increase your chances of developing chronic health problems and can cause harmful effects to other family members in your house. If you smoke, you are strongly encouraged to quit. Please call [facility] [email or web address][email or web address] Link at [phone] or [phone] ([phone]) or log in to [email or web address] for referrals to smoking cessation programs. ?? The National Suicide Prevention Hotline is available 08/04 if you or someone you know needs to find a reason to keep living. By calling 4-822-625-Zoomabet (5282) you'll be connected to a skilled, trained counselor at a crisis center in your area. [facility] Portal You can view and manage your care through the patient portal or by using a health care juliette of your choosing. [employer] is a website that allows you to securely view your medical information including your hospital discharge summary, office visit summaries, medications and follow-up visits. You can also request appointments, renew medications, and request access to your medical information using a health care juliette of your choosing, or just ask a question. You can enroll at [email or web address] or register during your next office visit. [facility], in keeping with [facility] guidance, no longer requires face masks for staff, patientsor visitors in most situations. Similiar to time spent indoors at other locations, there is the chance that you were exposed to repiratory viruses during your time with us (such as flu or COVID-19). If you develop symptoms concerning for a viral respiratory infection, please seek testing (and treatment if indicated) from your medical provider or home test kit. ?? Disclaimer: The information provided is of a general nature and is intended to be used in conjunction with the recommendations and advice of your health care practitioner. Every effort has been made to ensure that the information provided is accurate and complete at the time it is provided to you however, as your needs change, or, as new information becomes available, different or additional instructions may be required. ?? If you have questions, please consult with your primary care provider or pharmacist, as appropriate. This information is not intended to serve as substitution for assessment and evaluation by a qualified health care provider. If you do not have a primary care provider, you may find a [facility] provider by calling [facility] Link at [phone]. * Brian WITT, Enrique Graham: PERFORM Event Display: Patient Education Leaflets Authored Date: [id number] Pharyngitis: Strep (Confirmed) ?? [id number] Pharyngitis: Strep (Confirmed) You have had a positive test for strep throat. Strep throat is a bacterial infection that can be spread to others. It's spread by coughing, kissing, sharing glasses or eating utensils, or by touchingothers after touching your mouth or nose. Symptoms may include: ??? Throat pain that's worse when you swallow. ??? Aching all over. ??? Headache. ??? Swollen lymphnodes at the front of the neck. ??? Red, swollen tonsils that may have white patches. ??? Fever. It's treated with antibiotic medicine. You should start to feel better in 1 to 2 days with treatment. Home care ??? Rest at home. Drink plenty of fluids so you won't get??dehydrated. ??? You can returnto school or work if you are feeling better, have been taking the antibiotic for at least 24 hours,and don't have a fever. ??? If your doctor prescribed antibiotics, take them as directed. Do not stop taking them just because you feel better. You need to take the full course of antibiotics.??It's also important to prevent medicine-resistant germs from developing.??If you were given an antibioticshot, you don't need any more antibiotics. ??? You may use acetaminophen??or ibuprofen to control pain or fever unless another medicine is prescribed for this. Talk with your doctor before taking these medicines if you have??chronic liver or kidney disease or if you've??had a stomach ulcer, digestive bleeding, or if you're taking blood thinners. ??? Throat lozenges or sprays help reduce pain. Gargling with warm saltwater will also ease throat pain. Dissolve 1/2 teaspoon of salt in 1 glass of warm water. This may be useful just before meals. ??? Soft foods and cool or warm fluids are best. Don't eat salty or spicy foods. ?? Follow-up care Follow up with your doctor if you don't get better over the next week. ?? When to contact your doctor Contact your doctor right away if: ??? You have a fever of 100.4??F (38??C) or higher, or as directed by your doctor. ??? You have ear pain, sinus pain, or headache that is new or gets worse. ??? Youhave painful lumps in the back of neck. ??? Your neck is stiff. ??? Your lymph nodes??are getting larger or becoming soft in the middle. ??? You have trouble swallowing liquids or you can't??open your mouth wide because of??throat pain. ??? You have signs of dehydration. These include very dark urine or no urine, sunken eyes, and dizziness. ??? Your breathing is noisy. ??? You have a rash. ?? Call 911 Call 911 right away if: ??? You have trouble breathing. ??? You can't swallow or talk. ??? You speak with a muffled voice. ?? Prevention Here are steps you can take to help prevent an infection: ??? Wash your hands often with soap and clean, running water for at least 20 seconds. ??? Don???t have close contact with people who have sore throats, colds, or other upper respiratory infections. ??? Don???t smoke, and stay away from secondhand smoke. ?? Last Reviewed Date: 2024 00:00:00 ?? [id number] [employer]. All rights reserved. This information is not intended as a substitute for professional medical care. Always follow your healthcare professional's instructions. ?? * Brian WITT, Enrique Graham: PERFORM Event Display: Patient Education Leaflets Authored Date: [id number] Tonsillitis??(Strep Throat) ?? [id number] Tonsillitis??(Strep Throat) You or your child has an infection around the tonsils.??This is sometimes caused by the streptococcus bacteria, so it's often called strep throat. The infection can cause severe sore throat, pain with swallowing, swollen glands, and fever. Strep throat is treated with antibiotics.?? Home care ??? All of the antibiotics should be taken as prescribed until they are gone. This is true even if symptoms start to get better. This is very important to ensure that the infection goes away. This helps prevent serious complications. It also helps keep the infection from spreading to other people. ??? Take acetaminophen (Tylenol) or ibuprofen (Advil, Motrin) for fever or pain. Do not use ibuprofen if your child is less than 6 months old unless the doctor gave you instructions to use it. Be safe with medicines. Read and follow all instructions on the label. Do not give aspirin to children or teens unless your child's doctor says it is safe. Aspirin can put your child at risk for Paty syndrome, a rare but serious condition. ??? To help ease pain, children??older than 6 years??and adults can gargle with warm saltwater. This can be done several times a day. Dissolve ?? to ?? teaspoon of salt in 1 cup of warm water.??Gargle with the solution, then spit it out.??(Be sure that children don't swallow the saltwater.) Discuss this home care solution with the doctor to find out what solution is best for you or your child. ??? Cool liquids and soft foods may make eating easier for the first few days. ?? Follow-up care Follow up with a doctor as advised. ?? When to get medical care Contact the doctor right away if: ??? Symptoms get worse??or new symptoms appear.? Symptoms goaway and come back. ??? Your child refuses food and drink. ??? You or your child has trouble opening the mouth. ??? You or your child develop a rash. ??? Swelling or enlarged glands (that look like bumps) appear in the neck. ??? You or your child has neck stiffness. ?? Call 911 Call 911 right away if you or your child have: ??? Trouble swallowing. ??? Inability to eat or drink. ??? Trouble breathing. ??? Excessive drooling. ?? Prevention Here are steps you can take to help prevent an infection: ??? Keep good handwashing habits. ??? Don???t have close contact with people who have sore throats, colds, or other upper respiratory infections. ??? Don???t smoke, and stay away from secondhand smoke. ??? Stay up to date with all of your vaccines. ?? Last Reviewed Date: 2025 00:00:00 ?? [id number] [employer]. All rights reserved. This information is not intended as a substitute for professional medical care. Always follow your healthcare professional's instructions. ?? Patient Care team information Care Team Personnel Name: Abilio Arellano RN Position: [facility] RN Member Role: Primary Care Nurse Name: Tracy Soto RN Position: [facility] RN Member Role: Primary Care Nurse Name: Senia Ingram MD Position: [facility] LUMBER SALES SUPERVISOR MD Member Role: [employer] LUMBER SALES SUPERVISOR Physician Address: [address] [place] [id number] Telecom: Name: Beverley Tam [place] Position: [facility] Outreach Member Role: Lif[employer] Consulting Physician Name: Martina Lucio MD Position: Reference Physician Member Role: PCP Address: [address] [place] [id number] [facility] Tele[employer]: Name: Vannesa Anguiano RN Position: [facility] AMB Nurse Member Role: Primary Care Nurse Name: Balaji Chaudhry MD Position: [facility] LUMBER SALES SUPERVISOR MD Member Role: [employer] LUMBER SALES SUPERVISOR Physician Address: [address] [place] [address] [place] [address]- [facility] Tele[employer]: Care Team Related Persons Name: JIMENEZ SOTO Name: PATRIA SOTO Name: MARTA NICE Name: MADHAVI NICE Insurance Providers Guarantor name: TRACY SOTO Health Plan Information #: 1 Payer: [facility] FF NON BHP HMO P Payer Identifier: NA Member Number: [id number] Group Number: [id number] Subscriber Identifier: [id number] Relationship to Subscriber: spouse Coverage Type: Other Private Insurance Coverage Verification Date: NA Telecom: NA Address:
--- NOTE | ~2025-07-21 | US_ITS ---
EXAMINATION: US HEAD NECK SOFT TISSUE HISTORY: M54.12 - SUBMAND/ANT CERVICAL NECK LYMPH NODES COMPARISON: Previous exam January 2024 TECHNIQUE: Grayscale and color imaging of the soft tissues in the left neck using a linear transducer. FINDINGS: There are 3 left submandibular lymph nodes. The largest measures 1.9 x 0.9 x 1.5 cm, slightly enlarged. This demonstrates cortical thickening and slitlike hilum and normal hilar flow. There are two smaller lymph nodes measuring 1.1 x 0.8 x 0.9 cm and 1.5 x 0.5 x 0.9 cm. These are normal in size. These demonstrate normal ultrasound morphology and normal hilar flow. US/US soft tiss head and/or neck IMPRESSION: Three left submandibular lymph nodes are seen, one of which is slightly enlarged measuring 1.5 cm in transverse dimension with cortical thickening and a slitlike hilum. This may be reactive. Cannot exclude lymphoproliferative process. Recommend short-term follow-up ultrasound in several months. Two additional normal-appearing left submandibular lymph nodes. Electronically signed by: Adrianne Hardin MD 07/21/2025 03:47 PM EST
--- NOTE | ~2025-07-21 | US_ITS ---
EXAMINATION: US EXTREMITY NON-VASCULAR LIMITED LEFT HISTORY: R59.0 - Localized enlarged lymph nodes, AXILLA COMPARISON: There are no prior studies available for comparison. TECHNIQUE: Grayscale and color imaging of the left axilla using a linear transducer FINDINGS: No enlarged lymph nodes are seen. No solid or cystic soft tissue mass or fluid collection appreciated. US/US Extremity Nonvas Limited LT IMPRESSION: No abnormality seen by ultrasound in the left axilla. Electronically signed by: Adrianne Hardin MD 07/21/2025 03:37 PM EST
--- OUTSIDE RECORDS SUMMARY | 2025-07-21 18:02 | XMS_ITS | Clinical Summary ---
Author Organization [facility] Address [address] [place] [address] Phone Care Team Providers Care Water Pump Installer Name Role Phone Pcp, Unknown Primary Care [...] Subscriber:Spouse Name:MARLIN MILLERCHARY Date of :1900 Address: [address] [place] [address] Payer ID:Not on file Type:PPO Address: [address] Member Subscriber Plan / Payer (Ef fective 2023-) Name:Tracy Miller Relation to Subscriber:Spouse Name:PATRIA MILLER Date of :1900 Address: [address] [place] [address] Payer ID:Not on file Type:PPO Address: [address] Member Subscriber Plan / Payer (Ef fective 2023-Present) Name:Tracy Miller Relation to Subscriber:Spouse Name:PATRIA MILLER Date of :1902 Address: [address] [place] [address] Payer ID:Not on file Type:O Address: [address] Member Subscriber Plan / Payer (Ef fective 2023-Present) Name:Tracy Miller Relation to Subscriber:Spouse Name:PATRIA MILLER Date of :1902 Address: [address] [place] [address] Payer ID:Not on file Type:PPO Address: [address] Member Subscriber Plan / Payer (Ef fective 2023-) Name:Tracy Miller Relation to Subscriber:Spouse Name:PATRIA MILLER Date of :1902 Address: [address] [place] [address] Payer ID:Not on file Type:PPO Address: [address] Member Subscriber Plan / Payer (Ef fective 2023-Present) Name:Tracy Miller Relation to Subscriber:Spouse Name:PATRIA MILLER Date of :1900 Address: [address] [place] [id number] Payer ID:Not on file Type:O Address: [address] HMO Care Teams Water Pump Installer Relationship Specialty Start Date End Date Pcp, Unknown PCP - General 06/14/23 Additional Source Comments The information contained in this document represents components of the legal health record. It is not the complete legal health record.[facility]
--- OUTSIDE RECORDS SUMMARY | 2025-07-21 18:02 | XMS_ITS ---
Author Name [facility] Organization Unknown Care Team Organization Name Specialty Phone Email Start Date End [facility] 07/14/2025
--- OUTSIDE RECORDS SUMMARY | 2025-07-21 18:02 | XMS_ITS | Patient Health Record ---
Author Organization [facility] [address] Address [address] [place] [address] Care Team Providers Care Actuary Clerk Name Role Phone JENNY CAMILO Primary Care Provider Lissette Luevano Unavailable [phone] Allergies Allergen (clinical drug ingredient) Drug/Non Drug Allergy documented on EMR Reaction Allergy Type Onset Date Status amoxicillin Amoxicillin hives Drug Allergy Act roge erythromycin Erythromycin hives Drug Allergy A ctive Reason For Referral No Information Medications Medication SIG (Take, Route, Frequency, Duration) Notes Start Date End Date Status Zepbound 2.5 MG/0.5ML 2.5mg Subcutaneous weekly; Duration: 28 days Active Levothyroxine Sodium 100 MCG 1 tablet in the morning on an empty stomach Orally Once a day Active clonazePAM 0.5 MG 1 tablet Orally Once a day Active Vyvanse 40 MG 1 capsule in the mor ambrocio Orally Once a day Active Problems Problem Type SNOMED Code ICD Code Onset Dates Problem Status W/U Status Risk Notes Problem Hypothyroidism (66797714) Hypothyroidism (acquired) (E03.9) Active confirmed Problem Fatty liver (991490458) Fatty liver disease, nonalcoholic (K76.0) Active confirmed Problem Polycystic ovary syndrome (disorder) (218335455) PCOS (polycystic ovarian syndrome) (E28.2) Active confirmed Problem Body mass index 30.00 to 34.99 (573975024280156) BMI 31.0-31.9,adult (Z68.31) Active confirmed Problem Body mass index 30.00 to 34.99 (681502594070967) BMI 34.0-34.9,adult (Z68.34) Active confirmed Problem Attention deficit hyperactivity disorder (087314300) ADHD (attention deficit hyperactivity disorder), combined type (F90.2) Active confirmed Problem Generalized anxiety disorder (91763532) Anxiety, generalized (F41.1) Active confirmed Problem Obesity (697662203) Moderate obesity (E66.9) Active confirmed Vital Signs Heart Rate 93 /min 07/12/2025 Blood pressure diastolic 74 mm Hg 07/12/2025 Oximetry 99 % 07/12/2025 Height 60 in 07/12/2025 Blood pressure systolic 120 mm Hg 07/12/2025 Weight 165.7 lbs 07/12/2025 BMI 32.36 kg/m2 07/12/2025 Encounters Encounter Location Date Provider Diagnosis [facility] [address] [address] 06/14/2025 Lissette Normoyle Moderate obesity E66 .9 ; BMI 34.0-34.9,adult Z68.34 ; Dietary counseling and surveillance Z71.3 ; Fatty liver disease, nonalcoholic K76.0 ; PCOS (polycystic ovarian syndrome) E28.2 ; ADHD (attention deficit hyperactivity disorder), combined type F90.2 ; Hypothyroidism (acquired) E03.9 and Encounter for examination of blood pressure without abnormal findings Z01.30 [facility] [address] 07/12/2025 Lissette Normoyle BMI 31.0-31.9,adult Z68.31 ; Moderate obesity E66.9 ; Dietary counseling and surveillance Z71.3 ; Fatty liver disease, nonalcoholic K76.0 ; PCOS (polycystic ovarian syndrome) E28.2 ; ADHD (attention deficit hyperactivity disorder), combined type F90.2 ; Hypothyroidism (acquired) E03.9 and Encounter for examination of blood pressure without abnormal findings Z01.30 [facility] [address] 06/14/2025 Lissette Normoyle Moderate obesity E66 .9 [facility] [address] [place] [address] 07/01/2025 Lissette Normoyle Moderate obesity E66 .9 Assessments Encounter Date Diagnosis (ICD Code) Assessment Notes Treatment Notes Treatment Clinical Notes Section Notes 06/14/2025 BMI 34.0-34.9,adult (ICD-10 - Z68.34) Tracy [...] Consider group exercises. Consider hiring a personal property assessor. Regular exercise is olguin to sustainable health [...] counseling and psychiatry and Dr Newsome at [facility]. We would like to cover regular topics [...] Dictation was accomplished with the use of [employer] voice recognition software, prone to medical misidentifications [...] arise. 06/14/2025 Moderate obesity (ICD-10 - E66.9) Tracy [...] Consider using apps like 7 minute excercise, [employer], lose it, stick as needed for self-monitoring and weight management. Consider group exercises. Consider hiring a personal property assessor. Regular exercise is olguin to sustainable health [...] counseling and psychiatry and Dr Newsome at [facility]. We would like to cover regular topics [...] Dictation was accomplished with the use of [employer] voice recognition software, prone to medical misidentifications and grammatical errors. This is unintentional and the practitioner does try to identify and correct these, but some could still be present. Please do not hesitate to contact practitioner for clarification. All questions answered to patients satisfaction. Patient verbalized understanding of diagnosis and treatments explained. To call sooner prior to next visit it any questions/concerns arise. 07/01/2025 Moderate obesity (ICD-10 - E66.9) 07/12/2025 BMI 31.0-31.9,adult (ICD-10 - Z68.31) Tracy is a 29-year-old female who presents for weight management f/u. Medical history, labs, allergies, medications, and social [...] (Dr. Tabatha Hill or Dr. Halina Hill). 07/12/2025: Weight 165.7 pounds, BMI 31.8. Continues on Zepbound 2.5 mg weekly injections. Congratulated on effort. On review of body composition scan, skeletal muscle mass decreased 1 pound, fat mass decreased 10 pounds. Discussed exercise, hydration, protein goals. Plan to continue Zepbound 2.5 mg weekly injections. Follow-up in 4 weeks. #MASH: Follows with PCP. Discussed continuing healthy [...] Consider using apps like 7 minute [employer]cercise, [employer], lose it, stick as needed for self-monitoring and weight management. Consider group exercises. Consider hiring a personal property assessor. Regular exercise is olguin to sustainable health [...] counseling and psychiatry and Dr Newsome at [facility]. We would like to cover regular topics [...] weight management Total time spent today was 30 minutes of which greater than 50% was spent on coordinating and counseling Case discussed with collaborating physician Rory Hill who reviewed the assessment and plan. Chart, medications, labs, vital signs reviewed. Dictation was accomplished with the use of [employer] voice recognition software, prone to medical misidentifications and grammatical errors. This is unintentional and the practitioner does try to identify and correct these, but some could still be present. Please do not hesitate to contact practitioner for clarification. All questions answered to patients satisfaction. Patient verbalized understanding of diagnosis and treatments explained. To call sooner prior to next visit it any questions/concerns arise. 07/12/2025 Dietary counseling and surveillance (ICD-10 - Z71.3) Tracy is a 29-year-old female who presents for weight management f/u. Medical history, labs, allergies, medications, and social [...] (Dr. Tabatha Hill or Dr. Halina Hill). 07/12/2025: Weight 165.7 pounds, BMI 31.8. Continues on Zepbound 2.5 mg weekly injections. Congratulated on effort. On review of body composition scan, skeletal muscle mass decreased 1 pound, fat mass decreased 10 pounds. Discussed exercise, hydration, protein goals. Plan to continue Zepbound 2.5 mg weekly injections. Follow-up in 4 weeks. #MASH: Follows with PCP. Discussed continuing healthy [...] Consider using apps like 7 minute [employer]cercise, [employer], lose it, stick as needed for self-monitoring and weight management. Consider group exercises. Consider hiring a personal property assessor. Regular exercise is olguin to sustainable health [...] counseling and psychiatry and Dr Newsome at [facility] [facility]. We would like to cover regular topics [...] weight management Total time spent today was 30 minutes of which greater than 50% was spent on coordinating and counseling Case discussed with collaborating physician Rory Hill who reviewed the assessment and plan. Chart, medications, labs, vital signs reviewed. Dictation was accomplished with the use of [employer] voice recognition software, prone to medical misidentifications [...] can order medication once approval received. 06/14/2025 Dietary counseling and surveillance (ICD-10 - [...] board-certified obesity and weight management physician (Dr. Tabtaha Hill or Dr. Halina Hill). #MASH: Follows [...] Consider using apps like 7 minute [employer]ise, [employer], lose it, stick as needed for self-monitoring and weight management. Consider group exercises. Consider hiring a personal property assessor. Regular exercise is olguin to sustainable health [...] counseling and psychiatry and Dr Newsome at [facility] [facility]. We would like to cover regular topics [...] Dictation was accomplished with the use of [employer] voice recognition software, prone to medical misidentifications and grammatical errors. This is unintentional and the practitioner does try to identify and correct these, but some could still be present. Please do not hesitate to contact practitioner for clarification. All questions answered to patients satisfaction. Patient verbalized understanding of diagnosis and treatments explained. To call sooner prior to next visit it any questions/concerns arise. 07/12/2025 Moderate obesity (ICD-10 - E66.9) Tracy is a 29-year-old female who presents for weight management f/u. Medical history, labs, allergies, medications, and social [...] (Dr. Tabatha Hill or Dr. Halina Hill). 07/12/2025: Weight 165.7 pounds, BMI 31.8. Continues on Zepbound 2.5 mg weekly injections. Congratulated on effort. On review of body composition scan, skeletal muscle mass decreased 1 pound, fat mass decreased 10 pounds. Discussed exercise, hydration, protein goals. Plan to continue Zepbound 2.5 mg weekly injections. Follow-up in 4 weeks. #MASH: Follows with PCP. Discussed continuing healthy [...] Consider using apps like 7 minute excercise, [employer], lose it, stick as needed for self-monitoring and weight management. Consider group exercises. Consider hiring a personal property assessor. Regular exercise is olguin to sustainable health [...] counseling and psychiatry and Dr Newsome at [facility] [facility]. We would like to cover regular topics [...] weight management Total time spent today was 30 minutes of which greater than 50% was spent on coordinating and counseling Case discussed with collaborating physician Rory Hill who reviewed the assessment and plan. Chart, medications, labs, vital signs reviewed. Dictation was accomplished with the use of [employer] voice recognition software, prone to medical misidentifications [...] next visit it any questions/concerns arise. 06/14/2025 Fatty liver disease, nonalcoholic (ICD-10 - [...] Consider group exercises. Consider hiring a personal property assessor. Regular exercise is olguin to sustainable health [...] counseling and psychiatry and Dr Newsome at [facility] [facility]. We would like to cover regular topics [...] Dictation was accomplished with the use of [employer] voice recognition software, prone to medical misidentifications and grammatical errors. This is unintentional and the practitioner does try to identify and correct these, but some could still be present. Please do not hesitate to contact practitioner for clarification. All questions answered to patients satisfaction. Patient verbalized understanding of diagnosis and treatments explained. To call sooner prior to next visit it any questions/concerns arise. 07/12/2025 Fatty liver disease, nonalcoholic (ICD-10 - K76.0) Tracy is a 29-year-old female who presents for weight management f/u. Medical history, labs, allergies, medications, and social [...] (Dr. Tabatha Hill or Dr. Halina Hill). 07/12/2025: Weight 165.7 pounds, BMI 31.8. Continues on Zepbound 2.5 mg weekly injections. Congratulated on effort. On review of body composition scan, skeletal muscle mass decreased 1 pound, fat mass decreased 10 pounds. Discussed exercise, hydration, protein goals. Plan to continue Zepbound 2.5 mg weekly injections. Follow-up in 4 weeks. #MASH: Follows with PCP. Discussed continuing healthy [...] Consider using apps like 7 minute [employer]ise, [employer], lose it, stick as needed for self-monitoring and weight management. Consider group exercises. Consider hiring a personal property assessor. Regular exercise is olguin to sustainable health [...] counseling and psychiatry and Dr Newsome at [facility] [facility]. We would like to cover regular topics [...] weight management Total time spent today was 30 minutes of which greater than 50% was spent on coordinating and counseling Case discussed with collaborating physician Rory Hill who reviewed the assessment and plan. Chart, medications, labs, vital signs reviewed. Dictation was accomplished with the use of [employer] voice recognition software, prone to medical misidentifications and grammatical errors. This is unintentional and the practitioner does try to identify and correct these, but some could still be present. Please do not hesitate to contact practitioner for clarification. All questions answered to patients satisfaction. Patient verbalized understanding of diagnosis and treatments explained. To call sooner prior to next visit it any questions/concerns arise. 07/12/2025 PCOS (polycystic ovarian syndrome) (ICD-10 - E28.2) Tracy is a 29-year-old female who presents for weight management f/u. Medical history, labs, allergies, medications, and social [...] (Dr. Tabatha Hill or Dr. Halina Hill). 07/12/2025: Weight 165.7 pounds, BMI 31.8. Continues on Zepbound 2.5 mg weekly injections. Congratulated on effort. On review of body composition scan, skeletal muscle mass decreased 1 pound, fat mass decreased 10 pounds. Discussed exercise, hydration, protein goals. Plan to continue Zepbound 2.5 mg weekly injections. Follow-up in 4 weeks. #MASH: Follows with PCP. Discussed continuing healthy [...] Consider group exercises. Consider hiring a personal property assessor. Regular exercise is olguin to sustainable health [...] counseling and psychiatry and Dr Newsome at [facility] [facility]. We would like to cover regular topics [...] weight management Total time spent today was 30 minutes of which greater than 50% was spent on coordinating and counseling Case discussed with collaborating physician Rory Hill who reviewed the assessment and plan. Chart, medications, labs, vital signs reviewed. Dictation was accomplished with the use of [employer] voice recognition software, prone to medical misidentifications [...] Consider using apps like 7 minute excercise, [employer], lose it, stick as needed for self-monitoring and weight management. Consider group exercises. Consider hiring a personal property assessor. Regular exercise is olguin to sustainable health [...] counseling and psychiatry and Dr Newsome at [facility]. We would like to cover regular topics [...] Dictation was accomplished with the use of [employer] voice recognition software, prone to medical misidentifications [...] Consider using apps like 7 minute excercise, [employer], lose it, stick as needed for self-monitoring and weight management. Consider group exercises. Consider hiring a personal property assessor. Regular exercise is olguin to sustainable health [...] counseling and psychiatry and Dr Newsome at [facility] [facility]. We would like to cover regular topics [...] Dictation was accomplished with the use of [employer] voice recognition software, prone to medical misidentifications and grammatical errors. This is unintentional and the practitioner does try to identify and correct these, but some could still be present. Please do not hesitate to contact practitioner for clarification. All questions answered to patients satisfaction. Patient verbalized understanding of diagnosis and treatments explained. To call sooner prior to next visit it any questions/concerns arise. 07/12/2025 ADHD (attention deficit hyperactivity disorder), combined type (ICD-10 - F90.2) Tracy is a 29-year-old female who presents for weight management f/u. Medical history, labs, allergies, medications, and social [...] (Dr. Tabatha Hill or Dr. Halina Hill). 07/12/2025: Weight 165.7 pounds, BMI 31.8. Continues on Zepbound 2.5 mg weekly injections. Congratulated on effort. On review of body composition scan, skeletal muscle mass decreased 1 pound, fat mass decreased 10 pounds. Discussed exercise, hydration, protein goals. Plan to continue Zepbound 2.5 mg weekly injections. Follow-up in 4 weeks. #MASH: Follows with PCP. Discussed continuing healthy [...] Consider using apps like [employer], [employer], lose it, stick as needed for self-monitoring and weight management. Consider group exercises. Consider hiring a personal property assessor. Regular exercise is olguin to sustainable health [...] counseling and psychiatry and Dr Newsome at [facility] [facility]. We would like to cover regular topics [...] weight management Total time spent today was 30 minutes of which greater than 50% was spent on coordinating and counseling Case discussed with collaborating physician Rory Hill who reviewed the assessment and plan. Chart, medications, labs, vital signs reviewed. Dictation was accomplished with the use of [employer] voice recognition software, prone to medical misidentifications and grammatical errors. This is unintentional and the practitioner does try to identify and correct these, but some could still be present. Please do not hesitate to contact practitioner for clarification. All questions answered to patients satisfaction. Patient verbalized understanding of diagnosis and treatments explained. To call sooner prior to next visit it any questions/concerns arise. 07/12/2025 Hypothyroidism (acquired) (ICD-10 - E03.9) Tracy is a 29-year-old female who presents for weight management f/u. Medical history, labs, allergies, medications, and social [...] (Dr. Tabatha Hill or Dr. Halina Hill). 07/12/2025: Weight 165.7 pounds, BMI 31.8. Continues on Zepbound 2.5 mg weekly injections. Congratulated on effort. On review of body composition scan, skeletal muscle mass decreased 1 pound, fat mass decreased 10 pounds. Discussed exercise, hydration, protein goals. Plan to continue Zepbound 2.5 mg weekly injections. Follow-up in 4 weeks. #MASH: Follows with PCP. Discussed continuing healthy [...] Consider group exercises. Consider hiring a personal property assessor. Regular exercise is olguin to sustainable health [...] counseling and psychiatry and Dr Newsome at [facility] [facility]. We would like to cover regular topics [...] weight management Total time spent today was 30 minutes of which greater than 50% was spent on coordinating and counseling Case discussed with collaborating physician Rory Hill who reviewed the assessment and plan. Chart, medications, labs, vital signs reviewed. Dictation was accomplished with the use of [employer] voice recognition software, prone to medical misidentifications [...] Consider group exercises. Consider hiring a personal property assessor. Regular exercise is olguin to sustainable health [...] counseling and psychiatry and Dr Newsome at [facility] [facility]. We would like to cover regular topics [...] Dictation was accomplished with the use of [employer] voice recognition software, prone to medical misidentifications and grammatical errors. This is unintentional and the practitioner does try to identify and correct these, but some could still be present. Please do not hesitate to contact practitioner for clarification. All questions answered to patients satisfaction. Patient verbalized understanding of diagnosis and treatments explained. To call sooner prior to next visit it any questions/concerns arise. 07/12/2025 Encounter for examination of blood pressure without abnormal findings (ICD-10 - Z01.30) Tracy is a 29-year-old female who presents for weight management f/u. Medical history, labs, allergies, medications, and social [...] (Dr. Tabatha Hill or Dr. Halina Hill). 07/12/2025: Weight 165.7 pounds, BMI 31.8. Continues on Zepbound 2.5 mg weekly injections. Congratulated on effort. On review of body composition scan, skeletal muscle mass decreased 1 pound, fat mass decreased 10 pounds. Discussed exercise, hydration, protein goals. Plan to continue Zepbound 2.5 mg weekly injections. Follow-up in 4 weeks. #MASH: Follows with PCP. Discussed continuing healthy [...] Consider group exercises. Consider hiring a personal property assessor. Regular exercise is olguin to sustainable health [...] counseling and psychiatry and Dr Newsome at [employer]. We would like to cover regular topics [...] weight management Total time spent today was 30 minutes of which greater than 50% was spent on coordinating and counseling Case discussed with collaborating physician Rory Hill who reviewed the assessment and plan. Chart, medications, labs, vital signs reviewed. Dictation was accomplished with the use of [employer] voice recognition software, prone to medical misidentifications [...] Consider group exercises. Consider hiring a personal property assessor. Regular exercise is olguin to sustainable health [...] counseling and psychiatry and Dr Newsome at [facility] [facility]. We would like to cover regular topics [...] Dictation was accomplished with the use of [employer] voice recognition software, prone to medical misidentifications [...] Treatment Next Appt Details Provider Name:Lissette baum, 08/09/2025 10:00:00 AM, [address] [facility], [facility] [address], [place], [address], Insurance Providers Payer Name Payer Address Payer Phone Subscriber Number Group Number Insured Name Patient Relationship to Insured Coverage Start Date Coverage End Date [facility] [address] [place] [address] [id number] TRACY MILLER Self - patient is the insured 3 Medical (General) History Medical History History ICD Code weight gain/loss Hypothyroidism (acquired) E03.9 ADHD (attention deficit hyperactivity di sorder), combined type F90.2 Anxiety, generalized F41.1 Fatty liver disease, nonalcoholic K76.0 PCOS (polycystic ovarian syndrome) E28.2 Surgical History Surgery Date(Month/Year) C section 10/25/2011 C section 02/28/2019
--- OUTSIDE RECORDS SUMMARY | 2025-07-21 18:02 | XMS_ITS | Clinical Summary ---
Author Organization [facility] [address] [facility] Address [address] [place] [address] Phone Care Team Providers Care Garbage Pick Up Man Name Role Phone Job Fernandez MD Primary [...] to complete this topic Insurance [facility] [place] [id number] Care Teams Garbage Pick Up Man Relationship Specialty Start Date End Date Job Fernandez MD [address] [place] [address] [place] [id number] PCP - General Internal Medicine 06/30/18
== END 2025-07-21 14:57 | disposition home or self-care (01) ==
LOC: HO.US 14:56
PROVIDERS: PCP Internal Medicine; Visit Provider Internal Medicine
DX: M54.12 Radiculopathy, cervical region (principal); R59.0 Localized enlarged lymph nodes
CPT/HCPCS: 76536; 76882

== ENCOUNTER → 2025-07-21 14:58 | Outpatient (BNV) | payer OTHER, SELFPAY | PROVIDERS: PCP Internal Medicine; Visit Provider Radiology Diagnostic Radiology | DX: R59.0 Localized enlarged lymph nodes (principal) | CPT/HCPCS: 76536; 76882 ==

== ENCOUNTER 2025-07-22 13:46 | Outpatient (REF) | payer OTHER, SELFPAY ==
[2025-07-22 17:31] LABS: MANUAL DIFF FLAG NO
[2025-07-22 17:46] LABS: Hematocrit 45.7 % (37.0-47.0); Hemoglobin 14.9 g/dl (12.0-16.0); Imm Gran Abs Auto 0.04 X10*3/uL (0.00-0.03); Imm Gran Pct Auto 0.4 % (0.0-0.4); Lymphocytes Absolute Auto 3.6 X10*3/uL (1.2-4.9); Mean Corpuscular HGB Conc 32.6 g/dl (31.0-35.0); Mean Corpuscular Hemoglobin 28.5 pg (27.0-33.0); Mean Corpuscular Volume 87.5 fL (80.0-98.0); NRBC Abs Auto 0.000 X10*3/uL (0.0-0.012); NRBC Pct Auto 0.0 /100WBC (0.0-0.2); Platelet Count 509 X10*3/uL (160-400); Red Blood Count 5.22 X10*6/uL (4.20-5.50); White Blood Count 10.2 X10*3/uL (4.8-10.8)
[2025-07-22 18:10] LABS: Alanine Aminotransferase 35 U/L (0-31); Albumin Level 4.5 g/dL (3.5-5.0); Alkaline Phosphatase 58 U/L (39-117); Anion Gap 13 (12-20); Aspartate Amino Transferase 24 U/L (5-31); Blood Urea Nitrogen 14 mg/dL (9-16); Calcium 9.3 mg/dL (8.4-10.2); Carbon Dioxide 26 mmol/L (22-29); Chloride 104 mmol/L (96-108); Estimated Glomerular Filt Rate > 60; Potassium 3.8 mmol/L (3.3-5.1); Sodium 139 mmol/L (135-145); Total Protein 7.1 g/dL (6.5-8.0)
[2025-07-22 18:25] LABS: Erythrocyte Sedimentation Rate 2 MM/HR (0-20)
[2025-07-24 00:23] LABS: A. Phagocytphilium DNA,RT-PCR NOT DETECTED (NOT DETECTED); Babesia Microti DNA, RT-PCR NOT DETECTED (NOT DETECTED); Borrelia Miyamotoi,DNA RT-PCR NOT DETECTED (NOT DETECTED); E.Chaffeensis DNA RT-PCR NOT DETECTED (NOT DETECTED); Lyme(Borrelia ssp)DNA RT-PCR NOT DETECTED (NOT DETECTED)
== END 2025-07-22 13:47 | disposition home or self-care (01) ==
LOC: HO.WFDLDS 13:46
PROVIDERS: PCP Internal Medicine; Visit Provider Physician Assistant Medical
DX: B37.0 Candidal stomatitis (principal); I88.9 Nonspecific lymphadenitis, unspecified; R53.83 Other fatigue; M54.2 Cervicalgia; R10.9 Unspecified abdominal pain; J02.9 Acute pharyngitis, unspecified; F41.9 Anxiety disorder, unspecified
CPT/HCPCS: 36415; 80053; 83615; 84443; 85025; 85652; 87070; 87468; 87469; 87478; 87484; 87798

== ENCOUNTER 2025-07-22 13:46 | Outpatient (AMB) | payer OTHER, SELFPAY ==
--- NOTE | 2025-07-22 14:19 | A.OFFPC_ITS ---
Vital Signs 07/22/25 14:23 Height 5 ft 1 in Weight 162 lb 4 oz BMI 30.7 BP 102/68 Blood Pressure Location Lt brachial Position Sitting Respiration 14 Pulse 97 Pulse Source Pulse Oximeter Temp 97.6 F Temp Source Temporal Artery Scan Pulse Oximetry (%) 98 Oxygen Delivery Method Room Air Intake Visit Reasons: [facility] for on going neck and throat swelling Intake Note: Tracy presents in the office today for an ER follow up. Allergies amoxicillin Allergy (Intermediate, Verified 07/22/25 14:21) hives Erythromycin Allergy (Intermediate, Uncoded 07/22/25 14:21) hives Tobacco use date assessed: 07/22/25 Dental Screening Dental Screen Date: 07/22/25 Did you have a dental visit in the last 12 months?: Yes Did you have a dental problem in the last 6 months where you did not have access to dental care?: No Was dental information given to patient?: Patient has dentist HPI HPI Comments History of Present Illness Details 29-year-old female with a past medical h istory of cervical lymphadenopathy, JORGE, ADHD, hypothyroidism presents for ER follow up. Seen 07/16/2025 at [facility]. Reports in late May she was diagnosed with strep throat, treated with cefdinir. Testing for mono was negative. Three days prior to ED visit she was again diagnosed with strep throat after having more pain and placed on cefdinir however reported to ED after worsening throat pain, swelling. Went to [facility] on 07/15/2025 where she had a CT scan of the soft tissues of the neck which did show pharyngitis however no abscess. Reported difficulty eating and drinking secondary to pain. She also reported ongoing fevers with temperature max 101.4. She also reported contacting her PCP the morning of 07/16/2025 who prescribed Levaquin. There was left anterior neck tenderness to palpation and cervical lymphadenopathy with no stridor. Patient was given dose of ceftriaxone at the ED as well as fluids. Reports she was also treated with 2 doses of IV steroids. White count 13,200 and platelets were elevated at 576,000. LFTs normal. Reports she has also been having right upper quadrant abdominal pain that is [id number]. No vomiting, diarrhea or blood in stools. She has ENT appointment booked in 2 weeks. She is anxious to have a biopsy of the lymph node. PCP obtained head and neck ultrasound on 07/21/2025 which demonstrated 3 left submandibular lymph nodes 1 of which was slightly enlarged measuring 1.5 cm with cortical thickening and a slit like hilum. Reactive lymph node versus lymphoproliferative process considered. Patient reports she went to urgent care again and tested negative for CMV and EBV. Reports she is drinking fluids but has not been able to eat. Has not been able to work. She completed all antibiotics and has continued symptoms. Patient says her throat isn't sore anymore, but lymph nodes and swelling on the neck feel painful. Does not feel she has worsening at this time. Currently afebrile and reports taking ibuprofen today. ROS: Constitutional: Endorses fevers, chills, fatigue. No night sweats. Endorses weight loss. Eyes: No vision changes ENT: No hearing loss, sneezing, congestion. See HPI Respiratory: No shortness of breath or cough or sputum production Cardiovascular: No chest pain Gastrointestinal: No nausea, vomiting, diarrhea or blood in stools. See HPI Neurologic: No headache, dizziness, syncope Musculoskeletal: No new muscle aches or joint swelling Hematologic/Lymphatics: No bleeding or bruising. Skin: No rash or jaundice Psychiatric: +anxiety and difficulty focusing due to symptoms Physical exam: Constitutional: Alert, in no distress. Ear, Nose and Throat: Canals clear. TMs normal. Normal nasal mucosa. Sinuses nontender. Asymmetric tonsillar hypertrophy, left is larger than right. No exudates or erythema. There is a whitish covering on the tongue Neck: Supple, Full range of motion. No erythema or rashes. Bilateral submandibular lymphadenopathy, tenderness in the left submandibular area Respiratory: Clear to auscultation. Cardiovascular: S1 S2 regular. No murmurs. No carotid bruits. Gastrointestinal: No rebound or guarding. No palpable masses or organomegaly. Bowel sounds normoactive in 4 quadrants. Mild tenderness in the right upper quadrant. Neurologic: No focal neurological deficits. Skin: No rashes or jaundice Extremities: Warm and well perfused. Psychiatric: Appears anxious [facility] Medical History (Updated 07/23/25 @ 12:52 by EDUAR Medina) Oral thrush Submandibular lymphadenopathy Pharyngitis Throat discomfort Abdominal pain Fatigue Submandibular lymphadenitis Chest heaviness ALSTON (dyspnea on exertion) Lumbar spondylolysis Weakness of left foot Numbness and tingling of upper and lower extremities of both sides Circumoral cyanosis Numbness Cold extremities Family History Father Gastric cancer HTN (hypertension) Asthma Maternal Grandmother Suicide Mother Depression Psychiatric disorder Other FH: mental illness Social History (Updated 07/22/25 @ 14:23 by Josephine Anderson CMA) Housing: House Alcohol intake: never Patient Tobacco Use Status: Never used Tobacco e-Cigarette/Vaping Use: Never Used Second Hand Smoke Exposure: No service: No Current occupational status: employed 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 Current occupational exposures/hazards: No Cognitive needs: No Hearing needs: No Vision needs: No Questionnaire Thrive Questionnaire Date Thrive assessed: 10/16/24 I am a: Patient What is your living situation today?: I have a steady place to live Within the past 12 months, did the food you bought not last and you didn't have the money to get more?: Never true Within the past 12 months, did you worry whether your food would run out before you got money to buy more?: Never true Do you have trouble paying for medicines?: No Do you have trouble getting transportation to medical appointments?: No Do you have trouble paying your heating and electricity bill?: No Do you have trouble taking care of your child, family member or friend?: No Do you have trouble with day-to-day activities such as bathing, preparing meals, shopping, managing finances, etc.?: No Are you currently unemployed and looking for a job?: No Are you interested in more education?: No Please select the resources that you would like help with: None Currently or been in a relationship where the following occur: No concerns reported THRIVE Score: 0 JORGE-7 AMB Questionnaire JORGE-7 Date JORGE - 7 assessed: 01/07/25 Source: Developed by Drs. Balaji Toro, Chrystal Abrams, Jamison Davey and colleagues, with an educational marly from [employer]. Physical exam (Primary Care) Vital Signs: Last Vital Signs Temp 97.6 F 07/22/25 14:23 Pulse 97 07/22/25 14:23 Resp 14 07/22/25 14:23 BP 102/68 07/22/25 14:23 Pulse Ox 98 07/22/25 14:23 Oxygen Delivery Method Room Air 07/22/25 14:23 BMI result Body Mass Index 30.7 Tobacco/Smoking Status: Tobacco use Status Tobacco use date assessed 07/22/25 07/22/25 14:26 Patient Tobacco Use Status Never used Tobacco 07/22/25 14:23 e-Cigarette/Vaping Use Never Used 07/22/25 14:23 Thrive Assessment: Date of Thrive Assessment Date Thrive assessed 10/16/24 07/22/25 14:20 Currently or been in a relationship where the following occur: No concerns reported Results AMB Rapid Strep AMB Rapid Strep Negative Last Edit by Josephine Anderson CMA on 07/22/25 16:52 Results Reviewed Results Reviewed: Laboratory Last Values Strep Scn Rapid Clinic Negative 07/22/25 16:51 Coding Level of Care Code Est Pt Level 4 (46085) Complex EM visit Add On G2211 Diagnoses Abdominal pain R10.9 Pharyngitis J02.9 Submandibular lymphadenopathy R59.0 Anxiety F41.9 Oral thrush B37.0 Assessment & Plan Assessment & Plan (1) Abdominal pain: Code(s): R10.9 - Unspecified abdominal pain Category: Medical (2) Pharyngitis: Code(s): J02.9 - Acute pharyngitis, unspecified Category: Medical (3) Submandibular lymphadenopathy: Code(s): R59.0 - Localized enlarged lymph nodes Category: Medical (4) Anxiety: Code(s): F41.9 - Anxiety disorder, unspecified Category: Medical (5) Oral thrush: Code(s): B37.0 - Candidal stomatitis Category: Medical Plan We discussed that the elevated platelets could be acute phase reactant due to infection. She had tested positive for strep, rapid strep is negative today, and she completed multiple courses of antibiotics. Throat culture sent, but this infection has likely resolved. We discussed she may have another viral illness or infection contributing to ongoing lymphadenopathy, fatigue and abdominal pain. She had testing for mono, C MV and EBV that was negative. I ordered testing for tick-borne illnesses. Check LDH, sed rate and repeat CBC and CMP. Ordered urgent ultrasound. Advised to go to the ER for emergent imaging if abdominal pain worsens or she has worsening fevers, lethargy or other concerning symptoms. She has a repeat CT scan of the neck and ENT appointments pending. Continue to push fluids at home and eat soft solids. If she can not tolerate p.o. she needs to return to the ED. Treat oral thrush with nystatin. This is likely secondary to antibiotics and steroids. We will provide documentation for her work. Orders: Orders Comprehensive Met. Panel 07/22/25 I88.9 - Nonspecific lymphadenitis, unspecified, R53.83 - Other fatigue Complete Blood Count Auto Diff 07/22/25 I88.9 - Nonspecific lymphadenitis, unspecified, R53.83 - Other fatigue Erythrocyte Sedimentation Rate 07/22/25 I88.9 - Nonspecific lymphadenitis, unspecified, R53.83 - Other fatigue Lactate Dehydrogenase 07/22/25 I88.9 - Nonspecific lymphadenitis, unspecified, R53.83 - Other fatigue US abdomen complete 07/22/25 R10.9 - Unspecified abdominal pain Throat Culture 07/22/25 R07.0 - Pain in throat TSH reflex Free T4 07/22/25 I88.9 - Nonspecific lymphadenitis, unspecified, R53.83 - Other fatigue Tick-borne Disease Molecular 07/22/25 I88.9 - Nonspecific lymphadenitis, unspecified, R53.83 - Other fatigue AMB Rapid Strep Screen 07/22/25 R07.0 - Pain in throat, Z13.9 - Encounter for screening, unspecified Medications: New nystatin swish in the mouth and retain for as long as possible (several minutes) before swallowing 500,000 units (5 mL) PO QID 200 mL 0RF 10 days
[2025-07-22 14:23] VITALS: BP 102/68; PULSE 97; RESP 14; TEMP 36.4; O2SAT 98; BMI 30.7
--- OUTSIDE RECORDS SUMMARY | 2025-07-22 16:46 | XMS_ITS | Patient Health Record ---
Author Organization [facility] [address] Address [address] [place] [address] Care Team Providers Care Gin Feeder Name Role Phone JENNY CAMILO Primary Care Provider Lissette Luevano Unavailable [phone] Allergies Allergen (clinical drug ingredient) Drug/Non Drug [...] Status W/U Status Risk Notes Problem Hypothyroidism (77802275) Hypothyroidism (acquired) (E03.9) Active confirmed Problem Fatty liver (965477666) Fatty liver disease, nonalcoholic (K76.0) Active confirmed Problem Polycystic ovary syndrome (disorder) (456455014) PCOS (polycystic ovarian syndrome) (E28.2) Active confirmed Problem Body mass index 30.00 to 34.99 (385536115456350) BMI 31.0-31.9,adult (Z68.31) Active confirmed Problem Body mass index 30.00 to 34.99 (498469032862974) BMI 34.0-34.9,adult (Z68.34) Active confirmed Problem Attention deficit hyperactivity disorder (202771284) ADHD (attention deficit hyperactivity disorder), combined type (F90.2) Active confirmed Problem Generalized anxiety disorder (01029730) Anxiety, generalized (F41.1) Active confirmed Problem Obesity (802000707) Moderate obesity (E66.9) Active confirmed Vital Signs Heart Rate 93 /min 07/12/2025 Oximetry 99 % 07/12/2025 Blood pressure diastolic 74 mm Hg 07/12/2025 Height 60 in 07/12/2025 Blood pressure systolic 120 mm Hg 07/12/2025 Weight 165.7 lbs 07/12/2025 BMI 32.36 kg/m2 07/12/2025 Encounters Encounter Location Date Provider Diagnosis [facility] [address] [address] 06/14/2025 Lissette Normoyle Moderate obesity E66 .9 ; BMI 34.0-34.9,adult Z68.34 ; Dietary counseling and surveillance Z71.3 ; Fatty liver disease, nonalcoholic K76.0 ; PCOS (polycystic ovarian syndrome) E28.2 ; ADHD (attention deficit hyperactivity disorder), combined type F90.2 ; Hypothyroidism (acquired) E03.9 and Encounter for examination of blood pressure without abnormal findings Z01.30 [facility] [address] 07/12/2025 Lissette Normoyle BMI 31.0-31.9,adult Z68.31 ; Moderate obesity E66.9 ; Dietary counseling and surveillance Z71.3 ; Fatty liver disease, nonalcoholic K76.0 ; PCOS (polycystic ovarian syndrome) E28.2 ; ADHD (attention deficit hyperactivity disorder), combined type F90.2 ; Hypothyroidism (acquired) E03.9 and Encounter for examination of blood pressure without abnormal findings Z01.30 [facility] [address] 06/14/2025 Lissette Normoyle Moderate obesity E66 .9 [facility] [address] [place] [address] 07/01/2025 Lissette Normoyle Moderate obesity E66 .9 [...] Consider group exercises. Consider hiring a personal carer. Regular exercise is olguin to sustainable health [...] counseling and psychiatry and Dr Newsome at [facility]. We would like to cover regular topics [...] Dictation was accomplished with the use of [employer] voice recognition software, prone to medical misidentifications [...] books called The Food Rules by Ronni lE and Eat Fat Get Lean by Dr [...] Consider using apps like 7 minute excercise, myCEYXpal, lose it, stick as needed for self-monitoring and weight management. Consider group exercises. Consider hiring a personal carer. Regular exercise is olguin to sustainable health [...] counseling and psychiatry and Dr Newsome at [facility]. We would like to cover regular topics [...] Dictation was accomplished with the use of [employer] voice recognition software, prone to medical misidentifications [...] Consider using apps like 7 minute excercise, myCEYXpal, lose it, stick as needed for self-monitoring and weight management. Consider group exercises. Consider hiring a personal carer. Regular exercise is olguin to sustainable health [...] counseling and psychiatry and Dr Newsome at [facility]. We would like to cover regular topics [...] Dictation was accomplished with the use of [employer] voice recognition software, prone to medical misidentifications [...] Consider using apps like 7 minute excercise, Infinite Zpal, lose it, stick as needed for self-monitoring and weight management. Consider group exercises. Consider hiring a personal carer. Regular exercise is olguin to sustainable health [...] counseling and psychiatry and Dr Newsome at [facility]. We would like to cover regular topics [...] Dictation was accomplished with the use of [employer] voice recognition software, prone to medical misidentifications [...] Consider using apps like 7 minute excercise, Infinite Zpal, lose it, stick as needed for self-monitoring and weight management. Consider group exercises. Consider hiring a personal carer. Regular exercise is olguin to sustainable health [...] counseling and psychiatry and Dr Newsome at [facility]. We would like to cover regular topics [...] Dictation was accomplished with the use of [employer] voice recognition software, prone to medical misidentifications [...] Consider using apps like 7 minute excercise, myCEYXpal, lose it, stick as needed for self-monitoring and weight management. Consider group exercises. Consider hiring a personal carer. Regular exercise is olguin to sustainable health [...] counseling and psychiatry and Dr Newsome at [facility]. We would like to cover regular topics [...] Dictation was accomplished with the use of [employer] voice recognition software, prone to medical misidentifications [...] Consider group exercises. Consider hiring a personal carer. Regular exercise is olguin to sustainable health [...] about local counseling and psychiatry and Dr Neswome at [facility]. We would like to cover regular topics [...] Dictation was accomplished with the use of [employer] voice recognition software, prone to medical misidentifications [...] Consider using apps like 7 minute excercise, Infinite Zpal, lose it, stick as needed for self-monitoring and weight management. Consider group exercises. Consider hiring a personal carer. Regular exercise is olguin to sustainable health [...] counseling and psychiatry and Dr Newsome at [facility]. We would like to cover regular topics [...] Dictation was accomplished with the use of [employer] voice recognition software, prone to medical misidentifications [...] PCOS (polycystic ovarian syndrome) (ICD-10 - E28.2) Trayc is a 29-year-old female who presents for [...] Consider group exercises. Consider hiring a personal carer. Regular exercise is olguin to sustainable health [...] counseling and psychiatry and Dr Newsome at [facility]. We would like to cover regular topics [...] Dictation was accomplished with the use of [employer] voice recognition software, prone to medical misidentifications [...] Consider using apps like 7 minute excercise, myCEYXpal, lose it, stick as needed for self-monitoring and weight management. Consider group exercises. Consider hiring a personal carer. Regular exercise is olguin to sustainable health [...] counseling and psychiatry and Dr Newsome at [facility]. We would like to cover regular topics [...] Dictation was accomplished with the use of [employer] voice recognition software, prone to medical misidentifications [...] Consider using apps like 7 minute excercise, myCEYXpal, lose it, stick as needed for self-monitoring and weight management. Consider group exercises. Consider hiring a personal carer. Regular exercise is olguin to sustainable health [...] counseling and psychiatry and Dr Newsome at [facility]. We would like to cover regular topics [...] Dictation was accomplished with the use of [employer] voice recognition software, prone to medical misidentifications [...] Consider using apps like 7 minute excercise, Infinite Zpal, lose it, stick as needed for self-monitoring and weight management. Consider group exercises. Consider hiring a personal carer. Regular exercise is olguin to sustainable health [...] counseling and psychiatry and Dr Newsome at [facility]. We would like to cover regular topics [...] Dictation was accomplished with the use of [employer] voice recognition software, prone to medical misidentifications [...] Consider group exercises. Consider hiring a personal carer. Regular exercise is olguin to sustainable health [...] counseling and psychiatry and Dr Newsome at [facility]. We would like to cover regular topics [...] Dictation was accomplished with the use of [employer] voice recognition software, prone to medical misidentifications [...] Consider group exercises. Consider hiring a personal carer. Regular exercise is olguin to sustainable health [...] counseling and psychiatry and Dr Newsome at [facility]. We would like to cover regular topics [...] Dictation was accomplished with the use of [employer] voice recognition software, prone to medical misidentifications [...] Consider group exercises. Consider hiring a personal carer. Regular exercise is olguin to sustainable health [...] counseling and psychiatry and Dr Newsome at [facility]. We would like to cover regular topics [...] Dictation was accomplished with the use of [employer] voice recognition software, prone to medical misidentifications [...] Consider group exercises. Consider hiring a personal carer. Regular exercise is olguin to sustainable health [...] counseling and psychiatry and Dr Newsome at [facility]. We would like to cover regular topics [...] Dictation was accomplished with the use of [employer] voice recognition software, prone to medical misidentifications [...] Provider Name:Lissette baum, 08/09/2025 10:00:00 AM, [address] [facility], [facility] [address], [place], [address], Insurance Providers Payer Name Payer Address Payer Phone Subscriber Number Group Number Insured Name Patient Relationship to Insured Coverage Start Date Coverage End Date [facility] [address] [place] [address] [id number] TRACY MILLER Self - patient is the insured 3 Medical (General) History Medical History History ICD Code weight gain/loss Hypothyroidism (acquired) E03.9 ADHD (attention deficit hyperactivity di sorder), combined type F90.2 Anxiety, generalized F41.1 Fatty liver disease, nonalcoholic K76.0 PCOS (polycystic ovarian syndrome) E28.2 Surgical History Surgery Date(Month/Year) C section 10/25/2011 C section 02/28/2019
--- OUTSIDE RECORDS SUMMARY | 2025-07-22 16:46 | XMS_ITS | Clinical Summary ---
Author Organization [facility] Address [address] [facility] [address] [place] [address] Phone Care Team Providers Care Idea Worker Name Role Phone Pcp, Unknown Primary Care [...] Subscriber:Spouse Name:MARLIN MILLERCHARY Date of :1900 Address: [address] [place] [address] Payer ID:Not on file Type:PPO Address: [address] Member Subscriber Plan / Payer (Ef fective 2023-) Name:Tracy Miller Relation to Subscriber:Spouse Name:PATRIA MILLER Date of :1900 Address: [address] [place] [address] Payer ID:Not on file Type:PPO Address: [address] Member Subscriber Plan / Payer (Ef fective 2023-Present) Name:Tracy Miller Relation to Subscriber:Spouse Name:PATRIA MILLER Date of :1900 Address: [address] [place] [address] Payer ID:Not on file Type:O Address: [address] Member Subscriber Plan / Payer (Ef fective 2023-Present) Name:Tracy Miller Relation to Subscriber:Spouse Name:PATRIA MILLER Date of :1900 Address: [address] [place] [address] Payer ID:Not on file Type:PPO Address: [address] Member Subscriber Plan / Payer (Ef fective 2023-) Name:Tracy Miller Relation to Subscriber:Spouse Name:PATRIA MILLER Date of :1900 Address: [address] [place] [address] Payer ID:Not on file Type:PPO Address: [address] Member Subscriber Plan / Payer (Ef fective 2023-Present) Name:Tracy Miller Relation to Subscriber:Spouse Name:PATRIA MILLER Date of :1900 Address: [address] [place] [id number] Payer ID:Not on file Type:O Address: [address] HMO Care Teams Idea Worker Relationship Specialty Start Date End Date Pcp, Unknown PCP - General 06/14/23 Additional Source Comments The information contained in this document represents components of the legal health record. It is not the complete legal health record.[facility]
--- OUTSIDE RECORDS SUMMARY | 2025-07-22 16:46 | XMS_ITS | Clinical Summary ---
Author Organization [facility] [address] [facility] Address [address] [place] [address] Phone Care Team Providers Care Guest Services Officer Name Role Phone Job Fernandez MD [...] patient's age to complete this topic Insurance [facility] [place] [id number] Care Teams Guest Services Officer Relationship Specialty Start Date End Date Job Fernandez MD [address] [place] [address] [place] [id number] PCP - General Internal Medicine 06/30/18
== END 2025-07-22 15:46 | disposition home or self-care (01) ==
LOC: HO.HMCFM 13:47
PROVIDERS: PCP Internal Medicine; Visit Provider Physician Assistant Medical
DX: R10.9 Unspecified abdominal pain (principal); J02.9 Acute pharyngitis, unspecified; R59.0 Localized enlarged lymph nodes; F41.9 Anxiety disorder, unspecified; B37.0 Candidal stomatitis

== ENCOUNTER 2025-07-30 08:06 | Outpatient (REF) | payer OTHER, SELFPAY ==
--- OUTSIDE RECORDS SUMMARY | 2025-07-28 11:00 | XMS_ITS | Encounter Summary ---
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 Name Role Phone Unavailable Primary Care Provider Unavailabl e Reason for Visit * Reason Comments Sore Throat Encounter Details Date Type Department Care Team ([facility] st Contact Info) Description 07/28/2025 11:00 AM EST Office Visit [facility] [address] [phone] Jerrell Valadez MD [address] [place] [address] [phone] Enlarged lymph node in neck (Primary Dx); Tonsillar hypertrophy; Dysphonia; Gastroesophageal reflux disease without esophagitis Social History Tobacco Use Types Packs/Day Years Used Date Smoking Tobacco: Former Cigarettes 0.5 3 Q uit: 09/16/2011 Smokeless Tobacco: Never Tobacco Cessation:Counseling Given: Not Answered Alcohol Use Standard Drinks/Week Comments Never 0 (1 standard drink = 0.6 oz pur e alcohol) Comments Unknown Sex and Gender Information Value Date Recorded Sex Assigned at Female 07/14/2025 9:01 AM EDT Legal Sex Female 9:00 AM EDT Gender Identity Female 07/14/2025 9:01 AM EDT Sexual Orientation Not on file documented as of this encounter Progress Notes * Jerrell Valadez MD - 07/28/2025 11:00 AM EST Images from the original note were not included. [address] [place] [phone] Loc: [phone] Encounter Date: 07/28/2025 Chief Complaint Patient presents with Sore Throat 1. Enlarged lymph node in neck 2. Tonsillar hypertrophy 3. Dysphonia 4. Gastroesophageal reflux disease without esophagitis - famotidine (PEPCID) 40 MG tablet; Take 1 tablet (40 mg total) by mouth nightly. Dispense: 30 tablet; Refill: 3 ASSESSMENT AND PLAN Tracy Pollock is a 29-year-old female presenting with persistent left-sided neck soreness, swollen tonsils, and ear pain. She has a history of recurrent strep throat infections, the most recent being in late June, which was treated with cefdinir and Levaquin. She reports persistent symptoms despite antibiotic treatment, including hoarseness, neck pain, and a swollen left tonsil. Examination reveals a tense left sternocleidomastoid muscle and a small, mobile lymph node in the left neck. A flexible nasopharyngoscopy shows no masses, ulcerations, or mucosal lesions. The patient's symptoms may be related to residual inflammation from her recent infections, with possible contributions from laryngopharyngeal reflux. A recent ultrasound shows a borderline enlarged lymph node at 1.5 cm. There is no immediate concern for malignancy, but the patient expresses a desire for further evaluation due to family history of cancer. - Order ultrasound guided fine-needle aspiration biopsy of the left neck lymph node at [facility] or [facility]. - Prescribe famotidine for one month to address potential laryngopharyngeal reflux. - Advise the patient to continue supportive care strategies, including NSAIDs, heating pad application, and jaw rest. - Schedule a follow-up appointment in two months if symptoms persist. HISTORY OF PRESENT ILLNESS Tracy Pollock reports a history of swollen tonsils and neck soreness for the past six months, which has worsened over time. She experienced recurrent strep throat infections, with the most recent occurring in late June. She was treated with cefdinir and Levaquin, which resolved the infection but left her with persistent neck soreness, hoarseness, and a swollen left tonsil. She has also experienced ear pain and was evaluated for ear infections, which were ruled out. Tracy has a family history of cancer, including her father and aunt, which heightens her concern about her symptoms. PHYSICAL EXAM The patient was in no acute distress and breathing comfortably on exam. Examination of the ears, nose, oral cavity, oropharynx, and neck was completed and found to be within normal limits with the following notable exceptions and findings highlighted here: - Left ear: No signs of inflammation, no fluid behind the ear, eardrum normal. - Neck: Tense left sternocleidomastoid muscle, small mobile lymph node in the left neck, no erythema, no fluctuance - Oral cavity/OP: mild tonsillar hypertrophy, no mucosal lesions - Flexible nasopharyngoscopy: No masses, ulcerations, or mucosal lesions observed. DIAGNOSTIC TESTING REVIEWED A recent ultrasound of the neck showed a borderline enlarged lymph node at 1.5 cm with a slit-like hilum. The patient has had two previous ultrasounds and a CT scan, which did not reveal any concerning findings. A fine-needle aspiration biopsy is planned to further evaluate the lymph node. PROCEDURES Procedure: Flexible Fiberoptic Laryngoscopy Indication: Ongoing throat symptoms not improving with medical strategies and inability to fully evaluate the area of concern with transoral exam Description: In order to evaluate the area of concern, and in the context of the patient's symptomsnot fully accounted for oral cavity and oropharyngeal exam, a flexible fiberoptic endoscopy was discussed with the patient. Following consent for the procedure, topical 50:50 4% lidocaine/oxymetazoline solution was used as a topical anesthesic and decongestant. After adequate time for this to take e ffect, an endoscope was used to evaluate the nasal passages, nasopharynx, oropharynx, larynx, and hypopharynx. Please see findings below for details. The endoscope was then removed and the patient was observed without bleeding and with good respirations. The patient tolerated the procedure was and was discharged home in good condition. Findings: Nasal passages and nasopharynx: mild edema throughout without mucosal lesions, no obstructing lesions, patent eustachian tube orifices Oropharynx: Base of tongue with normal mucosa, posterior visualization of tonsil area within normal, vallecular clear and free of masses Hypopharynx: No significant pooling of secretions, free of masses, clear piriform sinuses Larynx: Epiglottis, arytenoids, and AE folds: mild intra-arytenoid edema. Mild erythema diffusely present True vocal cords: symmetric and mobile, no polyps, no mucosal lesions, no glottic gap during phonation Mild glottic and subglottic edema without obstruction Swallow performed with adequate elevation of larynx and closure of epiglottis. Airway widely patent during inspiration. Nursing Educator Images: Jerrell Valadez 07/28/2025 PAST MEDICAL HISTORY Past Medical History: Diagnosis Date Disease of thyroid gland History reviewed. No pertinent surgical history. Family History Problem Relation Age of Onset Autoimmune disease Mother Cancer Father Gastric adencarcinoma Cancer Maternal Aunt Cancer Maternal Uncle Social History[1] MEDICATIONS Current Medications[2] ALLERGIES Allergies[3] VISIT ORDERS 1. Enlarged lymph node in neck 2. Tonsillar hypertrophy 3. Dysphonia 4. Gastroesophageal reflux disease without esophagitis - famotidine (PEPCID) 40 MG tablet; Take 1 tablet (40 mg total) by mouth nightly. Dispense: 30 tablet; Refill: 3 Jerrell Valadez MD [1] Social History Tobacco Use Smoking status: Former Current packs/day: 0.00 Average packs/day: 0.5 packs/day for 3.0 years (1.5 ttl pk-yrs) Types: Cigarettes Quit date: 09/16/2011 Years since quittin.8 Smokeless tobacco: Never Substance Use Topics Alcohol use: Never Drug use: Never [2] Current Outpatient Medications: levothyroxine (SYNTHROID, LEVOTHROID) 100 MCG tablet, Take 100 mcg by mouth., Disp: , Rfl: lisdexamfetamine (VYVANSE) 40 MG capsule, Take 40 mg by mouth every morning., Disp: , Rfl: sertraline (ZOLOFT) 50 MG tablet, TAKE 1/2 TABLET BY MOUTH DAILY WITH FOOD FOR 10 DAYS THEN TAKE 1 TABLET DAILY, Disp: , Rfl: Zepbound 2.5 MG/0.5ML pen-injector, INJECT 1 PEN DIRECTED SUBCUTANEOUSLY ONCE WEEKLY, Disp: , Rfl: famotidine (PEPCID) 40 MG tablet, Take 1 tablet (40 mg total) by mouth nightly., Disp: 30 tablet, Rfl: 3 [3] Allergies Allergen Reactions Amoxicillin-Pot Clavulanate Hives Azithromycin Unknown/Patient and Family Unable to Define Erythromycin Rash/Dermatitis documented in this encounter Plan of Treatment Not on file documented as of this encounter Visit Diagnoses Diagnosis Enlarged lymph node in neck- Primary Tonsillar hypertrophy Hypertrophy of tonsils alone Dysphonia Gastroesophageal reflux disease without esophagitis Esophageal reflux documented in this encounter
--- OUTSIDE RECORDS SUMMARY | 2025-07-29 23:59 | XMS_ITS | Continuity of Care Document ---
Author Organization [facility] Address [address] [facility] [address], [address] d Floor, [address] [place] [phone]- Support Name Relationship Address Phone DUPERAULT, MADHAVI [...] TRACY Personal Relationship Unknown Un available DUPERAULT, MADHVAI Personal Relationship Unknown Un available DUPERAULT, MARTA mother Unknown Unavailab le DUPERAULT, MADHAVI Personal Relationship Unknown Un available CORTIS, PATRIA Personal Relationship Unknown Sabine vailable DUPERAULT, MADHAVI Personal Relationship Unknown Un available PATRIA, CORTIS Personal Relationship Unknown Sabine vailable DUPERAULT, MADHAVI Personal Relationship Unknown Un available CORTIS, JIMENEZ child Unknown Unavailable Care Team Providers Care 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/pharmacy #[id number], Partial fill upon patient request [...] intrauterine device See Instructions, Please delivery to [facility] 10/06 for insertion, # 1 each, 0 Refills, Maintenance,10/06/24 3:41:00 PM EST, [facility] 3, Partial fill [...] 3 Refills, Maintenance, 12/02/23 9:00:00 AM EDT, [id number], 154, cm, 10/14/23 11:45:00 EST, Height, 84, [...] Refills, Maintenance, 12/06/23 5:13:00 PM EDT, Solution, [facility]/pharmacy #[id number], 154, cm, 12/06/23 16:52:00 EDT, Height, [...] Active Social History Social History Type Response Sexual Sexually involved in last 6 months: Yes. Smoking Status Never (less than 100 in lifetime) entered on: 10/13/19 Sex Sex Representation Female (finding) Patient Care team information Care Team Personnel Name: Abilio Arellano RN Position: [facility] RN Member Role: Primary Care Nurse Name: Tracy Soto RN Position: [facility] RN Member Role: Primary Care Nurse Name: Senia Ingram MD Position: [facility] APRON MAN MD Member Role: Lifetime APRON MAN Physician Address: [address] [place] [id number] Telecom: Name: Beverley Tam MA Position: [facility] Outreach Member Role: Lifetime Consulting Physician Name: Martina Lucio MD Position: Reference Physician Member Role: PCP Address: [address] [place] [phone]- Telecom: Name: Vannesa Anguiano RN Position: [facility] AMB Nurse Member Role: Primary Care Nurse Name: Balaji Chaudhry MD Position: [facility] APRON MAN MD Member Role: Lifetime APRON MAN Physician Address: [address] [place] [address] [facility], [place] [address] Telecom: Care Team Related Persons Name: JIMENEZ SOTO Name: PATRIA SOTO Name: MARTA NICE Name: MADHAVI NICE Insurance Providers Guarantor name: TRACY SOTO Health Plan Information #: 1 Payer: [employer] NON P HMO P Payer Identifier: NA Member Number: [id number] Group Number: [id number] Subscriber Identifier: NA Relationship to Subscriber: spouse Coverage Type: Other Private Insurance Coverage Verification Date: NA Telecom: NA Address:
--- NOTE | ~2025-07-30 | CT_ITS ---
EXAMINATION: CT SOFT TISSUE NECK WITH CONTRAST CLINICAL INFORMATION: J03.01 COMPARISON: None available. TECHNIQUE: Following the intravenous administration of 60 mL of Omnipaque 350 intravenous contrast, helical imaging was performed in the axial plane with generation of coronal and sagittal reformatted images. This CT examination was performed using dose optimization techniques as appropriate, variously including the following: *Automated exposure control *Adjustment of mA and/or kV according to patient size (this includes techniques or standardized protocols for targeted exams where dose is matched to indication/reason for exam; i.e. extremities or head) *Use of iterative reconstruction technique DLP: 340 mGy-cm FINDINGS: Skull base, nasopharynx, retropharynx, oropharynx, hypopharynx and laryngeal demonstrated no masses or fluid collections. Mild prominent of the palatine tonsils. The upper airway passages are open. Resistor Winder spaces, parapharyngeal spaces, carotid spaces demonstrated no gross masses or fluid collections. Salivary glands demonstrated normal enhancement pattern without sialolithiasis or masses. The vessels are patent. The thyroid gland is not enlarged. Bilateral prominent cervical lymph nodes, the largest 16 mm. The thoracic aortic arch is normal. No acute airspace disease in the lung apices. No acute fracture or listhesis in the axial skeleton. No air-fluid levels in the paranasal sinuses. Tympanic cavities and mastoid cells are aerated. Pneumatized petrous apices, congenital. CT/CT soft tissue neck w IV con IMPRESSION: No abscess. Mild prominent palatine tonsils. Bilateral cervical lymphadenopathy, largest 16 mm carotid compartment. Electronically signed by: Emigdio Tavares MD 07/30/2025 09:44 AM EST
--- NOTE | ~2025-07-30 | US_ITS ---
CLINICAL HISTORY: R10.9 - Unspecified abdominal pain US abdomen complete Comparison: None provided Findings: The visualized pancreas is normal. The aorta and inferior vena cava are normal caliber. The liver is normal in size and echotexture. There is no intrahepatic bile duct dilatation. The common duct is 3 mm in diameter. 3 mm gallbaldder polyp. No wall thickening. No pericholecystic fluid. The main portal vein is antegrade. The right kidney is 10.8 cm in length. The left kidney is 10.3 cm in length. The spleen measures 12.6 cm. No ascites. IMPRESSION: Unremarkable abdominal ultrasound. 3 mm gallbladder polyp versus an adherent stone. This document has been electronically signed by: Karlie Verduzco MD on 07/30/2025 21:41:13
--- OUTSIDE RECORDS SUMMARY | 2025-07-30 08:11 | XMS_ITS | Patient Health Record ---
Author Organization [facility] [address] Address [address] [place] [address] Care Team Providers Care Radio Time Buyer Name Role Phone JENNY CAMILO Primary Care Provider Lissette Luevano Unavailable [phone] Allergies Allergen (clinical drug ingredient) Drug/Non Drug Allergy documented on EMR Reaction Allergy Type Onset Date Status amoxicillin Amoxicillin hives Drug Allergy Act roge erythromycin Erythromycin hives Drug Allergy A ctive Reason For Referral No Information Medications Medication SIG (Take, Route, Frequency, Duration) Notes Start Date End Date Status Zepbound 2.5 MG/0.5ML Solution Auto-injector 2.5mg Subcutaneous weekly; Duration: 28 days Active Levothyroxine Sodium 100 MCG Tablet 1 tablet in the morning on an empty stomach Orally Once a day Active clonazePAM 0.5 MG Tablet 1 tablet Orally Once a day Active Vyvanse 40 MG Capsule 1 capsule in the m orning Orally Once a day Active Social History Section Notes: denies alcohol, tobacco, stephan g use denies alcohol, tobacco, stephan g use Problems Problem Type SNOMED Code ICD Code Onset Dates Problem Status W/U Status Risk Notes Problem Hypothyroidism (58841145) Hypothyroidism (acquired) (E03.9) Active confirmed Problem Fatty liver (296992024) Fatty liver disease, nonalcoholic (K76.0) Active confirmed Problem Polycystic ovary syndrome (disorder) (812075798) PCOS (polycystic ovarian syndrome) (E28.2) Active confirmed Problem Body mass index 30.00 to 34.99 (337425339054708) BMI 31.0-31.9,adult (Z68.31) Active confirmed Problem Body mass index 30.00 to 34.99 (244659301933884) BMI 34.0-34.9,adult (Z68.34) Active confirmed Problem Attention deficit hyperactivity disorder (237328051) ADHD (attention deficit hyperactivity disorder), combined type (F90.2) Active confirmed Problem Generalized anxiety disorder (99161366) Anxiety, generalized (F41.1) Active confirmed Problem Obesity (655003290) Moderate obesity (E66.9) Active confirmed Vital Signs Heart Rate 93 /min 07/12/2025 Oximetry 99 % 07/12/2025 Blood pressure diastolic 74 mm Hg 07/12/2025 Height 60 in 07/12/2025 Blood pressure systolic 120 mm Hg 07/12/2025 Weight 165.7 lbs 07/12/2025 BMI 32.36 kg/m2 07/12/2025 Encounters Encounter Location Date Provider Diagnosis [facility] [address] 06/14/2025 Lissette Normoyle Moderate obesity E66 .9 ; BMI 34.0-34.9,adult Z68.34 ; Dietary counseling and surveillance Z71.3 ; Fatty liver disease, nonalcoholic K76.0 ; PCOS (polycystic ovarian syndrome) E28.2 ; ADHD (attention deficit hyperactivity disorder), combined type F90.2 ; Hypothyroidism (acquired) E03.9 and Encounter for examination of blood pressure without abnormal findings Z01.30 [facility] [address] 07/12/2025 Lissette Normoyle BMI 31.0-31.9,adult Z68.31 ; Moderate obesity E66.9 ; Dietary counseling and surveillance Z71.3 ; Fatty liver disease, nonalcoholic K76.0 ; PCOS (polycystic ovarian syndrome) E28.2 ; ADHD (attention deficit hyperactivity disorder), combined type F90.2 ; Hypothyroidism (acquired) E03.9 and Encounter for examination of blood pressure without abnormal findings Z01.30 [facility] [address] 06/14/2025 Lissette Normoyle Moderate obesity E66 .[address] [facility] [address] [place] [address] 07/01/2025 Lissette Normoyle Moderate obesity E66 .9 [...] Consider group exercises. Consider hiring a personal injury legal assistant. Regular exercise is olguin to sustainable health [...] counseling and psychiatry and Dr Newsome at [facility]. We would like to cover regular topics [...] Dictation was accomplished with the use of SeeJay voice recognition software, prone to medical misidentifications [...] Consider group exercises. Consider hiring a personal injury legal assistant. Regular exercise is olguin to sustainable health [...] counseling and psychiatry and Dr Newsome at [facility]. We would like to cover regular topics [...] Dictation was accomplished with the use of SeeJay voice recognition software, prone to medical misidentifications [...] E66.9) 07/12/2025 BMI 31.0-31.9,adult (ICD-10 - Z68.31) rTacy is a 29-year-old female who presents for [...] Consider group exercises. Consider hiring a personal injury legal assistant. Regular exercise is olguin to sustainable health [...] counseling and psychiatry and Dr Newsome at [facility]. We would like to cover regular topics [...] Dictation was accomplished with the use of SeeJay voice recognition software, prone to medical misidentifications [...] Consider using apps like 7 minute excercise, Zojipal, lose it, stick as needed for self-monitoring and weight management. Consider group exercises. Consider hiring a personal injury legal assistant. Regular exercise is olguin to sustainable health [...] counseling and psychiatry and Dr Newsome at [facility]. We would like to cover regular topics [...] Dictation was accomplished with the use of SeeJay voice recognition software, prone to medical misidentifications [...] Consider group exercises. Consider hiring a personal injury legal assistant. Regular exercise is olguin to sustainable health [...] counseling and psychiatry and Dr Newsome at [facility]. We would like to cover regular topics [...] Dictation was accomplished with the use of SeeJay voice recognition software, prone to medical misidentifications [...] Consider using apps like 7 minute excercise, Zojipal, lose it, stick as needed for self-monitoring and weight management. Consider group exercises. Consider hiring a personal injury legal assistant. Regular exercise is olguin to sustainable health [...] counseling and psychiatry and Dr Newsome at [facility]. We would like to cover regular topics [...] Dictation was accomplished with the use of SeeJay voice recognition software, prone to medical misidentifications [...] Consider using apps like 7 minute excercise, myBasharJobspal, lose it, stick as needed for self-monitoring and weight management. Consider group exercises. Consider hiring a personal injury legal assistant. Regular exercise is olguin to sustainable health [...] counseling and psychiatry and Dr Newsome at [facility]. We would like to cover regular topics [...] Dictation was accomplished with the use of SeeJay voice recognition software, prone to medical misidentifications [...] Consider using apps like 7 minute excercise, Zojipal, lose it, stick as needed for self-monitoring and weight management. Consider group exercises. Consider hiring a personal injury legal assistant. Regular exercise is olguin to sustainable health [...] counseling and psychiatry and Dr Newsome at [facility]. We would like to cover regular topics [...] Dictation was accomplished with the use of SeeJay voice recognition software, prone to medical misidentifications [...] Consider using apps like 7 minute excercise, Zojipal, lose it, stick as needed for self-monitoring and weight management. Consider group exercises. Consider hiring a personal injury legal assistant. Regular exercise is olguin to sustainable health [...] counseling and psychiatry and Dr Neswome at [facility]. We would like to cover regular topics [...] Dictation was accomplished with the use of SeeJay voice recognition software, prone to medical misidentifications [...] Consider using apps like 7 minute excercise, Zojipal, lose it, stick as needed for self-monitoring and weight management. Consider group exercises. Consider hiring a personal injury legal assistant. Regular exercise is olguin to sustainable health [...] counseling and psychiatry and Dr Newsome at [facility]. We would like to cover regular topics [...] Dictation was accomplished with the use of SeeJay voice recognition software, prone to medical misidentifications [...] Consider using apps like 7 minute excercise, myBasharJobspal, lose it, stick as needed for self-monitoring and weight management. Consider group exercises. Consider hiring a personal injury legal assistant. Regular exercise is olguin to sustainable health [...] counseling and psychiatry and Dr Newsome at [facility]. We would like to cover regular topics [...] Dictation was accomplished with the use of SeeJay voice recognition software, prone to medical misidentifications [...] Consider using apps like 7 minute excercise, myBasharJobspal, lose it, stick as needed for self-monitoring and weight management. Consider group exercises. Consider hiring a personal injury legal assistant. Regular exercise is olguin to sustainable health [...] counseling and psychiatry and Dr Newsome at [facility]. We would like to cover regular topics [...] Dictation was accomplished with the use of SeeJay voice recognition software, prone to medical misidentifications [...] Consider using apps like 7 minute excercise, myfitStreynerpal, lose it, stick as needed for self-monitoring and weight management. Consider group exercises. Consider hiring a personal injury legal assistant. Regular exercise is olguin to sustainable health [...] counseling and psychiatry and Dr Newsome at [facility]. We would like to cover regular topics [...] Dictation was accomplished with the use of SeeJay voice recognition software, prone to medical misidentifications [...] Consider group exercises. Consider hiring a personal injury legal assistant. Regular exercise is olguin to sustainable health [...] counseling and psychiatry and Dr Newsome at [facility]. We would like to cover regular topics [...] Dictation was accomplished with the use of SeeJay voice recognition software, prone to medical misidentifications [...] Consider group exercises. Consider hiring a personal injury legal assistant. Regular exercise is olguin to sustainable health [...] counseling and psychiatry and Dr Newsome at [facility]. We would like to cover regular topics [...] Dictation was accomplished with the use of SeeJay voice recognition software, prone to medical misidentifications [...] Consider group exercises. Consider hiring a personal injury legal assistant. Regular exercise is olguin to sustainable health [...] counseling and psychiatry and Dr Newsome at [facility]. We would like to cover regular topics [...] Dictation was accomplished with the use of SeeJay voice recognition software, prone to medical misidentifications [...] Provider Name:Lissette baum, 08/09/2025 10:00:00 AM, [address] [facility], [address], [place], [address], Insurance Providers Payer Name Payer Address Payer Phone Subscriber Number Group Number Insured Name Patient Relationship to Insured Coverage Start Date Coverage End Date [facility] [address] [place] [address] [id number] TRACY MILLER Self - patient is the insured 3 Medical (General) History Medical History History ICD Code weight gain/loss Hypothyroidism (acquired) E03.9 ADHD (attention deficit hyperactivity di sorder), combined type F90.2 Anxiety, generalized F41.1 Fatty liver disease, nonalcoholic K76.0 PCOS (polycystic ovarian syndrome) E28.2 Surgical History Surgery Date(Month/Year) C section 10/25/2011 C section 02/28/2019
--- OUTSIDE RECORDS SUMMARY | 2025-07-30 08:11 | XMS_ITS | Clinical Summary ---
Author Organization [facility] Address [address] [place] [address] Care Team Providers Care Fruit Cutter Name Role Phone Unavailable Primary Care Provider Unavailabl e Allergies Active Allergy Reactions Criticality Noted Date Comments Amoxicillin-Pot Clavulanate Hives Medium 07/28/20 25 Azithromycin Unknown/Patient and Family Unable to Define Medium 07/28/2025 Erythromycin Rash/Dermatitis Low 07/28/2025 Medications Zepbound 2.5 MG/0.5ML pen-injector INJECT 1 PEN DIRECTED SUBCUTANEOUSLY ONCE WEEKLY 07/12/20 25 Active sertraline (ZOLOFT) 50 MG tablet TAKE 1/2 TABLET BY MOUTH DAILY WITH FOOD FOR 10 DAYS THEN TAKE 1 TABLET DAILY 06/07/20 25 Active lisdexamfetamin e (VYVANSE) 40 MG capsule Take 40 mg by mouth every morning. 06/04/20 25 Active levothyroxine (SYNTHROID, LEVOTHROID) 100 MCG tablet Take 100 mcg by mouth. 07/05/20 25 Active famotidine (PEPCID) 40 MG tabletIndicatio ns:Gastroesopha geal reflux disease without esophagitis Take 1 tablet (40 mg total) by mouth nightly. 30 tablet 3 07/28/20 25 Active Active Problems No known active problems Encounters Date Type Department Care Team Description 07/28/2025 11:00 AM EST Office Visit [facility] [address] [address] Jerrell Valadez MD Enlarged lymph node in neck (Primary Dx); Tonsillar hypertrophy; Dysphonia; Gastroesophageal reflux disease without esophagitis from Last 3 Months Immunizations Immunization Administration Dates Next Due Hep B, Unspecified 06/20/2015, 5,04/28/2014,1993,1993 Hepatitis B 01/06/2021 Influenza Virus Trivalent Sp lit Vaccine (MDV) IM 07/11/2023,06/15/2022,06/06/2021,2019,07/08/2019,06/25/2017 Influenza, Unspecified 06/17/2025 Tdap 04/14/2014 Family History Medical History Relation Name Comments Cancer Father Leopoldo Gastric adencar cinoma Cancer Maternal Aunt Throat cancer Cancer Maternal Uncle Skin cancer Autoimmune disease Mother Ulcerative colitis, ch rons Relation Name Status Comments Father Leopoldo Alive Maternal Aunt Throat cancer Alive Maternal Uncle Skin cancer Alive Mother Ulcerative colitis, chrons Alive Social History Tobacco Use Types Packs/Day Years [...] AM EDT Sexual Orientation Not on file Plan of Treatment Health Maintenance Due Date Last Done Comments Hepatitis C Virus Screening 1993 HIV Screening 2006 Pap Smear (Ages 21-65) 2014 DTaP/Tdap/Td Vaccines (2 - Td or Tdap) 04/14/2024 04/14/2014 COVID-19 Vaccine ( - season) 2025 10/31/2021, 09/24/2020, 09/03/2020 Hepatitis B Vaccines Completed 01/06/2021, 06/20/2015, 12/08/2014, Additional history exists Influenza Vaccine Completed 06/17/2025, , 06/15/2022, Additional history exists HPV Vaccines (No Doses Required) Completed Pneumococcal Vaccine: Pediatric (0-5 Years) and At-Risk Patients (6 to 49 Years) Aged Out No longer eligible based on patient's age to complete this topic Procedures Procedure Name Priority Date/Time Associated Diagnosis Comments AMB REFERRAL TO ENT Routine 07/22/2025 2:02 PM EST from Last 3 Months Results * Amb Referral to ENT (07/22/2025 2:02 PM EST) us External Provider OUTPATIENT REFERRAL ORDERAB LES Final Result from Last 3 Months Insurance [facility]
--- OUTSIDE RECORDS SUMMARY | 2025-07-30 08:11 | XMS_ITS | Clinical Summary ---
Author Organization [facility] Address [address] [place] [address] Phone Care Team Providers Care Novelties Sales Representative Name Role Phone Pcp, Unknown Primary Care [...] on patient's age to complete this topic IPV VACCINES Aged Out No longer eligi ble [...] Medical Devices Not on file Insurance [employer] Member Subscriber Plan / Payer (Ef fective 2023-) Name:Tracy Miller Relation to Subscriber:Spouse Name:FARHEEN MILLERRY Date of :1900 Address: [address] [place] [address] Payer ID:Not on file Type:PPO Address: [address] [place], [place] [address]S Member Subscriber Plan / Payer (Ef fective 2023-) Name:Tracy Miller Relation to Subscriber:Spouse Name:FARHEEN MILLERRY Date of :1900 Address: [address] [place] [address] Payer ID:Not on file Type:PPO Address: [address] Member Subscriber Plan / Payer (Ef fective 2024-Present) Name:Tracy Miller Relation to Subscriber:Self Name:Tracy Miller Payer ID:Not on file Type:HMO Address: [place] [id number] Member Subscriber Plan / Payer (Ef fective 2023-) Name:Tracy Miller Relation to Subscriber:Spouse Name:PATRIA MILLER Date of :1900 Address: [address] [place] [address] Payer ID:Not on file Type:PPO Address: [address] Member Subscriber Plan / Payer (Ef fective 2023-Present) Name:Tracy Miller Relation to Subscriber:Spouse Name:PATRIA MILLER Date of :1900 Address: [address] [place] [address] Payer ID:Not on file Type:PPO Address: [address] Member Subscriber Plan / Payer (Ef fective 2023-) Name:Tracy Miller Relation to Subscriber:Spouse Name:PATRIA MILLER Date of :1902 Address: [address] [place] [address] Payer ID:Not on file Type:PPO Address: [address] Member Subscriber Plan / Payer (Ef fective 2023-Present) Name:Tracy Miller Relation to Subscriber:Spouse Name:PATRIA MILLER Date of :1900 Address: [address] [place] [address] Payer ID:Not on file Type:PPO Address: [address] [place] [id number] [facility] HMO Care Teams Novelties Sales Representative Relationship Specialty Start Date End Date Pcp, Unknown PCP - General 06/14/23 Additional Source Comments The information contained in this document represents components of the legal health record. It is not the complete legal health record.[facility]
--- OUTSIDE RECORDS SUMMARY | 2025-07-30 08:12 | XMS_ITS | Clinical Summary ---
Author Organization [facility] [address] [facility] Address [address] [place] [address] Phone Care Team Providers Care Telegraphic Instrument Supervisor Name Role Phone Job Fernandez MD Primary [...] Used Date Smoking Tobacco: Never Assessed Cigarettes 0 Quit: 11/15/2011 Smokeless Tobacco: Never Tobacco Cessation:Counseling [...] patient's age to complete this topic Insurance [facility] [address] [place] [address] Care Teams Telegraphic Instrument Supervisor Relationship Specialty Start Date End Date Job Fernandez MD [address] [place] [address] [place] [address] PCP - General Internal Medicine 06/30/18
[2025-07-30] MEDS: iohexoL 350 MG/ML 100 ML INFUS..BTL 60 ML IV (09:09)
== END 2025-07-30 08:07 | disposition home or self-care (01) ==
LOC: HO.CT 08:06
PROVIDERS: PCP Internal Medicine; Visit Provider Physician Assistant Medical
DX: R10.9 Unspecified abdominal pain (principal); J03.01 Acute recurrent streptococcal tonsillitis; R59.0 Localized enlarged lymph nodes
CPT/HCPCS: 70491; 76700; Q9967

== ENCOUNTER → 2025-07-30 08:08 | Outpatient (BNV) | payer OTHER, SELFPAY | PROVIDERS: PCP Internal Medicine; Visit Provider Radiology Diagnostic Radiology | DX: J03.01 Acute recurrent streptococcal tonsillitis (principal); R10.9 Unspecified abdominal pain | CPT/HCPCS: 70491; 76700 ==

== ENCOUNTER 2025-08-02 09:56 | Outpatient (AMB) | payer OTHER, SELFPAY ==
--- NOTE | 2025-08-02 10:19 | A.OFFPSYCH_ITS ---
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 Pt taking vyvanse 30mg daily but wishes she could tolerate a slightly higher dose as some days she has more trouble staying focuse. Pt did not start zoloft due to medical issues she had severe recurrent bouts of strep requiring iv antibiotics. She had such swollen glands that her airway was blocked. she had 2 ER visits. she is having a biopsy of a lymph node. She denies SI or HI. Past Psychiatric History: Her first trouble with psychiatric symptoms was in 5th grade - first psych problems- she started with self harming in 5th grade; She was hospitalized many times as child/teen for self harmage 18 completed 1 yr DBT program= with very +++ results one hospitalization after 2 yr old dtr born and started on SSRI and it helped At age 16 a doctor told she had borderline personality disorder and referred her to DBT program which was a one year program and changed her life for the better. 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 Medication Trials: geodon- sedation/dizziness lamictal ? rash risperdal- too scared to try Adderall - headaches, nausea wellbutrin - twitching prozac - worked well ? numbing (cut self 2019) 2022 to sedating seroquel - sedation, weight gain lexapro- negative celexa- negative concerta 27 mg - anxiety ativan - rebound irritability effexor - sedation, nausea - abilify - increased irritability buzzing in ears zoloft- negative tegretol- worked well in past 2019- Self injury - twitching trileptal-sedation rash depakote-weight gain vyvanse helped but almost too strong- increased anxiety a little luvox- worked well at first then irritabilty topomax vraylar Subjective Subjective Medication Compliance: Yes Side effects from medications: Yes Review of Systems Medical Review of Systems: unchanged Mental Status Exam Mental Status Exam Patient Orientation: Person, Place, Time and Situation Level of Consciousness: Awake, Appropriate and Alert Patient Behavior: Appropriate and Distractible Mood Description: Calm and Anxious (mild ) Affect Description: Calm and Anxious (mild) Patient Cognition Impaired: No Ability to Follow Directions: Good Speech Pattern: Clear and Appropriate Memory Description: Intact Hallucinations: None Delusions: Not Present Thought Process: Intact and Distracted Thought Content: positive for Intact and positive for Goal Oriented Judgement: Good Assessment and Plan Assessment & Plan (1) OCD (obsessive compulsive disorder): Status: Acute Qualifiers: Obsessive-compulsive disorder type: mixed obsessional thoughts and acts Qualified Code(s): F42.2 - Mixed obsessional thoughts and acts Code(s): F42.9 - Obsessive-compulsive disorder, unspecified (2) ADHD (attention deficit hyperactivity disorder), combined type: Status: Acute Code(s): F90.2 - Attention-deficit hyperactivity disorder, combined type Plan continue vyvanse 30mg daily add vvyvanse 10mg once a day prn for breakthrough ADHD symptoms continue clonazepam 0.5mg tid prn anxiety/panic HOLD trial of sertraline 25mg daily x 10 days then 50 mg daily thereafter Medications: New hydroxyzine HCl Take 1-2 tablets at bedtime prn insomnia orally bedtime; 60 tabs 3RF lisdexamfetamine (Vyvanse) Partial Fill upon patient request. 10 mg PO DAILY PRN 30 caps 0RF breakthrough ADHD symptoms Refilled lisdexamfetamine (Vyvanse) Partial Fill upon patient request. 30 mg PO QAM 30 caps 0RF clonazepam 0.5 mg PO TID 90 tabs 3RF Counseling and coordination of Care Pt. Self Management counseling: Exercise, Med illness tx adherence, Nutrition education and improvement and General coping skills Medication management counseling: Effectiveness, Side effects, Dosing range, Duration, Drug interaction and Adherence Diagnosis and Prognosis Counseling: Accuracy of diagnosis, Prognosis over time, Impact of diagnosis on life functions, Impact of family relationship, Problematic behaviors secondary to diagnosis and Adequacy of current interventions Details: I spent 40 minutes reviewing the record, seeing the patient and documenting in the medical record. Counseling provided to the patient/caregiver as outlined below. Addressed patient/caregiver concerns regarding current medication regime including effective adherence. Addressed patient/caregiver concerns regarding diagnosis and prognosis including accuracy of diagnosis, prognosis over time, impact of diagnosis. Addressed patient/caregiver concerns regarding impact of recent stressors. [facility] Medical History (Updated 07/23/25 @ 12:52 by EDUAR Medina) Oral thrush Submandibular lymphadenopathy Pharyngitis Throat discomfort Abdominal pain Fatigue Submandibular lymphadenitis Chest heaviness ALSTON (dyspnea on exertion) Lumbar spondylolysis Weakness of left foot Numbness and tingling of upper and lower extremities of both sides Circumoral cyanosis Numbness Cold extremities Family History (Reviewed 07/22/25 @ 14:23 by Josephine Anderson [facility]) Father Gastric cancer HTN (hypertension) Asthma Maternal Grandmother Suicide Mother Depression Psychiatric disorder Other FH: mental illness Social History (Updated 07/22/25 @ 14:23 by Josephine Anderson [facility]) Housing: House Alcohol intake: never Patient Tobacco Use Status: Never used Tobacco e-Cigarette/Vaping Use: Never Used Second Hand Smoke Exposure: No service: No Current occupational status: employed 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. Substance History: none Trauma History: childhood trauma Coding Level of Care Code Est Pt Level 4 (39426) Diagnoses Mixed obsessional thoughts and acts F42.2 Obsessive-compulsive disorder type: mixed obsessional thoughts and acts ADHD (attention deficit hyperactivity disorder), combined type F90.2
== END 2025-08-02 10:31 | disposition home or self-care (01) ==
LOC: HO.HOP 09:56
PROVIDERS: PCP Internal Medicine; Visit Provider Clinical Nurse Specialist Psychiatric/Mental Health
DX: F42.2 Mixed obsessional thoughts and acts (principal); F90.2 Attention-deficit hyperactivity disorder, combined type
CPT/HCPCS: 99214

== ENCOUNTER 2025-08-04 14:45 | Outpatient (AMB) | payer OTHER, SELFPAY ==
--- OUTSIDE RECORDS SUMMARY | 2025-07-28 11:00 | XMS_ITS | Encounter Summary ---
Author Organization [facility] Address [address] [place] [id number] Care Team Providers Care Precision Instrument And Tool Maker Name Role Phone Unavailable Primary Care Provider Unavailabl e Reason for Referral * Diagnostic Imaging (Routine) - Authorized Specialty Diagnoses / Procedures Referred By Contact Referred To Contact Radiology, Vascular & Interventional Diagnoses Enlarged lymph node in neck Jerrell Valadez MD [address] [place] [phone] Phone: tel: fax: [place] [address] Referral ID Status Reason Start Date Expiration Date V isits Requested Visits Authorized [id number] Authorized Consult 08/04/2025 08/05/2026 1 1 Question Answer Notify me if not resulted within 7 days from expected date Track Order Is this a consult? Yes Requested procedure ultrasound guided FNA Laterality Left Requested modality guidance Ultrasound Thora/Para? No Reason for exam enlarged lymph node- left neck Requested date 08/04/2025 Is the patient able to give consent? Yes Comments DO NOT USE this order to place IR Orders to [facility]. For IR Orders placed to [facility], please enter the actual procedure IR order which has APPT in the naming convention. Example: CT (APPT) Biopsy Thyroid Reason for Visit * Reason Comments Sore Throat Encounter Details Date Type Department Care Team (Late st Contact Info) Description 07/28/2025 11:00 AM EST Office Visit [facility] [address], [place] [phone] Jerrell Valadez MD [address] [place] [address], [place] [address] Enlarged lymph node in neck (Primary Dx); [...] Value Date Recorded Sex Assigned at Female 08/03/2025 4:09 PM EST Legal Sex Female 6:29 PM EST Gender Identity Female 08/03/2025 4:09 PM EST Sexual Orientation Not on file documented as of this encounter Progress Notes * Jerrell Valadez MD - 07/28/2025 11:00 AM EST Images from the original note were not included. [address] [place] [phone] Loc: [phone] Encounter Date: 07/28/2025 Chief Complaint Patient presents [...] of the left neck lymph node at [facility] or [facility]. - Prescribe famotidine for one month to [...] of epiglottis. Airway widely patent during inspiration. Resident Physician In Radiology Images: Jerrell Valadez 07/28/2025 PAST MEDICAL HISTORY [...] Define Erythromycin Rash/Dermatitis documented in this encounter Miscellaneous Notes * Addendum Note - Mickey Butler MA - 07/28/2025 11:00 AM ESTAddended by: MICKEY BUTLER on: 08/02/2025 08:12 AM Modules accepted: Orders * Addendum Note - Mickey Butler MA - 07/28/2025 11:00 AM ESTAddended by: MICKEY BUTLER on: 08/04/2025 11:45 AM Modules accepted: Orders documented in this encounter Plan of Treatment Scheduled Referrals Name Type Priority Associated Diagnoses Orde r Schedule US Guided FNA Outpatient Referral Routine Enlarged lymph node in neck Expected: 08/04/2025, Expires: 08/05/2026 documented as of this encounter Visit Diagnoses Diagnosis Enlarged lymph node in neck- Primary Tonsillar hypertrophy Hypertrophy of tonsils alone Dysphonia Gastroesophageal reflux disease without esophagitis Esophageal reflux documented in this encounter
[2025-08-04 14:50] VITALS: BP 96/62; PULSE 103; RESP 12; TEMP 36.8; O2SAT 98; BMI 30.6
--- NOTE | 2025-08-04 14:50 | A.OFFPC_ITS ---
Vital Signs 08/04/25 14:50 Height 5 ft 1 in Weight 162 lb BMI 30.6 BP 96/62 Blood Pressure Location Lt brachial Position Sitting Respiration 12 Pulse 103 H Pulse Source Pulse Oximeter Temp 98.3 F Temp Source Oral Pulse Oximetry (%) 98 Oxygen Delivery Method Room Air Intake Visit Reasons: test for strep Intake Note: Test for strep and abdominal ultrasound results. Aerodynamics Engineer Required: No Allergies amoxicillin Allergy (Intermediate, Verified 08/04/25 14:55) hives Erythromycin Allergy (Intermediate, Uncoded 08/04/25 14:55) hives Tobacco use date assessed: 07/22/25 Dental Screening Dental Screen Date: 07/22/25 HPI test for strep HPI Details Patient is a 29-year-old female who presents today for an acute problem visit. She was seen recently and tested and treated for strep a few times. She states since the summer she has had persistent lymphadenopathy which feels unchanged today. She has a referral to ENT and was seen and advised to complete bx. She was referred to general surgery by ent at [facility] [place]. She states that she is expected to be scheduled with in the next 1-2 weeks. States that her sore throat started 2 days ago worsening again and she wants to make sure she does strep throat. She is not having any fevers or chills. She does have pain with swallowing but is able to swallow. No nausea, vomiting. no weight loss since last visit. She did recently have CT of her neck and ultrasound and has reviewed results [facility] Medical History (Updated 08/03/25 @ 15:51 by EDUAR Medina) Gallbladder polyp Oral thrush Submandibular lymphadenopathy Pharyngitis Throat discomfort Abdominal pain Fatigue Submandibular lymphadenitis Chest heaviness ALSTON (dyspnea on exertion) Lumbar spondylolysis Weakness of left foot Numbness and tingling of upper and lower extremities of both sides Circumoral cyanosis Numbness Cold extremities Family History Father Gastric cancer HTN (hypertension) Asthma Maternal Grandmother Suicide Mother Depression Psychiatric disorder Other FH: mental illness Social History (Updated 08/04/25 @ 15:29 by Lani Banda CMA) Housing: House Alcohol intake: never Patient Tobacco Use Status: Never used Tobacco e-Cigarette/Vaping Use: Never Used Second Hand Smoke Exposure: No Use of substances other than those prescribed or required for medical reasons: No service: No Current occupational status: employed 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 Current occupational exposures/hazards: No Cognitive needs: No Hearing needs: No Vision needs: No Questionnaire Thrive Questionnaire Date Thrive assessed: 10/16/24 I am a: Patient What is your living situation today?: I have a steady place to live Within the past 12 months, did the food you bought not last and you didn't have the money to get more?: Never true Within the past 12 months, did you worry whether your food would run out before you got money to buy more?: Never true Do you have trouble paying for medicines?: No Do you have trouble getting transportation to medical appointments?: No Do you have trouble paying your heating and electricity bill?: No Do you have trouble taking care of your child, family member or friend?: No Do you have trouble with day-to-day activities such as bathing, preparing meals, shopping, managing finances, etc.?: No Are you currently unemployed and looking for a job?: No Are you interested in more education?: No Please select the resources that you would like help with: None Currently or been in a relationship where the following occur: No concerns reported THRIVE Score: 0 JORGE-7 AMB Questionnaire JORGE-7 Date JORGE - 7 assessed: 01/07/25 Source: Developed by Drs. Balaji Toro, Chrystal Abrams, Jamison Davey and colleagues, with an educational marly from [employer]. Physical exam (Primary Care) Vital Signs: Last Vital Signs Temp 98.3 F 08/04/25 14:50 Pulse 103 H 08/04/25 14:50 Resp 12 08/04/25 14:50 BP 96/62 08/04/25 14:50 Pulse Ox 98 08/04/25 14:50 Oxygen Delivery Method Room Air 08/04/25 14:50 BMI result Body Mass Index 30.6 Tobacco/Smoking Status: Tobacco use Status Tobacco use date assessed 07/22/25 08/04/25 14:54 Patient Tobacco Use Status Never used Tobacco 08/04/25 15:29 e-Cigarette/Vaping Use Never Used 08/04/25 15:29 Thrive Assessment: Date of Thrive Assessment Date Thrive assessed 10/16/24 08/04/25 14:54 Currently or been in a relationship where the following occur: No concerns reported Const Orientation/consciousness: patient oriented x3 HENMT Ears: hearing grossly normal bilaterally Face and sinus: Yes sinuses nontender Mouth: Normal oral and palatal mucosa present Throat: Yes posterior oropharynx normal, No tonsils normal (Tonsillar hypertrophy noted. No exudates) and Yes uvula midline Neck Thyroid: Thyroid normal Lymphatic: lymphadenopathy (Shotty bilateral cervical lymphadenopathy noted) Resp Auscultation: clear to auscultation bilaterally Cardio Rate: regular rate Rhythm: regular rhythm Heart sounds: S1 normal heart sound present and S2 normal heart sound present Skin General skin exam: no rashes or lesions noted Neuro General: patient oriented x3, gait normal and no focal motor deficits Results AMB Rapid Strep AMB Rapid Strep Negative Last Edit by Lani Banda CMA on 08/04/25 15:3 0 Results Reviewed Results Reviewed: Laboratory Last Values Strep Scn [facility] Negative 08/04/25 15:28 Laboratory Tests 12/10/24 06/25/25 07/22/25 16:26 12:00 15:30 WBC 10.2 Monoscreen Negative Strep Scn [facility] Negative 07/22/25 16:51 WBC Monoscreen Strep Scn Rapid Clinic Negative CT/CT soft tissue neck w IV con IMPRESSION: No abscess. Mild prominent palatine tonsils. Bilateral cervical lymphadenopathy, largest 16 mm carotid compartment. Coding Level of Care Code Complex visit Add On G2211 Diagnoses Enlarged tonsils J35.1 Pharyngitis J02.9 Cervical lymphadenopathy R59.0 Assessment & Plan Assessment & Plan (1) Enlarged tonsils: Code(s): J35.1 - Hypertrophy of tonsils Category: Medical Plan: Rapid strep negative. Has follow up with ENT and surgery for biopsy of lymph nodes. (2) Pharyngitis: Code(s): J02.9 - Acute pharyngitis, unspecified Category: Medical Plan: We discussed supportive measures (3) Cervical lymphadenopathy: Code(s): R59.0 - Localized enlarged lymph nodes Category: Medical Plan: Appears stable and as above has follow up arranged specialists. We will check labs for patient today. Advised patient to follow up with PCP Orders: Orders Erythrocyte Sedimentation Rate 08/04/25 J02.9 - Acute pharyngitis, unspecified, J35.1 - Hypertrophy of tonsils Comprehensive Met. Panel 08/04/25 J02.9 - Acute pharyngitis, unspecified, J35.1 - Hypertrophy of tonsils TSH reflex Free T4 08/04/25 J02.9 - Acute pharyngitis, unspecified, J35.1 - Hypertrophy of tonsils AMB Rapid Strep Screen 08/04/25 J02.9 - Acute pharyngitis, unspecified Complete Blood Count Auto Diff 08/04/25 J02.9 - Acute pharyngitis, unspecified, J35.1 - Hypertrophy of tonsils
--- OUTSIDE RECORDS SUMMARY | 2025-08-05 03:19 | XMS_ITS | Clinical Summary ---
Author Organization [facility] Address [address] [place] [id number] Care Team Providers Care Fan Balancer Name Role Phone Unavailable Primary Care Provider [...] Description 07/28/2025 11:00 AM EST Office Visit [facility] [address], [place] [address] Jerrell Valadez MD Enlarged lymph node [...] PM EST Sexual Orientation Not on file Plan of Treatment Health Maintenance Due Date Last Done Comments Hepatitis C Virus Screening 1993 HIV Screening 2006 Pap Smear (Ages 21-65) 2014 DTaP/Tdap/Td Vaccines (2 - Td or Tdap) 04/14/2024 04/14/2014 COVID-19 Vaccine ( season) 2025 10/31/2021, 09/24/2020, 09/03/2020 Hepatitis B [...] (07/22/2025 2:02 PM EST) us External Provider MD OUTPATIENT REFERRAL ORDERAB LES Final Result from Last 3 Months Insurance [facility]
--- OUTSIDE RECORDS SUMMARY | 2025-08-05 03:19 | XMS_ITS | Clinical Summary ---
Author Organization [facility] Address [address] [place] [address] Phone Care Team Providers Care Dress Shoe Inspector Name Role Phone Pcp, Unknown Primary Care [...] Subscriber:Spouse Name:FARHEEN MILLERRY Date of :1900 Address: [address] [place] [address] Payer ID:Not on file Type:PPO Address: [address] [place], [place] [address] Member Subscriber Plan / Payer (Ef fective 2023-) Name:Tracy Miller Relation to Subscriber:Spouse Name:FARHEEN MILLERRY Date of :1900 Address: [address] [place] [address] Payer ID:Not on file Type:PPO Address: [address] Member Subscriber Plan / Payer (Ef fective 2024-Present) Name:Tracy Miller Relation to Subscriber:Self Name:Tracy Miller Payer ID:Not on file Type:HMO Address: [place] [id number] [address] Member Subscriber Plan / Payer (Ef fective 2023-) Name:Tracy Miller Relation to Subscriber:Spouse Name:PATRIA MILLER Date of :1900 Address: [address] [place] [address] Payer ID:Not on file Type:PPO Address: [address] Member Subscriber Plan / Payer (Ef fective 2023-Present) Name:Tracy Miller Relation to Subscriber:Spouse Name:PATRIA MILLER Date of :1900 Address: [address] [place] [address] Payer ID:Not on file Type:PPO Address: [address] Member Subscriber Plan / Payer (Ef fective 2023-) Name:Tracy Miller Relation to Subscriber:Spouse Name:PATRIA MILLER Date of :1900 Address: [address] [place] [address] Payer ID:Not on file Type:PPO Address: [address] Member Subscriber Plan / Payer (Ef fective 2023-Present) Name:Tracy Miller Relation to Subscriber:Spouse Name:PATRIA MILLER Date of :1900 Address: [address] [place] [id number] Payer ID:Not on file Type:PPO Address: [address] [place] [id number] [facility] HMO Care Teams Dress Shoe Inspector Relationship Specialty Start Date End Date Pcp, Unknown PCP - General 06/14/23 Additional Source Comments The information contained in this document represents components of the legal health record. It is not the complete legal health record.[facility]
--- OUTSIDE RECORDS SUMMARY | 2025-08-05 03:19 | XMS_ITS | Patient Health Record ---
Author Organization [facility] [address] Address [address] [place] [address] Care Team Providers Care Consulting Sales Executive Name Role Phone JENNY CAMILO Primary Care Provider Lissette Luevano Unavailable [phone] Allergies Allergen (clinical drug ingredient) Drug/Non Drug [...] Status W/U Status Risk Notes Problem Hypothyroidism (90733451) Hypothyroidism (acquired) (E03.9) Active confirmed Problem Fatty liver (823834491) Fatty liver disease, nonalcoholic (K76.0) Active confirmed Problem Polycystic ovary syndrome (disorder) (183035889) PCOS (polycystic ovarian syndrome) (E28.2) Active confirmed Problem Body mass index 30.00 to 34.99 (878359301641694) BMI 31.0-31.9,adult (Z68.31) Active confirmed Problem Body mass index 30.00 to 34.99 (262512128272140) BMI 34.0-34.9,adult (Z68.34) Active confirmed Problem Attention deficit hyperactivity disorder (432254958) ADHD (attention deficit hyperactivity disorder), combined type (F90.2) Active confirmed Problem Generalized anxiety disorder (42200154) Anxiety, generalized (F41.1) Active confirmed Problem Obesity (915131801) Moderate obesity (E66.9) Active confirmed Vital Signs Heart Rate 93 /min 07/12/2025 Oximetry 99 % 07/12/2025 Blood pressure diastolic 74 mm Hg 07/12/2025 Height 60 in 07/12/2025 Blood pressure systolic 120 mm Hg 07/12/2025 Weight 165.7 lbs 07/12/2025 BMI 32.36 kg/m2 07/12/2025 Encounters Encounter Location Date Provider Diagnosis [facility] [address] 06/14/2025 Lissette Normoyle Moderate obesity E66 .9 ; BMI 34.0-34.9,adult Z68.34 ; Dietary counseling and surveillance Z71.3 ; Fatty liver disease, nonalcoholic K76.0 ; PCOS (polycystic ovarian syndrome) E28.2 ; ADHD (attention deficit hyperactivity disorder), combined type F90.2 ; Hypothyroidism (acquired) E03.9 and Encounter for examination of blood pressure without abnormal findings Z01.30 [facility] [address] 07/12/2025 Lissette Normoyle BMI 31.0-31.9,adult Z68.31 ; Moderate obesity E66.9 ; Dietary counseling and surveillance Z71.3 ; Fatty liver disease, nonalcoholic K76.0 ; PCOS (polycystic ovarian syndrome) E28.2 ; ADHD (attention deficit hyperactivity disorder), combined type F90.2 ; Hypothyroidism (acquired) E03.9 and Encounter for examination of blood pressure without abnormal findings Z01.30 [facility] [address] 06/14/2025 Lissette Normoyle Moderate obesity E66 .[address] [facility] [address] [place] [address] 07/01/2025 Lissette Normoyle Moderate obesity E66 .9 [...] Consider group exercises. Consider hiring a personal care assistant. Regular exercise is olguin to sustainable [...] counseling and psychiatry and Dr Newsome at [facility]. We would like to cover regular topics [...] Dictation was accomplished with the use of Parrable voice recognition software, prone to medical misidentifications [...] Consider group exercises. Consider hiring a personal care assistant. Regular exercise is olguin to sustainable [...] counseling and psychiatry and Dr Newsome at [facility]. We would like to cover regular topics [...] Dictation was accomplished with the use of Parrable voice recognition software, prone to medical misidentifications [...] Consider group exercises. Consider hiring a personal care assistant. Regular exercise is olguin to sustainable [...] counseling and psychiatry and Dr Newsome at [facility]. We would like to cover regular topics [...] Dictation was accomplished with the use of Parrable voice recognition software, prone to medical misidentifications [...] Consider using apps like 7 minute excercise, [employer], lose it, stick as needed for self-monitoring and weight management. Consider group exercises. Consider hiring a personal care assistant. Regular exercise is olguin to sustainable [...] counseling and psychiatry and Dr Newsome at [facility]. We would like to cover regular topics [...] Dictation was accomplished with the use of Parrable voice recognition software, prone to medical misidentifications [...] Consider group exercises. Consider hiring a personal care assistant. Regular exercise is olguin to sustainable [...] counseling and psychiatry and Dr Newsome at [facility]. We would like to cover regular topics [...] Dictation was accomplished with the use of Parrable voice recognition software, prone to medical misidentifications [...] Consider using apps like 7 minute excercise, [employer], lose it, stick as needed for self-monitoring and weight management. Consider group exercises. Consider hiring a personal care assistant. Regular exercise is olguin to sustainable [...] counseling and psychiatry and Dr Newsome at [facility]. We would like to cover regular topics [...] Dictation was accomplished with the use of Parrable voice recognition software, prone to medical misidentifications [...] Consider using apps like 7 minute excercise, [employer], lose it, stick as needed for self-monitoring and weight management. Consider group exercises. Consider hiring a personal care assistant. Regular exercise is olugin to sustainable health and prevents as a [...] counseling and psychiatry and Dr Newsome at [facility]. We would like to cover regular topics [...] Dictation was accomplished with the use of Parrable voice recognition software, prone to medical misidentifications [...] and Eat Fat Get Lean by Dr aMrk Higgins. Self education is important in the [...] Consider using apps like 7 minute excercise, [employer], lose it, stick as needed for self-monitoring and weight management. Consider group exercises. Consider hiring a personal care assistant. Regular exercise is olguin to sustainable [...] counseling and psychiatry and Dr Newsome at [facility]. We would like to cover regular topics [...] Dictation was accomplished with the use of Parrable voice recognition software, prone to medical misidentifications [...] Consider using apps like 7 minute excercise, [employer], lose it, stick as needed for self-monitoring and weight management. Consider group exercises. Consider hiring a personal care assistant. Regular exercise is olguin to sustainable [...] counseling and psychiatry and Dr Newsome at [facility]. We would like to cover regular topics [...] Dictation was accomplished with the use of Parrable voice recognition software, prone to medical misidentifications [...] Consider using apps like 7 minute excercise, [employer], lose it, stick as needed for self-monitoring and weight management. Consider group exercises. Consider hiring a personal care assistant. Regular exercise is olguin to sustainable [...] counseling and psychiatry and Dr Newsome at [facility]. We would like to cover regular topics [...] Dictation was accomplished with the use of Parrable voice recognition software, prone to medical misidentifications [...] Consider using apps like 7 minute excercise, [employer], lose it, stick as needed for self-monitoring and weight management. Consider group exercises. Consider hiring a personal care assistant. Regular exercise is olguin to sustainable [...] counseling and psychiatry and Dr Newsome at [facility]. We would like to cover regular topics [...] Dictation was accomplished with the use of Parrable voice recognition software, prone to medical misidentifications [...] Consider using apps like 7 minute excercise, [employer], lose it, stick as needed for self-monitoring and weight management. Consider group exercises. Consider hiring a personal care assistant. Regular exercise is olguin to sustainable [...] counseling and psychiatry and Dr Newsome at [facility]. We would like to cover regular topics [...] Dictation was accomplished with the use of Parrable voice recognition software, prone to medical misidentifications [...] Consider using apps like 7 minute excercise, [employer], lose it, stick as needed for self-monitoring and weight management. Consider group exercises. Consider hiring a personal care assistant. Regular exercise is olguin to sustainable [...] counseling and psychiatry and Dr Newsome at [facility]. We would like to cover regular topics [...] Dictation was accomplished with the use of Parrable voice recognition software, prone to medical misidentifications [...] Consider group exercises. Consider hiring a personal care assistant. Regular exercise is olguin to sustainable [...] counseling and psychiatry and Dr Newsome at [facility]. We would like to cover regular topics [...] Dictation was accomplished with the use of Parrable voice recognition software, prone to medical misidentifications [...] Consider group exercises. Consider hiring a personal care assistant. Regular exercise is olguin to sustainable [...] counseling and psychiatry and Dr Newsome at [facility]. We would like to cover regular topics [...] Dictation was accomplished with the use of Parrable voice recognition software, prone to medical misidentifications [...] Consider group exercises. Consider hiring a personal care assistant. Regular exercise is olguin to sustainable [...] counseling and psychiatry and Dr Newsome at [facility]. We would like to cover regular topics [...] Dictation was accomplished with the use of Parrable voice recognition software, prone to medical misidentifications [...] Provider Name:Lissette baum, 08/09/2025 10:00:00 AM, [address] [facility], [address], [place], [address], Insurance Providers Payer Name Payer Address Payer Phone Subscriber Number Group Number Insured Name Patient Relationship to Insured Coverage Start Date Coverage End Date [facility] [address] [place] [address] [id number] TRACY MILLER Self - patient is the insured 3 Medical (General) History Medical History History ICD Code weight gain/loss Hypothyroidism (acquired) E03.9 ADHD (attention deficit hyperactivity di sorder), combined type F90.2 Anxiety, generalized F41.1 Fatty liver disease, nonalcoholic K76.0 PCOS (polycystic ovarian syndrome) E28.2 Surgical History Surgery Date(Month/Year) C section 10/25/2011 C section 02/28/2019
== END 2025-08-04 15:52 | disposition home or self-care (01) ==
LOC: HO.HMCFM 14:46
PROVIDERS: PCP Internal Medicine; Visit Provider Physician Assistant
DX: J02.9 Acute pharyngitis, unspecified (principal)

== ENCOUNTER 2025-08-04 14:45 | Outpatient (REF) | payer OTHER, SELFPAY ==
[2025-08-04 18:13] LABS: MANUAL DIFF FLAG NO
[2025-08-04 18:21] LABS: Hematocrit 41.3 % (37.0-47.0); Hemoglobin 13.8 g/dl (12.0-16.0); Imm Gran Abs Auto 0.01 X10*3/uL (0.00-0.03); Imm Gran Pct Auto 0.1 % (0.0-0.4); Lymphocytes Absolute Auto 2.3 X10*3/uL (1.2-4.9); Mean Corpuscular HGB Conc 33.4 g/dl (31.0-35.0); Mean Corpuscular Hemoglobin 29.1 pg (27.0-33.0); Mean Corpuscular Volume 87.1 fL (80.0-98.0); NRBC Abs Auto 0.000 X10*3/uL (0.0-0.012); NRBC Pct Auto 0.0 /100WBC (0.0-0.2); Platelet Count 413 X10*3/uL (160-400); Red Blood Count 4.74 X10*6/uL (4.20-5.50); White Blood Count 7.1 X10*3/uL (4.8-10.8)
[2025-08-04 19:00] LABS: Alanine Aminotransferase 34 U/L (0-31); Albumin Level 4.6 g/dL (3.5-5.0); Alkaline Phosphatase 56 U/L (39-117); Anion Gap 12 (12-20); Aspartate Amino Transferase 31 U/L (5-31); Blood Urea Nitrogen 12 mg/dL (9-16); Calcium 9.7 mg/dL (8.4-10.2); Carbon Dioxide 25 mmol/L (22-29); Chloride 106 mmol/L (96-108); Estimated Glomerular Filt Rate > 60; Potassium 4.2 mmol/L (3.3-5.1); Sodium 139 mmol/L (135-145); Total Protein 7.1 g/dL (6.5-8.0)
[2025-08-04 19:48] LABS: Erythrocyte Sedimentation Rate 9 MM/HR (0-20)
--- OUTSIDE RECORDS SUMMARY | 2025-08-04 23:59 | XMS_ITS | Continuity of Care Document ---
Author Organization [facility] Address [address] [address]- [facility] Name Relationship Address Phone DUPERAULT, MADHAVI Personal [...] child Unknown Unavailable Care Team Providers Care Compliance Administrator Name Role Phone Naveed HAMILTON, Martina Dial Primary Care Physician Encounter [facility] Date(s): 07/05/25 - 08/04/25 [facility] [address] [address] Attending Physician: Linda Short Admitting Physician: Linda Short Referring Physician: Linda Short Encounter Type: Triage Allergies, Adverse Reactions, Alerts Substance Criticality Severity Reaction Reaction Severity Status erythromycin rash Active amoxicillin hives Active azithromycin Active Augmentin hives Resolved Immunizations Given and Recorded Vaccine Date Status [...] 8:37:00 AM EDT, 06/10/25 8:37:00 AM EDT, [facility]/pharmacy #[id number], Partial fill upon patient request if [...] intrauterine device See Instructions, Please delivery to [facility] 10/06 for insertion, # 1 each, 0 Refills, Maintenance,10/06/24 3:41:00 PM EST, [facility] 3, Partial fill upon patient request if [...] 3 Refills, Maintenance, 12/02/23 9:00:00 AM EDT, [facility] STORE [id number], 154, cm, 10/14/23 11:45:00 EST, Height, 84, [...] Refills, Maintenance, 12/06/23 5:13:00 PM EDT, Solution, [facility]/pharmacy #[id number], 154, cm, 12/06/23 16:52:00 EDT, Height, [...] Team Personnel Name: Abilio Arellano RN Position: [facility] RN Member Role: Primary Care Nurse Name: Tracy Soto RN Position: [facility] RN Member Role: Primary Care Nurse Name: Senia Ingram MD Position: [facility] DIRECTOR IT MD Member Role: Lifetime DIRECTOR IT Physician Address: [address] [place] [id number] Telecom: Name: Beverley Tam [place] Position: [facility] Outreach Member Role: Lifetime Consulting Physician Name: Martina Lucio MD Position: Reference Physician Member Role: PCP Address: [address] [place] [address]- Telecom: Name: Vannesa Anguiano RN Position: [facility] AMB Nurse Member Role: Primary Care Nurse Name: Balaji Chaudhry MD Position: [facility] DIRECTOR IT MD Member Role: Lifetime DIRECTOR IT Physician Address: [address] [facility] [place] [address]- Telecom: Care Team Related Persons Name: JIMENEZ SOTO Name: PATRIA SOTO Name: MARTA NICE Name: MADHAVI NICE Insurance Providers Guarantor name: TRACY LARRYSOLA Health Plan Information #: 1 Payer: [facility] FF NON P HMO P Payer Identifier: NA Member Number: [id number] Group Number: [id number] Subscriber Identifier: NA Relationship to Subscriber: spouse Coverage Type: Other Private Insurance Coverage Verification Date: NA Telecom: NA Address:
== END 2025-08-04 14:46 | disposition home or self-care (01) ==
LOC: HO.WFDLDS 14:45
PROVIDERS: PCP Internal Medicine; Visit Provider Physician Assistant
DX: J35.1 Hypertrophy of tonsils (principal); J02.9 Acute pharyngitis, unspecified; R59.0 Localized enlarged lymph nodes
CPT/HCPCS: 36415; 80053; 84443; 85025; 85652; 87880

== ENCOUNTER 2025-09-14 14:54 | Outpatient (AMB) | payer OTHER, SELFPAY ==
--- OUTSIDE RECORDS SUMMARY | 2025-09-14 18:30 | XMS_ITS | Clinical Summary ---
Author Organization [facility] Address [address] [place] [address] Phone Care Team Providers Care Assistant Foreman Name Role Phone Pcp, Unknown Primary Care [...] Subscriber:Spouse Name:MARLIN MILLERCHARY Date of :1900 Address: [address] [place] [address] Payer ID:Not on file Type:PPO Address: [address] Member Subscriber Plan / Payer (Ef fective 2023-) Name:Tracy Miller Relation to Subscriber:Spouse Name:JOB MILLER Date of :1900 Address: [address] [place] [address] Payer ID:Not on file Type:PPO Address: [address] Member Subscriber Plan / Payer (Ef fective 2023-Present) Name:Tracy Miller Relation to Subscriber:Spouse Name:JOB MILLER Date of :1900 Address: [address] [place] [address] Payer ID:Not on file Type:O Address: [address] Member Subscriber Plan / Payer (Ef fective 2023-Present) Name:Tracy Miller Relation to Subscriber:Spouse Name:JOB MILLER Date of :1902 Address: [address] [place] [address] Payer ID:Not on file Type:PPO Address: [address] Member Subscriber Plan / Payer (Ef fective 2023-) Name:Tracy Miller Relation to Subscriber:Spouse Name:JOB MILLER Date of :1902 Address: [address] [place] [address] Payer ID:Not on file Type:PPO Address: [address] Member Subscriber Plan / Payer (Ef fective 2023-Present) Name:Tracy Miller Relation to Subscriber:Spouse Name:JOB IMLLER Date of :1900 Address: [address] [place] [id number] Payer ID:Not on file Type:O Address: [address] HMO Care Teams Assistant Foreman Relationship Specialty Start Date End Date Pcp, Unknown PCP - General 06/14/23 Additional Source Comments The information contained in this document represents components of the legal health record. It is not the complete legal health record.[facility]
--- OUTSIDE RECORDS SUMMARY | 2025-09-14 18:30 | XMS_ITS | Patient Health Record ---
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 Name Role Phone RodrigueJENNY CUEVAS Primary Care Provider Lissette Luevano Unavailable [phone] Allergies Allergen (clinical drug ingredient) Drug/Non Drug Allergy documented on EMR Reaction Allergy Type Onset Date Status amoxicillin Amoxicillin hives Drug Allergy Act roge erythromycin Erythromycin hives Drug Allergy A ctive Results Component Value Reference Range Notes URINALYSIS WITH REFLEX MICRO SCOPIC AND CULTURE Reviewed date:09/06/2025 11:03:01 AM Interpretation: Performing Lab: Notes/Report: Specific [place] Urine 1.025 1.003-1.030 pH, Urine 7.5 5.0-8.0 pH Leukocytes, Urine Negative Negative Nitrite, Urine Negative Negative Protein, Urine Negative <=Trace mg/dL Glucose, Urine Negative Negative mg/dL Ketones, Urine Negative Negative mg/dL Urobilinogen, Urine 0.2 0.2-1.0 mg/dL Bilirubin, Urine Negative Negative Blood, Urine Negative Negative Reason For Referral No Information Medications Medication SIG (Take, Route, Frequency, Duration) Notes Start Date End Date Status Zepbound 5 MG/0.5ML Solution Auto-injector 0.5 mL Subcutaneous weekly; Duration: 28 days 08/09/2025 Active Ondansetron 4 MG Tablet Disintegrating 1 tablet on the tongue and allow to dissolve Orally Once a day; Duration: 30 days 09/07/2025 Active Levothyroxine Sodium 75 MCG Capsule 1 capsule in the morning on an empty stomach Orally Once a day Active clonazePAM 0.5 MG Tablet 1 tablet Orally Once a day Active Vyvanse 40 MG Capsule 1 capsule in the m orning Orally Once a day Active Social History Section Notes: denies alcohol, tobacco, stephan g use denies alcohol, tobacco, stephan g use denies alcohol, tobacco, stephan g use denies alcohol, tobacco, stephan g use Problems Problem Type SNOMED Code ICD Code Onset Dates Problem Status W/U Status Risk Notes Problem Overweight (151714564) Overweight (E66.3) Active confirmed Problem Hypothyroidism (80650614) Hypothyroidism (acquired) (E03.9) Active confirmed Problem Fatty liver (829054106) Fatty liver disease, nonalcoholic (K76.0) Active confirmed Problem Polycystic ovary syndrome (disorder) (745568022) PCOS (polycystic ovarian syndrome) (E28.2) Active confirmed Problem Body mass index 30.00 to 34.99 (179009129164155) BMI 31.0-31.9,adult (Z68.31) Active confirmed Problem Body mass index 30+ - obesity (429741231) BMI 30.0-30.9,adult (Z68.30) Active confirmed Problem Body mass index 30.00 to 34.99 (020999753047439) BMI 34.0-34.9,adult (Z68.34) Active confirmed Problem Attention deficit hyperactivity disorder (896358617) ADHD (attention deficit hyperactivity disorder), combined type (F90.2) Active confirmed Problem Generalized anxiety disorder (38716272) Anxiety, generalized (F41.1) Active confirmed Problem Obesity (461694997) Moderate obesity (E66.9) Active confirmed Vital Signs Heart Rate 83 /min 09/06/2025 Oximetry 98 % 09/06/2025 Blood pressure diastolic 70 mm Hg 09/06/2025 Height 60 in 09/06/2025 Blood pressure systolic 102 mm Hg 09/06/2025 Weight 153.1 lbs 09/06/2025 BMI 29.9 kg/m2 09/06/2025 Encounters Encounter Location Date Provider Diagnosis [facility] [address] [place] [id number] 06/14/2025 Lissette Normoyle Moderate obesity E66 .9 ; BMI 34.0-34.9,adult Z68.34 ; Dietary counseling and surveillance Z71.3 ; Fatty liver disease, nonalcoholic K76.0 ; PCOS (polycystic ovarian syndrome) E28.2 ; ADHD (attention deficit hyperactivity disorder), combined type F90.2 ; Hypothyroidism (acquired) E03.9 and Encounter for examination of blood pressure without abnormal findings Z01.30 [facility] [address] 07/12/2025 Lissette Normoyle BMI 31.0-31.9,adult Z68.31 ; Moderate obesity E66.9 ; Dietary counseling and surveillance Z71.3 ; Fatty liver disease, nonalcoholic K76.0 ; PCOS (polycystic ovarian syndrome) E28.2 ; ADHD (attention deficit hyperactivity disorder), combined type F90.2 ; Hypothyroidism (acquired) E03.9 and Encounter for examination of blood pressure without abnormal findings Z01.30 [facility] [address] 08/09/2025 Lissette Normoyle BMI 30.0-30.9,adult Z68.30 ; Moderate obesity E66.9 ; Dietary counseling and surveillance Z71.3 ; Fatty liver disease, nonalcoholic K76.0 ; PCOS (polycystic ovarian syndrome) E28.2 ; ADHD (attention deficit hyperactivity disorder), combined type F90.2 ; Hypothyroidism (acquired) E03.9 and Encounter for examination of blood pressure without abnormal findings Z01.30 [facility] [address] 09/06/2025 Lissette Normoyle Overweight E66.3 ; B TX 29.0-29.9,adult Z68.29 ; Dietary counseling and surveillance Z71.3 ; Urinary frequency R35.0 ; Fatty liver disease, nonalcoholic K76.0 ; PCOS (polycystic ovarian syndrome) E28.2 ; ADHD (attention deficit hyperactivity disorder), combined type F90.2 ; Hypothyroidism (acquired) E03.9 and Encounter for examination of blood pressure without abnormal findings Z01.30 [facility] [address] 06/14/2025 Lissette Normoyle Moderate obesity E66 .[address] [facility] [address] [place] [address] 07/01/2025 Lissette Normoyle Moderate obesity E66 .9 [facility] [address] 09/06/2025 Lissette Normoyle [facility] [address] [address] 09/06/2025 Lissette Reynolds Assessments Encounter Date Diagnosis (ICD Code) Assessment [...] Consider group exercises. Consider hiring a personal assistant. Regular exercise is olguin to sustainable [...] counseling and psychiatry and Dr Newsome at [facility]. We would like to cover regular topics [...] Dictation was accomplished with the use of [employer] voice recognition software, prone to medical misidentifications [...] Consider group exercises. Consider hiring a personal assistant. Regular exercise is olguin to sustainable [...] counseling and psychiatry and Dr Newsome at [facility]. We would like to cover regular topics [...] Dictation was accomplished with the use of [employer] voice recognition software, prone to medical misidentifications [...] Consider using apps like 7 minute excercise, [employer], lose it, stick as needed for self-monitoring and weight management. Consider group exercises. Consider hiring a personal assistant. Regular exercise is olguin to sustainable [...] counseling and psychiatry and Dr Newsome at [facility]. We would like to cover regular topics [...] Dictation was accomplished with the use of [employer] voice recognition software, prone to medical misidentifications and grammatical errors. This is unintentional and the practitioner does try to identify and correct these, but some could still be present. Please do not hesitate to contact practitioner for clarification. All questions answered to patients satisfaction. Patient verbalized understanding of diagnosis and treatments explained. To call sooner prior to next visit it any questions/concerns arise. 08/09/2025 BMI 30.0-30.9,adult (ICD-10 - Z68.30) Tracy is a 29-year-old female who presents [...] #Obesity: 06/14/2025: Weight 174.4 pounds, BMI 34.06. 07/12/2025: Weight 165.7 pounds, BMI 31.8. Skeletal muscle mass decreased 1 pound, fat mass decreased 10 pounds. 08/05/2025: Weight 157.9 pounds, BMI 30.5. Congratulated on effort. She continues microdosing Zepbound. She currently is now on 2.5 mg weekly injections. Skeletal muscle mass maintained, fat mass decreased 6 pounds. She has had success on low dosing of Zepbound. Discussed protein, exercise, hydration goals. Plan increase to Zepbound 5 mg weekly injections with continued microdosing. Follow-up in 4 weeks. #MASH: Follows with PCP. Discussed continuing healthy lifestyle and medication to help with weight loss. #PCOS: Does not have hyperlipidemia or prediabetes/diabetes . Discussed lifestyle modifications, limiting refined carbohydrated, processed foods, and advised exercise 3-4 times weekly. #ADHD: Continue Vyvanse. Continue following with PCP Total time spent today was 30 minutes of which greater than 50% was spent on coordinating and counseling Case discussed with collaborating physician Rory Hill who reviewed the assessment and plan. Chart, medications, labs, vital signs reviewed. Dictation was accomplished with the use of [employer] voice recognition software, prone to medical misidentifications and grammatical errors. This is unintentional and the practitioner does try to identify and correct these, but some could still be present. Please do not hesitate to contact practitioner for clarification. All questions answered to patients satisfaction. Patient verbalized understanding of diagnosis and treatments explained. To call sooner prior to next visit it any questions/concerns arise. 09/06/2025 Overweight (ICD-10 - E66.3) Tracy is a 29-year-old female who presents [...] #Obesity: 06/14/2025: Weight 174.4 pounds, BMI 34.06. 07/12/2025: Weight 165.7 pounds, BMI 31.8. Skeletal muscle mass decreased 1 pound, fat mass decreased 10 pounds. 08/05/2025: Weight 157.9 pounds, BMI 30.5. Skeletal muscle mass maintained, fat mass decreased 6 pounds. 09/06/2025: Weight 153.1 pounds, BMI 29.4. Congratulated on effort. Continues on Zepbound 2.5 mg weekly injections. Skeletal muscle mass decreased 2 pounds, fat mass decreased 3 pounds, waist circumference decreased half an inch, visceral adipose tissue decreased from 1.8-1.7. Discussed protein, exercise, hydration goals. Plan to continue Zepbound 2.5 mg weekly injections. Patient does not need a refill at this time. Follow-up in 4 to 6 weeks. #Urinary frequency: Patient reports urinary frequency and urgency for 2 weeks, denies dysuria, hematuria, abdominal pain. Plan for UA with reflex to culture. #Hypothyroidism: TSH 08/2025 was low. Levothyroxine was decreased from 100 mcg to 75 mcg. Plan to continue levothyroxine 75 mcg daily. She has plans to repeat TSH in 4 weeks. Will follow-up at next visit. #MASH: Follows with PCP. Discussed continuing healthy lifestyle and medication to help with weight loss. #PCOS: Does not have hyperlipidemia or prediabetes/diabetes . Discussed lifestyle modifications, limiting refined carbohydrated, processed foods, and advised exercise 3-4 times weekly. #ADHD: Continue Vyvanse. Continue following with PCP Total time spent today was 30 minutes of which greater than 50% was spent on coordinating and counseling Case discussed with collaborating physician Rory Hill who reviewed the assessment and plan. Chart, medications, labs, vital signs reviewed. Dictation was accomplished with the use of [employer] voice recognition software, prone to medical misidentifications and grammatical errors. This is unintentional and the practitioner does try to identify and correct these, but some could still be present. Please do not hesitate to contact practitioner for clarification. All questions answered to patients satisfaction. Patient verbalized understanding of diagnosis and treatments explained. To call sooner prior to next visit it any questions/concerns arise. 09/06/2025 BMI 29.0-29.9,adult (ICD-10 - Z68.29) Tracy is a 29-year-old female who presents [...] #Obesity: 06/14/2025: Weight 174.4 pounds, BMI 34.06. 07/12/2025: Weight 165.7 pounds, BMI 31.8. Skeletal muscle mass decreased 1 pound, fat mass decreased 10 pounds. 08/05/2025: Weight 157.9 pounds, BMI 30.5. Skeletal muscle mass maintained, fat mass decreased 6 pounds. 09/06/2025: Weight 153.1 pounds, BMI 29.4. Congratulated on effort. Continues on Zepbound 2.5 mg weekly injections. Skeletal muscle mass decreased 2 pounds, fat mass decreased 3 pounds, waist circumference decreased half an inch, visceral adipose tissue decreased from 1.8-1.7. Discussed protein, exercise, hydration goals. Plan to continue Zepbound 2.5 mg weekly injections. Patient does not need a refill at this time. Follow-up in 4 to 6 weeks. #Urinary frequency: Patient reports urinary frequency and urgency for 2 weeks, denies dysuria, hematuria, abdominal pain. Plan for UA with reflex to culture. #Hypothyroidism: TSH 08/2025 was low. Levothyroxine was decreased from 100 mcg to 75 mcg. Plan to continue levothyroxine 75 mcg daily. She has plans to repeat TSH in 4 weeks. Will follow-up at next visit. #MASH: Follows with PCP. Discussed continuing healthy lifestyle and medication to help with weight loss. #PCOS: Does not have hyperlipidemia or prediabetes/diabetes . Discussed lifestyle modifications, limiting refined carbohydrated, processed foods, and advised exercise 3-4 times weekly. #ADHD: Continue Vyvanse. Continue following with PCP Total time spent today was 30 minutes of which greater than 50% was spent on coordinating and counseling Case discussed with collaborating physician Rory Hill who reviewed the assessment and plan. Chart, medications, labs, vital signs reviewed. Dictation was accomplished with the use of [employer] voice recognition software, prone to medical misidentifications and grammatical errors. This is unintentional and the practitioner does try to identify and correct these, but some could still be present. Please do not hesitate to contact practitioner for clarification. All questions answered to patients satisfaction. Patient verbalized understanding of diagnosis and treatments explained. To call sooner prior to next visit it any questions/concerns arise. 09/06/2025 Dietary counseling and surveillance (ICD-10 - Z71.3) [...] #Obesity: 06/14/2025: Weight 174.4 pounds, BMI 34.06. 07/12/2025: Weight 165.7 pounds, BMI 31.8. Skeletal muscle mass decreased 1 pound, fat mass decreased 10 pounds. 08/05/2025: Weight 157.9 pounds, BMI 30.5. Skeletal muscle mass maintained, fat mass decreased 6 pounds. 09/06/2025: Weight 153.1 pounds, BMI 29.4. Congratulated on effort. Continues on Zepbound 2.5 mg weekly injections. Skeletal muscle mass decreased 2 pounds, fat mass decreased 3 pounds, waist circumference decreased half an inch, visceral adipose tissue decreased from 1.8-1.7. Discussed protein, exercise, hydration goals. Plan to continue Zepbound 2.5 mg weekly injections. Patient does not need a refill at this time. Follow-up in 4 to 6 weeks. #Urinary frequency: Patient reports urinary frequency and urgency for 2 weeks, denies dysuria, hematuria, abdominal pain. Plan for UA with reflex to culture. #Hypothyroidism: TSH 08/2025 was low. Levothyroxine was decreased from 100 mcg to 75 mcg. Plan to continue levothyroxine 75 mcg daily. She has plans to repeat TSH in 4 weeks. Will follow-up at next visit. #MASH: Follows with PCP. Discussed continuing healthy lifestyle and medication to help with weight loss. #PCOS: Does not have hyperlipidemia or prediabetes/diabetes . Discussed lifestyle modifications, limiting refined carbohydrated, processed foods, and advised exercise 3-4 times weekly. #ADHD: Continue Vyvanse. Continue following with PCP Total time spent today was 30 minutes of which greater than 50% was spent on coordinating and counseling Case discussed with collaborating physician Rory Hill who reviewed the assessment and plan. Chart, medications, labs, vital signs reviewed. Dictation was accomplished with the use of [employer] voice recognition software, prone to medical misidentifications and grammatical errors. This is unintentional and the practitioner does try to identify and correct these, but some could still be present. Please do not hesitate to contact practitioner for clarification. All questions answered to patients satisfaction. Patient verbalized understanding of diagnosis and treatments explained. To call sooner prior to next visit it any questions/concerns arise. 08/09/2025 Moderate obesity (ICD-10 - E66.9) Tracy is [...] #Obesity: 06/14/2025: Weight 174.4 pounds, BMI 34.06. 07/12/2025: Weight 165.7 pounds, BMI 31.8. Skeletal muscle mass decreased 1 pound, fat mass decreased 10 pounds. 08/05/2025: Weight 157.9 pounds, BMI 30.5. Congratulated on effort. She continues microdosing Zepbound. She currently is now on 2.5 mg weekly injections. Skeletal muscle mass maintained, fat mass decreased 6 pounds. She has had success on low dosing of Zepbound. Discussed protein, exercise, hydration goals. Plan increase to Zepbound 5 mg weekly injections with continued microdosing. Follow-up in 4 weeks. #MASH: Follows with PCP. Discussed continuing healthy lifestyle and medication to help with weight loss. #PCOS: Does not have hyperlipidemia or prediabetes/diabetes . Discussed lifestyle modifications, limiting refined carbohydrated, processed foods, and advised exercise 3-4 times weekly. #ADHD: Continue Vyvanse. Continue following with PCP Total time spent today was 30 minutes of which greater than 50% was spent on coordinating and counseling Case discussed with collaborating physician Rory Hill who reviewed the assessment and plan. Chart, medications, labs, vital signs reviewed. Dictation was accomplished with the use of [employer] voice recognition software, prone to medical misidentifications [...] Consider using apps like 7 minute excercise, my[employer]hen [employer]nesspal, lose it, stick as needed for self-monitoring and weight management. Consider group exercises. Consider hiring a personal assistant. Regular exercise is olguin to sustainable [...] counseling and psychiatry and Dr Newsome at [facility]. We would like to cover regular topics [...] Dictation was accomplished with the use of [employer] voice recognition software, prone to medical misidentifications and grammatical errors. This is unintentional and the practitioner does try to identify and correct these, but some could still be present. Please do not hesitate to contact practitioner for clarification. All questions answered to patients satisfaction. Patient verbalized understanding of diagnosis and treatments explained. To call sooner prior to next visit it any questions/concerns arise. 08/09/2025 Dietary counseling and surveillance (ICD-10 - Z71.3) [...] #Obesity: 06/14/2025: Weight 174.4 pounds, BMI 34.06. 07/12/2025: Weight 165.7 pounds, BMI 31.8. Skeletal muscle mass decreased 1 pound, fat mass decreased 10 pounds. 08/05/2025: Weight 157.9 pounds, BMI 30.5. Congratulated on effort. She continues microdosing Zepbound. She currently is now on 2.5 mg weekly injections. Skeletal muscle mass maintained, fat mass decreased 6 pounds. She has had success on low dosing of Zepbound. Discussed protein, exercise, hydration goals. Plan increase to Zepbound 5 mg weekly injections with continued microdosing. Follow-up in 4 weeks. #MASH: Follows with PCP. Discussed continuing healthy lifestyle and medication to help with weight loss. #PCOS: Does not have hyperlipidemia or prediabetes/diabetes . Discussed lifestyle modifications, limiting refined carbohydrated, processed foods, and advised exercise 3-4 times weekly. #ADHD: Continue Vyvanse. Continue following with PCP Total time spent today was 30 minutes of which greater than 50% was spent on coordinating and counseling Case discussed with collaborating physician Rory Hill who reviewed the assessment and plan. Chart, medications, labs, vital signs reviewed. Dictation was accomplished with the use of [employer] voice recognition software, prone to medical misidentifications [...] Consider using apps like 7 minute excercise, [employer], lose it, stick as needed for self-monitoring and weight management. Consider group exercises. Consider hiring a personal assistant. Regular exercise is olguin to sustainable [...] counseling and psychiatry and Dr Newsome at [facility]. We would like to cover regular topics [...] Dictation was accomplished with the use of [employer] voice recognition software, prone to medical misidentifications [...] Consider using apps like 7 minute excercise, myFli[employer]pal, lose it, stick as needed for self-monitoring and weight management. Consider group exercises. Consider hiring a personal assistant. Regular exercise is olguin to sustainable [...] counseling and psychiatry and Dr Newsome at [facility]. We would like to cover regular topics [...] Dictation was accomplished with the use of [employer] voice recognition software, prone to medical misidentifications [...] Fatty liver disease, nonalcoholic (ICD-10 - K76.0) Trcay is a 29-year-old female who presents for [...] Consider using apps like 7 minute excercise, [employer], lose it, stick as needed for self-monitoring and weight management. Consider group exercises. Consider hiring a personal assistant. Regular exercise is olguin to sustainable [...] counseling and psychiatry and Dr Newsome at [facility]. We would like to cover regular topics [...] Dictation was accomplished with the use of [employer] voice recognition software, prone to medical misidentifications [...] Consider using apps like 7 minute excercise, myFliqqpal, lose it, stick as needed for self-monitoring and weight management. Consider group exercises. Consider hiring a personal assistant. Regular exercise is olguin to sustainable [...] counseling and psychiatry and Dr Newsome at [facility]. We would like to cover regular topics [...] Dictation was accomplished with the use of [employer] voice recognition software, prone to medical misidentifications and grammatical errors. This is unintentional and the practitioner does try to identify and correct these, but some could still be present. Please do not hesitate to contact practitioner for clarification. All questions answered to patients satisfaction. Patient verbalized understanding of diagnosis and treatments explained. To call sooner prior to next visit it any questions/concerns arise. 08/09/2025 Fatty liver disease, nonalcoholic (ICD-10 - K76.0) [...] #Obesity: 06/14/2025: Weight 174.4 pounds, BMI 34.06. 07/12/2025: Weight 165.7 pounds, BMI 31.8. Skeletal muscle mass decreased 1 pound, fat mass decreased 10 pounds. 08/05/2025: Weight 157.9 pounds, BMI 30.5. Congratulated on effort. She continues microdosing Zepbound. She currently is now on 2.5 mg weekly injections. Skeletal muscle mass maintained, fat mass decreased 6 pounds. She has had success on low dosing of Zepbound. Discussed protein, exercise, hydration goals. Plan increase to Zepbound 5 mg weekly injections with continued microdosing. Follow-up in 4 weeks. #ALIDA: Follows with PCP. Discussed continuing healthy lifestyle and medication to help with weight loss. #PCOS: Does not have hyperlipidemia or prediabetes/diabetes . Discussed lifestyle modifications, limiting refined carbohydrated, processed foods, and advised exercise 3-4 times weekly. #ADHD: Continue Vyvanse. Continue following with PCP Total time spent today was 30 minutes of which greater than 50% was spent on coordinating and counseling Case discussed with collaborating physician Rory Hill who reviewed the assessment and plan. Chart, medications, labs, vital signs reviewed. Dictation was accomplished with the use of [employer] voice recognition software, prone to medical misidentifications and grammatical errors. This is unintentional and the practitioner does try to identify and correct these, but some could still be present. Please do not hesitate to contact practitioner for clarification. All questions answered to patients satisfaction. Patient verbalized understanding of diagnosis and treatments explained. To call sooner prior to next visit it any questions/concerns arise. 09/06/2025 Urinary frequency (ICD-10 - R35.0) Tracy is a 29-year-old female who presents [...] #Obesity: 06/14/2025: Weight 174.4 pounds, BMI 34.06. 07/12/2025: Weight 165.7 pounds, BMI 31.8. Skeletal muscle mass decreased 1 pound, fat mass decreased 10 pounds. 08/05/2025: Weight 157.9 pounds, BMI 30.5. Skeletal muscle mass maintained, fat mass decreased 6 pounds. 09/06/2025: Weight 153.1 pounds, BMI 29.4. Congratulated on effort. Continues on Zepbound 2.5 mg weekly injections. Skeletal muscle mass decreased 2 pounds, fat mass decreased 3 pounds, waist circumference decreased half an inch, visceral adipose tissue decreased from 1.8-1.7. Discussed protein, exercise, hydration goals. Plan to continue Zepbound 2.5 mg weekly injections. Patient does not need a refill at this time. Follow-up in 4 to 6 weeks. #Urinary frequency: Patient reports urinary frequency and urgency for 2 weeks, denies dysuria, hematuria, abdominal pain. Plan for UA with reflex to culture. #Hypothyroidism: TSH 08/2025 was low. Levothyroxine was decreased from 100 mcg to 75 mcg. Plan to continue levothyroxine 75 mcg daily. She has plans to repeat TSH in 4 weeks. Will follow-up at next visit. #MASH: Follows with PCP. Discussed continuing healthy lifestyle and medication to help with weight loss. #PCOS: Does not have hyperlipidemia or prediabetes/diabetes . Discussed lifestyle modifications, limiting refined carbohydrated, processed foods, and advised exercise 3-4 times weekly. #ADHD: Continue Vyvanse. Continue following with PCP Total time spent today was 30 minutes of which greater than 50% was spent on coordinating and counseling Case discussed with collaborating physician Rory Hill who reviewed the assessment and plan. Chart, medications, labs, vital signs reviewed. Dictation was accomplished with the use of [employer] voice recognition software, prone to medical misidentifications and grammatical errors. This is unintentional and the practitioner does try to identify and correct these, but some could still be present. Please do not hesitate to contact practitioner for clarification. All questions answered to patients satisfaction. Patient verbalized understanding of diagnosis and treatments explained. To call sooner prior to next visit it any questions/concerns arise. 09/06/2025 Fatty liver disease, nonalcoholic (ICD-10 - K76.0) [...] #Obesity: 06/14/2025: Weight 174.4 pounds, BMI 34.06. 07/12/2025: Weight 165.7 pounds, BMI 31.8. Skeletal muscle mass decreased 1 pound, fat mass decreased 10 pounds. 08/05/2025: Weight 157.9 pounds, BMI 30.5. Skeletal muscle mass maintained, fat mass decreased 6 pounds. 09/06/2025: Weight 153.1 pounds, BMI 29.4. Congratulated on effort. Continues on Zepbound 2.5 mg weekly injections. Skeletal muscle mass decreased 2 pounds, fat mass decreased 3 pounds, waist circumference decreased half an inch, visceral adipose tissue decreased from 1.8-1.7. Discussed protein, exercise, hydration goals. Plan to continue Zepbound 2.5 mg weekly injections. Patient does not need a refill at this time. Follow-up in 4 to 6 weeks. #Urinary frequency: Patient reports urinary frequency and urgency for 2 weeks, denies dysuria, hematuria, abdominal pain. Plan for UA with reflex to culture. #Hypothyroidism: TSH 08/2025 was low. Levothyroxine was decreased from 100 mcg to 75 mcg. Plan to continue levothyroxine 75 mcg daily. She has plans to repeat TSH in 4 weeks. Will follow-up at next visit. #MASH: Follows with PCP. Discussed continuing healthy lifestyle and medication to help with weight loss. #PCOS: Does not have hyperlipidemia or prediabetes/diabetes . Discussed lifestyle modifications, limiting refined carbohydrated, processed foods, and advised exercise 3-4 times weekly. #ADHD: Continue Vyvanse. Continue following with PCP Total time spent today was 30 minutes of which greater than 50% was spent on coordinating and counseling Case discussed with collaborating physician Rory Hill who reviewed the assessment and plan. Chart, medications, labs, vital signs reviewed. Dictation was accomplished with the use of [employer] voice recognition software, prone to medical misidentifications and grammatical errors. This is unintentional and the practitioner does try to identify and correct these, but some could still be present. Please do not hesitate to contact practitioner for clarification. All questions answered to patients satisfaction. Patient verbalized understanding of diagnosis and treatments explained. To call sooner prior to next visit it any questions/concerns arise. 08/09/2025 PCOS (polycystic ovarian syndrome) (ICD-10 - E28.2) [...] #Obesity: 06/14/2025: Weight 174.4 pounds, BMI 34.06. 07/12/2025: Weight 165.7 pounds, BMI 31.8. Skeletal muscle mass decreased 1 pound, fat mass decreased 10 pounds. 08/05/2025: Weight 157.9 pounds, BMI 30.5. Congratulated on effort. She continues microdosing Zepbound. She currently is now on 2.5 mg weekly injections. Skeletal muscle mass maintained, fat mass decreased 6 pounds. She has had success on low dosing of Zepbound. Discussed protein, exercise, hydration goals. Plan increase to Zepbound 5 mg weekly injections with continued microdosing. Follow-up in 4 weeks. #MASH: Follows with PCP. Discussed continuing healthy lifestyle and medication to help with weight loss. #PCOS: Does not have hyperlipidemia or prediabetes/diabetes . Discussed lifestyle modifications, limiting refined carbohydrated, processed foods, and advised exercise 3-4 times weekly. #ADHD: Continue Vyvanse. Continue following with PCP Total time spent today was 30 minutes of which greater than 50% was spent on coordinating and counseling Case discussed with collaborating physician Rory Hill who reviewed the assessment and plan. Chart, medications, labs, vital signs reviewed. Dictation was accomplished with the use of [employer] voice recognition software, prone to medical misidentifications [...] Consider group exercises. Consider hiring a personal assistant. Regular exercise is olguin to sustainable [...] counseling and psychiatry and Dr Newsome at [facility]. We would like to cover regular topics [...] Dictation was accomplished with the use of [employer] voice recognition software, prone to medical misidentifications [...] books called The Food Rules by Ronni Pollen and Eat Fat Get Lean by Dr [...] Consider group exercises. Consider hiring a personal assistant. Regular exercise is olguin to sustainable [...] counseling and psychiatry and Dr Newsome at [facility]. We would like to cover regular topics [...] Dictation was accomplished with the use of [employer] voice recognition software, prone to medical misidentifications [...] Consider using apps like 7 minute excercise, myFliqqpal, lose it, stick as needed for self-monitoring and weight management. Consider group exercises. Consider hiring a personal assistant. Regular exercise is olguin to sustainable [...] counseling and psychiatry and Dr Newsome at [facility]. We would like to cover regular topics [...] Dictation was accomplished with the use of [employer] voice recognition software, prone to medical misidentifications [...] Consider using apps like 7 minute excercise, myfitSugar Free Mediapal, lose it, stick as needed for self-monitoring and weight management. Consider group exercises. Consider hiring a personal assistant. Regular exercise is olguin to sustainable [...] counseling and psychiatry and Dr Newsome at [facility]. We would like to cover regular topics [...] Dictation was accomplished with the use of [employer] voice recognition software, prone to medical misidentifications and grammatical errors. This is unintentional and the practitioner does try to identify and correct these, but some could still be present. Please do not hesitate to contact practitioner for clarification. All questions answered to patients satisfaction. Patient verbalized understanding of diagnosis and treatments explained. To call sooner prior to next visit it any questions/concerns arise. 08/09/2025 ADHD (attention deficit hyperactivity disorder), combined type [...] #Obesity: 06/14/2025: Weight 174.4 pounds, BMI 34.06. 07/12/2025: Weight 165.7 pounds, BMI 31.8. Skeletal muscle mass decreased 1 pound, fat mass decreased 10 pounds. 08/05/2025: Weight 157.9 pounds, BMI 30.5. Congratulated on effort. She continues microdosing Zepbound. She currently is now on 2.5 mg weekly injections. Skeletal muscle mass maintained, fat mass decreased 6 pounds. She has had success on low dosing of Zepbound. Discussed protein, exercise, hydration goals. Plan increase to Zepbound 5 mg weekly injections with continued microdosing. Follow-up in 4 weeks. #MASH: Follows with PCP. Discussed continuing healthy lifestyle and medication to help with weight loss. #PCOS: Does not have hyperlipidemia or prediabetes/diabetes . Discussed lifestyle modifications, limiting refined carbohydrated, processed foods, and advised exercise 3-4 times weekly. #ADHD: Continue Vyvanse. Continue following with PCP Total time spent today was 30 minutes of which greater than 50% was spent on coordinating and counseling Case discussed with collaborating physician Rory Hill who reviewed the assessment and plan. Chart, medications, labs, vital signs reviewed. Dictation was accomplished with the use of [employer] voice recognition software, prone to medical misidentifications and grammatical errors. This is unintentional and the practitioner does try to identify and correct these, but some could still be present. Please do not hesitate to contact practitioner for clarification. All questions answered to patients satisfaction. Patient verbalized understanding of diagnosis and treatments explained. To call sooner prior to next visit it any questions/concerns arise. 09/06/2025 PCOS (polycystic ovarian syndrome) (ICD-10 - E28.2) [...] #Obesity: 06/14/2025: Weight 174.4 pounds, BMI 34.06. 07/12/2025: Weight 165.7 pounds, BMI 31.8. Skeletal muscle mass decreased 1 pound, fat mass decreased 10 pounds. 08/05/2025: Weight 157.9 pounds, BMI 30.5. Skeletal muscle mass maintained, fat mass decreased 6 pounds. 09/06/2025: Weight 153.1 pounds, BMI 29.4. Congratulated on effort. Continues on Zepbound 2.5 mg weekly injections. Skeletal muscle mass decreased 2 pounds, fat mass decreased 3 pounds, waist circumference decreased half an inch, visceral adipose tissue decreased from 1.8-1.7. Discussed protein, exercise, hydration goals. Plan to continue Zepbound 2.5 mg weekly injections. Patient does not need a refill at this time. Follow-up in 4 to 6 weeks. #Urinary frequency: Patient reports urinary frequency and urgency for 2 weeks, denies dysuria, hematuria, abdominal pain. Plan for UA with reflex to culture. #Hypothyroidism: TSH 08/2025 was low. Levothyroxine was decreased from 100 mcg to 75 mcg. Plan to continue levothyroxine 75 mcg daily. She has plans to repeat TSH in 4 weeks. Will follow-up at next visit. #MASH: Follows with PCP. Discussed continuing healthy lifestyle and medication to help with weight loss. #PCOS: Does not have hyperlipidemia or prediabetes/diabetes . Discussed lifestyle modifications, limiting refined carbohydrated, processed foods, and advised exercise 3-4 times weekly. #ADHD: Continue Vyvanse. Continue following with PCP Total time spent today was 30 minutes of which greater than 50% was spent on coordinating and counseling Case discussed with collaborating physician Rory Hill who reviewed the assessment and plan. Chart, medications, labs, vital signs reviewed. Dictation was accomplished with the use of [employer] voice recognition software, prone to medical misidentifications and grammatical errors. This is unintentional and the practitioner does try to identify and correct these, but some could still be present. Please do not hesitate to contact practitioner for clarification. All questions answered to patients satisfaction. Patient verbalized understanding of diagnosis and treatments explained. To call sooner prior to next visit it any questions/concerns arise. 08/09/2025 Hypothyroidism (acquired) (ICD-10 - E03.9) Tracy is [...] #Obesity: 06/14/2025: Weight 174.4 pounds, BMI 34.06. 07/12/2025: Weight 165.7 pounds, BMI 31.8. Skeletal muscle mass decreased 1 pound, fat mass decreased 10 pounds. 08/05/2025: Weight 157.9 pounds, BMI 30.5. Congratulated on effort. She continues microdosing Zepbound. She currently is now on 2.5 mg weekly injections. Skeletal muscle mass maintained, fat mass decreased 6 pounds. She has had success on low dosing of Zepbound. Discussed protein, exercise, hydration goals. Plan increase to Zepbound 5 mg weekly injections with continued microdosing. Follow-up in 4 weeks. #MASH: Follows with PCP. Discussed continuing healthy lifestyle and medication to help with weight loss. #PCOS: Does not have hyperlipidemia or prediabetes/diabetes . Discussed lifestyle modifications, limiting refined carbohydrated, processed foods, and advised exercise 3-4 times weekly. #ADHD: Continue Vyvanse. Continue following with PCP Total time spent today was 30 minutes of which greater than 50% was spent on coordinating and counseling Case discussed with collaborating physician Rory Hill who reviewed the assessment and plan. Chart, medications, labs, vital signs reviewed. Dictation was accomplished with the use of [employer] voice recognition software, prone to medical misidentifications [...] Consider using apps like 7 minute excercise, [employer], lose it, stick as needed for self-monitoring and weight management. Consider group exercises. Consider hiring a personal assistant. Regular exercise is olguin to sustainable [...] counseling and psychiatry and Dr Newsome at [facility]. We would like to cover regular topics [...] Dictation was accomplished with the use of [employer] voice recognition software, prone to medical misidentifications [...] Consider using apps like 7 minute excercise, [employer], lose it, stick as needed for self-monitoring and weight management. Consider group exercises. Consider hiring a personal assistant. Regular exercise is olguin to sustainable [...] counseling and psychiatry and Dr Newsome at [facility]. We would like to cover regular topics [...] Dictation was accomplished with the use of [employer] voice recognition software, prone to medical misidentifications and grammatical errors. This is unintentional and the practitioner does try to identify and correct these, but some could still be present. Please do not hesitate to contact practitioner for clarification. All questions answered to patients satisfaction. Patient verbalized understanding of diagnosis and treatments explained. To call sooner prior to next visit it any questions/concerns arise. 09/06/2025 ADHD (attention deficit hyperactivity disorder), combined type [...] #Obesity: 06/14/2025: Weight 174.4 pounds, BMI 34.06. 07/12/2025: Weight 165.7 pounds, BMI 31.8. Skeletal muscle mass decreased 1 pound, fat mass decreased 10 pounds. 08/05/2025: Weight 157.9 pounds, BMI 30.5. Skeletal muscle mass maintained, fat mass decreased 6 pounds. 09/06/2025: Weight 153.1 pounds, BMI 29.4. Congratulated on effort. Continues on Zepbound 2.5 mg weekly injections. Skeletal muscle mass decreased 2 pounds, fat mass decreased 3 pounds, waist circumference decreased half an inch, visceral adipose tissue decreased from 1.8-1.7. Discussed protein, exercise, hydration goals. Plan to continue Zepbound 2.5 mg weekly injections. Patient does not need a refill at this time. Follow-up in 4 to 6 weeks. #Urinary frequency: Patient reports urinary frequency and urgency for 2 weeks, denies dysuria, hematuria, abdominal pain. Plan for UA with reflex to culture. #Hypothyroidism: TSH 08/2025 was low. Levothyroxine was decreased from 100 mcg to 75 mcg. Plan to continue levothyroxine 75 mcg daily. She has plans to repeat TSH in 4 weeks. Will follow-up at next visit. #MASH: Follows with PCP. Discussed continuing healthy lifestyle and medication to help with weight loss. #PCOS: Does not have hyperlipidemia or prediabetes/diabetes . Discussed lifestyle modifications, limiting refined carbohydrated, processed foods, and advised exercise 3-4 times weekly. #ADHD: Continue Vyvanse. Continue following with PCP Total time spent today was 30 minutes of which greater than 50% was spent on coordinating and counseling Case discussed with collaborating physician Rory Hill who reviewed the assessment and plan. Chart, medications, labs, vital signs reviewed. Dictation was accomplished with the use of [employer] voice recognition software, prone to medical misidentifications [...] Consider using apps like 7 minute excercise, myfitSugar Free Mediapal, lose it, stick as needed for self-monitoring and weight management. Consider group exercises. Consider hiring a personal assistant. Regular exercise is olguin to sustainable [...] counseling and psychiatry and Dr Newsome at [facility]. We would like to cover regular topics [...] Dictation was accomplished with the use of [employer] voice recognition software, prone to medical misidentifications and grammatical errors. This is unintentional and the practitioner does try to identify and correct these, but some could still be present. Please do not hesitate to contact practitioner for clarification. All questions answered to patients satisfaction. Patient verbalized understanding of diagnosis and treatments explained. To call sooner prior to next visit it any questions/concerns arise. 08/09/2025 Encounter for examination of blood pressure without [...] #Obesity: 06/14/2025: Weight 174.4 pounds, BMI 34.06. 07/12/2025: Weight 165.7 pounds, BMI 31.8. Skeletal muscle mass decreased 1 pound, fat mass decreased 10 pounds. 08/05/2025: Weight 157.9 pounds, BMI 30.5. Congratulated on effort. She continues microdosing Zepbound. She currently is now on 2.5 mg weekly injections. Skeletal muscle mass maintained, fat mass decreased 6 pounds. She has had success on low dosing of Zepbound. Discussed protein, exercise, hydration goals. Plan increase to Zepbound 5 mg weekly injections with continued microdosing. Follow-up in 4 weeks. #MASH: Follows with PCP. Discussed continuing healthy lifestyle and medication to help with weight loss. #PCOS: Does not have hyperlipidemia or prediabetes/diabetes . Discussed lifestyle modifications, limiting refined carbohydrated, processed foods, and advised exercise 3-4 times weekly. #ADHD: Continue Vyvanse. Continue following with PCP Total time spent today was 30 minutes of which greater than 50% was spent on coordinating and counseling Case discussed with collaborating physician Rory Hill who reviewed the assessment and plan. Chart, medications, labs, vital signs reviewed. Dictation was accomplished with the use of [employer] voice recognition software, prone to medical misidentifications and grammatical errors. This is unintentional and the practitioner does try to identify and correct these, but some could still be present. Please do not hesitate to contact practitioner for clarification. All questions answered to patients satisfaction. Patient verbalized understanding of diagnosis and treatments explained. To call sooner prior to next visit it any questions/concerns arise. 09/06/2025 Hypothyroidism (acquired) (ICD-10 - E03.9) Tracy is [...] #Obesity: 06/14/2025: Weight 174.4 pounds, BMI 34.06. 07/12/2025: Weight 165.7 pounds, BMI 31.8. Skeletal muscle mass decreased 1 pound, fat mass decreased 10 pounds. 08/05/2025: Weight 157.9 pounds, BMI 30.5. Skeletal muscle mass maintained, fat mass decreased 6 pounds. 09/06/2025: Weight 153.1 pounds, BMI 29.4. Congratulated on effort. Continues on Zepbound 2.5 mg weekly injections. Skeletal muscle mass decreased 2 pounds, fat mass decreased 3 pounds, waist circumference decreased half an inch, visceral adipose tissue decreased from 1.8-1.7. Discussed protein, exercise, hydration goals. Plan to continue Zepbound 2.5 mg weekly injections. Patient does not need a refill at this time. Follow-up in 4 to 6 weeks. #Urinary frequency: Patient reports urinary frequency and urgency for 2 weeks, denies dysuria, hematuria, abdominal pain. Plan for UA with reflex to culture. #Hypothyroidism: TSH 08/2025 was low. Levothyroxine was decreased from 100 mcg to 75 mcg. Plan to continue levothyroxine 75 mcg daily. She has plans to repeat TSH in 4 weeks. Will follow-up at next visit. #MASH: Follows with PCP. Discussed continuing healthy lifestyle and medication to help with weight loss. #PCOS: Does not have hyperlipidemia or prediabetes/diabetes . Discussed lifestyle modifications, limiting refined carbohydrated, processed foods, and advised exercise 3-4 times weekly. #ADHD: Continue Vyvanse. Continue following with PCP Total time spent today was 30 minutes of which greater than 50% was spent on coordinating and counseling Case discussed with collaborating physician Rory Hill who reviewed the assessment and plan. Chart, medications, labs, vital signs reviewed. Dictation was accomplished with the use of [employer] voice recognition software, prone to medical misidentifications [...] Consider using apps like 7 minute excercise, [employer], lose it, stick as needed for self-monitoring and weight management. Consider group exercises. Consider hiring a personal assistant. Regular exercise is olguin to sustainable [...] counseling and psychiatry and Dr Newsome at [facility]. We would like to cover regular topics [...] Dictation was accomplished with the use of [employer] voice recognition software, prone to medical misidentifications and grammatical errors. This is unintentional and the practitioner does try to identify and correct these, but some could still be present. Please do not hesitate to contact practitioner for clarification. All questions answered to patients satisfaction. Patient verbalized understanding of diagnosis and treatments explained. To call sooner prior to next visit it any questions/concerns arise. 09/06/2025 Encounter for examination of blood pressure without [...] #Obesity: 06/14/2025: Weight 174.4 pounds, BMI 34.06. 07/12/2025: Weight 165.7 pounds, BMI 31.8. Skeletal muscle mass decreased 1 pound, fat mass decreased 10 pounds. 08/05/2025: Weight 157.9 pounds, BMI 30.5. Skeletal muscle mass maintained, fat mass decreased 6 pounds. 09/06/2025: Weight 153.1 pounds, BMI 29.4. Congratulated on effort. Continues on Zepbound 2.5 mg weekly injections. Skeletal muscle mass decreased 2 pounds, fat mass decreased 3 pounds, waist circumference decreased half an inch, visceral adipose tissue decreased from 1.8-1.7. Discussed protein, exercise, hydration goals. Plan to continue Zepbound 2.5 mg weekly injections. Patient does not need a refill at this time. Follow-up in 4 to 6 weeks. #Urinary frequency: Patient reports urinary frequency and urgency for 2 weeks, denies dysuria, hematuria, abdominal pain. Plan for UA with reflex to culture. #Hypothyroidism: TSH 08/2025 was low. Levothyroxine was decreased from 100 mcg to 75 mcg. Plan to continue levothyroxine 75 mcg daily. She has plans to repeat TSH in 4 weeks. Will follow-up at next visit. #MASH: Follows with PCP. Discussed continuing healthy lifestyle and medication to help with weight loss. #PCOS: Does not have hyperlipidemia or prediabetes/diabetes . Discussed lifestyle modifications, limiting refined carbohydrated, processed foods, and advised exercise 3-4 times weekly. #ADHD: Continue Vyvanse. Continue following with PCP Total time spent today was 30 minutes of which greater than 50% was spent on coordinating and counseling Case discussed with collaborating physician Rory Hill who reviewed the assessment and plan. Chart, medications, labs, vital signs reviewed. Dictation was accomplished with the use of [employer] voice recognition software, prone to medical misidentifications [...] it any questions/concerns arise. Plan Of Treatment Pending Test Test Name Order Date URINALYSIS W/REFLEX CULTURE 09/06/2025 Next Appt Details Provider Name:Lissette Hu bautista, 10/18/2025 09:30:00 AM, [address] [facility], [facility] [address], [place], [address], Insurance Providers Payer Name Payer Address Payer Phone Subscriber Number Group Number Insured Name Patient Relationship to Insured Coverage Start Date Coverage End Date [facility] [address] [place] [address] [id number] TRACY MILLER Self - patient is the insured 3 Medical (General) History Medical History History ICD Code weight gain/loss Hypothyroidism (acquired) E03.9 ADHD (attention deficit hyperactivity di sorder), combined type F90.2 Anxiety, generalized F41.1 Fatty liver disease, nonalcoholic K76.0 PCOS (polycystic ovarian syndrome) E28.2 Surgical History Surgery Date(Month/Year) C section 10/25/2011 C section 02/28/2019
--- OUTSIDE RECORDS SUMMARY | 2025-09-14 18:30 | XMS_ITS | Clinical Summary ---
Author Organization [address] Address [address] [place] [address] Phone Care Team Providers Care Glass Bead Maker Name Role Phone Job Fernandez MD Primary Care Provider Allergies Active Allergy Reactions Criticality Noted Date Comments Erythromycin 10/21/2024 Medications Vyvanse 20 mg capsule Take 1 capsule (20 mg total) by mouth 1 (one) time each day in the morning. Max Daily Amount: 20 mg 02/17/2024 Active levothyroxine (SYNTHROID, LEVOTHROID) 100 mcg tablet 12/13/2024 Active Encounters Date Type Department Care Team Description 09/06/2025 10:10 AM EST Lab Draw Station - [address] [place] [address] [phone] Urinary frequency from Last 3 Months Surgical History Surgery [...] on file Sexual Orientation Not on file Last Filed Vital Signs Vital Sign Reading [...] Health Maintenance Due Date Last Done Comments Drug Screen 1993 Non-Opioid Controlled Substance Agreement 1993 Hepatitis A Vaccines (1 of 2 - Risk 2-dose series) 2012 Cervical Cancer Screening: Pap Smear 2014 HPV Vaccines (1 - 3-dose SCDM series) 2020 Cholesterol Screening (Lipid Panel) 08/15/2022 HIV Screening 08/15/2022 Hepatitis C Screening 08/15/2022 Social Influencers of Health Screening 08/15/2022 DTaP,Tdap,and Td Vaccines (8 - Td or Tdap) 04/14/2024 04/14/2014, 01/15/2005, 11/29/1998, Additional history exists Depression Screening 09/16/2024 COVID-19 Vaccine ( season) 2025 10/31/2021, 09/24/2020, 09/03/2020 RSV Immunization Adult Patients (1 - 1-dose 75+ series) 2068 HIB Vaccines Completed 01/04/1995, 12/16, 04/19/1994, Additional history exists IPV Vaccines Completed 11/29/1998, 03/17, 01/04/1995, Additional history exists MMR Vaccines Completed 11/29/1998, 01/04/1995 Varicella Vaccines Completed 04/22/2008, 10/20/1996 Meningococcal ACWY Vaccine Completed 10/31/2011, Hepatitis B Vaccines Completed 01/06/2021, 06/20/2015, 12/08/2014, Additional history exists Influenza Vaccine Completed 07/08/2025, , 07/11/2023, Additional history exists Meningococcal B Vaccine Aged [...] Procedure Name Priority Date/Time Associated Diagnosis Comments [place] URINE CULTURE TUBE Routine 09/06/2025 10:10 AM EST Urinary frequency URINALYSIS WITH REFLEX MICROSCOPIC AND CULTURE Routine 09/06/2025 10:09 AM EST Urinary frequency URINALYSIS WITH REFLEX MICROSCOPIC AND CULTURE Routine 09/06/2025 10:09 AM EST Urinary frequency from Last 3 Months Results * [place] urine culture tube (09/06/2025 10:10 AM EST) Extra Tube Hold for add-ons. 09/06/2025 12:01 PM EST TARI YOUNG [place] ([facility] Comment:Auto resulted. Urine Urine specimen obtained by clean catch procedure / Unknown Non-blood Collection / Unknown 09/06/2025 10:10 AM EST 09/06/2025 10:27 AM EST Lissette WITT LAB URINE ORDERABLES Final R esult [facility] [address] [place] [address], [place] [phone] * Urinalysis with reflex microscopic and culture (09/06/2025 10:09 AM EST) Specific [place] Urine 1.025 1.003 - 1.030 LAB URINALYSIS - AUTOMATED METHOD 09/06/2025 10:47 AM [facility] pH, Urine 7.5 5.0 - 8.0 pH LAB URINALYSIS - AUTOMATED METHOD 09/06/2025 10:47 AM [facility] Leukocytes, Urine Negative Negative LAB URINALYSIS - AUTOMATED METHOD 09/06/2025 10:47 AM [facility] Nitrite, Urine Negative Negative LAB URINALYSIS - AUTOMATED METHOD 09/06/2025 10:47 AM [facility] Protein, Urine Negative <=Trace mg/dL LAB URINALYSIS - AUTOMATED METHOD 09/06/2025 10:47 AM [facility] Glucose, Urine Negative Negative mg/dL LAB URINALYSIS - AUTOMATED METHOD 09/06/2025 10:47 AM [facility] Ketones, Urine Negative Negative mg/dL LAB URINALYSIS - AUTOMATED METHOD 09/06/2025 10:47 AM [facility] Urobilinogen, Urine 0.2 0.2 - 1.0 mg/dL LAB URINALYSIS - AUTOMATED METHOD 09/06/2025 10:47 AM [facility] Bilirubin, Urine Negative Negative LAB URINALYSIS - AUTOMATED METHOD 09/06/2025 10:47 AM [facility] Blood, Urine Negative Negative LAB URINALYSIS - AUTOMATED METHOD 09/06/2025 10:47 AM [facility] Urine Urine specimen obtained by clean catch procedure / Unknown Non-blood Collection / Unknown 09/06/2025 10:09 AM EST 09/06/2025 10:26 AM EST us Lissette WITT LAB URINE ORDERABLES Final R esult TARI HECTOR CHUNG ([facility]) [facility] [address] [place] [address], [place] [phone] from Last 3 Months Insurance [facility] [address] [place] [id number] Care Teams Glass Bead Maker Relationship Specialty Start Date End Date Job Fernandez MD [address] [place] [address] [place] [id number] PCP - General Internal Medicine 06/30/18
--- OUTSIDE RECORDS SUMMARY | 2025-09-14 18:30 | XMS_ITS | Clinical Summary ---
Author Organization [facility] Address [address] [place] [id number] Care Team Providers Care Kitchen Steward/Stewardess Name Role Phone Unavailable Primary Care Provider [...] Description 07/28/2025 11:00 AM EST Office Visit [facility] [address], [place] [address] Jerrell Valadez MD Enlarged lymph [...] Procedure Name Priority Date/Time Associated Diagnosis Comments LAB RESULT Routine 08/25/2025 1:18 PM EST AMB REFERRAL TO INTERVENTIONAL RADIOLOGY Routine 08/18/2025 2:15 PM EST AMB REFERRAL TO ENT Routine 07/22/2025 2 :02 PM EST from Last 3 Months Results * LAB RESULT (08/25/2025 1:18 PM EST) us Jerrell Valadez MD HX AMB PROCEDURES Final Resul t * US Guided FNA (08/18/2025 2:15 PM EST) us Jerrell Valadez MD OUTPATIENT REFERRAL ORDERABLE S Final Result * Amb Referral to ENT (07/22/2025 2:02 PM EST) External Provider OUTPATIENT REFERRAL ORDERAB LES Final Result from Last 3 Months Insurance [facility]
== END 2025-09-14 16:53 | disposition home or self-care (01) ==
LOC: HO.HMCFM 14:54
PROVIDERS: PCP Internal Medicine; Visit Provider Internal Medicine
DX: Z13.9 Encounter for screening, unspecified (principal)

== ENCOUNTER → 2025-09-14 14:54 | Outpatient (BNVA) | payer OTHER, SELFPAY | PROVIDERS: PCP Internal Medicine; Visit Provider Internal Medicine | DX: Z13.89 Encounter for screening for other disorder (principal) | CPT/HCPCS: 87880 ==